=== PATIENT | male | born 1930 | race Caucasian/White ===

== ENCOUNTER 2016-10-12 14:12 | Emergency (ER) | payer MEDICARE, BC ==
[2015-06-12 18:36] VITALS: BMI 25.1
[~2016-10-12 14:12] MED LIST: CATAPRES0.1 MG; FERROUS SULFAT325 MG PO; FLOMAX0.4 MG PO; FOLIC ACID1 MG PO; GABAPENTIN100 MG PO; HCTZ25 MG PO; HYZAAR 50-12.51 TAB PO; IMDUR30 MG PO; LANTUS SOL100 UNIT/1 SQ; LISINOPRIL5 MG PO; MINIPRIN81 MG PO; NIASPAN500 MG PO; PLAVIX75 MG PO; PRAVACHOL80 MG PO; PROCARDIA10 MG; TOPROL XL100 MG PO; TRADJENTA5 MG PO
[2016-10-12 15:01] LABS: BASOPHILS 0.2 % (0.0-2.0); EOSINOPHILS 2.2 % (0-7); HEMOGLOBIN 11.8 g/dL (13.5-17.5); IMMATURE GRANULOCYTES 0.3 % (0-5); LYMPHOCYTES 13.6 % (15-50); MCH 27.8 pg (26.0-34.0); MCHC 31.9 g/dL (31.0-37.0); MCV 87.1 fL (80.0-100.0); MEAN PLATELET VOLUME 9.5 fL (7.4-10.4); MONOCYTES 6.2 % (2-11); NEUTROPHILS 77.5 % (40-80); PLATELET COUNT 195 10x3/uL (130-400); RBC 4.25 10x6/uL (4.20-6.10); RDW 13.6 % (11.5-14.5); WBC 11.9 10x3/uL (4.8-10.8)
[2016-10-12 15:28] LABS: ALBUMIN 3.6 g/dL (3.4-5.0); ALKALINE PHOSPHATASE 100 U/L (46-116); ALT (SGPT) 14 U/L (10-68); CALCIUM 8.7 mg/dL (8.5-10.1); CHLORIDE - SERUM 100 mmol/L (98-107); CREATININE - SERUM 1.3 mg/dL (0.6-1.3); POTASSIUM - SERUM 3.3 mmol/L (3.5-5.1); PROTEIN - SERUM 7.1 g/dL (6.4-8.2); SODIUM 140 mmol/L (136-145); UREA NITROGEN 21 mg/dL (7-18); eGFR NON AFRICAN AMERICAN 56 mL/min (90-120)
[2016-10-12 15:31] LABS: CREATINE KINASE 80 UL (21-232)
[2016-10-12 15:33] LABS: CALC OSMOLALITY 282 mosm/kg (275-300); GLUCOSE 116 mg/dL (74-106); TROPONIN-I < 0.017 ng/mL (0.000-0.060)
== END 2016-10-12 17:41 | disposition home or self-care (01) ==
LOC: D.ER 14:12
PROVIDERS: Emergency Medicine
DX: J20.9 Acute bronchitis, unspecified (principal); E11.9 Type 2 diabetes mellitus without complications; Z79.4 Long term (current) use of insulin; I10 Essential (primary) hypertension; I49.3 Ventricular premature depolarization; I45.10 Unspecified right bundle-branch block

== ENCOUNTER 2016-11-13 13:18 | Inpatient (IN) | payer MEDICARE, BC ==
[~2016-11-13] VITALS: Ht 182.9 cm; Wt 90.7 kg
[2016-11-13] VITALS (8 sets, daily range): BP systolic 133–158; BP diastolic 79–93; BMI 30.6
--- NOTE | ~2016-11-13 | HEMODYNAMI ---
PATIENT:REBEKAH JAMIL MEDICAL RECORD: [id number] : 32 LOCATION:[facility] ADMISSION DATE: 11/13/16 Generatedon:11/13/201616:54 Patient name: REBEKAH JAMIL Patient #: [id number] SSN: : 1930 Date of study: 11/13/2016 Page: Of Hemodynamic Procedure Report Patient Data Patient Demographics Procedure consent was obtained First Name: REBEKAH Gender: Male Last Name: OLULOU : 1930 Patient #: [id number] Age: 86 year(s) Race: Additional ID: [id number] Contact details Address: [address] [place] [address] State: [place] City: [place] Zip code: [address] Past Medical History History of disease Date Diagnosis Comments CAD Allergies Allergen Reaction Date Comments Reported Other allergy 06/13/2015 Oxycodone Other allergy 11/13/2016 OXYCODONE Admission Admission Data Admission Date: 11/13/2016 Admission Time: 13:18 Lab Results Lab Result Date: 11/13/2016 Lab Result Time: 0:00 Biochemistry Name Units Result Min Max BUN mg/dl 29 --(----)-* 7 18 Creatinine mg/dl 1.6 --(----)-* 0.6 1.3 Troponin l ng/ml 0.09 --(----)-* 0 0.06 CBC Name Units Result Min Max Hemoglobin g/dl 13.1 -*(----)-- 13.5 17.5 Procedure Procedure Types Cath Procedure Diagnostic Procedure LHC Coronaries only Aortic Root Angiography PCI Procedure Coronary Stent Initial Procedure Description Procedure Date Procedure Date: 11/13/2016 Procedure Start Time: 16:12 Procedure End Time: 16:48 Procedure Staff Name Function Joe Weinstein MD Performing Physician Rey Haley RT Scrub Ronla العراقي RN Nurse [place] RT Monitor Procedure Data Cath Procedure Fluoroscopy Diagnostic fluoroscopy Total fluoroscopy Time: time: 11.2 min 11.2 min Diagnostic fluoroscopy Total fluoroscopy dose: dose: 1183 mGy 1183 mGy Contrast Material Contrast Material Type Amount (ml) Isovue 300 180 Entry Location Entry Primary Successful Side Size Upsize Upsize Entry Closure Succes sful Closure Location (Fr) 1 (Fr) 2 (Fr) Remarks Device Remarks Femoral Right 6 Fr Exoseal artery Short Diagnostic catheters Device Type Used For End Catheter Placement Cordis 5Fr JL 4.0 Left Coronary Catheter (MP) Angiography Diagnostic Infinity 5Fr Left Coronary JL 5 catheter Angiography Cordis 5Fr 3DRC Catheter Right Coronary (MP) Angiography Cordis 5Fr Pigtail LV Angiography Catheter (MP) Procedure Complications No complications Procedure Medications Medication Administration Route Dosage Oxygen NC 2 l/min Lidocaine 2% added to field 20 Heparin Flush Bag added to field 2 bags (1000units/500ml NS) 0.9% NaCl I.V. 100 ml/hr Versed I.V. 1 mg Fentanyl I.V. 50 mcg Versed I.V. 1 mg Fentanyl I.V. 50 mcg Fentanyl I.V. 50 mcg Heparin Bolus I.V. 8000 units Plavix P.O. 300 mg Hemodynamics Rest HGB: 13.1 (g/dl) Heart Rate: 86 (bpm) Snapshots Pre Cath Intra NCS Post Cath Vital Signs Time Heart Resp SPO2 etCO2 EH2usoq NIBP (mmHg) Rhythm Pain Status Se dation Rate (ipm) (%) (mmHg) (mmHg) Level (bpm) 16:06:44 81 19 99 0 0 142/83(113) NSR 2 (11) , 10 (A) Uncomfortable 16:10:58 83 17 98 0 0 136/85(107) NSR 2 (11) , 10 (A) Uncomfortable 16:16:19 77 17 97 0 0 132/75(103) NSR 0 (11) , No 10 (A) pain 16:20:33 79 16 95 0 0 142/79(110) NSR 0 (11) , No 10 (A) pain 16:24:49 79 15 97 0 0 134/76(109) NSR 0 (11) , No 9( A) pain 16:29:05 80 16 98 0 0 133/79(111) NSR 0 (11) , No 9( A) pain 16:33:21 76 15 98 0 0 136/75(106) NSR 0 (11) , No 9( A) pain 16:37:39 78 16 97 0 0 127/74(101) NSR 0 (11) , No 9( A) pain 16:41:53 79 18 99 0 0 125/73(99) NSR 0 (11) , No 9( A) pain 16:46:07 87 17 99 0 0 129/71(104) NSR 0 (11) , No 10 (A) pain Medications Time Medication Route Dose Verified Delivered Reason Notes Effectiveness by by 16:06:35 Oxygen NC 2 Joe Buffie used for l/min Vazquez العراقي RN procedure 16:06:41 Lidocaine 2% added 20ml Joe Joe for local to vial Vazquez Weinstein MD anesthetic field 16:06:47 Heparin Flush added 2 Joe Joe used for Bag to bags Vazquez Weinstein MD procedure (1000units/500ml field NS) 16:06:55 0.9% NaCl I.V. 100 Joe Buffie Per physician ml/hr Vazquez العراقي RN 16:11:00 Fentanyl I.V. 50 Joe Buffie for sedation mcg Vazquez العراقي RN 16:11:54 Versed I.V. 1 mg Joe Buffie for sedation Vazquez العراقي RN 16:18:12 Versed I.V. 1 mg Joe Buffie for sedation Vazquez العراقي RN 16:18:16 Fentanyl I.V. 50 Joe Buffie for sedation mcg Vazquez العراقي RN 16:33:22 Fentanyl I.V. 50 Joe Buffie for sedation mcg Vazquez العراقي RN 16:35:53 Heparin Bolus I.V. 8,000 Joe Buffie for verifi ed units Vazquez العراقي RN anticoagulation with dr weinstein 16:53:10 Plavix P.O. 300 Joe Buffie for mg Vazquez العراقي RN antiplatelet therapy Procedure Log Time Note 15:47:10 ACC Patient presents with STEMI CCS Anginal Class 3--Marked limitation of physical activity, angina occurs with ordinary activity.. 15:47:15 Diagnostic Cath status Emergency 15:47:17 Ronal العراقي RN sent for patient. Start room use. 15:47:20 Time tracking: Call back 15:47:24 Plan of Care:Hemodynamics will remain stable., Cardiac rhythm will remain stable., Comfort level will be maintained., Respiratory function will remain adequate., Patient/ family verbilizes understanding of procedure., Procedure tolerated without complication., Recovers from procedure without complications.. 16:05:36 Patient received from ED to CCL 1 Alert and oriented. Tansferred to table in Supine position. 16:05:37 Warm blankets applied, and sanya hugger turned on for patient comfort. 16:05:37 Correct patient and procedure confirmed by team. 16:05:38 Signed procedure consent form obtained from patient. 16:05:39 ECG and BP/O2 sat monitors applied to patient. 16:05:40 Baseline sample Acquired. 16:05:40 Vital chart was started 16:05:54 Rhythm: sinus rhythm 16:05:56 Full Disclosure recording started 16:06:04 H&P Date Dictated: 11/13/2016 Emergent; H&P N/A. 16:06:05 Pre-procedure instructions explained to patient. 16:06:06 Pre-op teaching completed and patient verbalized understanding. 16:06:07 Family in waiting room. 16:06:09 Patient NPO since Midnight. 16:06:35 Oxygen 2 l/min NC was administered by Ronal العراقي RN; used for procedure; 16:06:41 Lidocaine 2% 20ml vial added to field was administered by Joe Weinstein MD; for local anesthetic; 16:06:47 Heparin Flush Bag (1000units/500ml NS) 2 bags added to field was administered by Joe Weinstein MD; used for procedure; 16:06:55 0.9% NaCl 100 ml/hr I.V. was administered by Ronal العراقي RN; Per physician; 16:07:02 Patient allergic to Other allergyOXYCODONE 16:07:04 Is the patient allergic to Iodine/contrast media? No. 16:07:08 Is patient on blood thinner?Yes 16:07:11 ACC The patient was administered the following blood thiners within the last 24 hours: ACCAspirin, ACCPlavix 16:07:13 Patient diabetic? Yes. 16:07:15 If diabetic: On Metformin? No 16:07:16 ----Pre-sedation anethsthesia assessment.---- 16:07:19 Previous problem with sedation/anesthesia? No ? 16:07:20 Snore? No 16:07:22 Sleep apnea? No 16:07:24 Deviated septum? No 16:07:25 Opens mouth fully? Yes 16:07:27 Sticks out tongue? Yes 16:07:33 Airway obstruction? Yes EMPYZEMIA 16:07:38 Dentures? Yes UPPER IN TIGHT 16:07:42 Pre procedure: right dorsailis pedis pulse 1+ Palpable, but thready & weak; easily obliterated 16:07:46 Patient pain scale 2/10 CP. 16:07:52 IV patent on arrival in right forearm with 0.9% NaCl at 10ml/hr. 16:09:51 Lab Result : Creatinine 1.6 mg/dl 16::51 Lab Result : BUN 29 mg/dl 16:09:51 Lab Result : Troponin l 0.09 ng/ml 16:09:51 Lab Result : Hemoglobin 13.1 g/dl 16:09:55 Lab results completed and on chart. 16:09:58 Right groin area was prepped with chlora-prep and draped in sterile fashion 16:09:59 Alarms reviewed by R. N. 16:09:59 Sharps counted by scrub and verified by R.N. 16:10:00 --------ALL STOP TIME OUT------ 16:10:01 Final Timeout: patient, procedure, and site verified with staff and physician. All members of the team are in agreement. 16:10:02 Right groin site verified by team. 16:10:05 Physical assessment completed. ASA score P 2 - A patient with mild systemic disease as per Joe Weinstein MD. 16:10:09 Sedation plan: IV Moderate Sedation Versed, Fentanyl 16:10:26 Use device set Femoral PCI 16:10:28 Acist Syringe opened to sterile field. 16:10:28 Acist Hand Control opened to sterile field. 16:10:28 Bag Decanter opened to sterile field. 16:10:29 Medline Cath Pack opened to sterile field. 16:10:29 Terumo 6Fr Jolon Sheath opened to sterile field. 16:10:30 St Pan 260cm J .035 wire opened to sterile field. 16:10:30 Merit BasixCompak Inflation Kit opened to sterile field. 16:10:31 Acist Manifold opened to sterile field. 16:10:31 Tegaderm 4 x 4 opened to sterile field. 16:10:45 Sanchez BMW [place] 2 J-tip 300cm 0.014 guide wir opened to sterile field. 16:10:45 High Pressure Extension Tubing (Vazquez) opened to sterile field. 16:10:51 Use device set Multipack Set 16:10:53 Diagnostic Infinity 5Fr Multipack catheter opened to sterile field. 16:11:00 Fentanyl 50 mcg I.V. was administered by Ronal العراقي RN; for sedation; 16:11:06 Procedure started. 16:11:54 Versed 1 mg I.V. was administered by Ronal العراقي RN; for sedation; 16:12:36 Local anesthetic to right femoral artery with Lidocaine 2% by Joe Weinstein MD.INITIAL ACCESS ONLY 16:12:46 A 6 Fr Short sheath was inserted into the Right Femoral artery 16:13:01 Zero performed for pressure channel P1 16:13:10 Zero performed for pressure channel P1 16:14:14 Baseline sample Acquired. 16:14:59 A Cordis 5Fr JL 4.0 Catheter (MP) was advanced over the wire and used for Left Coronary Angiography. 16:15:01 Catheter removed. unable to cannulate vessel. 16:15:18 A Diagnostic Infinity 5Fr JL 5 catheter was advanced over the wire and used for Left Coronary Angiography. 16:17:58 LCA angiography performed. 16:18:00 Catheter removed. 16:18:06 A Cordis 5Fr 3DRC Catheter (MP) was advanced over the wire and used for Right Coronary Angiography. 16:18:12 Versed 1 mg I.V. was administered by Ronal العراقي RN; for sedation; 16:18:16 Fentanyl 50 mcg I.V. was administered by Ronal العراقي RN; for sedation; 16:21:53 RCA angiography performed. 16:21:54 Catheter removed. 16:22:00 A Cordis 5Fr Pigtail Catheter (MP) was advanced over the wire and used for LV Angiography. 16:24:46 Aortic Root visualized 16:24:57 Procedure type changed to Cath procedure, Diagnostic procedure, LHC, Coronaries only, Aortic Root Angiography, PCI procedure, Coronary Stent Initial 16:27:18 Catheter removed. 16:27:27 kidthingtronic Launcher 6Fr AR 1.0 guide catheter opened to sterile field. 16:28:00 ACC PCI Site: PDA has 99% stenosis. 16:28:04 ACC Pre-intervention DIANN Flow is 3. 16:28:09 6 Fr AR 1 guide catheter was inserted over the wire 16:31:45 Guide Catheter removed. damaged. 16:32:25 Terumo 6Fr Jolon Destination Sheath opened to sterile field. 16:33:22 Fentanyl 50 mcg I.V. was administered by Ronal العراقي RN; for sedation; 16:34:02 Medtronic Launcher 6Fr AR 1.0 guide catheter opened to sterile field. 16:34:08 6 Fr AR 1 guide catheter was inserted over the wire 16:35:53 Heparin Bolus 8,000 units I.V. was administered by Ronal العراقي RN; for anticoagulation; verified with dr weinstein 16:37:57 BMW2 wire advanced. 16:43:38 Inflation Number: 1 A kidthingtronic Integrity 3.5 X 15 stent was prepped and advanced across the Mid RCA. The stent was deployed at 10 SHEILA for 0:13 (min:sec). 16:44:37 ACC Post-intervention DIANN Flow is 3. 16:44:38 Stent catheter was removed intact over wire. 16:44:39 Wire removed. 16:44:39 Guide catheter removed. 16:44:46 Sheath removed intact; hemostasis achieved with Exoseal to the Right Femoral artery. 16:44:54 Cordis 6Fr Exoseal opened to sterile field. 16:44:56 Procedure ended.(Physican Out) 16:45:06 Fluoroscopy time 11.20 minutes. 16:45:12 Fluoroscopy dose: 1183 mGy 16:45:12 Flurop Dose total: 1183 16:46:01 Contrast amount:Isovue 300 180ml. 16:46:23 Sharps counted by scrub and verified by R.N. 16:46:24 Insertion/operative site no bleeding no hematoma. 16:46:26 Post-op/insertion site Right Femoral artery dressed using a 4 x 4 and Tegaderm. 16:46:30 Post right femoral artery:stable 16:46:32 Post Procedure Pulses reassessed and unchanged 16:46:35 Post procedure: right dorsailis pedis pulse 1+ Palpable, but thready & weak; easily obliterated. 16:46:38 Post procedure rhythm: sinus rhythm 16:46:41 Post procedure instruction explained to patient.Patient verbalizes understanding. 16:47:37 Procedure and supply charges have been captured, reviewed, submitted and are correct. 16:47:55 Procedure Complication : No complications 16:47:58 Vital chart was stopped 16:47:58 See physician's report for complete and final results. 16:48:00 Report given to CVICU. 16:48:03 Patient transfered to CVICU with Bed. 16:48:06 Procedure ended. 16:48:06 Full Disclosure recording stopped 16:48:12 End room use (Document Last) 16:53:10 Plavix 300 mg P.O. was administered by Ronal العراقي RN; for antiplatelet therapy; Intervention Summary Intervention Notes Time ActionType Lesion and Equipment Action# Pressure Duration Attributes Used 16:43:38 Place stent Mid RCA Medtronic 1 10 00:13 Integrity 3.5 X 15 stent Device Usage Item Name Manufacture Quantity Catalog Hospital Part Current Minimal L ot# / Number Charge Number Stock Stock Serial# Code Acist Acist 1 02455 890822 253318 191008 20 Syringe Medical Systems Inc Acist Hand Acist 1 20493 662290 051526 057185 5 Control Medical Systems Inc Bag Microtek 1 2002S 333039 25427 337974 5 [employer]un [employer] Inc. Medline Cardinal 1 [id number] 333946 70491 882142 5 Cath Pack BigFix Terumo 6Fr Terumo 1 [id number] 226108 545867 420006 [address] Pan St Pan 1 497122 897712 602376 139480 30 260cm J .035 wire Merit Merit 1 [id number] 129953 127494 670031 15 BasixCompak Medical Inflation Kit Acist Acist 1 38857 104007 224376 565964 5 Manifold Medical Systems Inc Tegaderm 4 3M 1 1626W 310484 200609 131236 5 x 4 Sanchez BMW Sanchez 1 [id number] 584938 881467 212801 5 [place] 2 Vascular J-tip 300cm 0.014 guide wir High Merit 1 [id number] 269962 87237 365581 10 Pressure Medical Extension Tubing (Weinstein) Diagnostic Cardinal 1 OU1265 913624 11800 003222 30 Qritiqr 5Fr Multipack catheter Cordis 5Fr Cardinal 1 324426 5 JL 4.0 Health Catheter (MP) Diagnostic Cardinal 1 [id number] 289021 566238 954973 5 Infinity Health 5Fr JL 5 catheter Cordis 5Fr Cardinal 1 734409 5 3DRC Health Catheter (MP) Cordis 5Fr Cardinal 1 557211 5 Pigtail Health Catheter (MP) Medtronic Medtronic 2 [id number] 443760 94780 070911 1 Launcher 6Fr AR 1.0 guide catheter Terumo 6Fr Terumo 1 RSR01 453838 76142 868616 5 Jolon Destination Sheath Medtronic Medtronic 1 [id number] 833588 077113 483728 1 0 [id number] Integrity 3.5 X 15 stent Cordis 6Fr Cardinal 1 EX600 105640 212584 451136 10 Prim’Visionpremier health BigFix Signature Audit [place] Stage Time Signature Unsigned Intra-Procedure 11/13/2016 Rey Haley 4:54:14 PM RT(R) Signatures Monitor : [place] Signature : RT Date : Time : [facility] Deepa0 LONNIE EGAN, VIVIAN [address]
--- NOTE | ~2016-11-13 | OP ---
PATIENT NAME: REBEKAH JAMIL MEDICAL RECORD: [id number] :[birth year] LOCATION:.[facility] D.2305 ADMISSION DATE: SURGEON: REYES HUGO M.D. DATE OF OPERATION: 11/13/2016 PROCEDURES PERFORMED: 1. Selective coronary angiography. 2. Aortic root injection. 3. PTCA and stent placed right coronary artery. INDICATION: An 86-year-old gentleman presents with acute inferior wall ND. EQUIPMENT USED: Diagnostic 5-Moroccan JL5, Emanuel right. INTERVENTION: A 6-Moroccan AR1 guide, BMW guidewire, 3.5 x 15 mm Integrity stent. TECHNIQUE: A 6-Moroccan sheath was inserted in retrograde fashion in the right common femoral artery. Next, selective coronary angiography was performed in standard 5-Moroccan JL5 and Emanuel right. Left heart catheterization was not performed as the valve could not be crossed. Aortic root injection performed using pigtail catheter. CORONARY ANATOMY: 1. Left main: Left main trunk is moderate in caliber. It gives rise to the LAD and circumflex. There is no obstruction. 2. LAD: This is a moderate caliber vessel extending to the apex. All the stents are widely patent. Between the stents in the mid segment, there does appear to be a 70% stenosis in between 2 stents in the distal aspect of the vessel. 3. Circumflex: This is moderate in caliber. The proximal vessel has been stented. The stents are widely patent. 4. Right coronary artery: This vessel is large in caliber and dominant. The mid vessel has been stented. Inside the stent, there appears to be a hazy and ulcerated 90% stenosis versus thrombus. 5. Aortic root: The ascending aorta is upper limits of normal size. There is mild insufficiency seen. The aortic valve leaflets are moderately calcified. DESCRIPTION OF INTERVENTION: A long 6-Moroccan sheath was placed into the distal aorta because of tortuous in the right iliac artery. Next, 8000 units of heparin was infused. A 6-Moroccan AR1 guide was advanced and engaged in the right coronary artery. Next, a BMW guide wire was placed in the distal vessel. A 3.5 x 15 mm Integrity stent was placed across the stenosis in the mid right coronary artery and deployed at 10 atmospheres. Injection shows stent to be widely patent with 0% residual stenosis. The hazy area resolved after stenting. There is brisk flow the distal vessel. At this point, the wire and guide were removed. IMPRESSION: Successful percutaneous transluminal coronary angioplasty and stent in the right coronary artery with 0% residual stenosis. TRANSINT:[id number] Voice Confirmation ID: [id number] DOCUMENT ID: [id number] OPERATIVE REPORT [id number] REBEKAH JAMIL TIMOTHY E M.D. CC: [id number] DICTATION DATE: 11/13/16 165 CONTROL SUPERVISOR: 11/13/16 1752 [facility] [address] [place] [id number]
--- NOTE | ~2016-11-13 | EC ---
PATIENT:REBEKAH JAMIL DATE OF SERVICE: 11/13/16 SEX: M MEDICAL RECORD: [id number] DATE OF : [birth year] LOCATION:D. D.211 AGE OF PATIENT: 86 ADMISSION DATE: 11/13/16 REFERRING PHYSICIAN: INTERPRETING PHYSICIAN: REYES SHUKLA M.D. ECHOCARDIOGRAM REPORT ECHO CHARGES 4 ECHO COMPLETE CLINICAL DIAGNOSIS: ACUTE VA ECHOCARDIOGRAPHIC MEASUREMENTS (adult normal given) AC root (d.<3.7cm) 3.7 LV Septum d (<1.2 cm> 1.5 Valve Excursion 0.8 LV Septum (systole) 2.0 Left Atria (s.<4.0cm> 3.3 LVPW d(<1.2cm) 1.4 RV (d.<2.3cm) 2.6 LVPW (sytole) 1.7 LV diastole(<5.6CM) 6.7 MV E-F(>70mm/sec) LV systole 4.9 LVOT Diameter 1.8 MV exc.(>10mm) Est.ejection fraction (50-75%) Pericardial Effusion N DOPPLER: LVIT A 143 E 108 LA RVSP 43.2 LVOT 96.0 AOP1/2T 458.0 Asc. Ao 294 RVOT 75.0 RA PA 141 AV Gradient Peak 35.0 AV Mean 19.4 AV Area 0.7 MV Gradient Peak 7.7 MV Mean 3.2 MV Area COMMENTS: Supervisor Water Softener Service: Sunday MCARTHUROE Deck Officer:Kimo Shukla TAPE# PACS DATE OF SERVICE: 11/14/2016 INDICATION: Acute VA. DESCRIPTION: Left ventricle is mildly dilated. There is mild LV dysfunction noted. Estimated ejection fraction is in the order of 40%. Mitral valve structures are normal. There is mild regurgitation seen. Left atrium is normal size. The aortic valve leaflets are thickened. Peak gradient across the valve is 35 mmHg. Mean is 19 mmHg. There is mild insufficiency noted as well. Right ventricle is normal size and function. Tricuspid valve is structurally normal. ECHOCARDIOGRAM REPORT [id number] REBEKAH JAMIL There is mild regurgitation noted. Right atrium is normal size. There is no pericardial effusion seen. IMPRESSION: 1. 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 2. Moderate mitral regurgitation. 3. Rwxs-gx-beevnynq aortic stenosis. 4. Mild tricuspid regurgitation. TRANSINT:[id number] Voice Confirmation ID: [id number] DOCUMENT ID: [id number] REYES SHUKLA M.D. CC: [id number] DICTATION DATE: 11/14/16 1329 WOODWORKING BELT SANDER: 11/14/16 1451 ADM IN [facility] [address] [id number]
[2016-11-13 13:54] LABS: BASOPHILS 0.2 % (0.0-2.0); EOSINOPHILS 1.1 % (0-7); HEMATOCRIT 41.6 % (42.0-54.0); HEMOGLOBIN 13.1 g/dL (13.5-17.5); IMMATURE GRANULOCYTES 0.5 % (0-5); LYMPHOCYTES 12.5 % (15-50); MCH 27.5 pg (26.0-34.0); MCHC 31.5 g/dL (31.0-37.0); MCV 87.4 fL (80.0-100.0); MEAN PLATELET VOLUME 9.5 fL (7.4-10.4); MONOCYTES 5.7 % (2-11); RBC 4.76 10x6/uL (4.20-6.10); RDW 14.2 % (11.5-14.5); WBC 12.2 10x3/uL (4.8-10.8)
[2016-11-13 14:00] LABS: PLATELET COUNT 236 10x3/uL (130-400)
[2016-11-13 14:04] LABS: APTT 34.7 SECONDS (22.8-39.4); INR 1.13 (0.85-1.17); PROTIME 14.3 SECONDS (11.6-15.0)
[2016-11-13 14:05] LABS: D-DIMER-QUANTITATIVE 1.96 ug/mLFEU (0.20-0.54)
[2016-11-13 14:25] LABS: ALBUMIN 3.8 g/dL (3.4-5.0); ALKALINE PHOSPHATASE 107 U/L (46-116); ALT (SGPT) 26 U/L (10-68); BILIRUBIN - TOTAL 0.44 mg/dL (0.2-1.3); CALCIUM 9.2 mg/dL (8.5-10.1); CARBON DIOXIDE 24.8 mmol/L (21.0-32.0); CHLORIDE - SERUM 101 mmol/L (98-107); CKMB 2.4 U/L (0.0-3.6); CREATINE KINASE 66 UL (21-232); POTASSIUM - SERUM 3.9 mmol/L (3.5-5.1); PROTEIN - SERUM 8.1 g/dL (6.4-8.2); SODIUM 140 mmol/L (136-145); UREA NITROGEN 29 mg/dL (7-18)
[2016-11-13 14:54] LABS: CALC OSMOLALITY 288 mosm/kg (275-300); CHOL - HDL RATIO 4.3 ratio (2.3-4.9); CHOLESTEROL, TOTAL 120 mg/dL (0-200); CREATININE - SERUM 1.6 mg/dL (0.6-1.3); GLUCOSE 167 mg/dL (74-106); HDL CHOLESTEROL 28 mg/dL (32-96); LDL CHOLESTEROL 52 mg/dL (0-100); LDL-HDL RATIO 1.9 ratio (1.5-3.5); TRIGLYCERIDE 202 mg/dL (30-200); eGFR NON AFRICAN AMERICAN 44 mL/min (90-120)
--- NOTE | 2016-11-13 17:20 | NUR ---
REC'D FROM SERIALS LIBRARIAN AND HOOKED UP TO CM. NS WITH PAC'S RATE OF 77. INSTRUCTED TO KEEP RIGHT LEG STRAIGHT. VERBALLY EXPRESSED UNDERSTANDING. ON 2L 02 VIA NC. RIGHT WRIST PIV. CD&I. NO S/S OF INFILTRATION. RIGHT GROIN SERIALS LIBRARIAN SITE. CD&I NO S/S OF BLEEDING OR HEMATOM. CPOC.
[2016-11-13] MEDS ORDERED: NIFEDIPINE ER60 MG PO (17:38)
[2016-11-13] MEDS ORDERED: FUROSEMIDE20 MG PO (17:39)
[2016-11-13] MEDS ORDERED: LANTUS SOL100 UNIT/1 SC ×2 (17:39→21:19)
[2016-11-13] MEDS ORDERED: KLOR-CON 88 MEQ PO (17:40)
--- NOTE | 2016-11-13 18:10 | NUR ---
NO BLEEDING AT PARTY PLANNER SITE
--- NOTE | 2016-11-13 19:30 | NUR ---
REC'D PT RESTING QUIETLY IN BED ON O2 @ 2LITERS WATCHING TV, HEARING AID NOTED TO LEFT EAR, PT AWAKE, ALERT, AND ORIENTED X 4, RIGHT FOREARM PIV WITH NS @ 100CC/HR, PT DENIES PAIN, CM-SR WITH PVC'S, RIGHT GROIN DRSG CDI WITH NO BLEEDING OR HEMATOMA, PPP, SR UP X 2, BED IN LOW POSITION, CALLL LIGHT IN REACH.
--- NOTE | 2016-11-13 20:45 | NUR ---
PT CALLED NURSE BLOOD NOTED ON HAND, STATES "I THINK I AM BLEEDING", RIGHT GROIN DRSG SATURATED WITH BLOODY DRAINAGE, SITE UNDRESSED AND PRESSURE HELD X 5MINS, SLOW OOZE NOTED FROM SITE, CHOLRAHEXIDINE WIPES USED TO CLEAN LEG, 2X2'S AND TEGADERM APPLIED, NO FURTHER BLEEDING NOTED, WILL MONITOR CLOSELY FOR CHANGES.
--- NOTE | 2016-11-13 21:05 | NUR ---
FAMILY @ BS, UPDATE GIVEN, RIGHT GROIN DRSG REMAINS CDI, PT ASKING ABOUT WHEN HE CAN MOVE, BEDREST OVER NOW, BUT PT ENCOURAGED TO KEEP LEG STRAIGHT FOR A LITTLE LONGER, PT AGREEABLE, CALL LIGHT IN REACH.
--- NOTE | 2016-11-13 21:15 | NUR ---
EVENING MEDS GIVEN, PT INQUIRING ABOUT EVENING INSULIN, MEDICATION RECONCILLIATION CHECKED, NO INSULIN ON THERE ADDED AT THIS TIME
--- NOTE | 2016-11-13 22:15 | NUR ---
PT ASSISTED TO TURN ONTO LEFT SIDE SUPPORTED WITH PILLOW, RIGHT GROIN DRSG REMAINS CDI, NO FURTHER BLEEDING NOTED.
--- NOTE | 2016-11-13 23:00 | NUR ---
PT TRANSFERRED TO ICU BED, PT ABLE TO STAND AT BS, GAIT STEADY, TOLERATED WELL, RIGHT GROIN DRSG CDI, SITE REMAINS SOFT, PT REQUESTING URINAL PROVIDED AT THIS TIME, CALL LIGHT IN REACH.
[2016-11-14] VITALS (15 sets, daily range): BP systolic 128–188; BP diastolic 79–111; Ht 182.9 cm; Wt 90.7 kg
--- NOTE | 2016-11-14 01:00 | NUR ---
PT RESTING ON LEFT SIDE EYES CLOSED, RESP EVEN AND UNLABORED, CM-SB @ 55 WITH OCCASIONAL PVC'S WILL CONT TO MONITOR CLOSELY FOR CHANGES.
--- NOTE | 2016-11-14 03:00 | NUR ---
BS URINAL EMPTIED OF 50OCC YELLOW URINE, PT REPORTS RIGHT GROIN TENDER, DRSG REMAINS CDI, NO BLEEDING OR HEMATOMA NOTED, PT DENIES NEEDS, SR UP X 2, CALL LIGHT IN REACH.
--- NOTE | 2016-11-14 04:45 | NUR ---
I AND O'S COMPLETED, PT RESTING EYES CLOSED, RESP EVEN AND UNLABORED, HR 65, WILL CONT TO MONITOR FOR CHANGES.
--- NOTE | 2016-11-14 06:00 | NUR ---
SON AT BS, UPDATE GIVEN AND QUESTIONS ANSWERED.
--- NOTE | 2016-11-14 07:00 | NUR ---
REPORT RECEIVED. ASSESSMENT COMPLETED. PATIENT DENIES NEEDS AT THIS TIME.
--- NOTE | 2016-11-14 13:05 | NUR ---
Patient Name: REBEKAH JAMIL Admission Status: ER Accout number: [id number] Admission Date: 11-13-2016 : 1930 Admission Diagnosis: Attending: JOSE Current LOS: 1 Anticipated DC Date: TO BE DETERMINED Planned Disposition: Home with Home Health Primary Insurance: MEDICARE A & B PLANNED EXTERNAL PROVIDER: [facility] Discharge Planning Comments: * Is the patient Alert and Oriented? Yes 0 * How many steps to enter\exit or inside your home? RAMP 0 * PCP DR. KRISHNAMURTHY 0 * [facility] [place] 0 * Preadmission Environment Home Alone 0 * ADLs Independent 0 * Equipment Cane Walker 0 * Other Equipment [facility] -MEDICAL EQUIPMENT PROVIDER PREFERENCE 0 * List name and contact numbers for known caregivers / representatives who currently or will assist patient after discharge: NIKOLE AND JEFFRY JAMIL, SON AND DTR IN LAW, * Community resources currently utilized None 0 * Please name any agencies selected above. NONE 0 * Additional services required to return to the preadmission environment? Yes * Can the patient safely return to the preadmission environment? Yes 0 * Has this patient been hospitalized within the prior 30 days at any hospital? No 0 CM MET WITH PT IN ROOM TO DISCUSS DISCHARGE PLANNING AND NEEDS. PT REPORTS LIVING AT HOME INDEPENDENTLY AND ALONE. PT HAS THREE WALKERS AND A CANE AT HOME, [facility] IS PT'S MEDICAL EQUIPMENT PROVIDER PREFERENCE. PT HAS NO OUTSIDE SERVICES ASSISTING IN THE HOME. CM DISCUSSED AVAILABILITY OF HOME HEALTH, REHAB SERVICES AND MEDICAL EQUIPMENT. PT WILL CONSIDER HOME HEALTH BUT PLANS TO RETURN HOME AT DISCHARGE; PT REPROTS HAVING A NEPHEW OR NEICE THAT MAY STAY WITH HIM IF NEEDED AND REPORTS HAVING ASSISTANCE OF HIS SON AND DAUGHTER IN LAW IF NEEDED. PT REPORTS HIS DAUGHTER IN LAW WILL PICK HIM UP FOR DISCHARGE HOME. IMPORTANT MESSAGE FROM MEDICARE PROVIDED AND EXPLAINED. CM RECEIVED CALL FROM RN ROSAMARIA BOURNE WHO REPORTED SPEAKING TO PT AND PT'S DAUGHTER IN LAW IN ROOM, THEY HAVE DECIDED ON [facility] FOR PT'S DISCHARGE HOME. CHOICE SIGNED AND IN CHART. PT REQUESTING HOME HEALTH FOR DISCHARGE HOME. CM TO ARRANGE HOME HEALTH WITH [facility] WITH PHYSICIAN AGREEMENT AND ORDERS. Direct Marketing Intern: Tomi Snow
--- NOTE | 2016-11-14 13:10 | NUR ---
REPORT CALLED TO CRISTIAN ON MED 2. PATIENT WILL GO TO ROOM 2151 VIA WHEELCHAIR.
--- NOTE | 2016-11-14 14:16 | NUR ---
TRANSFER FROM ICU BY W/C. OREINTED TO ROOM. CALL LIGHT IN REACH. WILL CONT. PLAN OF CARE.
--- NOTE | 2016-11-14 19:15 | NUR ---
INITIAL ROUNDS MADE. PT SITTING UP IN BED WATCHING TV WITH FAMILY IN ROOM. DENIES NEEDS OR C/O AT THIS TIME. CALL LIGHT IN REACH. WILL CONT TO MONITOR.
[2016-11-15 04:00] VITALS: BP 118/73
[2016-11-15 07:47] VITALS: BP 151/86
--- NOTE | 2016-11-15 09:18 | NUR ---
TELEMETRY SR. UP AMBULATING HALLWAY WITH FAMILY MEMBER. WILL CONT. PLAN OF CARE.
[2016-11-15] MEDS ORDERED: COREG 3.1253.125 MG PO (09:24)
--- NOTE | 2016-11-15 09:50 | NUR ---
iv and telemetry dcd. dc plans given. understanding voiced. escorted to car by w/c.
== END 2016-11-15 09:51 | disposition home health service (06) | DRG 249 ==
LOC: D.CATH 13:18 → D.ER 13:18 → EDSTATUS 15:57 → D.ICU 17:16 → D.CATH 17:17 → D.ICU 17:17 → D.M2 11-14 14:12
PROVIDERS: Emergency Medicine; ADMIT Internal Medicine Cardiovascular Disease
PROC: B2111ZZ Fluoroscopy of Multiple Coronary Arteries using Low Osmolar Contrast (ICD-10-PCS; 2016-11-13)
PROC: 02703DZ Dilation of Coronary Artery, One Artery with Intraluminal Device, Percutaneous Approach (ICD-10-PCS; principal; 2016-11-13 15:47)
PROC: 4A023N7 Measurement of Cardiac Sampling and Pressure, Left Heart, Percutaneous Approach (ICD-10-PCS; 2016-11-13 15:47)
DX: I21.19 ST elevation (STEMI) myocardial infarction involving other coronary artery of inferior wall (principal); I25.10 Atherosclerotic heart disease of native coronary artery without angina pectoris; I10 Essential (primary) hypertension; E11.9 Type 2 diabetes mellitus without complications; E78.5 Hyperlipidemia, unspecified

== ENCOUNTER 2016-12-05 09:00 | Outpatient (CLI) | payer MEDICARE, BC ==
[~2016-12-05] VITALS: Ht 182.9 cm; Wt 93.2 kg
--- NOTE | ~2016-12-05 | HEMODYNAMI ---
PATIENT:REBEKAH JAMIL MEDICAL RECORD: [id number] : [birth year] LOCATION:[facility] ADMISSION DATE: 12/05/16 Generatedon:12/05/201612:58 Patient name: REBEKAH JAMIL Patient #: [id number] SSN: : 1930 Date of study: 12/05/2016 Page: Of Hemodynamic Procedure Report Patient Data Patient Demographics Procedure consent was obtained First Name: REBEKAH Gender: Male Last Name: LOULOU : 1930 Patient #: [id number] Age: 86 year(s) Race: Additional ID: [id number] Contact details Address: [address] [place] [address] State: [place] City: [place] Zip code: [address] Past Medical History History of disease Date Diagnosis Comments CAD Allergies Allergen Reaction Date Comments Reported Other allergy 06/13/2015 Oxycodone Other allergy 11/13/2016 OXYCODONE Admission Admission Data Admission Date: 12/05/2016 Admission Time: 9:00 Lab Results Lab Result Date: 12/05/2016 Lab Result Time: 9:20 Biochemistry Name Units Result Min Max BUN mg/dl 23 --(----)-* 7 18 Creatinine mg/dl 1.3 --(---*)-- 0.6 1.3 CBC Name Units Result Min Max Hematocrit % 40.8 -*(----)-- 42 54 Hemoglobin g/dl 13 -*(----)-- 13.5 17.5 Procedure Procedure Types Cath Procedure PCI Procedure Coronary Stent Initial Miscellaneous Procedures Moderate Sedation up to 15 minutes Procedure Description Procedure Date Procedure Date: 12/05/2016 Procedure Start Time: 12:46 Procedure End Time: 12:57 Procedure Staff Name Function Chidi Brumfield MD Performing Physician Azra Gonzalez RT Scrub Brennan Nascimento RN Nurse Wyatt Keita RT Monitor Procedure Data Cath Procedure Fluoroscopy Diagnostic fluoroscopy Total fluoroscopy Time: 1.8 time: 1.8 min min Diagnostic fluoroscopy Total fluoroscopy dose: dose: 174.85 mGy 174.85 mGy Contrast Material Contrast Material Type Amount (ml) Isovue 300 46 Entry Location Entry Primary Successful Side Size Upsize Upsize Entry Closure Daugherty ccessful Closure Location (Fr) 1 (Fr) 2 (Fr) Remarks Device Remarks Radial Right 6 Fr Mechanical artery Short Compression Estimated blood loss: 10 ml Procedure Complications No complications Procedure Medications Medication Administration Route Dosage Oxygen NC 2 l/min Heparin Flush Bag added to field 2 bags (1000units/500ml NS) 0.9% NaCl I.V. 100 ml/hr Radial Cocktail added to field 1 syringe (Verapomil 2mg/Nitro 400mcg/Heparin 1500units) Fentanyl I.V. 50 mcg Versed I.V. 1 mg Radial Cocktail I.A. 1 syringe (Verapomil 2mg/Nitro 400mcg/Heparin 1500units) Heparin Bolus I.V. 4000 units Hemodynamics Rest HGB: 13 (g/dl) Heart Rate: 56 (bpm) Snapshots Pre Cath Intra NCS Post Cath Vital Signs Time Heart Resp SPO2 NIBP (mmHg) Rhythm Pain Sedation Rate (ipm) (%) Status Level (bpm) 12:37:17 55 16 98 139/74(125) NSR 0 (11) 10(A) , No pain 12:41:33 55 17 97 130/79(117) NSR 0 (11) 10(A) , No pain 12:45:52 55 17 98 128/66(111) NSR 0 (11) 10(A) , No pain 12:50:51 57 17 97 Measuring NSR 0 (11) 9(A) , No pain 12:50:53 57 17 97 126/65(81) NSR 0 (11) 9(A) , No pain 12:55:33 55 19 97 124/66(101) NSR 0 (11) 9(A) , No pain Medications Time Medication Route Dose Verified Delivered Reason Note s Effectiveness by by 12:38:47 Oxygen NC 2 l/min Brennan Amin Per physician Azam Nascimento RN RN 12:39:00 Heparin Flush added 2 bags Brennan Amin used for Bag to Azam Nascimento RN procedure (1000units/500ml field RN NS) 12:39:10 0.9% NaCl I.V. 100 Brennan Amin Per physician ml/hr Azam Nascimento RN RN 12:39:19 Radial Cocktail added 1 Brennan Amin used for (Verapomil to syringe Azam Nascimento RN procedure 2mg/Nitro field RN 400mcg/Heparin 1500units) 12:45:27 Fentanyl I.V. 50 mcg Brennan Amin for sedation Azam Nascimento RN RN 12:45:43 Versed I.V. 1 mg Brennan Amin for sedation Azam Nascimento RN RN 12:46:23 Radial Cocktail I.A. 1 Brennan Amin for (Verapomil syringe Azam Nascimento RN vasodilation 2mg/Nitro RN 400mcg/Heparin 1500units) 12:47:00 Heparin Bolus I.V. 4000 Brennan Amin for units Azam Nascimento RN anticoagulation manager house Log Time Note 12:08:05 Brennan Nascimento RN sent for patient. Start room use. 12:13:06 Time tracking: Regular hours 12:13:09 Plan of Care:Hemodynamics will remain stable., Cardiac rhythm will remain stable., Comfort level will be maintained., Respiratory function will remain adequate., Patient/ family verbilizes understanding of procedure., Procedure tolerated without complication., Recovers from procedure without complications.. 12:23:55 Patient received from Pre/Post Procedure Room to [facility] 3 Alert and oriented. Tansferred to table in Supine position. 12:23:56 Warm blankets applied, and sanya hugger turned on for patient comfort. 12:23:56 Correct patient and procedure confirmed by team. 12:23:57 Signed procedure consent form obtained from patient. 12:23:58 ECG and BP/O2 sat monitors applied to patient. 12:23:59 Full Disclosure recording started 12:36:12 Vital chart was started 12:36:13 Baseline sample Acquired. 12:36:41 Rhythm: sinus rhythm 12:37:26 H&P Date Dictated: 12/01/2016 Within 30 days and on chart., H&P Addendum completed by physician on day of procedure. (MUST COMPLETE FOR ALL OUTPATIENTS). 12:37:26 Pre-procedure instructions explained to patient. 12:37:27 Pre-op teaching completed and patient verbalized understanding. 12:37:29 Family in waiting room. 12:37:30 Patient NPO since Midnight. 12:38:15 Is the patient allergic to Iodine/contrast media? No. 12:38:16 Is patient on blood thinner?Yes 12:38:18 ACC The patient was administered the following blood thiners within the last 24 hours: ACCAspirin, ACCPlavix 12:38:20 Patient diabetic? Yes. 12:38:20 If diabetic: On Metformin? No 12:38:23 Previous problem with sedation/anesthesia? No ? 12:38:23 Snore? Yes 12:38:27 Sleep apnea? No 12:38:28 Deviated septum? No 12:38:29 Opens mouth fully? Yes 12:38:30 Sticks out tongue? Yes 12:38:33 Airway obstruction? No ? 12:38:37 Dentures? Yes In tight 12:38:40 Modified Omar's test Ulnar < 7 seconds 12:38:42 Patient pain scale 0/10 ?. 12:38:47 Oxygen 2 l/min NC was administered by Brennan Nascimento RN; Per physician; 12:38:50 IV patent on arrival in left wrist with 0.9% NaCl at [facility]. 12:39:00 Heparin Flush Bag (1000units/500ml NS) 2 bags added to field was administered by Brennan Nascimento RN; used for procedure; 12:39:10 0.9% NaCl 100 ml/hr I.V. was administered by Brennan Nascimento RN; Per physician; 12:39:19 Radial Cocktail (Verapomil 2mg/Nitro 400mcg/Heparin 1500units) 1 syringe added to field was administered by Brennan Nascimento RN; used for procedure; 12:40:13 Lab Result : BUN 23 mg/dl 12:40:13 Lab Result : Creatinine 1.3 mg/dl 12:40:13 Lab Result : Hemoglobin 13 g/dl 12:40:13 Lab Result : Hematocrit 40.8 % 12:40:16 Lab results completed and on chart. 12:40:21 Right Radial & Right Groin area was prepped with chlora-prep and draped in sterile fashion 12:40:22 Sanchez Whisper J 300cm 0.014 guide wire opened to sterile field. 12:40:22 Alarms reviewed by R. N. 12:40:22 Sharps counted by scrub and verified by R.N. 12:40:26 Use device set Radial PCI 12:40:27 St Pan 260cm J .035 wire opened to sterile field. 12:40:28 MBrace Wrist Support opened to sterile field. 12:40:29 Tegaderm 4 x 4 opened to sterile field. 12:40:30 Acist Syringe opened to sterile field. 12:40:30 Acist Hand Control opened to sterile field. 12:40:31 Bag Decanter opened to sterile field. 12:40:31 Medline Cath Pack opened to sterile field. 12:40:32 Merit BasixCompak Inflation Kit opened to sterile field. 12:40:32 Terumo 6Fr Slender Glidesheath opened to sterile field. 12:40:32 Acist Manifold opened to sterile field. 12:40:38 Physician arrived 12::39 --------ALL STOP TIME OUT------ 12:40:39 Final Timeout: patient, procedure, and site verified with staff and physician. All members of the team are in agreement. 12:40:42 Right Radial & Right Groin site verified by team. 12:40:44 Physical assessment completed. ASA score P 2 - A patient with mild systemic disease as per Chidi Brumfield MD. 12:40:47 Sedation plan: IV Moderate Sedation Versed, Fentanyl 12:45:27 Fentanyl 50 mcg I.V. was administered by Brennan Nascimento RN; for sedation; 12:45:43 Versed 1 mg I.V. was administered by Brennan Nascimento RN; for sedation; 12:46:23 Radial Cocktail (Verapomil 2mg/Nitro 400mcg/Heparin 1500units) 1 syringe I.A. was administered by Brennan Nascimento RN; for vasodilation; 12:46:45 Procedure started. 12:46:50 Local anesthetic to right radial artery with Lidocaine 2% by Chidi Brumfield MD.INITIAL ACCESS ONLY 12:46:56 A 6 Fr Short sheath was inserted into the Right Radial artery 12:47:00 Heparin Bolus 4000 units I.V. was administered by Brennan Nascimento RN; for anticoagulation; 12:47:04 Zero performed for pressure channel P1 12:47:08 Zero performed for pressure channel P1 12:47:27 Zero performed for pressure channel P1 12:47:44 Cordis 6FR XBLAD 3.5 guide catheter opened to sterile field. 12:48:04 6 Fr xblad 3.5 guide catheter was inserted over the wire 12:48:25 whisper wire advanced. 12:49:32 Wire advanced across lesion. 12:50:35 Inflation Number: 1 A Medtronic Integrity 2.5 X 12 stent was prepped and advanced across the Mid LAD. The stent was deployed at 13 SHEILA for 0:10 (min:sec). 12:50:47 Stent catheter was removed intact over wire. 12:50:48 Wire removed. 12:50:48 Guide catheter removed. 12:51:16 Terumo TR Band Standard opened to sterile field. 12:51:22 Sheath removed intact; hemostasis achieved with Mechanical Compression to the Right Radial artery. 12:51:23 Procedure ended.(Physican Out) 12:54:56 Fluoroscopy time 01.80 minutes. 12:55:36 Flurop Dose total: 174.85 12:55:36 Fluoroscopy dose: 174.85 mGy 12:55:39 Contrast amount:Isovue 300 46ml. 12:55:41 Sharps counted by scrub and verified by R.N. 12:55:44 TR band inflated with 11cc of air. 12:55:51 Post right radial artery:stable, clean and dry 12:55:53 Post Procedure Pulses reassessed and unchanged 12:55:54 Post-procedure physical assessment completed. ASA score P 2 - A patient with mild systemic disease as per Chidi Brumfield MD. 12:55:56 Post procedure rhythm: unchanged. 12:55:59 Estimated blood loss: 10 ml 12:56:00 Post procedure instruction explained to patient.Patient verbalizes understanding. 12:56:03 Patient needs reinforcement of post procedure teaching. 12:56:49 Procedure type changed to Cath procedure, PCI procedure, Coronary Stent Initial, Miscellaneous Procedures, Moderate Sedation up to 15 minutes 12:57:41 Procedure and supply charges have been captured, reviewed, submitted and are correct. 12:57:43 Procedure Complication : No complications 12:57:45 Vital chart was stopped 12:57:45 See physician's report for complete and final results. 12:57:46 Report given to Pre/Post Procedure Room. 12:57:49 Patient transfered to Pre/Post Procedure Room with Stretcher. 12:57:51 Procedure ended. 12:57:51 Full Disclosure recording stopped 12:58:01 End room use (Document Last) Intervention Summary Intervention Notes Time ActionType Lesion and Equipment Action# Pressure Duration Attributes Used 12:50:35 Place stent Mid LAD Medtronic 1 13 00:10 Integrity 2.5 X 12 stent Device Usage Item Name Manufacture Quantity Catalog Hospital Part Current Minimal Lot# / Number Charge Number Stock Stock Serial# Code St Pan St Pan 1 [id number] [id number] 659207 857802 30 260cm J .035 wire MBrace Advanced 1 140-0250-00 994643 74561 205792 5 Wrist Vascular Support Dynamics Tegaderm 4 3M 1 1626W 055619 536224 132439 5 x 4 Acist Acist 1 84626 601328 473100 264973 20 Syringe Medical Systems Inc Acist Hand Acist 1 52678 929584 163525 286033 5 Control Medical Systems Inc Bag Microtek 1 2002S 924600 91261 821106 5 Decanter Medical Inc. Medline Cardinal 1 [id number] 539738 31008 099747 5 Cath [facility] Provident Link [facility] Merit 1 [id number] 562694 599697 102940 15 doForms Medical Inflation Kit Terumo 6Fr Terumo 1 [id number] 459386 222656 531194 40 Slender Glidesheath Acist Acist 1 29658 487785 179302 276183 5 Manifold Medical Systems Inc Cordis 6FR Cardinal 1 [id number] 604143 775964 848426 10 XBLAD 3.5 Health guide catheter Medtronic Medtronic 1 [id number] 995896 275203 504837 3 [id number] Integrity 2.5 X 12 stent Terumo TR Terumo 1 [id number] 640599 510651 482465 40 Band Standard Sanchez Sanchez 1 [id number] 168466 535675 387500 5 Whisper J Vascular 300cm 0.014 guide wire Signature Audit [place] Stage Time Signature Unsigned Intra-Procedure 12/05/2016 Wyatt Keita 12:58:36 PM RT(R) Signatures Monitor : Wyatt Keita RT Signature : Date : Time : [facility] [address] [place] [address]
--- NOTE | ~2016-12-05 | OP ---
PATIENT NAME: REBEKAH JAMIL MEDICAL RECORD: [id number] :31 LOCATION:D.CAT ADMISSION DATE: SURGEON: NIXON MATTA MD DATE OF OPERATION: 12/05/2016 PROCEDURES: 1. PTCA stent LAD. 2. Selective coronary angiography. INDICATION: Angina and coronary artery disease. PROCEDURE: After informed consent was obtained and after a detailed explanation of risks, benefits as well as alternative therapies, the patient elected to proceed with angiogram and angioplasty. The right femoral area was prepped and draped in normal sterile fashion. Right femoral artery was cannulated via modified Seldinger technique with placement of a 6-Prydeinig sheath. All catheters exchanged through this sheath. FINDINGS: The left anterior descending has a 70% to 80% stenosis in the mid vessel. This was addressed with a 2.5 x 12 mm Integrity stent taken to 13 atmospheres. Result was 0% residual stenosis. OVERALL IMPRESSION: Successful percutaneous transluminal coronary angioplasty stent of the left anterior descending going from 70 to 80% initial stenosis to 0% residual. TRANSINT:[id number] Voice Confirmation ID: [id number] DOCUMENT ID: [id number] NIXON MATTA MD CC: [id number] DICTATION DATE: 12/05/16 1253 SCIENTOLOGIST: 12/05/16 2239 DEP CLI 12/05/16 [id number] [place] [address]
[~2016-12-05 09:00] MED LIST changes: +COREG 3.1253.125 MG PO; +FUROSEMIDE20 MG PO; +KLOR-CON 88 MEQ PO; +LANTUS SOL100 UNIT/1 SC; +NIFEDIPINE ER60 MG PO
[2016-12-05 09:21] VITALS: BP 154/74; Ht 182.9 cm; Wt 93.2 kg
[2016-12-05 09:33] LABS: BASOPHILS 0.4 % (0-2); EOSINOPHILS 3.7 % (0-7); HEMATOCRIT 40.8 % (42.0-54.0); IMMATURE GRANULOCYTES 0.3 % (0-5); MCH 28.3 pg (26.0-34.0); MCHC 31.9 g/dL (31.0-37.0); MCV 88.7 fL (80.0-100.0); MEAN PLATELET VOLUME 9.6 fL (7.4-10.4); MONOCYTES 7.2 % (2-11); NEUTROPHILS 67.4 % (40-80); RDW 15.3 % (11.5-14.5); WBC 7.3 10x3/uL (4.8-10.8)
[2016-12-05 09:41] LABS: PLATELET COUNT 186 10x3/uL (130-400)
[2016-12-05 09:48] LABS: ANION GAP 13.6 mmol/L (8-16); CALCIUM 9.7 mg/dL (8.5-10.1); CARBON DIOXIDE 28.9 mmol/L (21.0-32.0); CREATININE - SERUM 1.3 mg/dL (0.6-1.3); POTASSIUM - SERUM 3.5 mmol/L (3.5-5.1)
--- NOTE | 2016-12-05 13:19 | NUR ---
CHEST PAIN DENIED WITH VSS. TR BAND TO R/WRIST CDI NO BLEEDING NO HEMATOMA NOTED. INSTRUCTED PATIENT TO KEEP RUE STRAIGHT NO BENDING OR FLEXING OF WRIST.
--- NOTE | 2016-12-05 13:41 | NUR ---
1325 PT IS ALERT, DENIES ANY C/O. TR BAND TO RIGHT WRIST IS CDI, NO BLEEDING OR HEMATOMA NOTED. CAP REFILL IS BRISK, CALL LIGHT IN REACH, FAMILY AT BEDSIDE.
--- NOTE | 2016-12-05 13:59 | NUR ---
1340 PT DENIES ANY C/O, TR BAND IS CDI, NO BLEEDING OR HEMATOMA. VSS. FAMILY AT BEDSIDE. CALL LIGHT IN REACH.
--- NOTE | 2016-12-05 15:34 | NUR ---
1430 PT DENIES NEEDS AT THIS TIME. DENIES CHEST PAIN, TR ABND CDI, NO BLEEDING OR HEMATOMA NOTED. VSS. FAMILY AT BEDSIDE. CALL LIGHT IN REACH. 1530 PT HAS VOIDED APPROX 300 CC LIGHT YELLOW URINE USING URINAL. TR BAND REMAINS CDI.
--- NOTE | 2016-12-05 17:32 | NUR ---
1640 TR BAND DEFLATION COMPLETE WITH NO BLEEDING OR HEMATOMA NOTED. 2X2 AND TEGADERM TO SITE. IV DC'D WITH CATH INTACT. 1715 PT HAS AMBULATED TO THE BATHROOM AND VOIDED QS. DC INSTRUCTIONS HAVE BEEN REVIEWED WITH PT AND [id number]. PT ESCORTED TO PRIVATE AUTO VIA WC BY STAFF WITH [id number] DRIVING HIM HOME.
== END 2016-12-05 17:15 | disposition home or self-care (01) ==
LOC: D.CATH 09:00
PROVIDERS: Internal Medicine Interventional Cardiology
DX: I25.119 Atherosclerotic heart disease of native coronary artery with unspecified angina pectoris (principal); Z01.812 Encounter for preprocedural laboratory examination

== ENCOUNTER 2017-04-24 09:52 | Inpatient (IN) | payer MEDICARE, BC ==
[~2017-04-24] VITALS: Ht 182.9 cm; Wt 92.9 kg
[~2017-04-24 09:52] MED LIST changes: -FUROSEMIDE20 MG PO; +FUROSEMIDE40 MG PO
[2017-04-24 10:58] LABS: MCH 28.6 pg (26.0-34.0); MCV 95.5 fL (80.0-100.0); MEAN PLATELET VOLUME 8.4 fL (7.4-10.4); RDW 17.3 % (11.5-14.5)
[2017-04-24 10:59] LABS: HEMOGLOBIN 6.3 g/dL (13.5-17.5); PLATELET COUNT 133 10x3/uL (130-400); WBC 0.8 10x3/uL (4.8-10.8)
[2017-04-24 11:02] LABS: EOSINOPHILS 8 % (0-7); LYMPHOCYTES 52 % (15-50); MONOCYTES 8 % (2-11); NEUTROPHILS 24 % (40-80); PLATELET ESTIMATE NORMAL
[2017-04-24 11:03] LABS: ANISOCYTOSIS OCC; HYPOCHROMASIA 1+
[2017-04-24 11:05] LABS: ALBUMIN 2.8 g/dL (3.4-5.0); ALKALINE PHOSPHATASE 81 U/L (46-116); ALT (SGPT) 12 U/L (10-68); CALC OSMOLALITY 289 mosm/kg (275-300); CALCIUM 8.3 mg/dL (8.5-10.1); CARBON DIOXIDE 30.9 mmol/L (21.0-32.0); CHLORIDE - SERUM 106 mmol/L (98-107); CREATININE - SERUM 1.5 mg/dL (0.6-1.3); GLUCOSE 112 mg/dL (74-106); POTASSIUM - SERUM 3.8 mmol/L (3.5-5.1); PROTEIN - SERUM 5.9 g/dL (6.4-8.2); SODIUM 142 mmol/L (136-145); UREA NITROGEN 28 mg/dL (7-18); eGFR NON AFRICAN AMERICAN 47 mL/min (90-120)
[2017-04-24 11:11] LABS: CHOL - HDL RATIO 2.8 ratio (2.3-4.9); CHOLESTEROL, TOTAL 84 mg/dL (0-200); CKMB 1.4 U/L (0.0-3.6); CREATINE KINASE 59 UL (21-232); HDL CHOLESTEROL 30 mg/dL (32-96); LDL CHOLESTEROL 40 mg/dL (0-100); LDL-HDL RATIO 1.3 ratio (1.5-3.5); TRIGLYCERIDE 71 mg/dL (30-200); TROPONIN-I < 0.017 ng/mL (0.000-0.060)
[2017-04-24 13:00] VITALS: BP 120/80; BMI 27.8
--- NOTE | 2017-04-24 13:16 | NUR ---
PT AOX4 RESP EVEN AND NONLABORED PT DENIES NEEDS AT THIS TIME IV TO LEFT FOREARM PATENT AND INTACT AT THIS TIME SRX2 BED AT THIS TIME CALL LIGHT WITHIN REACH WILL CONTINUE TO MONITOR FAMLIY AT BEDSIDE
--- NOTE | 2017-04-24 19:10 | NUR ---
FIRST UNIT OF BLOOD INFUSING LEFT ARM SITE CLEAR. RELATIVE AT BEDSIDE. MONITORING VITAL SIGNS.ASSESSMENT PER FLOWSHEET.
--- NOTE | 2017-04-24 20:00 | NUR ---
PLACED ON TELEMTRY ORDERED SHOWS CAF WITH HR 92.
--- NOTE | 2017-04-24 20:40 | NUR ---
FIRST UNIT BLOOD COMPLETED WITHOUT REACTIONE. NS AT KVO INFUSING.
--- NOTE | 2017-04-24 23:15 | NUR ---
SECOND UNITS HUNG PER HOSPITAL PROTOCAL. MONITORING VITAL SIGNS.
--- NOTE | 2017-04-25 00:25 | NUR ---
PT C/O SHORTNESS OF BREATH. PLACED ON O2 WAS ORDERED ON ADMIT AT 2L/M PER NC. O2 SAT ON ROOM AIR SHOWS 92-93%. ON O2 SHOWS 95-97%. NOTIFIED DR. GUNDERSON'S NURSE ORDERS REC'D TYLENOL 1000MG PO AND BENADRYL 25MG IVP GIVEN PRE MED.
--- NOTE | 2017-04-25 01:00 | NUR ---
RESUMED BLOOD AFTER PREMEDS STARTED.
--- NOTE | 2017-04-25 01:30 | NUR ---
NO REACTION NOTED. RESTING QUIETLY MONITORING VITAL SIGNS. RESTING QUIETLY.
--- NOTE | 2017-04-25 02:30 | NUR ---
RESTING QUIETLY BLOOD TRANSFUSION CONTINUES NO REACTION AT THIS TIME.
--- NOTE | 2017-04-25 03:00 | NUR ---
SECOND UNIT OF BLOOD COMPLETED NO REACTION NS AT KVO.
--- NOTE | 2017-04-25 04:00 | NUR ---
TRANSFUSION AND NS COMPLETED. BLOOD TUBING REMOVED AND IV SITE SALINE LCOKED. REMOVED VS MACHINE SR UP X2 CALL LIGHT WITHIN REACH.
--- NOTE | 2017-04-25 06:00 | NUR ---
MEDS GIVEN PER MAR.
--- NOTE | 2017-04-25 07:15 | NUR ---
BEVE=393 LANTUS DOSE OF 24 UNITS GIVEN SUBC PER OCT.
[2017-04-25 07:37] LABS: BASOPHILS 0 % (0-2); LYMPHOCYTES 39.8 % (15-50); MCH 29.6 pg (26.0-34.0); MCHC 32.1 g/dL (31.0-37.0); MONOCYTES 19.3 % (2-11); NEUTROPHILS 34.9 % (40-80); PLATELET COUNT 140 10x3/uL (130-400); RDW 17.7 % (11.5-14.5)
[2017-04-25 07:54] LABS: ANION GAP 10.5 mmol/L (8-16); CALCIUM 8.3 mg/dL (8.5-10.1); CARBON DIOXIDE 27.2 mmol/L (21.0-32.0); CREATININE - SERUM 1.2 mg/dL (0.6-1.3); POTASSIUM - SERUM 3.7 mmol/L (3.5-5.1)
[2017-04-25 07:56] LABS: % SATURATION 42 % (15-55); HEMATOCRIT 26.8 % (42.0-54.0); HEMOGLOBIN 8.6 g/dL (13.5-17.5); IRON 108 ug/dl (35-150); MCV 92.1 fL (80.0-100.0); RBC 2.91 10x6/uL (4.20-6.10); TOTAL IRON BIND CAPACITY 255 ug/dl (260-445); UNSAT IRON BIND CAPACITY 147 ug/dl (150-375); WBC 0.8 10x3/uL (4.8-10.8)
[2017-04-25 08:13] LABS: FERRITIN 185 ng/mL (3-244); LDH 171 U/L (85-227)
[2017-04-25 08:50] VITALS: BP 126/83
[2017-04-25 12:03] VITALS: BP 146/79
[2017-04-25 12:37] VITALS: Ht 182.9 cm; Wt 92.9 kg
[2017-04-25 16:21] VITALS: BP 125/79
--- NOTE | 2017-04-25 18:40 | NUR ---
RESTING QUIETLY IN BED. DENIES NEEDS. FAMILY AT BEDSIDE.
[2017-04-25 20:00] VITALS: BP 117/86
--- NOTE | 2017-04-25 20:00 | NUR ---
ASSESSMENT PER FLOWSHEET. O2 ON 2L/M PER NC. NO DISTRESS. IV PATENT LEFT ARM SALINE LOCKED. SITE CLEAR. TELM. SHOWS CAF WITH HR 92. PT IN NEUTROPENIC ISOLATION. FAMILY MEMBER AT BEDSIDE.
--- NOTE | 2017-04-25 21:30 | NUR ---
MEDS GIVEN PER MAR.
--- NOTE | 2017-04-26 | NUR ---
EYES CLOSED RESPIRATIONS WITH EASE AND UNLABORED. SR UP X2 CALL LIGHT WITHIN REACH.
--- NOTE | 2017-04-26 03:06 | NUR ---
RESTING QUIETLY NO CHANGES IN ASSESSMENT.
[2017-04-26 04:00] VITALS: BP 123/67
[2017-04-26 05:00] VITALS: BP 114/70
--- NOTE | 2017-04-26 06:51 | NUR ---
CONSENT SIGNED FOR BONE MARROW BX.
--- NOTE | 2017-04-26 07:00 | NUR ---
REPORT RECEIVED FROM CONTRACT MAIL CARRIER NURSE. CALL LIGHT IN REACH.
--- NOTE | 2017-04-26 07:15 | NUR ---
PATIENT IN BED WITH IV INTACT. NO COMPLAINTS OR SIGNS OF DISTRESS. CALL LIGHT WITHIN REACH.
--- NOTE | 2017-04-26 07:30 | NUR ---
ASSISTED DR. SHEARER WITH BONE MARROW. PATIENT TOLERATED WELL. ASSESSMENT COMPLETED. REFUSES SCDs. DAUGHTER IN ROOM. CALL LIGHT IN REACH. WILL CONTINUE WITH PLAN OF CARE.
[2017-04-26 08:19] VITALS: BP 117/70
--- NOTE | 2017-04-26 08:49 | NUR ---
AM MEDS ADMINISTERED. CALL LIGHT IN REACH.
[2017-04-26 09:16] LABS: FOLATE (FOLIC ACID) - SERUM 8.7 ng/mL (>3.0)
--- NOTE | 2017-04-26 10:20 | NUR ---
INN BED WITH EYEWS CLOSED. RESP EVEN AND UNLABORED. CALL LIGHT IN REACH.
[2017-04-26 11:16] LABS: HAPTOGLOBIN 168 mg/dL (34-200)
[2017-04-26 11:37] LABS: PATH REVIEW PERIPHERAL SMEAR REVIEWED
--- NOTE | 2017-04-26 12:57 | NUR ---
VITAMIN B12 SHOT TO LEFT DELTOID PER ORDER. CALL LIGHT IN REACH.
--- NOTE | 2017-04-26 14:37 | NUR ---
Patient Name: REBEKAH JAMIL Admission Status: ER Accout number: [id number] Admission Date: 04-24-2017 : 1930 Admission Diagnosis:ANEMIA, UNSPECIFIED Attending: JUVENAL ESPOSITO Current LOS: 2 Anticipated DC Date: 05-01-2017 Planned Disposition: Home with Home Health Primary Insurance: MEDICARE A & B Discharge Planning Comments: CM MET WITH PATIENT AND GRANDDAUGHTER (MIAN) REGARDING D/C NEEDS AND PLANS. PATIENTS DAUGHTER (ANAT) WAS ON THE PHONE WITH GRANDDAUGHTER. PATIENT HAS A RAMP TO ENTER HIS HOME AND NO STAIRS INSIDE. PATIENT IS USUALLY INDEPENDENT WITH HIS CARE AND DAUGHTER HELPS SORT HIS MEDICATIONS. PATIENT HAS A WALKER, WHEELCHAIR, SHOWER CHAIR, CANE, BS COMMODE, POWER CHAIR, AND GLUCOMETER AT HOME. PATIENT CHECKS HIS SUGAR 1-2 X DAILY. PATIENTS PCP IS DR. KRISHNAMURTHY AND USES [email or web address]. MARK FORM SIGNED FOR [facility] AT DISCHARGE. CM WILL CONTINUE TO FOLLOW PATIENT WITH D/C NEEDS AND PLANS. PCP DR. KRISHNAMURTHY [facility]- [phone] ANAT JAMIL (DAUGHTER) [phone] Systems Tester: Victoriatammi Wei Is the patient Alert and Oriented? Yes 0 * How many steps to enter\exit or inside your home? RAMP 0 * PCP DR. KRISHNAMURTHY 0 * Pharmacy [facility] 0 * Preadmission Environment Home Alone 0 * ADLs Independent 0 * Equipment Bedside Commode Cane Glucometer Shower Chair Walker Wheelchair 0 * Other Equipment POWER CHAIR 0 * List name and contact numbers for known caregivers / representatives who currently or will assist patient after discharge: ANAT JAMIL (DAUGHTER) [phone] 0 * Community resources currently utilized None 0 * Additional services required to return to the preadmission environment? Yes 0 * Can the patient safely return to the preadmission environment? Yes 0 * Has this patient been hospitalized within the prior 30 days at any hospital? No 0 Grand Total: 0
--- NOTE | 2017-04-26 15:07 | NUR ---
BRYCE SALAZAR PER ORDER. FAMIY IN ROOM. CALL LIGHT IN REACH.
[2017-04-26 15:22] LABS: SPE - A/G RATIO 1.2 (0.7-1.7); SPE - ALBUMIN 2.9 g/dL (2.9-4.4); SPE - ALPHA-1 GLOBULIN 0.2 g/dL (0.0-0.4); SPE - ALPHA-2 GLOBULIN 0.7 g/dL (0.4-1.0); SPE - GAMMA GLOBULIN 0.5 g/dL (0.4-1.8); SPE - M-SPIKE Not Observed g/dL (Not Observed); SPE - TOTAL PROTEIN 5.4 g/dL (6.0-8.5)
--- NOTE | 2017-04-26 17:20 | NUR ---
FAMILY IN ROOM. NO NEEDS VOICED AT THIS TIME. CALL LIGHT IN REACH.
--- NOTE | 2017-04-26 18:55 | NUR ---
NO CHANGES IN INITIAL ASSESSMENT. CALL LIGHT IN REACH. WILL CONTINUE WITH PLAN OF CARE.
[2017-04-26 20:00] VITALS: BP 115/77
--- NOTE | 2017-04-26 20:00 | NUR ---
ASSESSMENT PER FLOWSHEET. SALINE LOCK PATENT LEFT WRIST. SITE CLEAR. O2 ON 2L/M PER NC NO DISTRESS. USES URINAL TO VOID. RELATIVES AT BEDSIDE. DENIES NEEDS. SR UP X2 CALL LIGHT WITHIN REACH BED ALARM BED ACTIVATED.
--- NOTE | 2017-04-26 21:15 | NUR ---
MEDS GIVEN PER MAR.
--- NOTE | 2017-04-26 22:00 | NUR ---
RESTING QUIETLY DENIES NEEDS.
[2017-04-27] VITALS: BP 110/71
--- NOTE | 2017-04-27 | NUR ---
EYES CLOSED RESPIRATIONS WITH EASE AND UNLABORED.
--- NOTE | 2017-04-27 04:56 | NUR ---
RESTING QUIETLY RESPIRATIONS WITH EASE AND UNLABORED.
--- NOTE | 2017-04-27 06:42 | NUR ---
SQFU=[id number].
[2017-04-27 08:04] LABS: ALBUMIN 2.3 g/dL (3.4-5.0); ANION GAP 11.3 mmol/L (8-16); BILIRUBIN - TOTAL 0.55 mg/dL (0.2-1.3); CALCIUM 8.2 mg/dL (8.5-10.1); CARBON DIOXIDE 26.4 mmol/L (21.0-32.0); CREATININE - SERUM 1.3 mg/dL (0.6-1.3); POTASSIUM - SERUM 3.7 mmol/L (3.5-5.1); PROTEIN - SERUM 5.7 g/dL (6.4-8.2)
[2017-04-27 08:21] VITALS: BP 145/83
--- NOTE | 2017-04-27 08:57 | NUR ---
SLEEPING, FAMILY AT BEDSIDE, DENIES NEEDS, BED LOWEST POSITION, CALL LIGHT IN REACH, WILL CONTINUE TO MONITOR
[2017-04-27 09:18] LABS: EOSINOPHILS 4.2 % (0-7); HEMATOCRIT 25.6 % (42.0-54.0); HEMOGLOBIN 8.1 g/dL (13.5-17.5); LYMPHOCYTES 46.9 % (15-50); MCH 29.3 pg (26.0-34.0); MCHC 31.6 g/dL (31.0-37.0); MCV 92.8 fL (80.0-100.0); NEUTROPHILS 23.9 % (40-80); PLATELET COUNT 140 10x3/uL (130-400); RBC 2.76 10x6/uL (4.20-6.10); RDW 17.4 % (11.5-14.5)
[2017-04-27 12:33] VITALS: BP 126/90
[2017-04-27 13:18] LABS: PARVOVIRUS B-19 - IGM 0.1 index (0.0-0.8)
--- NOTE | 2017-04-27 13:26 | NUR ---
NUTRITION F/U CHART REVIEWED. PT REMAINS IN ISOLATION. 75% INTAKE RECENT MEALS. WILL CONTINUE TO PROVIDE DIET, MONITOR PO INTAKE. RD FOLLOWING
[2017-04-27 15:20] LABS: RMSF IGM 0.42 index (0.00-0.89)
--- NOTE | 2017-04-27 15:50 | NUR ---
PT SITTING UP IN BED WITH NO VISABLE SIGNS OF PAIN OR DISCOMFORT. BED IN LOW POSITION AND CALL LIGHT WITHIN REACH. WILL CONTINUE TO MONITOR.
[2017-04-27 16:13] VITALS: BP 124/80
[2017-04-27 17:27] LABS: INR 1.23 (0.85-1.17); PROTIME 15.4 SECONDS (11.6-15.0)
[2017-04-27 20:00] VITALS: BP 115/78
[2017-04-28] VITALS (11 sets, daily range): BP systolic 102–132; BP diastolic 58–75
[2017-04-28 05:10] LABS: APTT 34.5 SECONDS (22.8-39.4); INR 1.21 (0.85-1.17); PROTIME 15.2 SECONDS (11.6-15.0)
[2017-04-28 05:17] LABS: ALBUMIN 2.4 g/dL (3.4-5.0); ANION GAP 11.8 mmol/L (8-16); BILIRUBIN - TOTAL 0.52 mg/dL (0.2-1.3); CALCIUM 8.6 mg/dL (8.5-10.1); CARBON DIOXIDE 28.9 mmol/L (21.0-32.0); CREATININE - SERUM 1.6 mg/dL (0.6-1.3); POTASSIUM - SERUM 3.7 mmol/L (3.5-5.1)
--- NOTE | 2017-04-28 07:45 | NUR ---
PT ASSESSMENT COMPLETE NOTED TO BE IN NEUTRIPENIC ISOLATION FOR WBC 0.9 FAMILY AT BEDSIDE NPO FOR THORACETESIS THIS AM. HARD OF HEARING NOTED LEFT FA SL
[2017-04-28 09:03] LABS: BASOPHILS 0 % (0-2); EOSINOPHILS 8.7 % (0-7); HEMATOCRIT 26.9 % (42.0-54.0); HEMOGLOBIN 8.4 g/dL (13.5-17.5); LYMPHOCYTES 33.7 % (15-50); MCH 29.3 pg (26.0-34.0); MCHC 31.2 g/dL (31.0-37.0); MCV 93.7 fL (80.0-100.0); MONOCYTES 26.1 % (2-11); NEUTROPHILS 31.5 % (40-80); PLATELET COUNT 149 10x3/uL (130-400); RBC 2.87 10x6/uL (4.20-6.10); RDW 17.2 % (11.5-14.5)
[2017-04-28 09:31] LABS: WBC 0.9 10x3/uL (4.8-10.8)
--- NOTE | 2017-04-28 11:00 | NUR ---
PT RETURNED FROM THORACENTESIS REPORTED TO HAVE DRAINED 750 ML FROM RML. DRESSING CLEAN DRY AND INTACT FAMILY AT SIDE VS L
[2017-04-28 12:19] LABS: PROTEIN - BODY FLUID 1.8 G/DL
[2017-04-28 14:11] LABS: NEUT - BF 7 %
[2017-04-28 14:12] LABS: EOS BF 2 %; MACROPHAGES BF 4 %; MESOTHELIALS BF 10 %
--- NOTE | 2017-04-28 15:41 | NUR ---
PRESSURE DRESSING TO RIGHT SIDE S/P THORACENTESIS. OXYGEN ON 2L VIA NC. RESPIRATIONS EVEN AND NON LABORED. REMAINS IN NEUTROPENIC ISOLATION. CALL LIGHT IN REACH, WILL CONTINUE WITH PLAN OF CARE.
--- NOTE | 2017-04-28 16:45 | NUR ---
SPOKE WITH DR MARIA BURRIS RECIEVED TO RESTART BRYCE ARCINIEGA.
--- NOTE | 2017-04-28 19:00 | NUR ---
REPORT RECEIVED AND CARE OF PT ASSUMED. PT SITTING UP IN BED VISITING WITH FAMILY MEMBERS. IV IN LEFT FA SALINE LOCKED. TELEMETRY IN PLACE AND READING 89 CONTROLLED A-FIB AT THIS ASSESSMENT. WILL MONITOR FOR NEEDS.
--- NOTE | 2017-04-28 21:23 | NUR ---
HS MEDICATIONS GIVEN TO INCLUDE FIRST DOSE OF DOXY PER NEW ORDER. WILL CONTINUE TO MONITOR FOR NEEDS.
--- NOTE | 2017-04-29 00:05 | NUR ---
PT FAMILY MEMBER REFUSED TO HAVE PT AWAKEN FOR MIDNIGHT VITALS. PT RESTING QUIETLY WITH EYES CLOSED AND UNLABORED BREATHING.
[2017-04-29 06:05] LABS: EOSINOPHILS 3.9 % (0-7); HEMATOCRIT 24.2 % (42.0-54.0); HEMOGLOBIN 7.7 g/dL (13.5-17.5); MCH 29.4 pg (26.0-34.0); MCHC 31.8 g/dL (31.0-37.0); MCV 92.4 fL (80.0-100.0); MEAN PLATELET VOLUME 8.9 fL (7.4-10.4); MONOCYTES 30.1 % (2-11); PLATELET COUNT 136 10x3/uL (130-400); RBC 2.62 10x6/uL (4.20-6.10); RDW 17.1 % (11.5-14.5)
[2017-04-29 06:25] LABS: ALBUMIN 2.3 g/dL (3.4-5.0); ANION GAP 11.5 mmol/L (8-16); BILIRUBIN - TOTAL 0.39 mg/dL (0.2-1.3); CALCIUM 8.3 mg/dL (8.5-10.1); CARBON DIOXIDE 26.6 mmol/L (21.0-32.0); CREATININE - SERUM 1.4 mg/dL (0.6-1.3); POTASSIUM - SERUM 3.1 mmol/L (3.5-5.1); PROTEIN - SERUM 5.8 g/dL (6.4-8.2)
--- NOTE | 2017-04-29 06:30 | NUR ---
FSBS 138 THIS CHECK. GAVE SCHEDULED LANTUS 24 UNITS. ALSO GAVE NORCO PER PT REQUEST FOR ABDOMINAL PAIN. WILL CONTINUE TO MONITOR FOR NEEDS.
--- NOTE | 2017-04-29 07:15 | NUR ---
REPORT RCEIVED FROM CARDIAC MONITOR NURSE. CALL LIGHT IN REACH.
[2017-04-29 08:40] VITALS: BP 148/80
--- NOTE | 2017-04-29 08:51 | NUR ---
ASSESSMENT COMPLETED. AM MEDS ADMINISTERED. REFUSES SCDs. DAUGHTER AT BEDSIDE. CALL LIGHT IN REACH. WILL CONTINUE WITH PLAN OF CARE.
[2017-04-29 12:39] VITALS: BP 120/69
[2017-04-29 16:51] VITALS: BP 111/69
--- NOTE | 2017-04-29 18:24 | NUR ---
RESTING QUIETLY IN BED. NEUTROPENIC ISOLATION IN PLACE.
--- NOTE | 2017-04-29 19:00 | NUR ---
REPORT RECEIVED AND CARE OF PT ASSUMED. PT SITTING UP IN CHAIR VISITING WITH FAMILY MEMBERS AT THIS TIME. IV IN LEFT AC SALINE LOCKED. TELEMETRY IN PLACE AND READING CONTROLLED A-FIB AT 92 AT THIS ASSESSMENT.WILL MONITOR CLOSELY FOR NEEDS.
[2017-04-29 19:08] LABS: AFB SPECIMEN PROCESSING Not Indicated (())
[2017-04-29 19:23] VITALS: BP 116/68
--- NOTE | 2017-04-29 19:50 | NUR ---
GAVE NORCO 10 PO PER REQUEST FOR BACK PAIN. WILL MONITOR FOR EFFECTIVENESS. FAMILY MEMBERS ARE AT BEDSIDE.
--- NOTE | 2017-04-29 20:40 | NUR ---
HS MEDICATIONS GIVEN. WILL CONTINUE TO MONITOR FOR NEEDS.
[2017-04-30] VITALS (14 sets, daily range): BP systolic 85–120; BP diastolic 45–82
--- NOTE | 2017-04-30 00:10 | NUR ---
PT UP USING RESTROOM AND UNHOOKED O2...RE-CONNECTED AND ASSISTED PT BACK TO BED. FAMILY MEMBER IS AT BEDSIDE.
[2017-04-30 04:49] LABS: BASOPHILS 0.8 % (0-2); EOSINOPHILS 9.2 % (0-7); HEMOGLOBIN 7.6 g/dL (13.5-17.5); MCH 29.7 pg (26.0-34.0); MCHC 31.7 g/dL (31.0-37.0); MCV 93.8 fL (80.0-100.0); MEAN PLATELET VOLUME 8.9 fL (7.4-10.4); PLATELET COUNT 129 10x3/uL (130-400); RBC 2.56 10x6/uL (4.20-6.10); RDW 16.9 % (11.5-14.5)
[2017-04-30 04:56] LABS: WBC 1.2 10x3/uL (4.8-10.8)
--- NOTE | 2017-04-30 04:56 | NUR ---
CRITICAL WBC OF 1.2 THIS AM....HIGHER THAN PREVIOUS READINGS.
[2017-04-30 05:30] LABS: ALBUMIN 2.3 g/dL (3.4-5.0); ANION GAP 10.1 mmol/L (8-16); BILIRUBIN - TOTAL 0.4 mg/dL (0.2-1.3); CALCIUM 8.3 mg/dL (8.5-10.1); CREATININE - SERUM 1.4 mg/dL (0.6-1.3); POTASSIUM - SERUM 3.1 mmol/L (3.5-5.1); PROTEIN - SERUM 5.7 g/dL (6.4-8.2)
--- NOTE | 2017-04-30 06:40 | NUR ---
IV PULLED OUT...RE-SITED TO RIGHT WRIST WITH 20 GUAGE CATHETER IN ONE STICK. PT TOLERATED WELL.
--- NOTE | 2017-04-30 08:00 | NUR ---
AWAKE AND ALERT ORIENTED X3. C/O PAIN TO BACK. REQUESTED AND GIVEN ONE HYDROCODONE PO FOR SAME. WILL MONITOR. LUNGS ARE CLEAR BILATERALLY, NO COUGH NOTED. SKIN IS INTACT WITHOUT REDNESS. SL TO RIGHT WRIST PATENT WITHOUT REDNESS AT INSERTION SITE. DENIES NEEDS.
--- NOTE | 2017-04-30 09:30 | NUR ---
RESTING QUIETLY IN BED. REPORTS PAIN GONE AT THIS TIME. DENIES NEEDS.
--- NOTE | 2017-04-30 12:15 | NUR ---
LUNCH SERVED IN ROOM. FEEDS SELF WITH SET UP ASSIST. DENIES NEEDS.
--- NOTE | 2017-04-30 15:00 | NUR ---
UP TO SHOWER AT THIS TIME. FAMILY IS ASSISTING.
--- NOTE | 2017-04-30 18:00 | NUR ---
SPOKE WITH ANNALISA HINES APN FOR DR. SHEARER. OK TO TRANSFUSE TWO UNITS PER DR. RIVERA ORDERS.
--- NOTE | 2017-04-30 19:00 | NUR ---
REPORT RECEIVED AND CARE OF PT ASSUMED. PT LYING IN SUPINE POSITION VISITING WITH FAMILY MEMBERS. IV IN RIGHT FA SALINE LOCKED. TELEMETRY IN PLACE AND READING 98 CONTROLLED A-FIB AT THIS ASSESSMENT. WILL MONITOR FOR NEEDS.
--- NOTE | 2017-04-30 19:40 | NUR ---
GAVE TYLENOL 650MG PO AND BENADRYL 50 MG PO PRE MEDICATION PRIOR TO RECEIVING BLOOD TRANSFUSION.
--- NOTE | 2017-04-30 20:00 | NUR ---
STARTED FIRST UNIT OF PRBC'S. VITALS STABLE AND PT IS AFEBRILE.
--- NOTE | 2017-04-30 20:44 | NUR ---
HS MEDICATIONS GIVEN. VITALS REMAIN STABLE AND PT IS AFEBRILE.
--- NOTE | 2017-04-30 23:05 | NUR ---
1ST UNIT OF PRBC'S COMPLETE. VITALS STABLE AND PT REMAINS AFEBRILE. LINE FLUSHING.
--- NOTE | 2017-04-30 23:35 | NUR ---
2ND UNIT OF PRBC'S STARTED. VITALS STABLE AND PT AFEBRILE.
[2017-05-01] VITALS (11 sets, daily range): BP systolic 77–144; BP diastolic 53–80
--- NOTE | 2017-05-01 02:15 | NUR ---
2ND UNIT OF PRBC'S COMPLETE. VITALS REMAIN STABLE AND PT IS AFEBRILE.
[2017-05-01 05:33] LABS: ALBUMIN 2.3 g/dL (3.4-5.0); BILIRUBIN - TOTAL 0.4 mg/dL (0.2-1.3); CALCIUM 8.5 mg/dL (8.5-10.1); CARBON DIOXIDE 28.4 mmol/L (21.0-32.0); CREATININE - SERUM 1.6 mg/dL (0.6-1.3); POTASSIUM - SERUM 3.4 mmol/L (3.5-5.1); PROTEIN - SERUM 5.7 g/dL (6.4-8.2)
[2017-05-01 05:40] LABS: BASOPHILS 0 % (0-2); EOSINOPHILS 8.6 % (0-7); IMMATURE GRANULOCYTES 3.3 % (0-5); LYMPHOCYTES 33.6 % (15-50); MCH 29.6 pg (26.0-34.0); MCHC 31.8 g/dL (31.0-37.0); MCV 92.9 fL (80.0-100.0); MONOCYTES 21.7 % (2-11); NEUTROPHILS 32.8 % (40-80); PLATELET COUNT 144 10x3/uL (130-400); RDW 17.2 % (11.5-14.5)
[2017-05-01 05:44] LABS: HEMATOCRIT 28.9 % (42.0-54.0); HEMOGLOBIN 9.2 g/dL (13.5-17.5); RBC 3.11 10x6/uL (4.20-6.10); WBC 1.5 10x3/uL (4.8-10.8)
--- NOTE | 2017-05-01 07:30 | NUR ---
RECIEVED PT DURING WALKING ROUNDS, PT RESTING IN BED WITH NO COMPLAINTS OF PAIN OR DISCOMFORT AT THIS TIME. ASSESSMENT DONE PER FLOWSHEET. BED IN LOW POSITION AND CALL LIGHT WITHIN REACH. WILL CONTINUE TO MONITOR.
[2017-05-01 10:10] LABS: FUNGUS STAIN Final report (())
--- NOTE | 2017-05-01 20:00 | NUR ---
PATIENT SITTING UP IN THE CHAIR, HE STATED HE COUGHS WHEN HE LAYS IN THE BED. HIS DAUGHTER IS LAYING IN THE BED. 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 HE USED IT 4 TIMES. HUMIDIFIED HIS OXYGEN. DAUGHTER STATED PATIENT HAS NOT HAD A BM IN SEVERAL DAYS. BROUGHT PATIENT 8OZ OF WARM PRUNE JUICE. PATIENT DENIES OTHER NEEDS AT THIS TIME.
[2017-05-02 00:11] VITALS: BP 130/73
[2017-05-02 04:00] VITALS: BP 102/71
--- NOTE | 2017-05-02 08:00 | NUR ---
REC'D IN BED AWAKE AND ALERT. RESP EVEN AND UNALABORED WITH NO DISTRESS NOTED. CAN EXPRESS NEEDS AND WANTS. TURN AND REPOSITION SELF AB ROBERT. NO C/O NOTED OR VOICED AT THIS TIME. ASSESSMENT COMPLETED. C/L IN REACH AT BEDSIDE WELL FAMILY,
[2017-05-02 08:25] VITALS: BP 103/61
[2017-05-02 10:42] LABS: BASOPHILS 0.6 % (0-2); EOSINOPHILS 5.8 % (0-7); HEMATOCRIT 28.8 % (42.0-54.0); HEMOGLOBIN 9.3 g/dL (13.5-17.5); LYMPHOCYTES 25.6 % (15-50); MCH 29.3 pg (26.0-34.0); MCHC 32.3 g/dL (31.0-37.0); MEAN PLATELET VOLUME 9.3 fL (7.4-10.4); MONOCYTES 17.9 % (2-11); NEUTROPHILS 50.1 % (40-80); PLATELET COUNT 159 10x3/uL (130-400); RBC 3.17 10x6/uL (4.20-6.10); RDW 16.6 % (11.5-14.5)
[2017-05-02 10:50] LABS: ANION GAP 10.4 mmol/L (8-16); CALCIUM 8.1 mg/dL (8.5-10.1); CARBON DIOXIDE 27.6 mmol/L (21.0-32.0); CREATININE - SERUM 1.5 mg/dL (0.6-1.3)
[2017-05-02 11:09] LABS: MCV 90.9 fL (80.0-100.0); WBC 1.6 10x3/uL (4.8-10.8)
--- NOTE | 2017-05-02 11:12 | NUR ---
PT SITTING IN BED WITH NO COMPLAINTS OF PAIN OR DISCOMFORT. NURSE AND FAMILY AT BEDSIDE. BED IN LOW POSITION AND CALL LIGHT WITHIN REACH. WILL CONTINUE TO MONITOR.
--- NOTE | 2017-05-02 12:00 | NUR ---
RESTING WELL AT THIS TIME WITH NO DISTRESS NOTED. NO C/O NOTED OR VOICED AT THIS TIME. C/L IN REACH AT BEDSIDE.
[2017-05-02 12:17] VITALS: BP 103/61
[2017-05-02 12:31] VITALS: BP 107/55
--- NOTE | 2017-05-02 13:27 | NUR ---
NUTRITION F/U CHART REVIEWED. PT VISIT. TOLERATING REG DIET. 75% INTAKE BREAKFAST THIS AM. WILL CONTINUE TO HONOR FOOD PREFERENCES, MONITOR PO INTAKE. RD FOLLOWING
--- NOTE | 2017-05-02 15:16 | NUR ---
PT WAS JUST AMBULATED VIA THERAPY WITH SLOW AND STEADY GAIT FOR 36 FT. FAMILY REMAIN AT BEDSIDE. C/L IN REACH AT BEDSIDE.
[2017-05-02 16:41] VITALS: BP 93/57
--- NOTE | 2017-05-02 23:54 | NUR ---
PATIENT STATED HIS PAIN LEVEL IS STILL AT A 10/10 IN HIS LEFT HAND, HE IS REQUESTING A PAIN PILL. LET HIM KNOW IT IS NOT TIME YET.
[2017-05-03] VITALS: BP 101/59; BP 124/66
[2017-05-03 07:01] LABS: ERYTHROCYTE SEDIMENTATION RATE 74 mm/hr (0-30)
--- NOTE | 2017-05-03 07:35 | NUR ---
PT AOX4 RESP EVEN AND NONLABORED PT DENIES NEEDS AT THIS TIME IV TO RIGHT FOREARM PATENT AND INTACT AT THIS TIME SRX2 BED AT LOWEST SETTING CALL LIGHT WITHIN REACH WILL CONTINUE TO MONITOR
[2017-05-03 08:53] VITALS: BP 99/57
[2017-05-03 12:21] VITALS: BP 119/80
[2017-05-03 15:23] LABS: EHRLICHIA CHAFF IGG Negative (Neg:<1:64); EHRLICHIA CHAFF IGM Negative (Neg:<1:20); HGE IGG TITER Negative (Neg:<1:64); HGE IGM TITER Negative (Neg:<1:20)
[2017-05-03 15:39] VITALS: BP 112/62
--- NOTE | 2017-05-03 16:33 | CN ---
PATIENT NAME:REBEKAH JAMIL MEDICAL RECORD: [id number] : 32 LOCATION:[id number] ADMIT DATE: 04/24/17 ACCOUNT: [id number] CONSULTING PHYSICIAN: NIXON MATTA MD REFERRING PHYSICIAN: JUVENAL ESPOSITO MD DATE OF CONSULTATION: 04/24/2017 Cardiology Consultation ADMITTING DIAGNOSES: 1. Angina. 2. Coronary artery disease. 3. Previous multivessel percutaneous transluminal coronary angioplasty stent. 4. Anemia. 5. Pancytopenia. HISTORY OF PRESENT ILLNESS: This is a gentleman who presents with generalized weakness. He does have a history of coronary artery disease, last cardiac intervention was December of 2016. He began having some chest pain. His EKG is with no changes. His chest pain was minor. His hemoglobin is 6.3 as yet received transfusion. 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 PHYSICAL EXAMINATION: GENERAL APPEARANCE: Well-nourished, well-developed, appears stated age. Level of distress, comfortable. PSYCHIATRIC: Mental status, alert, normal affect. Orientation, oriented to time, place and person. EYES: Lids and conjunctiva, noninjected. No discharge, no pallor. ENT: Lips, teeth, gums, normal dentition. Oropharynx, no cyanosis, no pallor. NECK: Carotid arteries, bilateral normal upstroke, no bruits, no thrills. JUGULAR VEINS: No jugular venous pressure or distention. CERVICAL LYMPH NODES: Nontender, nonenlarged. THYROID: Not enlarged. Nontender. No nodules. LUNGS: Respiratory effort, unlabored. CHEST: Normal curvature. No thoracic deformity. No chest wall tenderness. Percussion, resonant. Auscultation, clear. No wheezes, no rales, no rhonchi. CARDIOVASCULAR: Precordial exam, nondisplaced. No heaves or pericardial thrills. Rate and rhythm, regular. Heart sounds, normal S1, normal S2. No S3, no gallop, no rub. Systolic murmur, not heard. Diastolic murmur, not heard. EXTREMITIES: No cyanosis, no edema. Peripheral pulses, full and equal in all extremities, except as noted. No bruits appreciated. ABDOMEN: Soft, nondistended. Normal aorta. No bruit. Nontender. No masses. Liver, nontender, no hepatomegaly. Spleen, nontender, no splenomegaly. MUSCULOSKELETAL: No joint tenderness. No joint swelling. No erythema. NEUROLOGICAL: Normal gait, normal strength, normal tone. SKIN: Warm and dry. OVERALL IMPRESSION: Angina in conjunction with severe anemia. At this time, no cardiac catheterization is warranted. He is with no further chest pain. EKG is with no changes and blood replacement is all he has need after transfusion, most likely any angina will resolve. TRANSINT:[id number] Voice Confirmation ID: [id number] DOCUMENT ID: [id number] CONSULT REPORT [id number] REBEKAH JAMIL, NIXON YAO at 1633 CC: [id number] DICTATION DATE: 04/24/17 1618 MAINTENANCE PIPEFITTER: 04/24/17 2348 ADM IN [id number] [place] [address]
[2017-05-03 20:00] VITALS: BP 111/74
[2017-05-04 04:00] VITALS: BP 115/79
[2017-05-04 05:21] LABS: BASOPHILS 0.5 % (0-2); EOSINOPHILS 6.1 % (0-7); HEMATOCRIT 28.8 % (42.0-54.0); HEMOGLOBIN 9.3 g/dL (13.5-17.5); LYMPHOCYTES 22.1 % (15-50); MCH 29.3 pg (26.0-34.0); MCHC 32.3 g/dL (31.0-37.0); MCV 90.9 fL (80.0-100.0); MEAN PLATELET VOLUME 8.9 fL (7.4-10.4); MONOCYTES 19.7 % (2-11); NEUTROPHILS 51.6 % (40-80); PLATELET COUNT 187 10x3/uL (130-400); RBC 3.17 10x6/uL (4.20-6.10); RDW 16.3 % (11.5-14.5)
[2017-05-04 05:34] LABS: WBC 2.1 10x3/uL (4.8-10.8)
[2017-05-04 05:36] LABS: ALBUMIN 2.3 g/dL (3.4-5.0); ANION GAP 13.4 mmol/L (8-16); BILIRUBIN - TOTAL 0.67 mg/dL (0.2-1.3); CALCIUM 8.4 mg/dL (8.5-10.1); CARBON DIOXIDE 27.5 mmol/L (21.0-32.0); CREATININE - SERUM 1.4 mg/dL (0.6-1.3)
[2017-05-04 06:06] LABS: POTASSIUM - SERUM 2.9 mmol/L (3.5-5.1)
--- NOTE | 2017-05-04 07:35 | NUR ---
PT AOX4 RESP EVEN AND NONLABORED PT DENIES NEEDS AT THIS TIME IV TO RIGHT SUBCLAVIAN PATENT AND INTACT AT THIS TIME SRX2 BED AT LOWEST SETTING CALL LIGHT WITHIN REACH WILL CONTINUE TO MONITOR
[2017-05-04 09:01] VITALS: BP 126/64
[2017-05-04 12:18] LABS: ANA REFLEX - ANTICHROMATIN ABS 3.1 AI (0.0-0.9); ANA REFLEX - CENTROMERE B ABS <0.2 AI (0.0-0.9); ANA REFLEX - DBL STRANDED DNA <1 IU/mL (0-9); ANA REFLEX - DIRECT Positive (Negative); ANA REFLEX - JO-1 AB <0.2 AI (0.0-0.9); ANA REFLEX - RNP ANTIBODIES <0.2 AI (0.0-0.9); ANA REFLEX - SCL-70 <0.2 AI (0.0-0.9); ANA REFLEX - SJOGRENS AB SSA 0.4 AI (0.0-0.9); ANA REFLEX - SJOGRENS AB SSB <0.2 AI (0.0-0.9); ANA REFLEX - SMITH AB <0.2 AI (0.0-0.9)
[2017-05-04 12:22] VITALS: BP 119/76
[2017-05-04 17:13] VITALS: BP 132/69
--- NOTE | 2017-05-04 19:00 | NUR ---
REPORT RECEIVED AND CARE OF PT ASSUMED. PT LYING IN SEMI FISHER'S POSITION VISITING WITH FAMILY MEMBERS. IV IN RIGHT FA SALINE LOCKED. WILL MONITOR CLOSELY FOR NEEDS.
--- NOTE | 2017-05-04 19:30 | NUR ---
DR ESPOSITO HERE VISITING WITH PT.
[2017-05-04 20:00] VITALS: BP 102/57
--- NOTE | 2017-05-04 21:00 | NUR ---
HS MEDICATIONS GIVEN TO INCLUDE VOLTEREN GEL ON HANDS PER NEW ORDER. WILL CONTINUE TO MONITOR FOR NEEDS.
[2017-05-05] VITALS: BP 94/53
[2017-05-05 04:00] VITALS: BP 107/63
--- NOTE | 2017-05-05 04:59 | NUR ---
PT RESTING WITH EYES CLOSED AND EASY RESPIRATIONS. FAMILY MEMBER IS AT BEDSIDE.
[2017-05-05 05:44] LABS: BASOPHILS 1.3 % (0-2); EOSINOPHILS 7.7 % (0-7); HEMATOCRIT 25.8 % (42.0-54.0); HEMOGLOBIN 8.4 g/dL (13.5-17.5); LYMPHOCYTES 22.3 % (15-50); MCH 29.6 pg (26.0-34.0); MCHC 32.6 g/dL (31.0-37.0); MCV 90.8 fL (80.0-100.0); MEAN PLATELET VOLUME 8.9 fL (7.4-10.4); MONOCYTES 21.9 % (2-11); NEUTROPHILS 46.8 % (40-80); PLATELET COUNT 189 10x3/uL (130-400); RBC 2.84 10x6/uL (4.20-6.10); RDW 16.1 % (11.5-14.5); WBC 2.3 10x3/uL (4.8-10.8)
[2017-05-05 05:51] LABS: ANION GAP 12.1 mmol/L (8-16); CALCIUM 8.3 mg/dL (8.5-10.1); CARBON DIOXIDE 26.3 mmol/L (21.0-32.0); CREATININE - SERUM 1.4 mg/dL (0.6-1.3); POTASSIUM - SERUM 3.4 mmol/L (3.5-5.1)
--- NOTE | 2017-05-05 06:33 | NUR ---
POTASSIUM LEVEL 3.4 THIS AM REQUIRING COVERAGE WITH 40 MEQ PO POTASSIUM. WILL RE-CHECK IN 4 HOURS.
[2017-05-05 08:48] VITALS: BP 114/74
[2017-05-05 12:26] VITALS: BP 96/60
[2017-05-05 16:27] VITALS: BP 106/56
--- NOTE | 2017-05-05 16:47 | EC ---
PATIENT:REBEKAH JAMIL DATE OF SERVICE: 04/24/17 SEX: M MEDICAL RECORD: [id number] DATE OF : 32 LOCATION:D[facility] AGE OF PATIENT: 86 ADMISSION DATE: 04/24/17 REFERRING PHYSICIAN: INTERPRETING PHYSICIAN: NIXON BRUMFIELD MD ECHOCARDIOGRAM REPORT ECHO CHARGES 4 ECHO COMPLETE CLINICAL DIAGNOSIS: BILATERAL PLEURAL EFFUSION ECHOCARDIOGRAPHIC MEASUREMENTS (adult normal given) AC root (d.<3.7cm) 3.3 cm LV Septum d (<1.2 cm> 1.5 cm Valve Excursion 1.3 cm LV Septum (systole) 2.0 cm Left Atria (s.<4.0cm> 4.1 cm LVPW d(<1.2cm) 1.3 cm RV (d.<2.3cm) 2.7 cm LVPW (sytole) 1.9 cm LV diastole(<5.6CM) 5.6 cm MV E-F(>70mm/sec) cm LV systole 3.7 cm LVOT Diameter 1.8 cm MV exc.(>10mm) cm Est.ejection fraction (50-75%) % Pericardial Effusion N DOPPLER: LVIT cm/sec A cm/sec E 135 cm/sec LA cm/sec RVSP 48.0 mmHg LVOT 130 cm/sec AOP1/2T 499.0m/s Asc. Ao 363 cm/sec RVOT 68.0 cm/sec RA cm/sec PA 124 cm/sec AV Gradient Peak 53.0 mmHg AV Mean 28.0 mmHg AV Area 1.0 cm MV Gradient Peak 11.4 mmHg MV Mean 4.3 mmHg MV Area cm COMMENTS: Ring Making Machine Operator: 1 HUSAM MORALESDSOE Director Gift: 1 Dr. Brumfield TAPE# PACS DATE OF SERVICE: 04/28/2017 Echocardiogram FINDINGS: 1. Left ventricular chamber size is upper limits of normal. Left ventricular systolic function is normal. Overall ejection fraction estimated at 55%. 2. The left atrium is mildly dilated at 4.1 cm. Right atrium and right ventricular chamber sizes are moderately dilated. 3. Valvular structures: The aortic valve demonstrates moderate calcific aortic ECHOCARDIOGRAM REPORT [id number] REBEKAH JAMIL stenosis. Valve area calculates to 1.0 cm-squared. There is a gradient of 53 mm across the valve. The remaining valvular structures have normal structure and motion. 4. Doppler interrogation elsewise reveals mild aortic insufficiency, moderate mitral regurgitation, moderate tricuspid regurgitation, no other valvular insufficiency or stenosis. Pulmonary systolic pressure is mildly elevated, estimated at 48 mmHg. 5. No evidence of pericardial effusion or left ventricular thrombus. TRANSINT:[id number] Voice Confirmation ID: [id number] DOCUMENT ID: [id number] NIXON BRUMFIELD MD at 1647 CC: [id number] DICTATION DATE: 05/01/17 1039 CHARGEBACK SPECIALIST: 05/01/17 1208 ADM IN [facility] [address] [id number]
--- NOTE | 2017-05-05 19:00 | NUR ---
REPORT RECEIVED AND CARE OF PT ASSUMED. PT [place] IN HIGH FISHER'S POSITION VISITING WITH SPOUSE. IV IN RIGHT FA SALINE LOCKED. WILL MONITOR FOR NEEDS. CALL LIGHT WITHIN REACH.
[2017-05-05 20:00] VITALS: BP 110/49
--- NOTE | 2017-05-05 20:57 | NUR ---
HS MEDICATIONS GIVEN. WILL CONTINUE TO MONITOR FOR NEEDS. REMAINS AT BEDSIDE.
[2017-05-06] VITALS: BP 110/59
--- NOTE | 2017-05-06 00:56 | NUR ---
PT RESTING IN SUPINE POSITION WITH EYES CLOSED AND UNLABORED BREATHING.
[2017-05-06 04:00] VITALS: BP 109/57
[2017-05-06 05:26] LABS: BASOPHILS 0.4 % (0-2); EOSINOPHILS 2.5 % (0-7); HEMATOCRIT 24.8 % (42.0-54.0); IMMATURE GRANULOCYTES 0.4 % (0-5); LYMPHOCYTES 25.9 % (15-50); MCH 29.1 pg (26.0-34.0); MCHC 32.3 g/dL (31.0-37.0); MCV 90.2 fL (80.0-100.0); MEAN PLATELET VOLUME 8.7 fL (7.4-10.4); MONOCYTES 15.1 % (2-11); NEUTROPHILS 55.7 % (40-80); PLATELET COUNT 199 10x3/uL (130-400); RBC 2.75 10x6/uL (4.20-6.10); RDW 16.4 % (11.5-14.5); WBC 2.4 10x3/uL (4.8-10.8)
[2017-05-06 05:40] LABS: ANION GAP 13.8 mmol/L (8-16); CALCIUM 8.1 mg/dL (8.5-10.1); CARBON DIOXIDE 23.8 mmol/L (21.0-32.0); CREATININE - SERUM 1.6 mg/dL (0.6-1.3); POTASSIUM - SERUM 3.6 mmol/L (3.5-5.1)
--- NOTE | 2017-05-06 07:30 | NUR ---
RECIEVED PT DURING WALKING ROUNDS, PT RESTING IN BED WITH NO COMPLAINTS OF PAIN OF DISCOMFORT AT THIS TIME. ASSESSMENT DONE PER FLOWSHEET. BED IN LOW POSITION AND CALL LIGHT WIHTIN REACH. WILL CONTINUE TO MONITOR.
[2017-05-06 11:13] VITALS: BP 110/69
[2017-05-06 12:54] VITALS: BP 108/68
[2017-05-06 16:29] VITALS: BP 104/58
--- NOTE | 2017-05-06 19:00 | NUR ---
REPORT RECEIVED AND CARE OF PT ASSUMED. PT SITTING UP IN BED VISITING WITH FAMILY MEMBER. IV IN RIGHT FA SALINE LOCKED. WILL MONITOR CLOSELY FOR NEEDS.
[2017-05-06 20:00] VITALS: BP 112/68
--- NOTE | 2017-05-06 20:10 | NUR ---
HS MEDICATIONS GIVEN. WILL CONTINUE TO MONITOR FOR NEEDS.
--- NOTE | 2017-05-06 20:52 | NUR ---
GAVE NORCO PER PRN ORDER, PER PT REQUET FOR BACK PAIN. WILL MONITOR FOR EFFECTIVENESS.
[2017-05-07] VITALS (13 sets, daily range): BP systolic 86–117; BP diastolic 49–72
--- NOTE | 2017-05-07 00:21 | NUR ---
PT RESTING QUIETLY AT THIS TIME WITH EASY RESPIRATIONS.
[2017-05-07 05:34] LABS: BASOPHILS 0.5 % (0-2); EOSINOPHILS 9.3 % (0-7); HEMATOCRIT 23.3 % (42.0-54.0); HEMOGLOBIN 7.6 g/dL (13.5-17.5); LYMPHOCYTES 24.9 % (15-50); MCH 29.5 pg (26.0-34.0); MCHC 32.6 g/dL (31.0-37.0); MCV 90.3 fL (80.0-100.0); MEAN PLATELET VOLUME 8.8 fL (7.4-10.4); MONOCYTES 17.1 % (2-11); NEUTROPHILS 48.2 % (40-80); PLATELET COUNT 201 10x3/uL (130-400); RBC 2.58 10x6/uL (4.20-6.10); RDW 15.8 % (11.5-14.5); WBC 2.1 10x3/uL (4.8-10.8)
[2017-05-07 05:44] LABS: ALBUMIN 1.9 g/dL (3.4-5.0); ANION GAP 12.6 mmol/L (8-16); BILIRUBIN - TOTAL 0.39 mg/dL (0.2-1.3); CALCIUM 8.4 mg/dL (8.5-10.1); CARBON DIOXIDE 25.3 mmol/L (21.0-32.0); CREATININE - SERUM 1.5 mg/dL (0.6-1.3); POTASSIUM - SERUM 3.9 mmol/L (3.5-5.1); PROTEIN - SERUM 5.6 g/dL (6.4-8.2)
--- NOTE | 2017-05-07 07:30 | NUR ---
RECIEVED PT DURING WALKING ROUNDS. PT RESTING IN BED WITH NO COMPLAINTS OF PAIN OR DISCOMFORT AT THIS TIME. ASSESSMENT DONE PER FLOWSHEET. BED IN LOW POSITION AND CALL LIGHT WITHIN REACH. WILL CONTINUE TO MONITOR.
--- NOTE | 2017-05-07 09:55 | NUR ---
PROCARDIA HELD DUE TO PTS BP BEING LOW.
--- NOTE | 2017-05-07 19:00 | NUR ---
REPORT RECEIVED AND CARE OF PT ASSUMED. PT LYING IN HIGH FISHER'S POSITION VISITING WITH FAMILY MEMBERS. IV IN RIGHT FA SALINE LOCKED. DISCUSSED ORDER FOR BLOOD TRANSFUSIONS X2 TONIGHT WITH PT AND MAYATER.
--- NOTE | 2017-05-07 20:32 | NUR ---
HS MEDICATIONS GIVEN.
--- NOTE | 2017-05-07 21:33 | NUR ---
PRE-MEDICATED PT WITH TYLENOL 650 MG PO AND BENADRYL 25 MG PO, HE HAS A HISTORY OF REACTION WITH BLOOD TRANSFUSIONS IN PAST....REDNESS IN FACE. WILL CONTINUE TO MONITOR MELISSA.
--- NOTE | 2017-05-07 21:45 | NUR ---
1ST UNIT OF PRBC'S STARTED. VITALS STABLE AND PT IS AFEBRILE.
--- NOTE | 2017-05-07 22:49 | NUR ---
VITALS STABLE AND PT IS AFEBRILE. RESTING QUIETLY IN HIGH FISHER'S POSITION WITH EYES CLOSED AND EASY RESPIRATIONS. FAMILY MEMBER IS AT BEDSIDE.
--- NOTE | 2017-05-07 23:28 | NUR ---
VITALS REMAIN STABLE AND PT IS AFEBRILE.
[2017-05-08] VITALS (14 sets, daily range): BP systolic 107–124; BP diastolic 62–87
--- NOTE | 2017-05-08 00:21 | NUR ---
1ST UNIT OF PRBC'S COMPLETE. VITALS STABLE AND PT REMAINS AFEBRILE.
--- NOTE | 2017-05-08 03:34 | NUR ---
2ND UNIT OF PRBC'S COMPLETE. VITALS STABLE AND PT REMAINS AFEBRILE.
[2017-05-08 05:41] LABS: BASOPHILS 0.9 % (0-2); EOSINOPHILS 10.2 % (0-7); HEMATOCRIT 27.8 % (42.0-54.0); HEMOGLOBIN 9.1 g/dL (13.5-17.5); IMMATURE GRANULOCYTES 0.5 % (0-5); LYMPHOCYTES 24.5 % (15-50); MCH 29.7 pg (26.0-34.0); MCHC 32.7 g/dL (31.0-37.0); MCV 90.8 fL (80.0-100.0); MEAN PLATELET VOLUME 9.3 fL (7.4-10.4); MONOCYTES 14.8 % (2-11); NEUTROPHILS 49.1 % (40-80); PLATELET COUNT 230 10x3/uL (130-400); RBC 3.06 10x6/uL (4.20-6.10); RDW 15.5 % (11.5-14.5); WBC 2.2 10x3/uL (4.8-10.8)
[2017-05-08 06:07] LABS: ANION GAP 15.6 mmol/L (8-16); BILIRUBIN - TOTAL 0.46 mg/dL (0.2-1.3); CALCIUM 7.9 mg/dL (8.5-10.1); CARBON DIOXIDE 22.2 mmol/L (21.0-32.0); CREATININE - SERUM 1.4 mg/dL (0.6-1.3); POTASSIUM - SERUM 3.8 mmol/L (3.5-5.1); PROTEIN - SERUM 5.1 g/dL (6.4-8.2)
--- NOTE | 2017-05-08 07:12 | NUR ---
REPORT RECEIVED FROM ANALYST MARKET INTELLIGENCE NURSE. CALL LIGHT IN REACH.
--- NOTE | 2017-05-08 08:21 | NUR ---
ASSESSMENT COMPLETED. NS INITITATED FOR GI PROCEDURE. DENIES PAIN AT THIS TIME. CALL LIGHT IN REACH. WILL CONTINUE WITH PLAN OF CARE.
--- NOTE | 2017-05-08 08:27 | NUR ---
TO GI LAB VIA BED.
--- NOTE | 2017-05-08 09:10 | NUR ---
PRE-INJECTED GASTRIC POLYP SITE WITH 2 CC EPINEPHERINE PIOR TO SNARE.
--- NOTE | 2017-05-08 10:15 | NUR ---
BACK IN ROOM. AM MEDS AMINISTERED. NEW TUBING PER HOSPITAL POLICY AND TUBING LABELED. FAMILY AT BEDSIDE. CALL LIGHT IN REACH.
--- NOTE | 2017-05-08 10:38 | NUR ---
SPUTUM CUP GIVEN TO PATIENT FOR SPECIMEN.
--- NOTE | 2017-05-08 11:26 | NUR ---
SITTING IN CHAIR. CARAFATE AND FLORANEX PO. SPUTUM CX COLLECTED AND SENT TO LAB.
--- NOTE | 2017-05-08 11:34 | NUR ---
SPUTUM COLLECTED AND SENT TO LAB.
--- NOTE | 2017-05-08 13:54 | NUR ---
NUTRITION F/U CHART REVIEWED. PT VISIT. FAMILY AT BEDSIDE. PT CURRENTLY ON CLEAR LIQUID DIET S/P EGD. WILL MONITOR DIET ADVANCEMENT AND PROVIDE ACCORDINGLY. RD FOLLOWING
--- NOTE | 2017-05-08 14:18 | NUR ---
BRYCE CHANDLER PO. VANCOMYCIN IVPB. CALL LIGHT IN REACH.
--- NOTE | 2017-05-08 16:58 | NUR ---
CARAFATE PO. DAUGHTER IN LAW IN ROOM.
--- NOTE | 2017-05-08 18:40 | NUR ---
PT HERE FOR ANEMIA AND NEUTROPENIA FOR THIS VISIT. PT DENIES NEEDS AT THIS TIME SRX2 BED AT LOWEST SETTING CALL LIGHT WITHIN REACH WILL CONTINUE TO MONITOR
--- NOTE | 2017-05-08 23:37 | NUR ---
PATIENT IS RESTING QUIETLY WITH EYES CLOSED. HOB 45 DEGREES. NO SIGNS OF DISTRESS NOTED. BED IN LOWEST POSITION, CALL LIGHT IN REACH. FAMILY MEMBER SLEEPING IN THE RECLINER.
[2017-05-09 01:59] VITALS: BP 122/76
[2017-05-09 06:11] LABS: BASOPHILS 0.9 % (0-2); EOSINOPHILS 8.7 % (0-7); HEMATOCRIT 29.6 % (42.0-54.0); HEMOGLOBIN 9.6 g/dL (13.5-17.5); IMMATURE GRANULOCYTES 0.3 % (0-5); LYMPHOCYTES 18.9 % (15-50); MCH 29.4 pg (26.0-34.0); MCHC 32.4 g/dL (31.0-37.0); MCV 90.5 fL (80.0-100.0); MEAN PLATELET VOLUME 8.9 fL (7.4-10.4); NEUTROPHILS 57.2 % (40-80); RBC 3.27 10x6/uL (4.20-6.10); RDW 15.9 % (11.5-14.5)
[2017-05-09 06:26] LABS: PLATELET COUNT 285 10x3/uL (130-400); WBC 3.2 10x3/uL (4.8-10.8)
[2017-05-09 06:29] LABS: ALBUMIN 2.1 g/dL (3.4-5.0); ANION GAP 12.8 mmol/L (8-16); BILIRUBIN - TOTAL 0.48 mg/dL (0.2-1.3); CALCIUM 8.5 mg/dL (8.5-10.1); CARBON DIOXIDE 25.4 mmol/L (21.0-32.0); CREATININE - SERUM 1.1 mg/dL (0.6-1.3); PROTEIN - SERUM 5.8 g/dL (6.4-8.2)
[2017-05-09 06:31] LABS: POTASSIUM - SERUM 3.2 mmol/L (3.5-5.1)
--- NOTE | 2017-05-09 07:23 | NUR ---
REPORT RECEIVED FROM MECHANICAL ORDNANCE ASSEMBLER NURSE. CALL LIGHT IN REACH.
--- NOTE | 2017-05-09 07:44 | CN ---
PATIENT NAME:ELOY CLIFTON MEDICAL RECORD: [id number] : 32 LOCATION:[id number] ADMIT DATE: 04/24/17 ACCOUNT: [id number] CONSULTING PHYSICIAN: LORETO CAZARES MD REFERRING PHYSICIAN: JUVENAL ESPOSITO MD DATE OF CONSULTATION: 05/05/2017 RHEUMATOLOGY CONSULTATION HISTORY OF PRESENT ILLNESS: Eloy Clifton is an 86-year-old gentleman who I have been asked to evaluate by Dr. Carvajal regarding musculoskeletal symptoms. Two to three days ago, the patient had some discomfort and soreness around the left fifth finger extending to the left wrist possibly with slight swelling and warmth. It improved spontaneously without specific treatment. Yesterday, developed some discomfort on the right fifth finger extending to around the right wrist with slight warmth, questionable erythema. Last evening, Voltaren gel was started. He thinks, it is getting to help a bit. He has remote history of right total hip replacement. He has a history of renal stones, type unknown, but he denies any history of gout. He does have a family history of gout (son). Hand x-rays reportedly show evidence of osteoarthritis. There are no reports of chondrocalcinosis. Rheumatoid factor negative. RAFY screen positive. Antihistone positive. Remainder of RAFY profile normal. Uric acid 6.3. On admission, he had marked leukopenia and he also had anemia and has positive guaiacs, bleeding source unknown. 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 Forrest). Other studies include negative Lyme screen, negative Ehrlichia titers, elevated parvovirus IgG, Rickettsia IgM negative, Rickettsia IgG equivocal (1 to 64). Echocardiogram showed ejection fraction 55%, right atrial enlargement, left atrial enlargement, right ventricular enlargement, moderate aortic stenosis with FRANCO 1.0. Mild aortic insufficiency, moderate mitral regurgitation, RVSP 48. He has history of ASHD, previous stents. He has history of COPD. Current chest x-ray showed some retrocardiac infiltrate suggestive of pneumonia for which Rocephin has been started. With a positive RMSF, he has been started with doxycycline. He denies any history of photosensitivity seizures, past pleurisy, past pericarditis, hepatitis, or hematuria. He has chronic renal insufficiency, duration unknown and creatinine runs in 1.5. He has insulin dependent diabetes. CONSULT REPORT [id number] LOULOUELOY CURRENT MEDICATIONS: Rocephin 1 g IV every 24 hours since 05/05/2017, Floranex b.i.d., potassium 20 mEq b.i.d., Voltaren gel b.i.d. (05/04/2017), Ibuprofen 600 mg every 8 hours p.r.n. (discontinued 04/03/2017), Furosemide 40 mg IV daily, diphenhydramine 25 mg p.r.n. hydrocodone 10/325 every 4 hours p.r.n., MiraLax p.r.n., Flonase daily, acetaminophen p.r.n., vitamin C 500 mg b.i.d., doxycycline 100 mg b.i.d. (04/28/2017), Tessalon 200 mg t.i.d., Carafate 1 g before meals and at bedtime, Pulmicort 0.5 b.i.d., Brovana b.i.d., DuoNeb 3 cc q.i.d., Mucinex b.i.d., Niferex 150 b.i.d., melatonin 3 mg at bedtime, Plavix 75 mg daily, Lantus 24 units daily, Gabapentin 100 mg b.i.d., pantoprazole 40 mg daily, pravastatin 80 mg daily, aspirin 81 mg daily, tamsulosin 0.4 mg daily, nifedipine 60 mg daily, and Zofran 8 mg p.r.n. PAST MEDICAL HISTORY: He has no known drug allergies. He has past history of right total hip replacement. He has history of underlying osteoarthritis. He has ASHD, previous coronary stents, hypertension, and treated for diabetes. Past history of iron deficiency anemia previously treated by Dr. Forrest with IV iron. He has history of peripheral vascular disease, reported neuropathy. He has moderate hearing loss. PAST SURGICAL HISTORY: He has had previous cholecystectomy, cataract surgery, previous renal stones, type unknown for lithotripsy. SOCIAL HISTORY: He is a former smoker. He does not drink alcohol[place] (there is no known ticks this season). FAMILY HISTORY: Son with gout. No known family history of lupus, rheumatoid arthritis, or other connective tissue diseases. REVIEW OF SYSTEMS: He does not have chills, sweats, or rigor, purpura, petechiae, infarcts or lymphadenopathy, Sicca symptoms and underlying past history of bleeding or clotting disorders, Raynaud's. PHYSICAL EXAMINATION: VITAL SIGNS: Blood pressure 106/56, pulse 98 and regular, respirations 16, temperature 99. GENERAL: This is an elderly man and he is moderately hard of hearing, but alert. History is provided by some by patient, the records and his daughter. HEENT: Head, normal male hair pattern. Eyes, conjunctivae are clear. Mouth is somewhat dry. Tongue is midline. NECK: There is no adenopathy or masses. LUNGS: Clear. CARDIOVASCULAR: S1, S2 normal. There is grade II-III/ systolic ejection murmur. There is no dependent edema. ABDOMEN: Soft, nontender without organomegaly or masses. MUSCULOSKELETAL: Right wrist has slight warmth, questionable erythema and mild discomfort with range of motion with tenderness. There is no definite tenderness around the fingers. Left wrist is cool and nontender. There is arthritis of PIPs and DIPs. Knees, ankles, and feet are nontender without inflammation. Elbows and shoulders have full painless range of motion. There is no evidence of tophi of the ears, elbows, fingers, and feet. NEUROLOGIC: He has marked hard of hearing, otherwise cranial nerves are intact. Moves all extremities. There are no lateralizing signs. SKIN: Without purpura, petechiae, or infarcts. No sclerodactyly, no tophi. No malar rash. CONSULT REPORT [id number] ELOY CLIFTON IMPRESSION: 1. Oligoarticular arthritis of the wrists. a. Left, onset 2-3 days ago and resolved spontaneously. b. Right wrist onset yesterday, improved with Voltaren gel. 2. Renal insufficiency. 3. Insulin-dependent diabetes. 4. Mild hyperuricemia (6.3). 5. Osteoarthritis of the hands on physical exam and x-rays. 6. Positive RAFY screen, positive antihistone. 7. Severe blood loss anemia with positive stool guaiacs. 7. Marked leukopenia, improving. 8. Equivocal anuj mountain spotted fever IgG, treated. 9. 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 Mild aortic insufficiency, moderate mitral regurgitation, right ventricle systolic pressure 48. 10. Chronic obstructive pulmonary disease. 11. Retrocardiac infiltrate 05/05/2017, possible pneumonia. RECOMMENDATIONS: 1. Continue current Voltaren gel. 2. If wrist pain persists, consider using wrist splint and ice. 3. Due to renal insufficiency, avoid oral nonsteroidals. 4. Due to GI bleeding, avoid oral nonsteroidals. 5. Acute diabetes, try to avoid low-dose prednisone if possible. 6. Due to renal insufficiency, avoid colchicine. 7. Monitor for expected response to Voltaren gel. DISCUSSION: Infection of the wrist, differential diagnosis is quite broad. This does not appear to be septic or arthritis nor it does appear to be the arthralgias associated with tick-borne illness. Chondrocalcinosis (CPPD) could cause an acute oligoarticular arthritis at this time. We will observe and see the response to Voltaren gel. Oligoarticular gout in the upper extremities would be a little unusual without any prior history of gout. His uric acid was 6.3. The RAFY screen was positive, his antihistone was positive, but he does not have any clinical evidence to suggest active SLE or other serologically defined connective tissue disease. TRANSINT:[id number] Voice Confirmation ID: [id number] DOCUMENT ID: [id number] LORETO CAZARES MD at 0744 CC: [id number] DICTATION DATE: 05/05/171956 [employer]ELOPER: 05/06/[address] [place] [address] IN [facility] [address] [place] [address]
--- NOTE | 2017-05-09 09:26 | NUR ---
ASSESSMENT COMPLETED. AM MEDS ADMINISTERED. ELECTROLYTE PROTOCOL COVERED. REFUSES SCDs AT THIS TIME. GRANDDAUGHTER IN ROOM. CALL LIGHT IN REACH.
--- NOTE | 2017-05-09 11:05 | NUR ---
FLORANEX AND CARAFATE PO. CEFEPIME IVPB. CALL LIGHT IN REACH.
[2017-05-09 12:28] VITALS: BP 149/89
--- NOTE | 2017-05-09 13:05 | NUR ---
AMBULATING IN HALLWAY WITH PHYSICAL THERAPY. TOLERATING WELL.
[2017-05-09] MEDS ORDERED: BROVANA15 MCG/2 M INH (14:59)
[2017-05-09] MEDS ORDERED: BENZONATATE200 MG PO (15:00)
[2017-05-09] MEDS ORDERED: ASCORBIC ACID500 MG PO (15:00)
[2017-05-09] MEDS ORDERED: PULMICORT0.5 MG/21 INH (15:01)
[2017-05-09] MEDS ORDERED: MAXIPIME 2 GM/D52 G1 IV (15:02)
[2017-05-09] MEDS ORDERED: VIBRAMYCIN 100100 M1 IV (15:03)
[2017-05-09] MEDS ORDERED: NIFEREX-150 CAP1 CA3 PO (15:04)
[2017-05-09] MEDS ORDERED: FLUTICASONE PRO16 GM NASAL (15:05)
[2017-05-09] MEDS ORDERED: MUCINEX DM ER1 EAC1 PO (15:06)
[2017-05-09] MEDS ORDERED: FLORAJEN3 CAPS460 MG PO (15:06)
[2017-05-09] MEDS ORDERED: IPRAT-ALBUT 0.5-3 ML UPD (15:06)
[2017-05-09] MEDS ORDERED: MELATONIN 3 MG1 TAB PO (15:08)
[2017-05-09] MEDS ORDERED: LACTINEX C1 TAB.CHEW PO (15:08)
[2017-05-09] MEDS ORDERED: PROTONIX40 MG PO (15:09)
[2017-05-09] MEDS ORDERED: K-DUR20 MEQ PO (15:10)
[2017-05-09] MEDS ORDERED: CARAFATE1 G PO (15:11)
[2017-05-09] MEDS ORDERED: VANCOMYCIN 1 GM/1 G1 IV (15:11)
[2017-05-09] MEDS ORDERED: BENADRYL 2% CRE30 GM TOPICAL (15:12)
[2017-05-09] MEDS ORDERED: ELECTROLYTE MISC (15:12)
[2017-05-09] MEDS ORDERED: HYDROCODONE-APA1 TAB PO (15:12)
[2017-05-09] MEDS ORDERED: MIRALAX17 GM PO (15:13)
[2017-05-09] MEDS ORDERED: ONDANSETRON4 MG/2 M3 IV (15:13)
[2017-05-09 15:46] VITALS: BP 97/64
--- NOTE | 2017-05-09 15:48 | NUR ---
LESLEY IVPB. BRYCE AND YAMILET PO. CALL LIGHT IN REACH.
--- NOTE | 2017-05-09 16:07 | NUR ---
PT AOX4 RESP EVEN AND NONLABORED IV TO RIGHT FOREARM PATENT AND INTACT AT THIS TIME SRX2 BED AT LOWEST SETTING CALL LIGHT WITHIN REACH WILL CONTINUE TO MONITOR PT HERE FOR NEUTROPENIA AND ANEMIA FOR THIS VISIT
--- NOTE | 2017-05-09 16:48 | NUR ---
Rehab Note- Acute Rehab Prescreen order received. The patient has a qualifying acute rehab diagnosis. Visited with him and a family member present in room. Agrees to [facility] Acute Rehab stay. Informed ROSAMARIA Kessler. The patient is to be admitted today. Thank you for this referral! Kaitlyn De Santiago RN Clinical Liaison, [facility] Rehab
--- NOTE | 2017-05-09 18:43 | NUR ---
REPORT CALLED TO FLORENTINO WOLFE, IN REHAB. ROOM IS NOT READY AT THIS TIME. PATIENT AND FAMILY IS AWARE. NO OTHER CHANGES IN INITIAL ASSESSMENT. CALL LIGHT IN REACH. GRANDDAUGHTER AT BEDSIDE. CALL LIGHT IN REACH. WILL CONTINUE WITH PLAN OF CARE.
--- NOTE | 2017-05-09 19:39 | NUR ---
DC'D TO REHAB VIA WC
--- NOTE | 2017-05-11 07:05 | NUR ---
LATE ENTRY; PATIENT D/C TO IP REHAB ON 05/09/17
--- NOTE | 2017-05-22 11:43 | CN ---
PATIENT NAME:REBEKAH CLIFTON MEDICAL RECORD: [id number] : 32 LOCATION:[facility] ADMIT DATE: 04/24/17 ACCOUNT: [id number] CONSULTING PHYSICIAN: ANTHONY SIFUENTES MD REFERRING PHYSICIAN: JUVENAL ESPOSITO MD DATE OF CONSULTATION: 04/27/2017 CONSULT REQUESTING PHYSICIAN: Jacqui Chen MD REASON FOR CONSULTATION: Bilateral pleural effusion. HISTORY OF PRESENT ILLNESS: Mr. Clifton is an 86-year-old very pleasant gentleman who was admitted through the ER for shortness of breath. The patient was severely anemic as well as leukopenic. He got blood transfusion. For the shortness of breath, it did not get better. He had a CT scan of the chest yesterday, which showed bilateral pleural effusions. REVIEW OF SYSTEMS: Mainly in the history of present illness. PAST MEDICAL HISTORY: 1. COPD. 2. Coronary artery disease. 3. Hypertension. 4. Peripheral vascular disease. PAST SURGICAL HISTORY: 1. Cholecystectomy. 2. Cataract surgery. 3. Bilateral cystostomy. 4. Cardiac catheterization and stent placement. ALLERGIES: There are no known drug allergies. MEDICATIONS: His home medication in [facility] is reviewed. PERSONAL AND SOCIAL HISTORY: The patient has remote history of smoking. He is a nondrinker. FAMILY HISTORY: Significant for cancers and cardiovascular disease. PHYSICAL EXAMINATION: GENERAL: Now, the patient is lying comfortably. He is not in acute distress. VITAL SIGNS: The blood pressure is 126/90, pulse is 99, respiration is 18, temperature 97.9, and SPO2 is 100% on 2 liter nasal cannula. HEENT: Conjunctivae pink. Sclerae nonicteric. NECK: Supple. No JVD. CHEST: The chest excursion is minimal on both sides. There is dullness on percussion at the bases. There are bilateral crackles. No wheezing. HEART: Rhythm regular. Normal sound. Grade II/ systolic murmur. ABDOMEN: Abdomen is soft. Bowel sounds present. No hepatosplenomegaly. RECTAL: Deferred. EXTREMITIES: No cyanosis, no clubbing, no pedal edema. SKIN: The skin is warm, normal turgor. CENTRAL NERVOUS SYSTEM: The patient is awake and alert. There are no obvious cranial nerve abnormalities. The gait was not tested. CONSULT REPORT [id number] REBEKAH CLIFTON IMAGING: CT scan of the chest, there are bilateral pleural effusions. Cholecystectomy is noted. There is pulmonary edema. LABORATORY DATA: CBC: The WBC is 0.8, hemoglobin is 8.6, hematocrit 26.8, the platelet count is 140. Chemistry: Sodium 140, potassium is 3.7, BUN is 20, creatinine 1.3. IMPRESSION: 1. Acute hypoxic respiratory failure. 2. Bilateral pleural effusion, most likely secondary to congestive heart failure, possible fluid overload posttransfusion. 3. Chronic obstructive pulmonary disease without exacerbation. 4. Possible underlying congestive heart failure with a history of coronary artery disease and possible diastolic dysfunction. 5. Anemia. 6. Leukocytosis. RECOMMENDATION: Continue Levaquin. Start on albuterol/ipratropium nebulizer, Brovana, budesonide nebulizer. Increase Lasix to 40 mg IV q.12. We will proceed with the thoracentesis. Labs ordered. Check the cardiac echo, proBNP. Dr. Chen, thank you for involving me in the care of Mr. Clifton. TRANSINT:[id number] Voice Confirmation ID: [id number] DOCUMENT ID: [id number] ANTHONY SIFUENTES MD at 1143 CC: JACQUI CHEN MD [id number] DICTATION DATE: 04/27/17 1357 SUPERVISOR PAINTING: 04/27/17 1436 DIS IN 05/09/17 [id number] [place] [address]
[2017-05-25 12:22] LABS: FUNGUS MYCOLOGY CULTURE Final report (())
--- NOTE | 2017-05-26 13:53 | OP ---
PATIENT NAME: REBEKAH JAMIL MEDICAL RECORD: [id number] :32 LOCATION:[facility] ADMISSION DATE:04/24/17 SURGEON: JACKIE TEIXEIRA DO DATE OF OPERATION: 05/08/2017 PROCEDURE: EGD with polypectomy. INDICATIONS FOR PROCEDURE: Continued anemia with melenic stools. SCOPE: Olympus video gastroscope. MEDICATIONS: Propofol 200 mg IV per anesthesia. ESTIMATED BLOOD LOSS: Minimal. COMPLICATIONS: None. FINDINGS: Informed consent was given. The patient was made comfortable with the above medication. After reaching an adequate level of sedation by slow IV push, the patient was placed on his left side. The endoscope was then advanced under direct visualization through the mouth to the second portion of the duodenum. The esophagus appeared normal in its entirety. The endoscope was advanced beyond the GE junction in the stomach and retroflexed to view the cardia, which appeared normal. In the body of the stomach, there was a large hemorrhagic polyp with an ulcerated edge, which measured approximately 1.4 cm. It was removed using a hot snare. There was a small amount of bleeding, which was not stopping spontaneously. So, a single endoclip was placed at the site for hemostasis. The endoscope was advanced down through the pylorus into the duodenum, where the duodenum appeared normal. The scope was then withdrawn from the patient. The patient tolerated the procedure well, and there were no complications. IMPRESSION: 1. Large hemorrhoids gastric polyp, which is likely contributing to the melenic stools. 2. Otherwise normal EGD. PLAN AND RECOMMENDATIONS: 1. Return to floor for further monitoring. 2. Minimize anti-inflammatories and hold Plavix for up to 7 days if okay with cardiology. 3. Okay to resume clear liquid diet. 4. Continue to monitor hemoglobin levels while awaiting bone marrow results. TRANSINT:[id number] Voice Confirmation ID: [id number] DOCUMENT ID: [id number] JACKIE TEIXEIRA DO at 1353 CC: [id number] DICTATION DATE: 05/24/17 1436 HEAD OF SALES: 05/24/17 1532 DIS IN 05/09/17 [id number] [place] [address]
[2017-06-18 15:08] LABS: ACID FAST CULTURE Negative (()); ACID FAST SMEAR Negative (())
== END 2017-05-09 19:39 | DRG 987 ==
LOC: D.ER 09:52 → D.MS 11:27
PROVIDERS: Emergency Medicine; Family Medicine; General Practice; Internal Medicine Pulmonary Disease; Legal Medicine; Student in an Organized Health Care Education/Training Program; ADMIT Family Medicine
PROC: 07DR3ZX Extraction of Iliac Bone Marrow, Percutaneous Approach, Diagnostic (ICD-10-PCS; principal; 2017-04-26)
PROC: 0Q933ZX Drainage of Left Pelvic Bone, Percutaneous Approach, Diagnostic (ICD-10-PCS; 2017-04-26)
PROC: 0W993ZZ Drainage of Right Pleural Cavity, Percutaneous Approach (ICD-10-PCS; 2017-04-28)
PROC: 0W3P8ZZ Control Bleeding in Gastrointestinal Tract, Via Natural or Artificial Opening Endoscopic (ICD-10-PCS; 2017-05-08)
PROC: 0DB68ZZ Excision of Stomach, Via Natural or Artificial Opening Endoscopic (ICD-10-PCS; 2017-05-08)
DX: K92.2 Gastrointestinal hemorrhage, unspecified (principal); I50.31 Acute diastolic (congestive) heart failure; J18.9 Pneumonia, unspecified organism; J96.01 Acute respiratory failure with hypoxia; I13.0 Hypertensive heart and chronic kidney disease with heart failure and stage 1 through stage 4 chronic kidney disease, or unspecified chronic kidney disease; J44.1 Chronic obstructive pulmonary disease with (acute) exacerbation; A77.0 Spotted fever due to Rickettsia rickettsii; I24.9 Acute ischemic heart disease, unspecified; J98.11 Atelectasis; J90 Pleural effusion, not elsewhere classified; K31.7 Polyp of stomach and duodenum; D46.9 Myelodysplastic syndrome, unspecified; D70.9 Neutropenia, unspecified; I25.119 Atherosclerotic heart disease of native coronary artery with unspecified angina pectoris; I11.9 Hypertensive heart disease without heart failure; N40.0 Benign prostatic hyperplasia without lower urinary tract symptoms; Z79.4 Long term (current) use of insulin; E78.5 Hyperlipidemia, unspecified; I11.0 Hypertensive heart disease with heart failure; E11.40 Type 2 diabetes mellitus with diabetic neuropathy, unspecified; N18.9 Chronic kidney disease, unspecified; I08.3 Combined rheumatic disorders of mitral, aortic and tricuspid valves; E11.22 Type 2 diabetes mellitus with diabetic chronic kidney disease; E87.6 Hypokalemia; B97.6 Parvovirus as the cause of diseases classified elsewhere; M13.832 Other specified arthritis, left wrist; M13.831 Other specified arthritis, right wrist; K21.0 Gastro-esophageal reflux disease with esophagitis; E53.8 Deficiency of other specified B group vitamins; R13.10 Dysphagia, unspecified; Y95 Nosocomial condition; N20.0 Calculus of kidney; I73.9 Peripheral vascular disease, unspecified; K57.90 Diverticulosis of intestine, part unspecified, without perforation or abscess without bleeding; Z74.09 Other reduced mobility

== ENCOUNTER 2017-05-09 19:31 | Inpatient (IN) | payer MEDICARE, BC ==
[~2017-05-09 19:31] MED LIST changes: +ASCORBIC ACID500 MG PO; +BENADRYL 2% CRE30 GM TOPICAL; +BENZONATATE200 MG PO; +BROVANA15 MCG/2 M INH; +CARAFATE1 G PO; +ELECTROLYTE MISC; +FLORAJEN3 CAPS460 MG PO; +FLUTICASONE PRO16 GM NASAL; +HYDROCODONE-APA1 TAB PO; +IPRAT-ALBUT 0.5-3 ML UPD; +K-DUR20 MEQ PO; +LACTINEX C1 TAB.CHEW PO; +MAXIPIME 2 GM/D52 G1 IV; +MELATONIN 3 MG1 TAB PO; +MIRALAX17 GM PO; +MUCINEX DM ER1 EAC1 PO; +NIFEREX-150 CAP1 CA3 PO; +ONDANSETRON4 MG/2 M3 IV; +PROTONIX40 MG PO; +PULMICORT0.5 MG/21 INH; +VANCOMYCIN 1 GM/1 G1 IV; +VIBRAMYCIN 100100 M1 IV
--- NOTE | 2017-05-09 19:40 | NUR ---
RECEIVED PATIENT TO BED 1113A FROM [facility] ACCOMPANIED BY PIPE BENDING MACHINE OPERATOR AND FAMILY MEMBERS. PROVIDED PATIENT FREAH ICE WATER AND ARMED ALMAZ BED ALARM. SR UP X3. TOLD PATIENT I WILL RETURN LATER AFTER I HAVE PROCESSED HIS ADMISSION AND MED ORDERS. SAYS HE UNDERSTANDS.
[2017-05-09 20:00] VITALS: BP 115/69
--- NOTE | 2017-05-09 20:20 | NUR ---
IN BED, DENIES NEEDS. WATCHING TV.
--- NOTE | 2017-05-09 22:25 | NUR ---
GAVE PATIENT HS MEDS AND STARTED IV DOXYCYCLINE 100MG IN 250ML TO RUN OVER 2 HRS PER PUMP VIA RIGHT FOREARM S/L. PATIENT DENIES CURRENT NEEDS.
[2017-05-09 23:52] VITALS: BMI 27.8
--- NOTE | 2017-05-10 00:45 | NUR ---
ADMISSION ASSESSMENT AND HISTORY COMPLETE. ADMISSION DOCUMENTS SIGNED. DENIES CURRENT NEEDS.
--- NOTE | 2017-05-10 02:15 | NUR ---
RESTINB QUIETLY IN BED ON LEFT SIDE. EMPTIED 325ML FROM BEDSIDE URINAL.
--- NOTE | 2017-05-10 04:20 | NUR ---
RESTING QUIETLY ON RIGHT SIDE. RESPIRATIONS UNLABORED.
--- NOTE | 2017-05-10 05:55 | NUR ---
REMAINS IN BED, RESTING QUIETLY.
[2017-05-10 06:44] LABS: BASOPHILS 0.2 % (0-2); EOSINOPHILS 2.8 % (0-7); HEMATOCRIT 29.7 % (42.0-54.0); HEMOGLOBIN 9.5 g/dL (13.5-17.5); IMMATURE GRANULOCYTES 1.3 % (0-5); LYMPHOCYTES 5.9 % (15-50); MCH 30.7 pg (26.0-34.0); MEAN PLATELET VOLUME 11.1 fL (7.4-10.4); MONOCYTES 9.7 % (2-11); NEUTROPHILS 80.1 % (40-80); RBC 3.09 10x6/uL (4.20-6.10); RDW 16.2 % (11.5-14.5)
[2017-05-10 06:48] LABS: MCV 96.1 fL (80.0-100.0); PLATELET COUNT 172 10x3/uL (130-400)
[2017-05-10 07:07] LABS: ANION GAP 11.3 mmol/L (8-16); CALCIUM 8.8 mg/dL (8.5-10.1)
[2017-05-10 07:08] LABS: CREATININE - SERUM 1.6 mg/dL (0.6-1.3); POTASSIUM - SERUM 4.3 mmol/L (3.5-5.1)
--- NOTE | 2017-05-10 08:00 | NUR ---
PT RESTING IN BED EATING BREAKFAST TOLERATING WELL WILL MONITER
--- NOTE | 2017-05-10 08:49 | NUR ---
RESTING QUIETLY IN BED. DENIES NEEDS OR C/O. CALL LIGHT IN REACH. BED IN LOWEST POSITION.
--- NOTE | 2017-05-10 10:30 | NUR ---
PT HAS LARGE LOOSE INCONTENCE OF BOWEL WHILE UP IN WHEELCHAIR PT ASSISTED TO BED TWO PERSON MAX TRANSFER PT CLEANED AND DRYED AND REPOSITENED WITH CALL LIGHT IN REACH WILL MONITER
[2017-05-10 13:58] VITALS: BMI 27.8
--- NOTE | 2017-05-10 14:35 | NUR ---
PT RESTING IN BED WITH EYES OPEN CALL LIGHT IN REACH NO PROBLEMS WILL MONITER
--- NOTE | 2017-05-10 17:37 | NUR ---
PT RESTING IN BED WITH EYES OPEN CALL LIGHT IN REACH WILL MONITER
--- NOTE | 2017-05-10 19:20 | NUR ---
IN BED, AWAKE, BUT DROWSY. DAY SHIFT NURSE JUST DELIVERED PO DOXYCYCLINE PER NEW ORDER.
[2017-05-10 20:45] VITALS: BP 113/71
--- NOTE | 2017-05-10 20:45 | NUR ---
ASSESSMENT AND HS MEDS COMPLETE. HELD CARAFATE UNTIL AT LEAST 2119 WHEN H RECEIVED PO DOXYCYCLINE.
--- NOTE | 2017-05-10 22:20 | NUR ---
RESTING IN BED ON LEFT SIDE. APPEARS COMFORTABLE.
--- NOTE | 2017-05-11 | NUR ---
IV CEFEPIME 2MG INFUSION STARTE 30 MINUTES AGO PER PUMP VIA RIGHT FA S/L IS NOW COMPLETE. S/L IS FLUSHED AND REMAINS PATENT.
--- NOTE | 2017-05-11 02:40 | NUR ---
RESTING QUIETLY IN BED ON RIGHT SIDE. EMPTIED 300ML FROM BEDSIDE URINAL.
--- NOTE | 2017-05-11 04:45 | NUR ---
IN BED, EYES CLOSED. HOB UP 15 DEGREES, LYING ON LEFT SIDE. RESPIRING QUIETLY.
--- NOTE | 2017-05-11 06:20 | NUR ---
FSBS 96. GAVE PATIENT SCHEDULED PO MEDS, AND 24 UNITS LANTUS INSULIN. DENIES CURRENT NEEDS. R/T HER TO GIVE PATIENT UPDRAFT.
--- NOTE | 2017-05-11 07:33 | NUR ---
LYING IN BED WATCHING TV. ALERT AND ORIENTED X3. NO S/SX OF DISTRESS. CALL LIGHT WITHIN REACH, BED ALARM ON AND BED IN LOWEST POSITION. WILL CONTINUE TO MONITOR
[2017-05-11 07:52] VITALS: BP 109/71
--- NOTE | 2017-05-11 11:30 | NUR ---
SITTING UP IN BED VISITING WITH FAMILY. DENIES ANY NEEDS. BED IN LOWEST POSITION AND ALARM ON. CALL LIGHT WITHIN REACH. WILL CONTINUE TO MONITOR
--- NOTE | 2017-05-11 14:37 | NUR ---
LYING IN BED RESTING QUIELTY. DENIES ANY NEEDS OR PAIN. CALL LIGHT WITHIN REACH, BED ALARM ON AND IN LOWEST POSITION. NO DISTRESS NOTED. WILL CONTINUE TO MONITOR.
--- NOTE | 2017-05-11 18:38 | NUR ---
RESTING QUIETLY IN BED. CALL LIGHT IN REACH. BED IN LOWEST POSITION.
--- NOTE | 2017-05-11 19:25 | NUR ---
IN BED, AWAKE. DENIES NEEDS.
--- NOTE | 2017-05-11 20:15 | NUR ---
DOXYCYCLINE 100 MG TAB GIVEN TO PATIENT IT WAS NOT GIVEN PRIOR TO SHIFT CHANGE. WILL DEFER DELIVERY OF 2100 SCHEDULED CARAFATE UNTIL TIME OF IV CEFEPIME @ 2300 TO INSURE TIME SEPARATION OF THE 2 MEDICATIONS WELL NOT AWAKENING PATIENT AN ADDITIONAL TIME JUST FOR THE CARAFATE.
[2017-05-11 21:40] VITALS: BP 125/70
--- NOTE | 2017-05-11 23:00 | NUR ---
GAVE PATIENT CARAFATE 1GM TAB DEFERRED EARLIER. STARTED CEFEPIME 2MG TO RUN OVER 30 MINUTES PER PUMP VIA RIGHT FOREARM S/L. EMPTIED 350ML PALE YELLOW URINE FROM BEDSIDE URINAL. PATIENT DENIES NEEDS.
--- NOTE | 2017-05-12 00:15 | NUR ---
RESTING IN BED, EYES CLOSED.
--- NOTE | 2017-05-12 02:05 | NUR ---
REMAINS IN BED, EYES CLOSED.
--- NOTE | 2017-05-12 04:20 | NUR ---
REMAINS IN BED, LYING ON LEFT SIDE. RESPIRING QUIETLY.
--- NOTE | 2017-05-12 06:00 | NUR ---
FSBS 94. TOOK SCHEDULED MEDS. RIGHT FA S/L REMAINS PATENT TO FLUSH.
[2017-05-12 06:34] LABS: BASOPHILS 0.4 % (0-2); HEMATOCRIT 29.9 % (42.0-54.0); HEMOGLOBIN 9.6 g/dL (13.5-17.5); IMMATURE GRANULOCYTES 0.8 % (0-5); LYMPHOCYTES 17.7 % (15-50); MCHC 32.1 g/dL (31.0-37.0); MCV 90.3 fL (80.0-100.0); MEAN PLATELET VOLUME 8.7 fL (7.4-10.4); MONOCYTES 11.2 % (2-11); NEUTROPHILS 63.9 % (40-80); PLATELET COUNT 321 10x3/uL (130-400); RBC 3.31 10x6/uL (4.20-6.10); RDW 15.5 % (11.5-14.5); WBC 5.2 10x3/uL (4.8-10.8)
[2017-05-12 06:48] LABS: ANION GAP 11.9 mmol/L (8-16); CALCIUM 8.9 mg/dL (8.5-10.1); CARBON DIOXIDE 25.4 mmol/L (21.0-32.0); CREATININE - SERUM 1.2 mg/dL (0.6-1.3); POTASSIUM - SERUM 3.3 mmol/L (3.5-5.1)
[2017-05-12 07:51] VITALS: BP 99/65
--- NOTE | 2017-05-12 08:00 | NUR ---
PATIENT IS ALERY/ORIENT X4. ALMAZ ALARM ON IN BED. PATIENT USING CALL LIGHT FOR NEEDS. VOICES NO NEEDS AT THIS TIME.
--- NOTE | 2017-05-12 10:00 | NUR ---
PATIENT IN REHAB ROOM. WORKING WITH PHYSICAL THERAPIST. DENIES ANY PAIN/DISC AT THIS TIME.
--- NOTE | 2017-05-12 13:00 | NUR ---
PATIENT HELPED INTO BATHROOM. STAND BY ASST WITH WHEELED WALKER. PATIENT ABLE TO DO OWN CARLOS CARE.
--- NOTE | 2017-05-12 16:25 | NUR ---
LAST DOES OF VANCOMYCIN HUNG. RIGHT FOREARM PERIPHERAL LINE PATENT.
--- NOTE | 2017-05-12 17:41 | NUR ---
SITTING UP IN BED.COUGHING WHILE EATING,SPEECH THERAPISTS AT BEDSIDE.
--- NOTE | 2017-05-12 19:30 | NUR ---
IN BED, HOB UP 40 DEGREES. DENIES CURRENT NEEDS.
--- NOTE | 2017-05-12 20:30 | NUR ---
RESTING QUIETLY IN BED, EYES CLOSED.
[2017-05-12 22:05] VITALS: BP 110/72
--- NOTE | 2017-05-12 22:05 | NUR ---
ASSESSMENT AND HS MEDS COMPLETE. PATIENT DENIES NEEDS. EMPTIED 600ML PALY YELLOW URINE FROM BEDSIDE URINAL.
--- NOTE | 2017-05-13 00:05 | NUR ---
REMAINS IN BED, EYES CLOSED. EMPTIED 300ML FROM BEDSIDE URINAL.
--- NOTE | 2017-05-13 01:55 | NUR ---
RESTING IN BED, EYES CLOSED. LYING ON RIGHT SIDE.
--- NOTE | 2017-05-13 04:20 | NUR ---
IN BED ON LEFT SIDE. RESPIRATIONS UNLABORED.
--- NOTE | 2017-05-13 06:35 | NUR ---
GAVE PATIENT SCHEDULED AM MEDS INCLUDING 24 UNITS LANTUS SC IN LEFT ABDOMEN.
--- NOTE | 2017-05-13 08:00 | NUR ---
PT IN BED WATCHING TV. DENEIS PAIN AT THIS TIME. USING THE URINAL WITHOUT HELP. TELEMENTRY INTACT RUNNIMNG CAF. IV TO RIGHT FA S/L.
--- NOTE | 2017-05-13 12:00 | NUR ---
EATING LUNCH.DENIES NEEDS.
--- NOTE | 2017-05-13 14:24 | NUR ---
SITTING UP IN BED WATCHING TV. DENIES ANY NEEDS OR PAIN. NO S/SX OF DISTRESS. CALL LIGHT WITHIN REACH, BED LOW AND ALARM ON. WILL CONTINUE TO MONITOR
--- NOTE | 2017-05-13 17:32 | NUR ---
DC RIGHT FOREARM SL IV CATHETER INTACT. 2X2 GAUZE PRESSURE BANDAGE APPLIED AND PRESSURE HELD 1 MIN. DENIES ANY NEEDS OR PAIN. CALL LIGHT WITHIN REACH, BED LOW AND ALARM ON. WILL CONTINUE TO MONITOR
--- NOTE | 2017-05-13 19:30 | NUR ---
ASSESSTED VITAL SIGNS, SEE FLOW SHEET.
--- NOTE | 2017-05-13 20:08 | NUR ---
PT. IN BED WITH HOB UP FOR COMFORT AND IS WATCHING TV. NO VOICED NEEDS AND HIS CALL LIGHT IS IN HIS HAND.
[2017-05-13 22:02] VITALS: BP 115/72
--- NOTE | 2017-05-13 22:53 | NUR ---
REST QUIETLY IN BED, EYE CLOSE, BED LOW, CALL LIGHT IN REACH.
--- NOTE | 2017-05-14 00:30 | NUR ---
ASSUMED CARE OF PT. AFTER REPORT RECEIVED FROM NEFTALI HAY. PT. IN BED WITH HOB SLIGHTLY ELEVATED WITH EYES CLOSED AND RESP. DEEP AND EVEN. CALL LIGHT WITHIN REACH.
--- NOTE | 2017-05-14 03:08 | NUR ---
PT. IN BED LYING ON HIS RIGHT SIDE WITH EYES CLOSED AND RESP. EVEN. CALL LIGHT WITHIN REACH.
--- NOTE | 2017-05-14 07:47 | NUR ---
PT IN BED WITH EYES CLOSED AND CHEST RISING. NO S/S OF DISTRESS NOTED. EASILY AROUSED TO VERBAL STIMULI. CALL LIGHT IN REACH.
[2017-05-14 08:15] VITALS: BP 102/62
--- NOTE | 2017-05-14 11:51 | NUR ---
PT IN BED WITH EYE OPEN WATCHING TV. NO S/S OF DISTRESS NOTED. FAMILY AT BED SIDE. NO CONCERNS NOTED. CALL LIGHT IN REACH.
--- NOTE | 2017-05-14 15:50 | NUR ---
PT IN BED WITH EYES OPEN WATCHING TV. NO CONCERNS NOTED CALL LIGHT IN REACH
--- NOTE | 2017-05-14 19:35 | NUR ---
PT. IN BED WITH HOB UP FOR COMFORT AND IS WATCHING TV. ASSESSMENT COMPLETED. NO VOICED NEEDS AT THIS TIME AND HE HAS HIS CALL LIGHT WITHIN REACH.
[2017-05-14 20:00] VITALS: BP 100/62
--- NOTE | 2017-05-14 23:13 | NUR ---
PT. IN BED LYING ON HIS LEFT SIDE. EYES CLOSED AND RESP. EVEN. CALL LIGHT WITHIN REACH.
--- NOTE | 2017-05-15 03:11 | NUR ---
PT. IN BED WITH HOB UP FOR COMFORT AND HE'S LYING ON HIS RIGHT SIDE. EYES CLOSED AND RESP. EVEN. CALL LIGHT WITHIN REACH.
[2017-05-15 06:33] LABS: BASOPHILS 0.4 % (0-2); EOSINOPHILS 4.1 % (0-7); HEMATOCRIT 30.1 % (42.0-54.0); HEMOGLOBIN 9.8 g/dL (13.5-17.5); IMMATURE GRANULOCYTES 1.5 % (0-5); LYMPHOCYTES 15.1 % (15-50); MCH 29.3 pg (26.0-34.0); MCHC 32.6 g/dL (31.0-37.0); MCV 90.1 fL (80.0-100.0); NEUTROPHILS 71.9 % (40-80); PLATELET COUNT 309 10x3/uL (130-400); RBC 3.34 10x6/uL (4.20-6.10); RDW 15.6 % (11.5-14.5); WBC 7.5 10x3/uL (4.8-10.8)
[2017-05-15 06:34] LABS: ANION GAP 14.6 mmol/L (8-16); CALCIUM 8.5 mg/dL (8.5-10.1); CARBON DIOXIDE 25.1 mmol/L (21.0-32.0); CREATININE - SERUM 1.2 mg/dL (0.6-1.3); POTASSIUM - SERUM 3.7 mmol/L (3.5-5.1)
--- NOTE | 2017-05-15 08:40 | NUR ---
PT AM MEDS ADMINISTERED. PT DENIES NEEDS. WCTM.
[2017-05-15 09:31] VITALS: BP 118/65
--- NOTE | 2017-05-15 19:20 | NUR ---
IN BED, EYES CLOSED. RESTING ON RIGHT SIDE.
--- NOTE | 2017-05-15 20:00 | NUR ---
CONTINUES IN BED ON RIGHT SIDE. NO DISTRESS NOTED.
--- NOTE | 2017-05-15 21:00 | NUR ---
REMAINS IN BED, RESTING QUIETLY ON LEFT SIDE. NO DISTRESS EVIDENT.
--- NOTE | 2017-05-15 22:45 | NUR ---
AWOKE PATIENT FOR ASSESSMENT AND HS MEDS WHICH ARE NOW COMPLETE. DENIES CURRENT NEEDS. EMPTIED 400ML LIGHT YELLOW URINE FROM BEDSIDE URINAL.
[2017-05-15 23:06] VITALS: BP 131/67
--- NOTE | 2017-05-16 00:15 | NUR ---
RESTING IN BED ON RIGHT SIDE. NO DISTRESS EVIDENT.
--- NOTE | 2017-05-16 02:10 | NUR ---
IN BED, EYES CLOSED.
--- NOTE | 2017-05-16 04:40 | NUR ---
RESTING IN BED, ON RIGHT SIDE, EYES CLOSED. RESPIRATIONS UNLABORED.
--- NOTE | 2017-05-16 06:35 | NUR ---
FSBS 101. GAVE PATIENT SCHEDULED LANTUS 24 UNITS SC IN LEFT UPPER ABDOMEN.
--- NOTE | 2017-05-16 06:35 | NUR ---
FSBS 101. GAVE PATIENT SCHEDULED LANTUS.
[2017-05-16 08:00] VITALS: BP 101/64
--- NOTE | 2017-05-16 08:01 | NUR ---
PT EATING BREAKFAST, DENIES NEEDS. WCTM.
--- NOTE | 2017-05-16 11:16 | NUR ---
PATIENT ADMITTED TO REHAB FROM ACUTE FLOOR. IS HIS PCP. 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 DME AT HOME: WALKER, WHEELCHAIR , CANE, BEDSIDE COMMODE AND POWER CHAIR. WILL CONTNUE TO FOLLOW WITH PATIENT UNTIL DISCHARGED
--- NOTE | 2017-05-16 13:46 | NUR ---
Nutrition Follow Up: Pt stated that his appetite is great. He is eating 87% meal avg on a diabetic diet. +BM 05/16/17. Labs and meds reviewed. Pt continues at low nutritional risk at this time. Rec continue current diet. RD following.
--- NOTE | 2017-05-16 19:20 | NUR ---
REST IN BED AND WATCH TV.
--- NOTE | 2017-05-16 20:25 | NUR ---
PT. IN BED WITH HOB UP FOR COMFORT AND IS WATCHING TV. CALL LIGHT WITHIN REACH.
[2017-05-16 22:52] VITALS: BP 132/69
--- NOTE | 2017-05-17 03:05 | NUR ---
REST IN BED QUIETLY, EYE CLOSE, BED LOW, CALL LIGHT IN REACH.
[2017-05-17 06:01] LABS: BASOPHILS 0.4 % (0-2); EOSINOPHILS 3.2 % (0-7); HEMATOCRIT 31.5 % (42.0-54.0); IMMATURE GRANULOCYTES 1.5 % (0-5); LYMPHOCYTES 14.7 % (15-50); MCH 29.1 pg (26.0-34.0); MCHC 31.7 g/dL (31.0-37.0); MCV 91.6 fL (80.0-100.0); MEAN PLATELET VOLUME 9.5 fL (7.4-10.4); MONOCYTES 6.5 % (2-11); NEUTROPHILS 73.7 % (40-80); PLATELET COUNT 334 10x3/uL (130-400); RBC 3.44 10x6/uL (4.20-6.10); RDW 15.8 % (11.5-14.5); WBC 8.1 10x3/uL (4.8-10.8)
[2017-05-17 06:14] LABS: ANION GAP 13.4 mmol/L (8-16); CALCIUM 8.9 mg/dL (8.5-10.1); CARBON DIOXIDE 26.3 mmol/L (21.0-32.0); CREATININE - SERUM 1.1 mg/dL (0.6-1.3); POTASSIUM - SERUM 3.7 mmol/L (3.5-5.1)
--- NOTE | 2017-05-17 08:02 | NUR ---
PT RESTING IN BED EATING BREAKFAST TOLERATING WELL
[2017-05-17 08:23] VITALS: BP 113/72
--- NOTE | 2017-05-17 08:43 | RHP ---
PATIENT: REBEKAH JAMIL MEDICAL RECORD: [id number] ACCOUNT: [id number] LOCATION:[facility]1112 : 31 ADMISSION DATE: 05/09/17 REHABILITATION HISTORY AND PHYSICAL EXAMINATION POST ADMISSION PHYSICIAN EXAMINATION Post-Admission Physical Examination and History and Physical DATE OF ADMISSION TO THE REHAB: 05/09/2017 ADMITTING DIAGNOSIS: Acute exacerbation of COPD. HISTORY OF PRESENT ILLNESS: The patient was admitted to inpatient rehab with an acute exacerbation of COPD. He is an 86-year-old gentleman that presented to the Emergency Room with chest pain, shortness of breath, weakness and dizziness. His PCP is Dr. Núñez in [place]. He had a history of coronary artery disease and stent placement. He has got dizziness upon standing. The patient had chest pain and chest heaviness, radicular in nature; shortness of breath and lightheadedness. The patient reports that he has not been feeling well for several months. He was noted to have profound anemia and neutropenia. He received multiple transfusions during his stay. He reported that he has been having some black stools. His family reported he has been progressively worsening since his stent that has been placed in December. He also had pleural effusions, had a thoracentesis with 750 cc taken. He has been followed by gastroenterology, cardiology, infectious disease, pulmonary, rheumatology and oncology during his acute hospital stay. He is pending bone marrow aspiration at this time. 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 He is very debilitated, weak with any type of activity. Upon interview, he gets short of breath and weakness in his legs and feels like they are giving out when he is ambulating. He is moderately independent with the use of a cane for mobility and was still driving independently prior to his admission. He is currently setup for moderate assist for his ADLs, moderate assist for mobility; lives at home with his family, they check on him frequently. He plans to return home with his prior level of functioning or better if possible. COMORBIDITIES: In this patient include a right lower lobe effusion, diastolic congestive heart failure, right lower lobe acquired pneumonia, COPD, allergic rhinitis, anemia, leukopenia, GI bleed, Rickettsia and parvovirus, diabetes, neuropathy, hypertension, hyperlipidemia, degenerative joint disease, BPH, hypokalemia, chronic kidney disease, diverticulosis, acute coronary syndrome, hypertensive heart disease, hearing deficits, coronary artery disease and stent placement. PAST MEDICAL HISTORY: Significant for diabetes, hypertension, stents and angioplasty, coronary artery disease, peripheral vascular disease and emphysema. PAST SURGICAL HISTORY: Includes gallbladder surgery, cataract surgery, has had bilateral cysto, stents and angioplasty in the past. ALLERGIES: No known drug allergies. CURRENT MEDICATIONS: He is on vancomycin. He is on Flomax 0.4 mg daily. He is on Pravachol 80 mg daily, Protonix 40 mg daily, nifedipine 60 mg daily. He is on Lantus 24 units daily, furosemide 40 mg daily, Flonase nasal spray daily, HISTORY AND PHYSICAL [id number] REBEKAH JAMIL Plavix 75 mg daily, Pulmicort 0.5 mg b.i.d., aspirin 81 mg daily, Brovana 15 mcg b.i.d. He is on Maxiphen daily. He is on Carafate 1 g q.a.c. and q.h.s., potassium 20 mEq b.i.d., polyethylene glycol 17 grams in 8 ounce of water daily, Zofran 8 mg q.8 hours p.r.n. nausea and vomiting, melatonin 3 mg q.h.s., Lactobacillus 1 tab b.i.d., DuoNeb updrafts as needed, hydrocodone 10/325 one tab q.4 hours p.r.n. pain, Mucinex D 1 tab b.i.d., Neurontin 100 mg b.i.d., Niferex 1 cap b.i.d. He is on doxycycline. He is on Benadryl p.r.n. itching, Tessalon Perles 200 mg t.i.d., vitamin C 500 mg b.i.d. HABITS: No current alcohol or tobacco use. FAMILY HISTORY: Noncontributory. SOCIAL HISTORY: The patient hopes to return back home and get back to his prior level of functioning with his family. REVIEW OF SYSTEMS: GENERAL: Does complain of weakness and fatigue. HEENT: Does complain of cold, cough and congestion. CARDIOVASCULAR: Denies any chest pain at this time, but does complain of shortness of breath. PHYSICAL EXAMINATION: VITAL SIGNS: Stable. He is afebrile. GENERAL: Elderly gentleman in no acute distress, alert upon exam. HEENT: Normocephalic and atraumatic. Mucosa moist. NECK: Supple. No lymphadenopathy. LUNGS: Coarse breath sounds bilaterally. CARDIOVASCULAR: Regular rate and rhythm. ABDOMEN: Benign. EXTREMITIES: No clubbing, cyanosis or edema. NEUROLOGIC: He mainly seems intact. LABORATORY DATA: His white count is 6.0, H&H 9.5 and 29.7, his platelet count is 172. Sodium 136, potassium 4.3, BUN and creatinine of 59 and 1.6 and blood sugar is noted to be 115. ASSESSMENT: This is an 86-year-old gentleman admitted to the rehab with a working diagnosis of acute exacerbation of chronic obstructive pulmonary disease complicated by multiple comorbidities, debility and myopathy. The patient has potential to make improvement. We instituted the following multidisciplinary therapies including, but not limited to physical, occupational, respiratory, speech, nutritional services, prosthetics and orthotics. Given his complex condition and risk for more complications, rehabilitation services cannot be provided at a lower level of care such as a detention facility. PLAN: 1. Admit to [facility] rehab for intensive inpatient therapy to include the following disciplines: A. Physical therapy to improve gait, all transfer skills and bed mobility to a modified independent level. B. Occupational therapy to improve activities of daily living to a modified independent level. C. Case management to assist with discharge planning and placement options. D. Nutrition to assist with nutritional needs. HISTORY AND PHYSICAL [id number] REBEKAH JAMIL. Rehabilitation nursing to assist in monitoring the patient's underlying medical conditions and to assist with any type of bowel or bladder management. 2. The patient's current medications and medical care will be continued. 3. The patient will be placed on standard fall precautions. 4. I am going to go ahead and adjust some of his medications, so we will make therapy a little bit easier on him and easier on our staff. 5. We will discuss this patient during care team staff meeting this week. TRANSINT:[id number] Voice Confirmation ID: [id number] DOCUMENT ID: [id number] CAMDEN notes whether there has been none or any medical/functional change since admission: - CAMDEN attests patient continues to be appropriate for IRF: - FERNANDO PIZANO MD at 0843 CC: [id number] DICTATION DATE: 05/10/17 0841 CHIEF COMPLIANCE OFFICER: 05/10/17 [address] [facility] [address] [place] [id number]
--- NOTE | 2017-05-17 09:34 | NUR ---
PATIENT DISCHARGING HOME TODAY WITH FAMILY. [facility] WILL RESUME CARE OF PATIENT. NO NEW DME NEEDED AT THIS TIME. DR. KRISHNAMURTHY/CECI FERMIN 05/24/17 @ 8:30, DR. SHEARER 05/29/17 @ 1:30. PATIENT CHICE FORM FOR HOME [facility] AND [facility] FORM SIGNED, EXPLAINED AND FILED IN CHART. ORDERS HAVE BEEN FAXED WITH CONFORMATION RECIEVED
--- NOTE | 2017-05-17 10:00 | NUR ---
WILL DC HOME TODAY.DENIES NEEDS.
--- NOTE | 2017-05-17 12:25 | NUR ---
PT DISCHARGED TO HOME WITH DAUGHTER GEMMA VIA WHEELCHAIR DISCHARGE SUMMARY AND DISCHARGE MEDS REVIEWED WITH PT AND FAMILY ALL MEDS CALLED TO [facility] IN [facility]
--- NOTE | 2017-07-04 10:49 | DS ---
PATIENT:REBEKAH JAMIL :32 MEDICAL RECORD: [id number] DISCHARGE SUMMARY ADMISSION DATE: 05/09/17 DISCHARGE DATE: 05/17/17 This is a discharge from the inpatient rehab dated 05/17/2017. PRIMARY DIAGNOSES: Decreased functional ability and ability to provide activities of daily living secondary to weakness and debility with prolonged hospital stay for treatment of COPD exacerbation with a right lower lobe pneumonia. SECONDARY DIAGNOSES: 1. Coronary artery disease. 2. Anemia. 3. Diastolic congestive heart failure. 4. Leukopenia. 5. Gastrointestinal bleed. 6. Diabetes. 7. Hypertension. 8. Hypokalemia. 9. Hyperlipidemia. 10. Peripheral vascular disease. 11. Degenerative joint disease. 12. Chronic renal insufficiency. 13. Benign prostatic hypertrophy. 14. Neuropathy. 15. Rickettsia. 16. Parvovirus. HOSPITAL COURSE: Full H&P is located elsewhere on the chart on this 86-year-old male who was admitted to inpatient rehab for physical therapy and occupational therapy to improve gait, transfer skills, bed mobility, and activities of daily living to a modified independent level. He was evaluated by PT and OT and their plans of care were followed. He required fdc care for observation and assessment, medication administration. He was on antibiotic coverage including Maxipime, vancomycin, and doxycycline. He continued on appropriate home medications. He had Brovana and Pulmicort nebulized and DuoNebs for respiratory support. Electrolytes were managed by protocol. Fingerstick blood sugars were monitored throughout his hospital stay with appropriate adjustment in medications as needed. He was cooperative with therapies, progressing towards goals. Case management was involved for discharge planning. He was considered stable for discharge on 05/17/2017. DISCHARGE MEDICATIONS: As per discharge medication reconciliation. DISCHARGE DISPOSITION: The patient is discharged home. He will continue his current diet and level of activity. He will have home health for continued PT and OT and will follow up with primary care in 7-10 days and specialists as directed. At least 30 minutes was spent in this discharge activity. TRANSINT:[id number] Voice Confirmation ID: [id number] DOCUMENT ID: [id number] DISCHARGE SUMMARY REPORT [id number] REBEKAH JAMIL Dictated By: BRIGHT MELLO I have interviewed/examined the above patient and agree with these documented findings. FERNANDO PIZANO MD at 1400 at 1049 CC: [id number] DICTATION DATE: 07/02/171940 MACHINE EGG WASHER: 07/03/17 1130 DIS IN 05/17/17 [id number] [place] [address]
== END 2017-05-17 12:26 | disposition home or self-care (01) | DRG 190 ==
LOC: D.REHAB 19:31
PROVIDERS: ADMIT Emergency Medicine
DX: J44.1 Chronic obstructive pulmonary disease with (acute) exacerbation (principal); J18.9 Pneumonia, unspecified organism; I50.31 Acute diastolic (congestive) heart failure; J96.01 Acute respiratory failure with hypoxia; I13.0 Hypertensive heart and chronic kidney disease with heart failure and stage 1 through stage 4 chronic kidney disease, or unspecified chronic kidney disease; R13.10 Dysphagia, unspecified; A79.9 Rickettsiosis, unspecified; N18.9 Chronic kidney disease, unspecified; E11.22 Type 2 diabetes mellitus with diabetic chronic kidney disease; Z79.4 Long term (current) use of insulin; I25.10 Atherosclerotic heart disease of native coronary artery without angina pectoris; R53.81 Other malaise; G72.9 Myopathy, unspecified; D64.9 Anemia, unspecified; D72.819 Decreased white blood cell count, unspecified; N40.0 Benign prostatic hyperplasia without lower urinary tract symptoms; M19.90 Unspecified osteoarthritis, unspecified site; E78.5 Hyperlipidemia, unspecified; G62.9 Polyneuropathy, unspecified; J30.9 Allergic rhinitis, unspecified

== ENCOUNTER 2017-07-20 11:48 | Inpatient (IN) | payer MEDICARE, BC ==
[~2017-07-20] VITALS: Ht 182.9 cm; Wt 98.7 kg
[2017-07-20] VITALS (22 sets, daily range): BP systolic 88–120; BP diastolic 52–92; BMI 27.8
--- NOTE | ~2017-07-20 | HEMODYNAMI ---
PATIENT:REBEKAH JAMIL MEDICAL RECORD: [id number] : 32 LOCATION:[facility] ADMISSION DATE: 07/20/17 Generatedon:07/20/201713:27 Patient name: REBEKAH JAMIL Patient #: [id number] SSN: : 1930 Date of study: 07/20/2017 Page: Of Hemodynamic Procedure Report Patient Data Patient Demographics Procedure consent was obtained First Name: REBEKAH Gender: Male Last Name: LOULOU : 1930 Patient #: [id number] Age: 86 year(s) Race: Additional ID: [id number] Contact details [address]: [address] [place] [address] State: [place] City: [id number] Zip code: [address] Past Medical History History of disease Date Diagnosis Comments CAD Allergies Allergen Reaction Date Comments Reported Other allergy 06/13/2015 Oxycodone Other allergy 11/13/2016 OXYCODONE Admission Admission Data Admission Date: 07/20/2017 Admission Time: 11:48 Procedure Procedure Types Cath Procedure Diagnostic Procedure LHC LHC w/Coronaries Intra-Aortic Balloon Pump PCI Procedure AMI/SVG/MANAGEMENT TECHNICIAN PTCA or Stent AMI-BMS/CAMILA Initial Miscellaneous Procedures Moderate Sedation up to 45 minutes Peripheral Cath Diagnostic Procedure Abd/Extremity Aortagram Procedure Description Procedure Date Procedure Date: 07/20/2017 Procedure Start Time: 12:21 Procedure End Time: 13:10 Procedure Staff Name Function Chidi Brumfield MD Performing Physician Maryan Baum RT Monitor [place] RT Scrub Brennan Nascimento RN Nurse Cassidy Campbell RN Nurse Danny Orozco RT Scrub Procedure Data Cath Procedure Fluoroscopy Diagnostic fluoroscopy Total fluoroscopy Time: time: 10.2 min 10.2 min Diagnostic fluoroscopy Total fluoroscopy dose: dose: 1531 mGy 1531 mGy Contrast Material Contrast Material Type Amount (ml) Isovue 300 108 Entry Location Entry Primary Successful Side Size Upsize Upsize Entry Closure Succes sful Closure Location (Fr) 1 (Fr) 2 (Fr) Remarks Device Remarks Femoral Left 6 Fr 6 Fr 7 Fr Sheath artery Short Long Short sutured in place Estimated blood loss: 5 ml Diagnostic catheters Device Type Used For End Catheter Placement MULTIPACK Pigtail 5 Fr LV Angiography catheter MULTIPACK JL 4.0 5Fr Left Coronary catheter Angiography Procedure Complications No complications Procedure Medications Medication Administration Route Dosage 0.9% NaCl I.V. 100 ml/hr Oxygen NC 2 l/min Lidocaine 2% added to field 20 Heparin Flush Bag added to field 2 bags (1000units/500ml NS) Zofran I.V. 4 mg Versed I.V. 1 mg Fentanyl I.V. 100 mcg Heparin Bolus I.V. 5000 units Integrilin (Bolus I.V. 8.5 ml 2mg/ml) Versed I.V. 1 mg Fentanyl I.V. 50 mcg Fentanyl I.V. 50 mcg Fentanyl I.V. 50 mcg Versed I.V. 1 mg Versed I.V. 1 mg Integrilin (Bolus I.V. 8.5 ml 2mg/ml) Nitroglycerin IC/IA I.C. 400 mcg Integrilin (Bolus 8.5 ml 2mg/ml) Heparin Drip I.V. drip 1000 units/hr ([id number]/250 D5W) Integrilin Drip I.V. drip 14.6 ml/hr (75mg/100ml) Nitroglycerin IC/IA I.C. 400 mcg Integrilin (Bolus wasted 4.5 ml 2mg/ml) Hemodynamics Rest Heart Rate: 73 (bpm) Snapshots Pre Cath Intra NCS Post Cath Vital Signs Time Heart Resp SPO2 etCO2 NIBP (mmHg) Rhythm Pain Sedation Rate (ipm) (%) (mmHg) Status Level (bpm) 12:15:29 106 18 100 159/96(133) NSR 0 (11) 10(A) , No pain 12:19:43 102 16 100 140/85(126) NSR 0 (11) 10(A) , No pain 12:23:55 100 16 100 0 118/90(111) NSR 0 (11) 10(A) , No pain 12:27:59 107 14 96 0 131/89(105) NSR 0 (11) 10(A) , No pain 12:32:07 108 16 94 17.9 110/83(88) NSR 0 (11) 9(A) , No pain 12:37:06 109 19 96 0 122/86(110) NSR 0 (11) 10(A) , No pain 12:41:07 98 17 99 0 91/68(79) NSR 0 (11) 9(A) , No pain 12:45:13 76 15 96 0 74/50(59) NSR 0 (11) 9(A) , No pain 12:49:15 93 18 96 21.6 73/44(52) NSR 0 (11) 9(A) , No pain 12:53:15 99 15 98 14.2 82/51(61) NSR 0 (11) 9(A) , No pain 13:04:33 73 17 95 26.9 85/56(78) NSR 0 (11) 10(A) , No pain 13:09:33 67 19 97 11.9 75/58(67) NSR 0 (11) 10(A) , No pain Medications Time Medication Route Dose Verified Delivered Reason Not es Effectiveness by by 12:07:08 0.9% NaCl I.V. 100ml/hr Chidi Benjamin used for Brissa Campbell RN procedure 12:07:15 Oxygen NC 2 l/min Chidi Benjamin Per physician Brissa Campbell RN 12:07:25 Lidocaine 2% added 20ml Chidi Chidi for local to vial Brissa Brumfield MD anesthetic field 12:07:31 Heparin Flush added 2 bags Chidi Murillo used for Bag to Brissa Brumfield MD procedure (1000units/500ml field NS) 12:15:55 Zofran I.V. 4 mg Chidi Amin for nausea Brissa Nascimento RN 12:21:01 Versed I.V. 1 mg Chidi Amin for sedation Brissa Nascimento RN 12:21:08 Heparin Bolus I.V. 5000 Chidi Hernandezfany for bianca ified units Brissa Campbell RN anticoagulation by 12:21:09 Fentanyl I.V. 100 mcg Chidi Amin for sedation Brissa Nascimento RN 12:24:02 Integrilin I.V. 8.5ml Chidi Benjamin for was eitan (Bolus 2mg/ml) Brissa Campbell RN antiplatelet 1.5 therapy 12:24:26 Versed I.V. 1 mg Chidi Benjamin for sedation Brissa Campbell RN 12:24:38 Fentanyl I.V. 50 mcg Chidi Hernandezfany for sedation Brissa Campbell RN 12:28:38 Fentanyl I.V. 50 mcg Chidi Hernandezfany for sedation Brissa Campbell RN 12:32:35 Fentanyl I.V. 50 mcg Chidi Chaparroy for sedation Brissa Campbell RN 12:36:18 Versed I.V. 1 mg Chidi Hernandezfany for sedation Brissa Campbell RN 12:36:25 Versed I.V. 1 mg Chidi Hernandezfany for sedation Brissa Campbell RN 12:39:03 Integrilin I.V. 8.5ml Chidi Benjamin for was eitan (Bolus 2mg/ml) Brissa Campbell RN antiplatelet 1.5 therapy 12:43:07 Nitroglycerin I.C. 400 mcg Chidi Murillo for IC/IA Brissa Brumfield MD vasodilation 12:45:27 Integrilin I.C 8.5ml Chidi Murillo for (Bolus 2mg/ml) Brissa Brumfield MD antiplatelet therapy 12:45:54 Heparin Drip I.V. 1000 Chidi Benjamin for per (48480nswjq/250 drip units/hr Brissa Campbell RN antiplatelet dr.brissa D5W) therapy 12:48:43 Nitroglycerin I.C. 400 mcg Chidi Benjamin for IC/IA Brissa Campbell RN vasodilation 12:56:50 Integrilin Drip I.V. 14.6 Chidi Benjamin for (75mg/100ml) drip ml/hr Brissa Campbell RN antiplatelet therapy 13:11:48 Integrilin wasted 4.5ml Chidi Benjamin for (Bolus 2mg/ml) Brissa Campbell RN antiplatelet therapy Procedure Log Time Note 12:02:46 Brennan Nascimento RN sent for patient. Start room use. 12:02:46 Time tracking: Regular hours 12:02:50 Plan of Care:Hemodynamics will remain stable., Cardiac rhythm will remain stable., Comfort level will be maintained., Respiratory function will remain adequate., Patient/ family verbilizes understanding of procedure., Procedure tolerated without complication., Recovers from procedure without complications.. 12:07:08 0.9% NaCl 100ml/hr I.V. was administered by Cassidy Campbell RN; used for procedure; 12:07:15 Oxygen 2 l/min NC was administered by Cassidy Campbell RN; Per physician; 12:07:25 Lidocaine 2% 20ml vial added to field was administered by Chidi Brumfield MD; for local anesthetic; 12:07:31 Heparin Flush Bag (1000units/500ml NS) 2 bags added to field was administered by Chidi Brumfield MD; used for procedure; 12:14:22 Patient received from ED to CCL 2 Alert and oriented. Tansferred to table in Supine position. 12:14:23 Warm blankets applied, and sanya hugger turned on for patient comfort. 12:14:23 Correct patient and procedure confirmed by team. 12:14:24 Signed procedure consent form obtained from patient. 12:14:25 ECG and BP/O2 sat monitors applied to patient. 12:14:26 Vital chart was started 12:14:30 Full Disclosure recording started 12:14:33 H&P Date Dictated: 07/20/2017 New H&P dictated by physician.. 12:14:34 Pre-procedure instructions explained to patient. 12:14:35 Pre-op teaching completed and patient verbalized understanding. 12:14:36 Family in waiting room. 12:14:39 Patient NPO since Breakfast. 12:15:35 Is the patient allergic to Iodine/contrast media? No. 12:15:35 Was the patient premedicated? No 12:15:41 Is patient on blood thinner?Yes 12:15:45 ACC The patient was administered the following blood thiners within the last 24 hours: ACCPlavix 12:15:47 Patient diabetic? Unknown. 12:15:55 Zofran 4 mg I.V. was administered by Brennan Nascimento RN; for nausea; 12:15:57 Previous problem with sedation/anesthesia? No ? 12:15:59 Snore? Yes 12:16:00 Sleep apnea? Unknown 12:16:02 Deviated septum? No 12:16:03 Opens mouth fully? Yes 12:16:04 Sticks out tongue? Yes 12:16:06 Airway obstruction? Unknown ? 12:16:10 Dentures? Unknown ? 12:16:13 Pre procedure: right dorsailis pedis pulse 1+ Palpable, but thready & weak; easily obliterated 12:16:15 Pre procedure: left dorsailis pedis pulse 1+ Palpable, but thready & weak; easily obliterated 12:16:31 Patient pain scale 7/10 ?. 12:16:38 IV patent on arrival in left hand with 0.9% NaCl at [facility]. 12:16:50 Lab results pending. 12:16:53 Right groin area was prepped with chlora-prep and draped in sterile fashion 12:16:54 Alarms reviewed by R. N. 12:16:54 Sharps counted by scrub and verified by R.N. 12:16:57 Physician arrived 12:17:42 --------ALL STOP TIME OUT------ 12:17:42 Final Timeout: patient, procedure, and site verified with staff and physician. All members of the team are in agreement. 12:17:44 Right groin site verified by team. 12:17:47 Physical assessment completed. ASA score P 2 - A patient with mild systemic disease as per Chidi Brumfield MD. 12:17:50 Sedation plan: IV Moderate Sedation Medication:Versed, Fentanyl 12:18:38 Use device set Femoral Dx 12:18:40 ACIST Syringe (40068) opened to sterile field. 12:18:40 Bag Decanter (2002S) opened to sterile field. 12:18:41 Medline Cath Pack ([id number]) opened to sterile field. 12:18:42 DIAGNOSTIC WIRE .035 260cm J wire (592054) opened to sterile field. 12:18:43 ACIST Hand Control (48748) opened to sterile field. 12:18:44 ACIST Manifold (36112) opened to sterile field. 12:18:44 DIAGNOSTIC Multipack 5Fr catheter set (ZS6939) opened to sterile field. 12:18:46 Tegaderm 4 x 4 (1626W) opened to sterile field. 12:18:49 PERCUTANEOUS ENTRY 19GA needle opened to sterile field. 12:19:09 SHEATH 6FR Oden (VMD292) opened to sterile field. 12:19:41 Zero performed for pressure channel P1 12:21:01 Versed 1 mg I.V. was administered by Brennan Nascimento RN; for sedation; 12:21:08 Heparin Bolus 5000 units I.V. was administered by Cassidy Campbell RN; for anticoagulation; verified by 12:21:09 Fentanyl 100 mcg I.V. was administered by Brennan Nascimento RN; for sedation; 12:21:12 Procedure started. 12:21:16 Local anesthetic to right femoral artery with Lidocaine 2% by Chidi Brumfield MD.INITIAL ACCESS ONLY 12:22:08 Baseline sample Acquired. 12:22:36 Rhythm: sinus rhythm , w/ ST elevation 12:23:30 6f sheath damaged 12::35 SHEATH 6FR Oden (MJG338) opened to sterile field. 12:24:02 Integrilin (Bolus 2mg/ml) 8.5ml I.V. was administered by Cassidy Campbell RN; for antiplatelet therapy; wasted 1.5 12:: Versed 1 mg I.V. was administered by Cassidy Campbell RN; for sedation; 12::38 Fentanyl 50 mcg I.V. was administered by Cassidy Campbell RN; for sedation; 12::14 dilator used in attempt to gain access; unsuccessful 12::42 6F sheath damaged; prepping for left femoral access 12:26:05 Demarest fluid Operations Amplatz Super Stiff 75CM guide wire opened to sterile field. 12::58 Local anesthetic to left femerol artery with Lidocaine 2% by Chidi Brumfield MD.ADDITIONAL ACCESS 12::38 Fentanyl 50 mcg I.V. was administered by Cassidy Campbell RN; for sedation; 12:28:43 A MULTIPACK Pigtail 5 Fr catheter was advanced over the wire and used for LV Angiography. 12:31:10 A 6 Fr Short sheath was inserted into the Left Femoral artery 12::23 Abdominal Aortagram was performed. 12::47 Catheter removed. 12::51 A MULTIPACK JL 4.0 5Fr catheter was advanced over the wire and used for Left Coronary Angiography. 12:32:05 LCA angiography performed. 12:32:07 Injector settings: Ml/sec: 3, Volume: 6, 12:32:35 Fentanyl 50 mcg I.V. was administered by Cassidy Campbell RN; for sedation; 12:33:26 Catheter removed. 12:33:29 GUIDE 6FR AR 2.0 catheter (CK2OL49) opened to sterile field. 12:33:35 6 Fr ar 2 guide catheter was inserted over the wire 12:33:49 Guide catheter removed. 12:33:59 SHEATH 6FR ARROW 45cm (CL-22960) opened to sterile field. 12:34:21 Sheath upsized to a 6 Fr Long. 12:34:27 6 Fr ar 2 guide catheter was inserted over the wire 12:36:15 IV Extension Set opened to sterile field. 12:36:18 Versed 1 mg I.V. was administered by Cassidy Campbell RN; for sedation; 12:36:25 Versed 1 mg I.V. was administered by Cassidy Campbell RN; for sedation; 12:37:10 Guide catheter removed. 12:37:16 GUIDE 6FR AR 2.0 catheter (CG2IY59) opened to sterile field. 12:37:21 6 Fr ar 2 guide catheter was inserted over the wire 12:37:46 CHOICE PT Extra Support J 300cm guide wire ([id number]) opened to sterile field. 12:38:43 Inflation number: 1 A MAVERICK 3.5 X 20 balloon ([id number]) was prepped and advanced across the Prox RCA, then inflated to 11 SHEILA for 0:10 (min:sec). 12:39:03 Integrilin (Bolus 2mg/ml) 8.5ml I.V. was administered by Cassidy Campbell RN; for antiplatelet therapy; wasted 1.5 12:39:12 Inflation number: 2 The MAVERICK 3.5 X 20 balloon ([id number]) was reinflated across the Prox RCA, to 19 SHEILA for 0:10 (min:sec). 12:40:25 Inflation number: 1 The MAVERICK 3.5 X 20 balloon ([id number]) was reinflated across the Mid RCA, to 19 SHEILA for 0:10 (min:sec). 12:40:47 Inflation number: 2 The MAVERICK 3.5 X 20 balloon ([id number]) was reinflated across the Mid RCA, to 19 SHEILA for 0:10 (min:sec). 12:42:41 Balloon removed over the wire. 12:43:07 Nitroglycerin IC/IA 400 mcg I.C. was administered by Chidi Brumfield MD; for vasodilation; 12:44:30 Inflation Number: 3 A INTEGRITY OTW 3.5 X 30 stent ([id number]) was prepped and advanced across the Mid RCA. The stent was deployed at 100 SHEILA for 0:10 (min:sec). 12:45:27 Integrilin (Bolus 2mg/ml) 8.5ml I.C was administered by Chidi Brumfield MD; for antiplatelet therapy; 12:45:54 Heparin Drip (82215umyon/250 D5W) 1000 units/hr I.V. drip was administered by Cassidy Campbell RN; for antiplatelet therapy; per 12:46:40 Stent catheter was removed intact over wire. 12:46:44 Wire removed. 12:46:45 Guide catheter removed. 12:48:13 IABP 40cm balloon catheter ([id number]) opened to sterile field. 12:48:22 SHEATH 7FR Oden (SSU579) opened to sterile field. 12:48:39 Sheath upsized to a 7 Fr Short. 12:48:43 Nitroglycerin IC/IA 400 mcg I.C. was administered by Cassidy Campbell RN; for vasodilation; 12:49:12 40cc IABP inserted into the RFA . 12:49:40 2.0 Silk 685H opened to sterile field. 12:50:59 Augmentation: 1:1 per physician. 12:55:57 Sheath removed intact; hemostasis achieved with Sheath sutured in place to the Left Femoral artery. 12:56:[address] 12:56:27 Procedure ended.(Physican Out) 12:56:50 Integrilin Drip (75mg/100ml) 14.6 ml/hr I.V. drip was administered by Cassidy Campbell RN; for antiplatelet therapy; 13:08:58 Fluoroscopy time 10.20 minutes. 13:09:05 Flurop Dose total: 1531 13:09:05 Fluoroscopy dose: 1531 mGy 13:09:30 Contrast amount:Isovue 300 108ml. 13:09:31 Sharps counted by scrub and verified by R.N. 13:09:32 Insertion/operative site no bleeding no hematoma. 13:09:40 Post-op/insertion site Left Femoral artery dressed using a 4 x 4 and Tegaderm. 13:09:44 Post left femerol artery:stable 13:09:48 Post Procedure Pulses reassessed and unchanged 13:09:51 Post procedure rhythm: unchanged. 13:09:55 Estimated blood loss: 5 ml 13:09:56 Post procedure instruction explained to patient.Patient verbalizes understanding. 13:09:56 Patient needs reinforcement of post procedure teaching. 13:10:28 Procedure type changed to Cath procedure, Diagnostic procedure, LHC, LHC w/Coronaries, Intra-Aortic Balloon Pump, PCI procedure, AMI/SVG/MANAGEMENT TECHNICIAN PTCA or Stent, AMI-BMS/CAMILA Initial, Miscellaneous Procedures, Moderate Sedation up to 45 minutes, Peripheral Cath Diagnostic Procedure, Abd/Extremity, Aortagram 13:10:43 Procedure and supply charges have been captured, reviewed, submitted and are correct. 13:10:47 Procedure Complication : No complications 13:10:50 Vital chart was stopped 13:10:50 See physician's report for complete and final results. 13:10:53 Report given to CVICU. 13:10:56 Patient transfered to CVICU with Stretcher. 13:10:58 Procedure ended. 13:10:58 Full Disclosure recording stopped 13:11:04 ACC-PCI Only Patient was given prescriptions, or instructed by Chidi Brumfield MD to start/continue the following medications upon discharge: Plavix 13:11:05 End room use (Document Last) 13:11:48 Integrilin (Bolus 2mg/ml) 4.5ml wasted was administered by Cassidy Campbell RN; for antiplatelet therapy; Intervention Summary Intervention Notes Time ActionType Lesion and Equipment Action# Pressure Duration Attributes Used 12:38:43 Inflate Prox RCA MAVERICK 3.5 1 11 00:10 balloon X 20 balloon ([id number]) 12:39:12 Reinflate Prox RCA MAVERICK 3.5 2 19 00:10 balloon X 20 balloon ([id number]) 12:40:25 Reinflate Mid RCA MAVERICK 3.5 1 19 00:10 balloon X 20 balloon ([id number]) 12:40:47 Reinflate Mid RCA MAVERICK 3.5 2 19 00:10 balloon X 20 balloon ([id number]) 12:44:30 Place stent Mid RCA INTEGRITY 3 100 00:10 OTW 3.5 X 30 stent ([id number]) Device Usage Item Name Manufacture Quantity Catalog Number Hospital Part Current Minimal Lot# / Charge Number Stock Stock Serial# Code ACIST Syringe Acist 1 47995 774098 560293 893211 20 (21472) Medical Systems Inc Bag Decanter Microtek 1 968686 30888 162943 5 () Medical Inc. Medline Cath Cardinal 1 [id number] 436097 07957 742584 5 Pack Health ([id number]) DIAGNOSTIC St Pan 1 359495 051338 053455 731613 30 WIRE .035 260cm J wire (997260) ACIST Hand Acist 1 37853 394662 799822 312814 5 Control Medical (26020) Systems Inc ACIST Manifold Acist 1 64620 105846 344095 280170 5 (53617) Medical Systems Inc DIAGNOSTIC Cardinal 1 LZ8141 913788 15612 884287 30 Multipack 5Fr Health catheter set (ZR8037) Tegaderm 4 x 4 3M 1 1626W 384261 520741 427045 5 (1626W) PERCUTANEOUS [facility] 1 W59705 785413 405164 5 ENTRY 19GA needle SHEATH 6FR Terumo 2 YVM526 213507 628921 903390 40 Oden (OWK639) Demarest Sci Demarest 1 [id number] 625771 350726 076742 5 [id number] Amplatz Super Scientific Stiff 75CM guide wire MULTIPACK Cardinal 1 208406 5 Pigtail 5 Fr Health catheter MULTIPACK JL Cardinal 1 837643 5 4.0 5Fr Health catheter GUIDE 6FR AR Medtronic 2 [id number] 410815 50526 399077 1 2.0 catheter ([id number]) SHEATH 6FR Teleflex 1 CL-70682 125029 172594 425694 5 ARROW 45cm (CL-60262) IV Extension Hospira 1 10382-85 327052 60784 127964 5 Set CHOICE PT Demarest 1 [id number] 393517 683820 030791 5 Extra Support Scientific J 300cm guide wire ([id number]) MAVERICK 3.5 X Demarest 1 [id number] 704132 171911 501536 1 20 balloon Scientific ([id number]) INTEGRITY OTW Medtronic 1 [id number] 596709 727401 8 [id number] 3.5 X 30 stent ([id number]) IABP 40cm Datascope 1 4887-49-4514-01 536350 555234 117612 1 balloon catheter ([id number]) SHEATH 7FR Terumo 1 LYB895 216887 918546 508217 5 Oden (DEF255) 2.0 Silk 685H Ethicon 1 685H 373721 04591 758348 5 Signature Audit [place] Stage Time Signature Unsigned Intra-Procedure 07/20/2017 Maryan Baum 1:26:54 PM RT(R) Signatures Monitor : Maryan Baum RT Signature : Date : Time : [id number] [place] [address]
[2017-07-20 12:07] LABS: BASOPHILS 0.5 % (0-2); EOSINOPHILS 4.4 % (0-7); HEMOGLOBIN 10.5 g/dL (13.5-17.5); IMMATURE GRANULOCYTES 0.3 % (0-5); LYMPHOCYTES 34.9 % (15-50); MCH 28.7 pg (26.0-34.0); MCHC 30.9 g/dL (31.0-37.0); MCV 92.9 fL (80.0-100.0); MEAN PLATELET VOLUME 9.3 fL (7.4-10.4); MONOCYTES 10.6 % (2-11); NEUTROPHILS 49.3 % (40-80); PLATELET COUNT 182 10x3/uL (130-400); RBC 3.66 10x6/uL (4.20-6.10); RDW 15.6 % (11.5-14.5); WBC 3.9 10x3/uL (4.8-10.8)
[2017-07-20 12:16] LABS: APTT 30.4 SECONDS (22.8-39.4); INR 1.23 (0.85-1.17); PROTIME 15.1 SECONDS (11.6-15.0)
[2017-07-20 12:23] LABS: ALBUMIN 3.5 g/dL (3.4-5.0); ALKALINE PHOSPHATASE 98 U/L (46-116); ALT (SGPT) 19 U/L (10-68); CALC OSMOLALITY 289 mosm/kg (275-300); CALCIUM 8.7 mg/dL (8.5-10.1); CARBON DIOXIDE 25.4 mmol/L (21.0-32.0); CHLORIDE - SERUM 105 mmol/L (98-107); CREATININE - SERUM 1.3 mg/dL (0.6-1.3); GLUCOSE 125 mg/dL (74-106); POTASSIUM - SERUM 3.2 mmol/L (3.5-5.1); PROTEIN - SERUM 7.1 g/dL (6.4-8.2); SODIUM 144 mmol/L (136-145); UREA NITROGEN 19 mg/dL (7-18); eGFR NON AFRICAN AMERICAN 56 mL/min (90-120)
[2017-07-20 12:49] LABS: CKMB 2.5 U/L (0.0-3.6); CREATINE KINASE 85 UL (21-232); TROPONIN-I 0.035 ng/mL (0.000-0.060)
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
[2017-07-20] MEDS ORDERED: NITROQUICK0.4 MG SL (14:41)
--- NOTE | 2017-07-20 15:00 | NUR ---
FAMILY AT BEDSIDE. MEDICATIONS LIST AND HISTORY COMPLETED WITH DAUGHTER IN LAW.
--- NOTE | 2017-07-20 16:15 | NUR ---
DR. MATTA AT BEDSIDE. NEW ORDERS RECIEVED. FAMILY UPDATED.
--- NOTE | 2017-07-20 16:45 | NUR ---
DR. MATTA CONTACTED REGARDING PT HAVING A RUN OF V-TACH AND FREQUENT PVC'S. ORDERS RECIEVED.
--- NOTE | 2017-07-20 17:00 | NUR ---
FAMILY AT BEDSIDE. NO CHANGES NOTED
--- NOTE | 2017-07-20 19:45 | NUR ---
SHIFT ASSESSMENT COMPLETED. SEE ASSESSMENT FLOWSHEET. IABP 1:1 WITH AUGMENTED PRESSURES 90-100'S. APPEARS TO BE IN AFIB ON THE MONITOR AND HAVING SHORT RUNS OF PVC'S/VTACH; NON-SYMPTOMATIC. HR 80-90'S. SOME BLEEDING AT LEFT GROIN IABP SITE-MARKED ALREADY ON DRSG WHEN DAY SHIFT NURSEHEMALATHA WAS PRESENT. WEAK BUT PALPABLE PEDAL PULSES BILATERALLY. WILL MONITOR.
--- NOTE | 2017-07-20 20:45 | NUR ---
DR. ADAMS RETURNED PAGE. INFORMED OF AFIB ON THE MONITOR WITH SOME RUNS OF PVC'S; HEMATURIA AND LEFT LOWER BACK PAIN. INFORMED OF CURRENT NIBP AND IABP MEASUREMENTS. NEW ORDERS FOR AMIO GTT.
--- NOTE | 2017-07-20 21:00 | NUR ---
CORDARONE GTT STARTED @ 1MG/MIN ORDERED TO LEFT WRIST 20G PIV (33.3 ML/HR). FAMILY AT BEDSIDE TO REMIND HIM TO KEEP LEFT LEG STRAIGHT. WILL MONITOR.
--- NOTE | 2017-07-20 22:45 | NUR ---
WANTED TO BE TURNED IN BED. LOG ROLLED TO LEFT SIDE AND PILLOW PLACED BEHIND BACK FOR COMFORT. REASSESSMENT COMPLETED. SEE ASSESSMENT FLOWSHEET FOR DETAILS. LEFT GROIN WITH ONLY SLIGHT MORE BLOODY DRAINAGE ON DRSG. INFORMED OF NEXT BLOOD DRAW TIME AT 0000. FAMILY AT BEDSIDE. WILL MONITOR.
[2017-07-21] VITALS (39 sets, daily range): BP systolic 81–120; BP diastolic 46–83; Ht 182.9 cm; Wt 98.7 kg
--- NOTE | 2017-07-21 | NUR ---
MACHELLE, PHLEBO AT BEDSIDE TO DRAW PTT. BLANKET GIVEN TO FAMILY MEMBER. PULSES ASSESSED. REPORTS COMFORT IN BED. WILL MONITOR.
--- NOTE | 2017-07-21 01:40 | NUR ---
IV MORPHINE GIVEN FOR DISCOMFORT EVEN WITH TURNING IN BED TO BACK AND MID ABDOMINAL AREA. WILL MONITOR.
--- NOTE | 2017-07-21 02:44 | NUR ---
DECREASED CORDARONE GTT TO 0.5MG/MIN. EYES CLOSED. NO ACUTE DISTRESS NOTED. WILL MONITOR.
--- NOTE | 2017-07-21 03:10 | NUR ---
IABP ALARMING. AUGMENTED PRESSURES <90. REPORTS NOT HAVING ANYMORE PAIN SINCE MORPHINE BEING GIVEN. REASSESSMENT COMPLETED. SEE ASSESSMENT. URINE OUTPUT DECREASED SOME SINCE LAST HOURS. WILL MONITOR CLOSELY.
--- NOTE | 2017-07-21 04:40 | NUR ---
AM I & O'S COMPLETED. WILL MONITOR.
--- NOTE | 2017-07-21 05:45 | NUR ---
AM LABS DRAWN PER PHELBO. REPORTS READY TO BE ABLE TO MOVE. WILL MONITOR.
[2017-07-21 05:58] LABS: BASOPHILS 0.3 % (0-2); EOSINOPHILS 2.3 % (0-7); HEMATOCRIT 28.9 % (42.0-54.0); HEMOGLOBIN 8.5 g/dL (13.5-17.5); IMMATURE GRANULOCYTES 0.3 % (0-5); LYMPHOCYTES 28.2 % (15-50); MCH 27.6 pg (26.0-34.0); MCHC 29.4 g/dL (31.0-37.0); MCV 93.8 fL (80.0-100.0); MEAN PLATELET VOLUME 9.6 fL (7.4-10.4); NEUTROPHILS 53.9 % (40-80); PLATELET COUNT 162 10x3/uL (130-400); RBC 3.08 10x6/uL (4.20-6.10); WBC 3.5 10x3/uL (4.8-10.8)
[2017-07-21 06:20] LABS: ALBUMIN 2.9 g/dL (3.4-5.0); BILIRUBIN - TOTAL 0.55 mg/dL (0.2-1.3); CALCIUM 8.1 mg/dL (8.5-10.1); CARBON DIOXIDE 24.3 mmol/L (21.0-32.0); CREATININE - SERUM 1.4 mg/dL (0.6-1.3); PROTEIN - SERUM 5.9 g/dL (6.4-8.2)
[2017-07-21 06:21] LABS: ANION GAP 13.6 mmol/L (8-16); POTASSIUM - SERUM 3.9 mmol/L (3.5-5.1)
--- NOTE | 2017-07-21 11:02 | NUR ---
1030-DR MATTA CALLED UNIT-STATUS REPORT GIVEN INCLUDING MEAN READINGS ON IABP -ORDERS GIVEN-HEPARIN TURNED OFF AND IABP DECREASED TO 1:3-REPOSITIONED IN BED AWAKE AND [id number] APPROPRIATE
[2017-07-21 12:15] LABS: ANION GAP 12.1 mmol/L (8-16); CARBON DIOXIDE 26.7 mmol/L (21.0-32.0); CREATININE - SERUM 1.5 mg/dL (0.6-1.3); POTASSIUM - SERUM 3.8 mmol/L (3.5-5.1)
--- NOTE | 2017-07-21 13:58 | NUR ---
* Is the patient Alert and Oriented? Yes 0 * How many steps to enter\exit or inside your home? Ramp 0 * PCP Dr. Benson 0 * Pharmacy [facility] 0 * Preadmission Environment Home Alone 0 * ADLs Independent 0 * Equipment Bedside Commode Glucometer Rolling Walker Shower Chair 0 * Other Equipment Electric Scooter 0 * Additional services required to return to the preadmission environment? No 0 * Can the patient safely return to the preadmission environment? Yes 0 * Has this patient been hospitalized within the prior 30 days at any hospital? No Patient Name: REBEKAH JAMIL Admission Status: ER Accout number: [id number] Admission Date: 07-20-2017 : 1930 Admission Diagnosis: Attending: LYNDA MATTA Current LOS: 1 Anticipated DC Date: 07-24-2017 Planned Disposition: Home Primary Insurance: MEDICARE A & B Discharge Planning Comments: CM met with patient to assess dc plans/needs. He states he lives alone & is independent with all ADL's & IADL's. He has a rolling walker, BSC, shower chair & electric scooter should he need them. He also has a glucometer. He has had home health services in the past with [facility], he will return home. CM will follow and assist as needed. Washing Machine Installer: Jluieta Kitchen
--- NOTE | 2017-07-21 18:19 | NUR ---
1730-DR MATTA AT [facility]-REMOVAL OF IABP PER POLICY AND PROCEDURE-FEMSTOP APPROPRIATELY PLACED WITH FAINT AUDIBLE DOPPLER PULSE-NOTED SEVEREGROIN/BACK DISCOMFORT-HEMOSTASIS MAINTAINED NO HEMATOMA NOTED-MORPHINE 4MG IVP GIVEN ONE TIME DOSE DIRECTED-FEM STOP AT 160MMHG 1750-FEMSTOP DECREASED TO 140-NOT ABLE TO DOPPLER PULSE-WITH DECREASE AUDIBLE DOPPLER PULSE
--- NOTE | 2017-07-21 18:22 | NUR ---
FEMSTOP DECREASED TO 100MMHG-HEMOSTASIS MAINTAINED FAINT AUDIBLE PULSE AND WARM TO TOUCH TO ANKLE
--- NOTE | 2017-07-21 18:50 | NUR ---
FEMSTOP DECREASED TO 40 MMHG--NOTED INCREASED WARMTH TO ANKLE-VERY FAINT DOPPLER PULSE
--- NOTE | 2017-07-21 19:30 | NUR ---
SHIFT ASSESSMENT COMPLETED. SEE ASSESSMENT FLOWSHEET FOR DETAILS. LEFT FEMORAL FEM-STOP IN PLACE AND ALL AIR REMOVED. LEFT IN PLACE FOR SMALL AMT OF PRESSURE. LEFT PEDAL PULSE UNABLE TO FIND ON DOPPLER BUT POSTERIOR TIBIAL PRESENT WITH DOPPLER AND MARKED. POSSIBLY FELT PEDAL PULSE TO LEFT WEAKLY BUT NOT HEARD ON DOPPLER. RT PEDAL PULSE WEAK. GRAND-DAUGHTER AT BEDSIDE. DENIES PAIN AT PRESENT. NUMBNESS/TINGLING TO LE'S BILATERAL REPORTED BUT "IT ISN'T BAD TONIGHT". WILL MONITOR.
--- NOTE | 2017-07-21 20:25 | NUR ---
FEM-STOP COMPLETELY REMOVED AND DRESSING APPLIED TO LEFT GROIN WITH 4X4'S AND TEGADERM. COMPLETE LINEN CHANGE COMPLETED AND LOG ROLLED TO RT SIDE. REPORTS MORE COMFORT AND "WILL TRY TO SLEEP". WILL MONITOR.
--- NOTE | 2017-07-21 21:15 | NUR ---
LEFT GROIN WITHOUT ANY BLEEDING OR HEMATOMA NOTED. WILL MONITOR.
--- NOTE | 2017-07-21 21:55 | NUR ---
TYLENOL GIVEN PER REQUEST FOR ACHING LOWER BACK PAIN. REPORTS COMFORT IN BED. WILL MONITOR.
--- NOTE | 2017-07-21 22:52 | NUR ---
REASSESSMENT COMPLETED. SEE ASSESSMENT FLOWSHEET. LEFT GROIN DRSG C/D/I WITHOUT HEMATOMA OR BLEEDING. REPORTS SMALL AMOUNT OF DISCOMFORT STILL IN HIS BACK. OFFERED REPOSITIONING, DECLINED. IF B/P BECOMES >100 SYSTOLIC WILL GIVE MORPHINE IV PRN. PT VERBALIZED UNDERSTANDING. LEFT PEDAL PULSE HEARD INTERMITTENTLY POSSIBLY FOR A FEW BEATS. POST. TIBIAL PULES AUDIBLE BY DOPPLER. WILL MONITOR.
--- NOTE | 2017-07-21 23:10 | NUR ---
IV MORPHINE GIVEN PER REQUEST. DENIES ANY OTHER NEEDS. WILL MONITOR.
[2017-07-22] VITALS (13 sets, daily range): BP systolic 82–128; BP diastolic 49–73
--- NOTE | 2017-07-22 00:50 | NUR ---
REPORTS SLEEPING FOR A LITTLE WHILE. DENIES PAIN. WILL MONITOR.
--- NOTE | 2017-07-22 01:20 | NUR ---
MORE WATER GIVEN PER REQUEST. HAVING A COUGHING SPELL. NON-PRODUCTIVE COUGH. REPORTS BECOMING "HOT" A WHILE AGO AND GOT OUT OF THE COVERS. LEFT GROIN C/D/I. WILL MONITOR.
--- NOTE | 2017-07-22 03:00 | NUR ---
EYES CLOSED. NO ACUTE DISTRESS NOTED. WILL MONITOR.
--- NOTE | 2017-07-22 04:40 | NUR ---
REYES CATHETER CARE COMPLETED. NEW TOP LINENS GIVEN DUE TO REYES CATHETER WITH BLOODY DRAINAGE NOTED ON TIP OF PENIS AND GETTING ON SHEETS. REASSESSMENT COMPLETED. SEE ASSESSMENT FLOWSHEET. LEFT PEDAL PULSE AUDIBLE BY DOPPLER AND MARKED. FEET COOL TO TOUCH BUT CIRCULATION CONFIRMED. LEFT GROIN SITE C/D/I. DENIES PAIN OR NEEDS. WILL MONITOR.
--- NOTE | 2017-07-22 05:15 | NUR ---
MACHELLE, PHLEBO AT BEDSIDE TO DRAW AM LABS. TV CHANNEL SWITCHED TO CHANNEL HE REQUESTED.
--- NOTE | 2017-07-22 05:50 | NUR ---
MALE IMPERSONATOR LIGHT. REPORTS HE NEEDS TO HAVE A BM AND "NOT SURE HOW WE ARE GOING TO DO THIS". INFORMED HE IS NO LONGER ON BEDREST. AMBULATED TO COMMODE WITHOUT DIZZINESS OR ISSUES. DENIES FEET HURTING. REPORTS HAVING A BM BUT FLUSHED TOILET BEFORE NURSING COULD WITNESS. BACK TO BED WITH PARTIAL LINEN CHANGE. WILL MONITOR.
[2017-07-22 06:01] LABS: HEMATOCRIT 29.5 % (42.0-54.0); HEMOGLOBIN 8.9 g/dL (13.5-17.5); MCH 27.5 pg (26.0-34.0); MCHC 30.2 g/dL (31.0-37.0); MEAN PLATELET VOLUME 9.8 fL (7.4-10.4); RBC 3.24 10x6/uL (4.20-6.10); WBC 3.8 10x3/uL (4.8-10.8)
[2017-07-22 06:02] LABS: ANION GAP 11.4 mmol/L (8-16); CALCIUM 8.3 mg/dL (8.5-10.1); CARBON DIOXIDE 27.3 mmol/L (21.0-32.0); CREATININE - SERUM 1.6 mg/dL (0.6-1.3); POTASSIUM - SERUM 3.7 mmol/L (3.5-5.1)
[2017-07-22] MEDS ORDERED: EFFIENT10 MG PO (10:03)
[2017-07-22] MEDS ORDERED: CORDARONE200 MG PO (10:04)
--- NOTE | 2017-07-22 10:14 | NUR ---
829-DR MATTA AT [facility]-SPOKE WITH PT AND GRANDDAUGHTER-DISCHARGE TODAY-DIRECTED BY DR MATTA TO STOP PLAVIX AND CHANGE TO EFFIENT 10MG DAILY-HAND GAVE PRESCRIPTION FOR EFFIENT AND CORDARONE 200MG PO 0900-L AND R IV D/C'D WITH TIPS INTACT-PRESSURE APPLIED TO R WRIST-UNTIL HEMOSTASIS OBTAINED-L GROIN SOFT TO TAUCH-NO HEMATOMA 914-ASSISTED TO BEDSIDE SCALE DAILY WEIGHT OF 216.2 LBS DONE-STRESSED TO PT AND GRAND DAUGHTER-TO CHECK WEIGHT EVERY DAY-IF GAINS MORE THAN 5LBS OVER [address] MATTA OFFICE-NUMBER PROVIDED- IF WEIGHT GAIN OF 5LBS OR MORE OCCURS SOONER TO BRING TO ER NOTED PT REQUIRED STRONG PHYSICAL ASSISTANCE TO AMBULATE-RELIED ON CANE AND NURSE-GAIT UNSTABLE-ASSISTED TO CHAIR- 929-ASSISTED PT TO WHEEELCHAIR-SLIGHTIMPROVEMENT WITH BALANCE-STRESSED CONCERN TO GRAND DAUGHTER-GRAND DAUGHTER STATED WILL HAVE ASSISTANCE WHEN ARRIVES TO RESIDENT-WILL NOT BE LEFT ALONE AT RESIDENCE
[2017-07-23] MEDS ORDERED: POTASSIUM CHLO20 MEQ PO (18:32)
--- NOTE | 2017-08-02 15:46 | OP ---
PATIENT NAME: REBEKAH CLIFTON MEDICAL RECORD: [id number] :31 [facility]:07/20/17 SURGEON: NIXON MATTA MD DATE OF OPERATION: 07/21/2017 PROCEDURE: Intra-aortic balloon pump removal. SUMMARY: Mr. Clifton had a myocardial infarction requiring intra-aortic balloon pump. He stabilized with the intra-aortic balloon pump. No further ST elevation. No further hypotension. The intra-aortic balloon pump was pulled uneventfully. Hemostasis was obtained via FemoStop. TRANSINT:[id number] Voice Confirmation ID: [id number] DOCUMENT ID: [id number] NIXON MATTA MD at 1546 CC: [id number] DICTATION DATE: 07/21/171712 RADIOSONDE OPERATOR: 07/21/17 174 DIS IN 07/22/17 [id number] [place] [address]
--- NOTE | 2017-08-02 15:46 | OP ---
PATIENT NAME: REBEKAH JAMIL MEDICAL RECORD: [id number] :31 [facility] ADMISSION DATE:07/20/17 SURGEON: NIXON MATTA MD DATE OF OPERATION: 07/20/2017 PROCEDURES: 1. PTCA stent to RCA. 2. Intraaortic balloon pump placement. 3. Left heart catheterization. 4. Selective coronary angiography. INDICATION: Acute inferior myocardial infarction. DESCRIPTION OF PROCEDURE PERFORMED: After informed consent was obtained and after detailed explanation of risks, benefits as well as alternative therapies, the patient elected to proceed with angiogram and angioplasty. The left femoral area was prepped and draped in normal sterile fashion. Left femoral artery was cannulated via modified Seldinger technique with placement of 6-[place] sheath. All catheters exchanged through this sheath. FINDINGS: 1. The left anterior descending has multiple previously placed stents. These are widely patent with no significant restenosis. No disease elsewise. 2. Left circumflex has previously placed stents, these are widely patent with no significant restenosis. No disease elsewise. 3. Right coronary artery is totally occluded in the proximal to mid vessel. PTCA STENT OF THE RIGHT CORONARY ARTERY: We were able to traverse the total occlusion easily with a coronary wire. Ballooning was undertaken with a 3.5 balloon. Stenting was undertaken with a 35 x 30 Integrity stent. This yielded DIANN 3 flow, but continued ST elevation, intraaortic balloon pump was placed due to the continued ST elevation to continue heparin and Integrilin. TRANSINT:[id number] Voice Confirmation ID: [id number] DOCUMENT ID: [id number] NIXON MATTA MD at 1546 CC: [id number] DICTATION DATE: 07/20/17 1300 BILLING AND ACCOUNTING STAFF ASSISTANT: 07/20/17 1402 DIS IN 07/22/17 [facility] [address] [place] [address]
--- NOTE | 2017-08-02 15:46 | DS ---
PATIENT:REBEKAH CLIFTON :32 MEDICAL RECORD: [id number] DISCHARGE SUMMARY ADMISSION DATE: 07/20/17 DISCHARGE DATE: 07/22/17 DISCHARGE DIAGNOSES: 1. Acute inferior myocardial infarction. 2. PTCA and stent of RCA. 3. Premature ventricular contractions post myocardial infarction. 4. Hypertension. 5. Hyperlipidemia. HOSPITAL COURSE: Mr. Clifton presents with acute inferior myocardial infarction. Underwent PTCA and stent of the RCA. His postoperative course was only significant for nonsustained V-tach and PVCs. This responded to Cordarone. He was previously on Plavix. He was switched to Effient. He will follow up with [facility] in 2 weeks. TRANSINT:[id number] Voice Confirmation ID: [id number] DOCUMENT ID: [id number] NIXON MATTA MD at 1546 CC: [id number] DICTATION DATE: 07/22/17 0900 DIRECTOR OF FEDERAL SALES: 07/22/17 1004 DIS IN 07/22/17 [facility] [address] [place] [address]
== END 2017-07-22 10:35 | disposition home or self-care (01) | DRG 272 ==
LOC: D.CATH 11:48 → D.CVICU 11:48 → D.ER 11:48 → EDSTATUS 12:17 → D.CVICU 13:45 → D.CATH 13:46 → D.CVICU 13:46
PROVIDERS: Emergency Medicine; Internal Medicine Interventional Cardiology; ADMIT Internal Medicine Interventional Cardiology
PROC: 5A02210 Assistance with Cardiac Output using Balloon Pump, Continuous (ICD-10-PCS; 2017-07-20)
PROC: 4A023N7 Measurement of Cardiac Sampling and Pressure, Left Heart, Percutaneous Approach (ICD-10-PCS; 2017-07-20)
PROC: B2111ZZ Fluoroscopy of Multiple Coronary Arteries using Low Osmolar Contrast (ICD-10-PCS; 2017-07-20)
PROC: 02703DZ Dilation of Coronary Artery, One Artery with Intraluminal Device, Percutaneous Approach (ICD-10-PCS; principal; 2017-07-20 12:30)
DX: I21.19 ST elevation (STEMI) myocardial infarction involving other coronary artery of inferior wall (principal); I25.119 Atherosclerotic heart disease of native coronary artery with unspecified angina pectoris; I10 Essential (primary) hypertension; E78.5 Hyperlipidemia, unspecified; I49.3 Ventricular premature depolarization; E11.9 Type 2 diabetes mellitus without complications; Z79.4 Long term (current) use of insulin; Z95.5 Presence of coronary angioplasty implant and graft

== ENCOUNTER 2017-07-23 14:53 | Inpatient (IN) | payer MEDICARE, BC ==
[~2017-07-23] VITALS: Ht 182.9 cm; Wt 97.7 kg
[~2017-07-23 14:53] MED LIST changes: +CORDARONE200 MG PO; +EFFIENT10 MG PO; +NITROQUICK0.4 MG SL
[2017-07-23 15:44] LABS: HEMATOCRIT 26.4 % (42.0-54.0); HEMOGLOBIN 8.2 g/dL (13.5-17.5); MCH 28.3 pg (26.0-34.0); MCHC 31.1 g/dL (31.0-37.0); MEAN PLATELET VOLUME 9.2 fL (7.4-10.4); PLATELET COUNT 167 10x3/uL (130-400); RDW 15.6 % (11.5-14.5)
[2017-07-23 15:46] LABS: WBC 2.6 10x3/uL (4.8-10.8)
[2017-07-23 15:50] LABS: INR 1.37 (0.85-1.17); PROTIME 16.4 SECONDS (11.6-15.0)
[2017-07-23 15:51] LABS: APTT 36.5 SECONDS (22.8-39.4)
[2017-07-23 15:56] LABS: ALBUMIN 2.8 g/dL (3.4-5.0); ANION GAP 14.5 mmol/L (8-16); BILIRUBIN - TOTAL 0.8 mg/dL (0.2-1.3); CALCIUM 8.5 mg/dL (8.5-10.1); CARBON DIOXIDE 25.3 mmol/L (21.0-32.0); CREATININE - SERUM 1.5 mg/dL (0.6-1.3); POTASSIUM - SERUM 3.8 mmol/L (3.5-5.1); PROTEIN - SERUM 6.2 g/dL (6.4-8.2)
[2017-07-23 16:13] LABS: BASOPHILS 4 % (0-2); EOSINOPHILS 4 % (0-7); LYMPHOCYTES 36 % (15-50); MONOCYTES 10 % (2-11); NEUTROPHILS 38 % (40-80); PLATELET ESTIMATE NORMAL
[2017-07-23 16:17] LABS: TROPONIN-I 21.05 ng/mL (0.000-0.060)
[2017-07-23] MEDS ORDERED: POTASSIUM CHLO20 MEQ PO (18:32)
--- NOTE | 2017-07-23 18:52 | NUR ---
RECIEVED FROM ICU, ALERT ORIENTED. TELEMERTY SHOWS CAF. SL TO LEFT WRIST. FAMILY AT BEDSIDE. CALL LIGHT IN REACH WITH SR UP WILL MONITOR
[2017-07-23 19:32] VITALS: BP 140/80; BMI 29.3
--- NOTE | 2017-07-23 20:24 | NUR ---
ADMISSION ASSESSMENT COMPLETED BY 1935 HRS. PT DENIES ANY DISCOMFORT. IV TO L WRIST SL. FAMILY STATES PT NEEDS IV BENADRYL PRIOR TO BLOOD ADMINISTRATION. DR MATTA CALLED AND NEW ORDERS RECEIVED AND NOTED. CAF PER CM HR 74. WILL CONTINUE TO MONITOR. SR UP X2, CALL LIGHT WITHIN REACH.
[2017-07-23 21:07] VITALS: BP 105/73
--- NOTE | 2017-07-23 22:37 | NUR ---
1ST UNIT PRBC'S INITIATED AT 2200 HRS. BENADRYL 25MG SIVP GIVEN PRIOR TO BLOOD ADMINISTRATION. WILL CONTINUE TO MONITOR.
--- NOTE | 2017-07-23 23:49 | NUR ---
BLOOD INFUSING. NO REACTION NOTED. WILL CONTINUE TO MONITOR.
[2017-07-24 00:58] VITALS: BP 109/70
--- NOTE | 2017-07-24 01:23 | NUR ---
1ST UNIT OF PRBC'S INFUSED BY 0045 HRS. LASIX 60 MG SIVP GIVEN PER ORDERS. 2ND UNIT INITIATED AT 0120 HRS. VSS. WILL CONTINUE TO MONITOR.
--- NOTE | 2017-07-24 02:08 | NUR ---
PT AWAKE; DENIES ANY DISCOMFORT. 2ND UNIT PRBC'S INFUSING WITHOUT DIFFICULTIES. VSS. FAMILY AT BEDSIDE.
[2017-07-24 04:20] VITALS: BP 126/86
--- NOTE | 2017-07-24 04:24 | NUR ---
PT AWAKE; DENIES ANY DISCOMFORT. WILL CONTINUE TO MONITOR. FAMILY AT BEDSIDE.
--- NOTE | 2017-07-24 04:34 | NUR ---
2ND UNIT PRBC'S INFUSED. PT DENIED ANY DISCOMFORT.
[2017-07-24 05:45] LABS: BASOPHILS 0.3 % (0-2); EOSINOPHILS 6.5 % (0-7); LYMPHOCYTES 22.3 % (15-50); MCH 27.8 pg (26.0-34.0); MCHC 31.1 g/dL (31.0-37.0); MCV 89.5 fL (80.0-100.0); MEAN PLATELET VOLUME 9.3 fL (7.4-10.4); MONOCYTES 14.9 % (2-11); PLATELET COUNT 163 10x3/uL (130-400); RDW 15.6 % (11.5-14.5); WBC 3.1 10x3/uL (4.8-10.8)
[2017-07-24 05:58] LABS: HEMOGLOBIN 10.1 g/dL (13.5-17.5); RBC 3.63 10x6/uL (4.20-6.10)
[2017-07-24 05:59] LABS: HEMATOCRIT 32.5 % (42.0-54.0)
--- NOTE | 2017-07-24 06:10 | NUR ---
CAF PER CM. VSS THROUGHOUT NIGHT. DENIED ANY DISCOMFORT. NEEDS MET; WILL CONTINUE TO MONITOR.
[2017-07-24 07:39] VITALS: BP 116/70
--- NOTE | 2017-07-24 07:50 | NUR ---
ASSESSMENT DONE. DENIES NEEDS.
--- NOTE | 2017-07-24 09:52 | NUR ---
RESTS IN BED WITOUT NEEDS VOICED. FAMILY AT BS. CALL LIGHT IN REACH. WILL CONT. PLAN OF CARE.
[2017-07-24 11:56] VITALS: BP 132/82
[2017-07-24 13:27] VITALS: Ht 182.9 cm; Wt 97.7 kg
[2017-07-24 15:51] VITALS: BP 130/80
--- NOTE | 2017-07-24 17:57 | NUR ---
WITHOUT CHANGES OR DISTRESS NOTED AT THIS THIS TIME. DENIES NEEDS.
[2017-07-24 19:00] VITALS: BP 137/88
--- NOTE | 2017-07-24 20:24 | NUR ---
PT RESTING IN BED WITH DAUGHTER AT BEDSIDE. NONLABORED RESPIRATIONS. SALINE LOCK TO LEFT WRIST. PT WILL BE NPO AFTER MIDNIGHT FOR POSSIBLE EGD PER GI IN AM DEPENDING ON LAB VALUES. SEE SHIFT ASSESSMENT, CPOC.
[2017-07-25] VITALS: BP 116/74
[2017-07-25 04:00] VITALS: BP 108/67
[2017-07-25 05:18] LABS: BASOPHILS 0.3 % (0-2); EOSINOPHILS 5.7 % (0-7); HEMATOCRIT 33.3 % (42.0-54.0); HEMOGLOBIN 10.5 g/dL (13.5-17.5); LYMPHOCYTES 37.8 % (15-50); MCH 28.4 pg (26.0-34.0); MCHC 31.5 g/dL (31.0-37.0); MEAN PLATELET VOLUME 9.6 fL (7.4-10.4); MONOCYTES 17.3 % (2-11); NEUTROPHILS 38.9 % (40-80); RDW 15.7 % (11.5-14.5); WBC 3.4 10x3/uL (4.8-10.8)
[2017-07-25 05:26] LABS: PLATELET COUNT 199 10x3/uL (130-400)
[2017-07-25 05:45] LABS: ALBUMIN 2.9 g/dL (3.4-5.0); ANION GAP 13.8 mmol/L (8-16); CALCIUM 8.9 mg/dL (8.5-10.1); CARBON DIOXIDE 26.7 mmol/L (21.0-32.0); CREATININE - SERUM 1.6 mg/dL (0.6-1.3); POTASSIUM - SERUM 3.5 mmol/L (3.5-5.1); PROTEIN - SERUM 6.6 g/dL (6.4-8.2)
[2017-07-25 07:41] VITALS: BP 115/79
[2017-07-25 11:19] VITALS: BP 120/75
[2017-07-25 15:45] VITALS: BP 132/70
[2017-07-25] MEDS ORDERED: PEPCID20 MG PO (16:54)
[2017-07-25] MEDS ORDERED: CARAFATE1 G/10 ML PO (16:55)
[2017-07-25] MEDS ORDERED: PROTONIX40 MG PO (16:55)
--- NOTE | 2017-07-25 17:19 | NUR ---
RX CALLED TO [facility]. IV AND TELEMETRY DCD DC PLANS GIVEN. UNDERSTANDING VOICED. ESCORTED TO CAR BY W/C.
--- NOTE | 2017-08-02 15:46 | HP ---
PATIENT: REBEKAH CLIFTON MEDICAL RECORD: [id number] ACCOUNT: [id number] LOCATION:[address] : 31 ADMISSION DATE: 07/25/17 HISTORY AND PHYSICAL EXAMINATION ADMITTING DIAGNOSES: 1. Anemia. 2. Gastrointestinal bleed. 3. History of gastrointestinal bleed. 4. Recent myocardial infarction. 5. Coronary artery disease. 6. Cardiomyopathy. 7. Congestive heart failure, shortness of breath, chronic systolic dysfunction. HISTORY OF PRESENT ILLNESS: Mr. Clifton presents with increasing shortness of breath, found to be markedly anemic. He does have a history of GI bleed, last endoscopy was over a year ago. He recently was in the hospital with acute inferior myocardial infarction, underwent PTCA stent of the LAD, had a resultant ischemic cardiomyopathy; however, no heart failure symptomatology. He now is short of breath. His chest x-ray is compatible with pulmonary edema. His ejection fraction was markedly decreased after the inferior myocardial infarction in the 25% to 30% range. PHYSICAL EXAMINATION: GENERAL APPEARANCE: Well-nourished, well-developed, appears stated age. Level of distress, comfortable. PSYCHIATRIC: Mental status, alert, normal affect. Orientation, oriented to time, place and person. EYES: Lids and conjunctiva, noninjected. No discharge, no pallor. ENT: Lips, teeth, gums, normal dentition. Oropharynx, no cyanosis, no pallor. NECK: Carotid arteries, bilateral normal upstroke, no bruits, no thrills. JUGULAR VEINS: No jugular venous pressure or distention. CERVICAL LYMPH NODES: Nontender, nonenlarged. THYROID: Not enlarged. Nontender. No nodules. LUNGS: Respiratory effort, unlabored. CHEST: Normal curvature. No thoracic deformity. No chest wall tenderness. Percussion, resonant. Auscultation, clear. No wheezes, no rales, no rhonchi. CARDIOVASCULAR: Precordial exam, nondisplaced. No heaves or pericardial thrills. Rate and rhythm, regular. Heart sounds, normal S1, normal S2. No S3, no gallop, no rub. Systolic murmur, not heard. Diastolic murmur, not heard. EXTREMITIES: No cyanosis, no edema. Peripheral pulses, full and equal in all extremities, except as noted. No bruits appreciated. ABDOMEN: Soft, nondistended. Normal aorta. No bruit. Nontender. No masses. Liver, nontender, no hepatomegaly. Spleen, nontender, no splenomegaly. MUSCULOSKELETAL: No joint tenderness. No joint swelling. No erythema. NEUROLOGICAL: Normal gait, normal strength, normal tone. SKIN: Warm and dry. OVERALL IMPRESSION: Anemia leading to myocardial stress and strain and congestive heart failure. At this time, we will have GI consultation, start GI directed therapy. Replace the blood, be a transfusion if diuretics to clear the pulmonary edema. We will have to continue the Effient; however, due to the recent myocardial infarction and clot event of the RCA, further care depends on treatment compliance, stability of the hemoglobin, and GI recommendations. HISTORY AND PHYSICAL [id number] REBEKAH CLIFTON TRANSINT:[id number] Voice Confirmation ID: [id number] DOCUMENT ID: [id number] NIXON MATTA MD at 1546 CC: [id number] DICTATION DATE: 07/24/17 1244 [place] M[place] OPERATOR: 07/24/17 1255 DIS IN 07/25/17 [facility] [address] [place] [address]
--- NOTE | 2017-08-02 15:46 | DS ---
PATIENT:REBEKAH CLIFTON :32 MEDICAL RECORD: [id number] DISCHARGE SUMMARY ADMISSION DATE: 07/25/17 DISCHARGE DATE: 07/25/17 DATE OF SERVICE FOR DISCHARGE: 07/25/2017. DIAGNOSES: 1. Congestive heart failure, chronic systolic dysfunction. 2. Anemia. 3. Gastrointestinal bleed. 4. Angina. 5. Coronary artery disease. 6. Recent myocardial infarction. 7. Hypertension. HOSPITAL COURSE: Mr. Clifton presents with angina and heart failure symptomatology, was found to have a low hemoglobin. He has a history of GI bleed. He was evaluated by GI, received GI-directed medical therapy. Two unit transfusion, his hemoglobin remained stable, was discharged home. He will follow up with GI in the future for endoscopy. He will follow up with cardiology in 1 month. TRANSINT:[id number] Voice Confirmation ID: [id number] DOCUMENT ID: [id number] NIXON MATTA MD at 1546 CC: [id number] DICTATION DATE: 07/26/17 1233 GEL COAT SPRAYER: 07/27/17 0208 DIS IN 07/25/17 [facility] [address] [place] [address]
== END 2017-07-25 17:20 | disposition home or self-care (01) | DRG 377 ==
LOC: D.ER 14:53 → D.M2 17:28 → OBSVTIME 17:28 → D.M2 07-25 09:03
PROVIDERS: Emergency Medicine; Internal Medicine Gastroenterology; ADMIT Internal Medicine Interventional Cardiology
DX: K62.5 Hemorrhage of anus and rectum (principal); I21.19 ST elevation (STEMI) myocardial infarction involving other coronary artery of inferior wall; I13.0 Hypertensive heart and chronic kidney disease with heart failure and stage 1 through stage 4 chronic kidney disease, or unspecified chronic kidney disease; I50.22 Chronic systolic (congestive) heart failure; J44.9 Chronic obstructive pulmonary disease, unspecified; N18.9 Chronic kidney disease, unspecified; E11.22 Type 2 diabetes mellitus with diabetic chronic kidney disease; I25.119 Atherosclerotic heart disease of native coronary artery with unspecified angina pectoris; D64.9 Anemia, unspecified; D46.9 Myelodysplastic syndrome, unspecified; Z87.891 Personal history of nicotine dependence

== ENCOUNTER 2017-09-12 12:56 | Inpatient (IN) | payer MEDICARE, BC ==
[~2017-09-12] VITALS: Ht 182.9 cm; Wt 89.0 kg
[~2017-09-12 12:56] MED LIST changes: +CARAFATE1 G/10 ML PO; +PEPCID20 MG PO; +POTASSIUM CHLO20 MEQ PO
[2017-09-12] MEDS ORDERED: FLORAJEN3 CAPS460 MG PO (15:49)
[2017-09-12] MEDS ORDERED: LANTUS SOL100 UNIT/1 SQ (15:49)
[2017-09-12 16:23] LABS: HEMATOCRIT 27.3 % (42.0-54.0); MCH 27.3 pg (26.0-34.0); MCHC 29.3 g/dL (31.0-37.0); MCV 93.2 fL (80.0-100.0); MEAN PLATELET VOLUME 8.9 fL (7.4-10.4); RBC 2.93 10x6/uL (4.20-6.10); RDW 17.3 % (11.5-14.5); WBC 2.2 10x3/uL (4.8-10.8)
[2017-09-12 16:42] LABS: ALBUMIN 3.4 g/dL (3.4-5.0); ANION GAP 13.9 mmol/L (8-16); BILIRUBIN - TOTAL 0.6 mg/dL (0.2-1.3); CALCIUM 8.1 mg/dL (8.5-10.1); CARBON DIOXIDE 27.2 mmol/L (21.0-32.0); CREATININE - SERUM 1.4 mg/dL (0.6-1.3); POTASSIUM - SERUM 3.1 mmol/L (3.5-5.1); PROTEIN - SERUM 6.3 g/dL (6.4-8.2)
[2017-09-12 17:04] LABS: PLATELET COUNT 168 10x3/uL (130-400)
[2017-09-12 18:02] LABS: EOSINOPHILS 16 % (0-7); LYMPHOCYTES 34 % (15-50); MONOCYTES 2 % (2-11); NEUTROPHILS 48 % (40-80); PLATELET ESTIMATE NORMAL
[2017-09-12 22:25] VITALS: BP 119/68
[2017-09-13 01:27] VITALS: BP 125/71
[2017-09-13 06:28] VITALS: BP 116/73
[2017-09-13 08:16] VITALS: BP 126/71
[2017-09-13 11:43] VITALS: BP 141/79
[2017-09-13 12:56] VITALS: Ht 182.9 cm; Wt 89.0 kg
[2017-09-13 15:40] VITALS: BP 136/83
[2017-09-13 19:00] VITALS: BP 126/71
[2017-09-14 00:35] VITALS: BP 132/82
[2017-09-14 04:00] VITALS: BP 112/73
[2017-09-14 08:35] VITALS: BP 110/60
[2017-09-14 09:52] LABS: BASOPHILS 0.4 % (0-2); EOSINOPHILS 3.6 % (0-7); HEMATOCRIT 28.4 % (42.0-54.0); HEMOGLOBIN 8.3 g/dL (13.5-17.5); LYMPHOCYTES 20.4 % (15-50); MCH 27.5 pg (26.0-34.0); MCHC 29.2 g/dL (31.0-37.0); MEAN PLATELET VOLUME 8.3 fL (7.4-10.4); MONOCYTES 12.9 % (2-11); NEUTROPHILS 62.7 % (40-80); PLATELET COUNT 138 10x3/uL (130-400); RBC 3.02 10x6/uL (4.20-6.10); RDW 17.3 % (11.5-14.5)
[2017-09-14 09:55] LABS: WBC 2.8 10x3/uL (4.8-10.8)
[2017-09-14 12:51] VITALS: BP 133/53
[2017-09-14 16:01] VITALS: BP 146/96
[2017-09-14] MEDS ORDERED: REGLAN INJ10 MG/2 ML PO (16:41)
[2017-09-14] MEDS ORDERED: PEPCID INJ20 MG/2 ML PO (16:41)
== END 2017-09-14 18:47 | disposition home or self-care (01) | DRG 378 ==
LOC: D.SDCHOLD 12:56 → D.M2 12:56
PROVIDERS: Internal Medicine Gastroenterology; Legal Medicine
PROC: 0DJ08ZZ Inspection of Upper Intestinal Tract, Via Natural or Artificial Opening Endoscopic (ICD-10-PCS; principal; 2017-09-13 12:30)
DX: K92.2 Gastrointestinal hemorrhage, unspecified (principal); I25.110 Atherosclerotic heart disease of native coronary artery with unstable angina pectoris; K29.70 Gastritis, unspecified, without bleeding; K21.9 Gastro-esophageal reflux disease without esophagitis; K55.20 Angiodysplasia of colon without hemorrhage; D46.9 Myelodysplastic syndrome, unspecified; J43.9 Emphysema, unspecified; E11.40 Type 2 diabetes mellitus with diabetic neuropathy, unspecified; E11.22 Type 2 diabetes mellitus with diabetic chronic kidney disease; I13.10 Hypertensive heart and chronic kidney disease without heart failure, with stage 1 through stage 4 chronic kidney disease, or unspecified chronic kidney disease; N18.9 Chronic kidney disease, unspecified; E78.5 Hyperlipidemia, unspecified; Z95.5 Presence of coronary angioplasty implant and graft; Z87.891 Personal history of nicotine dependence

== ENCOUNTER 2017-10-06 16:01 | Inpatient (IN) | payer MEDICARE, BC ==
[~2017-10-06] VITALS: Ht 182.9 cm; Wt 93.4 kg
[~2017-10-06 16:01] MED LIST changes: +PEPCID INJ20 MG/2 ML PO; +REGLAN INJ10 MG/2 ML PO
[2017-10-06 17:01] LABS: BASOPHILS 0 % (0-2); EOSINOPHILS 0.3 % (0-7); HEMATOCRIT 26.1 % (42.0-54.0); LYMPHOCYTES 21.7 % (15-50); MCH 27.3 pg (26.0-34.0); MCHC 28.7 g/dL (31.0-37.0); MCV 94.9 fL (80.0-100.0); MEAN PLATELET VOLUME 8.5 fL (7.4-10.4); MONOCYTES 18.8 % (2-11); NEUTROPHILS 59.2 % (40-80); PLATELET COUNT 156 10x3/uL (130-400); RBC 2.75 10x6/uL (4.20-6.10); RDW 17.6 % (11.5-14.5); WBC 3.1 10x3/uL (4.8-10.8)
[2017-10-06 17:17] LABS: HEMOGLOBIN 7.5 g/dL (13.5-17.5)
[2017-10-06 17:21] LABS: ALBUMIN 3.3 g/dL (3.4-5.0); ANION GAP 14.5 mmol/L (8-16); BILIRUBIN - TOTAL 1.73 mg/dL (0.2-1.3); CALCIUM 8.9 mg/dL (8.5-10.1); CARBON DIOXIDE 27.4 mmol/L (21.0-32.0); CREATININE - SERUM 1.7 mg/dL (0.6-1.3); POTASSIUM - SERUM 3.9 mmol/L (3.5-5.1); PROTEIN - SERUM 7.4 g/dL (6.4-8.2)
[2017-10-06 18:43] LABS: APPEARANCE CLEAR (CLEAR); BILIRUBIN NEGATIVE (NEGATIVE); COLOR DK YELLOW (YELLOW); GLUCOSE NEGATIVE (NEGATIVE); KETONE NEGATIVE (NEGATIVE); NITRITE NEGATIVE (NEGATIVE); PROTEIN 1+ mg/dL (NEGATIVE)
[2017-10-07 00:12] VITALS: BP 127/80; BMI 28.0
[2017-10-07 04:00] VITALS: BP 142/61
[2017-10-07 05:07] LABS: BASOPHILS 0.7 % (0-2); EOSINOPHILS 0.7 % (0-7); HEMATOCRIT 29.9 % (42.0-54.0); HEMOGLOBIN 8.8 g/dL (13.5-17.5); LYMPHOCYTES 17.5 % (15-50); MCH 27.3 pg (26.0-34.0); MCHC 29.4 g/dL (31.0-37.0); MEAN PLATELET VOLUME 9.3 fL (7.4-10.4); MONOCYTES 17.5 % (2-11); NEUTROPHILS 63.6 % (40-80); PLATELET COUNT 174 10x3/uL (130-400); RBC 3.22 10x6/uL (4.20-6.10); RDW 18.2 % (11.5-14.5); WBC 2.9 10x3/uL (4.8-10.8)
[2017-10-07 05:11] LABS: MCV 92.9 fL (80.0-100.0)
[2017-10-07 05:18] LABS: ANION GAP 17.8 mmol/L (8-16); CALCIUM 8.7 mg/dL (8.5-10.1); CREATININE - SERUM 1.7 mg/dL (0.6-1.3); POTASSIUM - SERUM 3.8 mmol/L (3.5-5.1)
[2017-10-07] MEDS ORDERED: PEPCID20 MG PO (05:28)
[2017-10-07 07:06] VITALS: BP 130/75
[2017-10-07 10:03] VITALS: BMI 27.9
[2017-10-07 11:04] VITALS: BP 131/80
[2017-10-07 11:41] VITALS: Ht 182.9 cm; Wt 93.4 kg
[2017-10-07 15:11] VITALS: BP 115/79
[2017-10-07 21:12] VITALS: BP 97/60
[2017-10-08 00:59] VITALS: BP 148/85
[2017-10-08 05:02] LABS: BASOPHILS 0.5 % (0-2); EOSINOPHILS 3.7 % (0-7); HEMATOCRIT 27.7 % (42.0-54.0); HEMOGLOBIN 8.2 g/dL (13.5-17.5); IMMATURE GRANULOCYTES 0.5 % (0-5); LYMPHOCYTES 26.5 % (15-50); MCHC 29.6 g/dL (31.0-37.0); MCV 91.1 fL (80.0-100.0); MEAN PLATELET VOLUME 9.3 fL (7.4-10.4); MONOCYTES 16.4 % (2-11); NEUTROPHILS 52.4 % (40-80); PLATELET COUNT 158 10x3/uL (130-400); RBC 3.04 10x6/uL (4.20-6.10); RDW 17.6 % (11.5-14.5); WBC 2.2 10x3/uL (4.8-10.8)
[2017-10-08 05:05] VITALS: BP 138/84
[2017-10-08 05:30] LABS: ANION GAP 16.9 mmol/L (8-16); CALCIUM 8.2 mg/dL (8.5-10.1); CREATININE - SERUM 1.5 mg/dL (0.6-1.3); POTASSIUM - SERUM 3.9 mmol/L (3.5-5.1)
[2017-10-08 08:18] VITALS: BP 121/84
[2017-10-08 12:42] VITALS: BP 127/79
[2017-10-08 16:22] VITALS: BP 126/74
[2017-10-08 21:31] VITALS: BP 158/71
[2017-10-09 00:50] VITALS: BP 124/70
[2017-10-09 05:43] VITALS: BP 154/74
[2017-10-09 06:15] LABS: BASOPHILS 0.5 % (0-2); HEMATOCRIT 28.2 % (42.0-54.0); HEMOGLOBIN 8.4 g/dL (13.5-17.5); LYMPHOCYTES 23.8 % (15-50); MCH 26.8 pg (26.0-34.0); MCHC 29.8 g/dL (31.0-37.0); MCV 90.1 fL (80.0-100.0); MEAN PLATELET VOLUME 9.1 fL (7.4-10.4); MONOCYTES 20.8 % (2-11); NEUTROPHILS 49.9 % (40-80); PLATELET COUNT 170 10x3/uL (130-400); RBC 3.13 10x6/uL (4.20-6.10); RDW 16.8 % (11.5-14.5)
[2017-10-09 06:33] LABS: ANION GAP 15.4 mmol/L (8-16); CALCIUM 8.3 mg/dL (8.5-10.1); CARBON DIOXIDE 24.3 mmol/L (21.0-32.0); CREATININE - SERUM 1.4 mg/dL (0.6-1.3); POTASSIUM - SERUM 3.7 mmol/L (3.5-5.1)
[2017-10-09 09:59] VITALS: BP 148/94
[2017-10-09 11:55] VITALS: BP 143/92
[2017-10-09 16:48] VITALS: BP 148/72
[2017-10-09 20:00] VITALS: BP 137/90
[2017-10-10 04:00] VITALS: BP 141/87
[2017-10-10 06:06] LABS: BASOPHILS 1.4 % (0-2); EOSINOPHILS 7.7 % (0-7); HEMATOCRIT 29.1 % (42.0-54.0); HEMOGLOBIN 8.8 g/dL (13.5-17.5); IMMATURE GRANULOCYTES 0.5 % (0-5); LYMPHOCYTES 22.1 % (15-50); MCH 27.3 pg (26.0-34.0); MCHC 30.2 g/dL (31.0-37.0); MCV 90.4 fL (80.0-100.0); MEAN PLATELET VOLUME 9.2 fL (7.4-10.4); MONOCYTES 23.9 % (2-11); NEUTROPHILS 44.4 % (40-80); PLATELET COUNT 182 10x3/uL (130-400); RBC 3.22 10x6/uL (4.20-6.10); RDW 16.5 % (11.5-14.5); WBC 2.2 10x3/uL (4.8-10.8)
[2017-10-10 06:20] LABS: ANION GAP 15.5 mmol/L (8-16); CALCIUM 8.7 mg/dL (8.5-10.1); CARBON DIOXIDE 24.3 mmol/L (21.0-32.0); CREATININE - SERUM 1.4 mg/dL (0.6-1.3); POTASSIUM - SERUM 3.8 mmol/L (3.5-5.1)
[2017-10-10 08:54] VITALS: BP 148/78
[2017-10-10] MEDS ORDERED: ROBITUSSIN DM 110 ML PO (13:11)
[2017-10-10] MEDS ORDERED: ZITHROMAX250 MG PO (13:11)
[2017-10-10] MEDS ORDERED: MUCINEX600 MG PO (13:11)
[2017-10-10] MEDS ORDERED: VENTOLIN HFA18 GM INH (13:12)
[2017-10-10] MEDS ORDERED: OMNICEF300 MG PO (13:12)
[2017-10-10 13:24] VITALS: BP 136/81
== END 2017-10-10 14:50 | disposition home or self-care (01) | DRG 194 ==
LOC: D.ER 16:01 → D.MS 19:56 → D.EDHOLD 19:56 → D.MS 20:42
PROVIDERS: Emergency Medicine; Internal Medicine Nephrology
DX: J18.9 Pneumonia, unspecified organism (principal); N17.9 Acute kidney failure, unspecified; D46.9 Myelodysplastic syndrome, unspecified; E11.22 Type 2 diabetes mellitus with diabetic chronic kidney disease; I13.10 Hypertensive heart and chronic kidney disease without heart failure, with stage 1 through stage 4 chronic kidney disease, or unspecified chronic kidney disease; N18.9 Chronic kidney disease, unspecified; J43.9 Emphysema, unspecified; N40.0 Benign prostatic hyperplasia without lower urinary tract symptoms; I25.10 Atherosclerotic heart disease of native coronary artery without angina pectoris

== ENCOUNTER 2017-10-18 14:04 | Inpatient (IN) | payer MEDICARE, BC ==
[~2017-10-18] VITALS: Ht 182.9 cm; Wt 95.7 kg
--- NOTE | ~2017-10-18 | HP ---
PATIENT: REBEKAH JAMIL MEDICAL RECORD: [id number] ACCOUNT: [id number] LOCATION:[facility] D.CV02 : 31 ADMISSION DATE: 10/18/17 HISTORY AND PHYSICAL EXAMINATION DIAGNOSES: 1. Unstable angina. 2. Coronary artery disease. 3. Previous percutaneous transluminal coronary angioplasty stent. 4. Chronic obstructive pulmonary disease. 5. Hyperlipidemia. 6. Paroxysmal atrial fibrillation. HISTORY OF PRESENT ILLNESS: This is a gentleman known to us with a past history of coronary artery disease, previous PTCA stent, last stent was in July. He has a history of GI bleeding with anemia and he cannot Plavix because of this. He has been treated with bare-metal stenting. He did well off the Plavix in August until the date of admission. He began having acute onset of chest pain. His EKG is with ST-T abnormalities that are unstable suggestive of acute coronary syndrome; however, troponin is normal. REVIEW OF SYSTEMS: The patient reports easy bruising but reports no swollen glands. The patient reports no fever, no night sweats, no significant weight gain, no significant weight loss. No significant exercise tolerance. The patient reports no dry eyes, no irritation, no vision change. Patient reports no difficulty hearing and no ear pain. Patient reports no frequent nose bleeds or nose and sinus problems. Patient reports on arm pain on exertion. No shortness of breath while lying down. No history of heart murmur. Patient reports no cough, no wheezing or coughing up blood. Patient reports no abdominal pain, no vomiting. Normal appetite. No diarrhea and not vomiting blood. No nausea and no constipation. Patient reports no incontinence. No difficulty urinating. No hematuria. No increased frequency. Patient reports no muscle aches. No weakness, no arthralgias, no back pain. No swelling of the extremities. Patient reports no abnormal mole, no jaundice, no rashes. Reports no loss of consciousness. No weakness and no numbness. No seizures, dizziness, or headaches. The patient reports no depression, no sleep disturbance, feeling safe in a relationship and no alcohol abuse. Patient reports on fatigue. Reports no runny nose or sinus pressure. No itching, no hives, and no frequent sneezing. PHYSICAL EXAMINATION: GENERAL APPEARANCE: Well-nourished, well-developed, appears stated age. Level of distress, comfortable. PSYCHIATRIC: Mental status, alert, normal affect. Orientation, oriented to time, place and person. EYES: Lids and conjunctiva, noninjected. No discharge, no pallor. ENT: Lips, teeth, gums, normal dentition. Oropharynx, no cyanosis, no pallor. NECK: Carotid arteries, bilateral normal upstroke, no bruits, no thrills. JUGULAR VEINS: No jugular venous pressure or distention. CERVICAL LYMPH NODES: Nontender, nonenlarged. THYROID: Not enlarged. Nontender. No nodules. LUNGS: Respiratory effort, unlabored. CHEST: Normal curvature. No thoracic deformity. No chest wall tenderness. Percussion, resonant. Auscultation, clear. No wheezes, no rales, no rhonchi. CARDIOVASCULAR: Precordial exam, nondisplaced. No heaves or pericardial HISTORY AND PHYSICAL [id number] REBEKAH JAMIL thrills. Rate and rhythm, regular. Heart sounds, normal S1, normal S2. No S3, no gallop, no rub. Systolic murmur, not heard. Diastolic murmur, not heard. EXTREMITIES: No cyanosis, no edema. Peripheral pulses, full and equal in all extremities, except as noted. No bruits appreciated. ABDOMEN: Soft, nondistended. Normal aorta. No bruit. Nontender. No masses. Liver, nontender, no hepatomegaly. Spleen, nontender, no splenomegaly. MUSCULOSKELETAL: No joint tenderness. No joint swelling. No erythema. NEUROLOGICAL: Normal gait, normal strength, normal tone. SKIN: Warm and dry. OVERALL IMPRESSION: Unstable angina, most likely he has recurrent hemodynamically significant coronary artery disease or acute thrombotic event. We will admit, give him IV heparin, reload with Plavix, and proceed with coronary angiography. Further care depends upon the findings of the angiography. TRANSINT:[id number] Voice Confirmation ID: [id number] DOCUMENT ID: [id number] NIXON MATTA MD at 1202 CC: [id number] DICTATION DATE: 10/20/17 1431 INTEGRATED LOGISTICS SUPPORT MANAGER: 10/20/17 1448 DIS IN 10/21/17 [facility] [address] [place] [address]
--- NOTE | ~2017-10-18 | HEMODYNAMI ---
PATIENT:REBEKAH JAMIL MEDICAL RECORD: [id number] : 32 LOCATION:[facility] D.CV02 ADMISSION DATE: 10/18/17 Generatedon:10/20/201714:53 Patient name: REBEKAH JAMIL Patient #: [id number] SSN: : 1930 Date of study: 10/20/2017 Page: Of Hemodynamic Procedure Report Patient Data Patient Demographics Procedure consent was obtained First Name: REBEKAH Gender: Male Last Name: LOULOU : 1930 Patient #: [id number] Age: 86 year(s) Race: Additional ID: [id number] Contact details Address: [address] [place] [address] State: [place] City: [place] Zip code: [address] Past Medical History History of disease Date Diagnosis Comments CAD Allergies Allergen Reaction Date Comments Reported Other allergy 06/13/2015 Oxycodone Other allergy 11/13/2016 OXYCODONE Admission Admission Data Admission Date: 10/18/2017 Admission Time: 16:42 Room #: .CV02 Procedure Procedure Types Cath Procedure Diagnostic Procedure Sedation Charges Moderate Sedation up to 15 minutes PCI Procedure Coronary Stent Coronary Stent Initial Procedure Description Procedure Date Procedure Date: 10/20/2017 Procedure Start Time: 14:42 Procedure End Time: 14:52 Procedure Staff Name Function Chidi Brumfield MD Performing Physician Azra Gonzalez RT Monitor Brennan Nascimento RN Nurse Danny Orozco RT Scrub Procedure Data Cath Procedure Fluoroscopy Diagnostic fluoroscopy Total fluoroscopy Time: 0.9 time: 0.9 min min Diagnostic fluoroscopy Total fluoroscopy dose: 117 dose: 117 mGy mGy Contrast Material Contrast Material Type Amount (ml) Isovue 300 30 Entry Location Entry Primary Successful Side Size Upsize Upsize Entry Closure Succes sful Closure Location (Fr) 1 (Fr) 2 (Fr) Remarks Device Remarks Femoral Left 6 Fr Exoseal artery Short Estimated blood loss: 5 ml Procedure Complications No complications Procedure Medications Medication Administration Route Dosage Oxygen NC 2 l/min Heparin Flush Bag added to field 2 bags (1000units/500ml NS) 0.9% NaCl I.V. 100 ml/hr Fentanyl I.V. 50 mcg Versed I.V. 1 mg Fentanyl I.V. 50 mcg Versed I.V. 1 mg Fentanyl I.V. 50 mcg Heparin Bolus I.V. 4000 units Hemodynamics Rest Heart Rate: 86 (bpm) Snapshots Pre Cath Intra NCS Post Cath Vital Signs Time Heart Resp SPO2 etCO2 NIBP (mmHg) Rhythm Pain Sedation Rate (ipm) (%) (mmHg) Status Level (bpm) 14:17:15 90 16 0 126/96(112) NSR 0 (11) 10(A) , No pain 14:21:25 90 16 0 129/89(108) NSR 0 (11) 10(A) , No pain 14:25:35 82 16 0 120/87(97) NSR 0 (11) 10(A) , No pain 14:29:43 90 17 92 0 110/82(92) NSR 0 (11) 10(A) , No pain 14:33:48 78 17 92 0 116/77(94) NSR 0 (11) 10(A) , No pain 14:37:52 77 16 97 0 107/80(93) NSR 0 (11) 9(A) , No pain 14:41:58 74 14 94 0 100/66(83) NSR 0 (11) 9(A) , No pain 14:46:02 74 16 96 0 91/63(80) NSR 0 (11) 9(A) , No pain 14:50:01 78 16 94 0 94/72(81) NSR 0 (11) 9(A) , No pain Medications Time Medication Route Dose Verified Delivered Reason Notes Effectiveness by by 14:22:11 Oxygen NC 2 Chidi Amin Per physician l/min Brissa Nascimento RN 14:22:20 Heparin Flush added 2 Chidi Amin used for Bag to bags Brissa Nascimento barrel cutter (1000units/500ml field NS) 14:22:33 0.9% NaCl I.V. 100 Chidi Amin Per physician ml/hr Brissa Nascimento RN 14:27:50 Fentanyl I.V. 50 Chidi Amin for sedation mcg Brissa Nascimento RN 14:27:57 Versed I.V. 1 mg Chidi Amin for sedation Brissa Nascimento RN 14:33:27 Fentanyl I.V. 50 Chidi Amin for sedation mcg Brissa Nascimento RN 14:33:30 Versed I.V. 1 mg Chidi Amin for sedation Brissa Nascimento RN 14:43:19 Fentanyl I.V. 50 Chidi Amin for sedation mcg Brissa Nascimento RN 14:45:31 Heparin Bolus I.V. 4000 Chidi Amin for units Brissa Nascimento RN anticoagulation Procedure Log Time Note 13:46:01 H&P Date Dictated: 10/18/2017 Within 30 days and on chart.. 13:46:07 Is patient on blood thinner?Yes 13:46:10 ACC The patient was administered the following blood thiners within the last 24 hours: ACCAspirin, ACCPlavix 13:55:34 Brennan Nascimento RN sent for patient. Start room use. 14:05:35 Time tracking: Regular hours 14:05:38 Plan of Care:Hemodynamics will remain stable., Cardiac rhythm will remain stable., Comfort level will be maintained., Respiratory function will remain adequate., Patient/ family verbilizes understanding of procedure., Procedure tolerated without complication., Recovers from procedure without complications.. 14:11:05 Patient received from CVICU to CCL 3 Alert and oriented. Tansferred to table in Supine position. 14:11:05 Warm blankets applied, and sanya hugger turned on for patient comfort. 14:11:06 Correct patient and procedure confirmed by team. 14:11:07 Signed procedure consent form obtained from patient. 14:11:07 ECG and BP/O2 sat monitors applied to patient. 14:11:08 Full Disclosure recording started 14:16:09 Rhythm: sinus rhythm 14:16:12 Baseline sample Acquired. 14:16:15 Vital chart was started 14:16:16 Pre-procedure instructions explained to patient. 14:16:17 Pre-op teaching completed and patient verbalized understanding. 14:16:18 Family in waiting room. 14:16:20 Patient NPO since Midnight. 14:16:26 Is the patient allergic to Iodine/contrast media? No. 14:16:30 Patient diabetic? Yes. 14:17:04 If diabetic: On Metformin? No 14:17:07 Previous problem with sedation/anesthesia? No ? 14:17:08 Snore? Yes 14:17:09 Sleep apnea? No 14:17:10 Deviated septum? No 14:17:11 Opens mouth fully? Yes 14:17:12 Sticks out tongue? Yes 14:17:14 Airway obstruction? No ? 14:17:28 Dentures? Yes IN 14:17:32 Pre procedure: left dorsailis pedis pulse 2+ Normal; easily identifiable; not easily obliterated 14:17:36 Patient pain scale 0/10 ?. 14:17:44 IV patent on arrival in left forearm with 0.9% NaCl at [facility]. 14:17:48 Lab results completed and on chart. 14:17:51 Left groin area was prepped with chlora-prep and draped in sterile fashion 14:17:52 Alarms reviewed by R. N. 14:17:52 Sharps counted by scrub and verified by R.N. 14:17:57 Use device set TAUTH PCI 14:17:59 Use device set CATH PACK 14:18:15 PERCUTANEOUS ENTRY 19GA needle opened to sterile field. 14:18:15 Tegaderm 4 x 4 (1626W) opened to sterile field. 14:18:16 DIAGNOSTIC WIRE .035 260cm J wire (456303) opened to sterile field. 14:18:17 Medline Cath Pack ([id number]) opened to sterile field. 14:18:17 ACIST Manifold (30242) opened to sterile field. 14:18:18 Bag Decanter (2002) opened to sterile field. 14:18:19 ACIST Syringe (94365) opened to sterile field. 14:18:21 ACIST Hand Control (83886) opened to sterile field. 14:18:30 INFLATOR Merit BasixCompak (OH0537) opened to sterile field. 14:18:31 SHEATH 6FR [place] (PPF184) opened to sterile field. 14:18:55 WHISPER 300cm guide wire ([id number]) opened to sterile field. 14:22:11 Oxygen 2 l/min NC was administered by Brennan Nascimento RN; Per physician; 14:22:20 Heparin Flush Bag (1000units/500ml NS) 2 bags added to field was administered by Brennan Nascimento RN; used for procedure; 14:22:33 0.9% NaCl 100 ml/hr I.V. was administered by Brennan Nascimento RN; Per physician; 14:26:48 Final Timeout: patient, procedure, and site verified with staff and physician. All members of the team are in agreement. 14:26:56 Left groin site verified by team. 14:26:59 Physical assessment completed. ASA score P 2 - A patient with mild systemic disease as per Chidi Brumfield MD. 14:27:02 Sedation plan: IV Moderate Sedation Medication:Versed, Fentanyl 14:27:50 Fentanyl 50 mcg I.V. was administered by Brennan Nascimento RN; for sedation; 14:27:57 Versed 1 mg I.V. was administered by Brennan Nascimento RN; for sedation; 14:31:46 H&P Date Dictated: 10/20/2017 New H&P dictated by physician.. 14:33:14 Zero performed for pressure channel P1 14:33:27 Fentanyl 50 mcg I.V. was administered by Brennan Nascimento RN; for sedation; 14:33:30 Versed 1 mg I.V. was administered by Brennan Nascimento RN; for sedation; 14:42:40 Procedure started. 14:42:44 Local anesthetic to right femoral artery with Lidocaine 2% by Chidi Brumfield MD.INITIAL ACCESS ONLY 14:43:19 Fentanyl 50 mcg I.V. was administered by Brennan Nascimento RN; for sedation; 14:43:19 A 6 Fr Short sheath was inserted into the Left Femoral artery 14:44:04 GUIDE 6FR XBLAD 3.5 catheter ([id number]) opened to sterile field. 14:44:19 6 Fr XBLAD 3.5 guide catheter was inserted over the wire 14:44:57 WHISPER wire advanced. 14:45:31 Heparin Bolus 4000 units I.V. was administered by Brennan Nascimento RN; for anticoagulation; 14:47:34 Inflation Number: 1 A INTEGRITY OTW 2.5 X 12 stent ([id number]) was prepped and advanced across the Dist LAD. The stent was deployed at 21 SHEILA for 0:03 (min:sec). 14:47:50 Stent catheter was removed intact over wire. 14:47:50 Wire removed. 14:47:53 Guide catheter removed. 14:48:00 Sheath removed intact; hemostasis achieved with Exoseal to the Left Femoral artery. 14:48:02 Procedure ended.(Physican Out) 14:48:11 Fluoroscopy time 00.90 minutes. 14:48:15 Flurop Dose total: 117 14:48:15 Fluoroscopy dose: 117 mGy 14:48:18 Contrast amount:Isovue 300 30ml. 14:48:20 Sharps counted by scrub and verified by R.N. 14:48:20 Insertion/operative site no bleeding no hematoma. 14:48:23 Post-op/insertion site Left Femoral artery dressed using a 4 x 4 and Tegaderm. 14:48:26 Post left femerol artery:stable, clean and dry 14:48:29 Post Procedure Pulses reassessed and unchanged 14:48:31 Post-procedure physical assessment completed. ASA score P 2 - A patient with mild systemic disease as per Chidi Brumfield MD. 14:48:33 Post procedure rhythm: unchanged. 14:48:35 Estimated blood loss: 5 ml 14:48:36 Post procedure instruction explained to patient.Patient verbalizes understanding. 14:48:41 Patient needs reinforcement of post procedure teaching. 14:48:41 Procedure and supply charges have been captured, reviewed, submitted and are correct. 14:48:46 Procedure Complication : No complications 14:48:48 See physician's report for complete and final results. 14:51:47 Procedure type changed to Cath procedure, Diagnostic procedure, Sedation Charges, Moderate Sedation up to 15 minutes, PCI procedure, Coronary Stent, Coronary Stent Initial 14:51:57 Vital chart was stopped 14:51:59 Report given to CVICU. 14:52:02 Patient transfered to CVICU with Bed. 14:52:13 Procedure ended. 14:52:13 Full Disclosure recording stopped 14:52:15 End room use (Document Last) Intervention Summary Intervention Notes Time ActionType Lesion and Equipment Action# Pressure Duration Attributes Used 14:47:34 Place stent Dist LAD INTEGRITY 1 21 00:03 OTW 2.5 X 12 stent ([id number]) Device Usage Item Name Manufacture Quantity Catalog Hospital Part Current Minimal Lot# / Number Charge Number Stock Stock Serial# Code PERCUTANEOUS Cook Medical 1 [id number] [id number] 5 ENTRY 19GA needle Tegaderm 4 x 3M 1 1626W 355615 261858 067985 5 4 (1626W) DIAGNOSTIC St Pan 1 869982 254741 102657 443208 30 WIRE .035 260cm J wire (787139) Medline Cath Cardinal 1 [id number] 791028 81643 375891 5 Pack Health ([id number]) ACIST Acist 1 37953 485825 980888 467885 5 Manifold Medical (63517) Systems Inc Bag Decanter Microtek 1 2002S 432968 37136 268731 5 (2002S) Medical Inc. ACIST Acist 1 78124 173385 483277 378538 20 Syringe Medical (08654) Systems Inc ACIST Hand Acist 1 43217 179633 065431 485860 5 Control Medical (94847) Systems Inc INFLATOR Merit 1 HL7587 234710 367351 557022 15 Merit Medical BasixCompak (TC9042) SHEATH 6FR Terumo 1 ORN858 781556 411662 238434 40 [place] (LQQ026) WHISPER Sanchez 1 [id number] 791446 738880 556628 5 300cm guide Vascular wire ([id number]) GUIDE 6FR Cardinal 1 [id number] 370474 449494 026681 10 XBLAD 3.5 Health catheter (99632436) INTEGRITY Medtronic 1 [id number] 833749 824378 3 [id number] OTW 2.5 X 12 stent ([id number]) Signature Audit [place] Stage Time Signature Unsigned Intra-Procedure 10/20/2017 Azra 2:53:20 PM Counts RT(R) Signatures Monitor : Azra Signature : Counts RT Date : Time : [place] [id number] [place] [address]
--- NOTE | ~2017-10-18 | OP ---
PATIENT NAME: REBEKAH JAMIL MEDICAL RECORD: [id number] :31 LOCATION:[facility]CV02 ADMISSION DATE:10/18/17 SURGEON: NIXON MATTA MD DATE OF OPERATION: 10/19/2017 PROCEDURES: 1. PTCA stent RCA. 2. Left heart catheterization. 3. Selective coronary angiography. 4. Left ventriculogram. INDICATION: Angina and coronary artery disease. PROCEDURE IN DETAIL: After informed consent was obtained and after a detailed explanation of risks, benefits as well as alternative therapies, the patient elected to proceed with angiogram and angioplasty. The right radial area was prepped and draped in normal sterile fashion. Right radial artery was cannulated via modified Seldinger technique with placement of 6-Tajik sheath. All catheters were exchanged through the sheath. FINDINGS: Left ventriculogram was performed in the standard 30-degree WHEELER view reveals inferior mild hypokinesis, ejection fraction 40% range. SELECTIVE CORONARY ANGIOGRAPHY: 1. Left main is with no significant angiographic disease. 2. Left anterior descending has an 80% stenosis in the mid vessel. 3. Left circumflex has mild irregularities, but no flow-limiting stenosis. 4. Right coronary has a total occlusion in the mid vessel. PTCA STENT OF THE RIGHT CORONARY ARTERY: We were able to traverse the total occlusion easily with a coronary wire. Ballooning was undertaken with a 3.5 balloon. Stenting was undertaken with a 3.5 x 15 Integrity stent. Result was 0% residual stenosis. OVERALL IMPRESSION: Successful percutaneous transluminal coronary angioplasty stent of the right coronary artery going from 100% initial stenosis to 0% residual stenosis. PLAN: PTCA stent of the LAD in the near future. TRANSINT:[id number] Voice Confirmation ID: [id number] DOCUMENT ID: [id number] NIXON MATTA MD at 1452 CC: [id number] DICTATION DATE: 10/19/17 1321 LIFE SCIENCE TAXONOMIST: 10/19/17 1421 [place] [address]
--- NOTE | ~2017-10-18 | OP ---
PATIENT NAME: REBEKAH JAMIL MEDICAL RECORD: [id number] :31 LOCATION:[facility]CV02 ADMISSION DATE:10/18/17 SURGEON: NIXON MATTA MD DATE OF OPERATION: 10/20/2017 PROCEDURES: 1. PTCA stent LAD. 2. Selective coronary angiography. INDICATION: Angina and coronary artery disease. PROCEDURE IN DETAIL: After informed consent was obtained and after a detailed explanation of the risks, benefits as well as alternative therapies, the patient elected to proceed with angiogram and angioplasty. The left femoral area is prepped and draped in normal sterile fashion. Left femoral artery was cannulated via modified Seldinger technique with placement of 6-Romanian sheath. All catheters exchanged through this sheath. FINDINGS: The left anterior descending has 80+ percent stenosis in the mid vessel. This was addressed with a 2.5 x 12 mm Integrity stent. Result was 0% residual stenosis. OVERALL IMPRESSION: Successful percutaneous transluminal coronary angioplasty stent of the left anterior descending going from 80% initial stenosis to 0% residual stenosis. 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
--- NOTE | ~2017-10-18 | HEMODYNAMI ---
PATIENT:REBEKAH AJMIL MEDICAL RECORD: [id number] : 32 [facility] ADMISSION DATE: 10/18/17 Generatedon:10/19/201713:25 Patient name: REBEKAH JAMIL Patient #: [id number] SSN: : 1930 Date of study: 10/19/2017 Page: Of Hemodynamic Procedure Report Patient Data Patient Demographics Procedure consent was obtained First Name: REBEKAH Gender: Male Last Name: LOULOU : 1930 Patient #: [id number] Age: 86 year(s) Race: Additional ID: [id number] Contact details Address: [address] [place] [address] State: [place] City: [place] Zip code: [address] Past Medical History History of disease Date Diagnosis Comments CAD Allergies Allergen Reaction Date Comments Reported Other allergy 06/13/2015 Oxycodone Other allergy 11/13/2016 OXYCODONE Admission Admission Data Admission Date: 10/18/2017 Admission Time: 16:42 Room #: .CV02 Procedure Procedure Types Cath Procedure Diagnostic Procedure [facility] w/Coronaries Sedation Charges Moderate Sedation up to 15 minutes PCI Procedure Coronary Stent Coronary Stent Initial Procedure Description Procedure Date Procedure Date: 10/19/2017 Procedure Start Time: 13:02 Procedure End Time: 13:23 Procedure Staff Name Function Chidi Brumfield MD Performing Physician Azra Gonzalez RT Monitor Brennan Nascimento RN Nurse Danny Orozco RT Scrub Procedure Data Cath Procedure Fluoroscopy Diagnostic fluoroscopy Total fluoroscopy Time: 5.2 time: 5.2 min min Diagnostic fluoroscopy Total fluoroscopy dose: dose: 1057 mGy 1057 mGy Contrast Material Contrast Material Type Amount (ml) Isovue 300 93 Entry Location Entry Primary Successful Side Size Upsize Upsize Entry Closure Daugherty ccessful Closure Location (Fr) 1 (Fr) 2 (Fr) Remarks Device Remarks Radial Right 6 Fr Mechanical artery Short Compression Estimated blood loss: 10 ml Diagnostic catheters Device Type Used For End Catheter Placement DIAGNOSTIC [place] 110cm 5 LV Angiography Fr catheter ([id number]) DIAGNOSTIC [place] 110cm 5 Left Coronary Fr catheter ([id number]) Angiography DIAGNOSTIC [place] 110cm 5 Right Coronary Fr catheter ([id number]) Angiography Procedure Complications No complications Procedure Medications Medication Administration Route Dosage Oxygen NC 2 l/min Heparin Flush Bag added to field 2 bags (1000units/500ml NS) 0.9% NaCl I.V. 100 ml/hr Radial Cocktail added to field 1 syringe (Verapomil 2mg/Nitro 400mcg/Heparin 1500units) Versed I.V. 1 mg Fentanyl I.V. 25 mcg Radial Cocktail I.A. 1 syringe (Verapomil 2mg/Nitro 400mcg/Heparin 1500units) Heparin Bolus I.V. 5000 units Integrilin (Bolus I.V. 8.5 ml 2mg/ml) Integrilin (Bolus wasted 3 ml 2mg/ml) Integrilin (Bolus I.V. 8.5 ml 2mg/ml) Integrilin Drip I.V. drip 14.9 ml/hr (75mg/100ml) Plavix P.O. 600 mg Hemodynamics Rest Heart Rate: 75 (bpm) Snapshots Pre Cath Intra NCS Post Cath Vital Signs Time Heart Resp SPO2 etCO2 NIBP (mmHg) Rhythm Pain Sedation Rate (ipm) (%) (mmHg) Status Level (bpm) 12:39:49 77 15 0 120/80(103) NSR 0 (11) 10(A) , No pain 12:44:29 74 16 99 0 109/78(95) NSR 0 (11) 10(A) , No pain 12:49:08 75 15 99 0 100/72(92) NSR 0 (11) 10(A) , No pain 12:53:44 78 15 100 0 97/70(84) NSR 0 (11) 10(A) , No pain 12:58:19 78 16 0 93/68(83) NSR 0 (11) 10(A) , No pain 13:02:53 79 16 97 0 104/68(77) NSR 0 (11) 9(A) , No pain 13:07:32 75 15 97 0 84/43(72) NSR 0 (11) 9(A) , No pain 13:12:06 80 15 0 85/56(64) NSR 0 (11) 9(A) , No pain 13:16:39 80 16 0 82/62(69) NSR 0 (11) 9(A) , No pain 13:21:11 76 16 98 0 84/60(71) NSR 0 (11) 9(A) , No pain Medications Time Medication Route Dose Verified Delivered Reason Note s Effectiveness by by 12:39:41 Oxygen NC 2 l/min Chidi Amin Per physician Brissa Nascimento RN 12:39:50 Heparin Flush added 2 bags Chidi Amin used for Bag to Brissa Nascimento RN procedure (1000units/500ml field NS) 12:40:00 0.9% NaCl I.V. 100 Chidi Amin Per physician ml/hr Brissa Nascimento RN 12:44:34 Radial Cocktail added 1 Chidi Amin used for (Verapomil to syringe Brissa Nascimento RN procedure 2mg/Nitro field 400mcg/Heparin 1500units) 13:00:29 Versed I.V. 1 mg Chidi Amin for sedation Brissa Nascimento RN 13:00:36 Fentanyl I.V. 25 mcg Chidi Amin for sedation Brissa Nascimento RN 13:04:20 Radial Cocktail I.A. 1 Chidi Murillo for (Verapomil syringe Brissa Brumfield MD vasodilation 2mg/Nitro 400mcg/Heparin 1500units) 13:11:04 Heparin Bolus I.V. 5000 Chidi Amin for units Brissa Nascimento RN anticoagulation 13:11:27 Integrilin I.V. 8.5 ml Chidi Amin for (Bolus 2mg/ml) Brissa Nascimento RN antiplatelet therapy 13:16:14 Integrilin I.V. 8.5 ml Chidi Amin for (Bolus 2mg/ml) Brissa Nascimento RN antiplatelet therapy 13:21:05 Integrilin wasted 3 ml Chidi Amin for (Bolus 2mg/ml) Brissa Nascimento RN antiplatelet therapy 13:21:53 Integrilin Drip I.V. 14.9 Chidi Amin for (75mg/100ml) drip ml/hr Brissa Nascimento RN antiplatelet therapy 13:24:28 Plavix P.O. 600 mg Chidi Amin for Brissa Nascimento RN antiplatelet therapy Procedure Log Time Note 12:12:34 Time tracking: Regular hours 12:12:38 Plan of Care:Hemodynamics will remain stable., Cardiac rhythm will remain stable., Comfort level will be maintained., Respiratory function will remain adequate., Patient/ family verbilizes understanding of procedure., Procedure tolerated without complication., Recovers from procedure without complications.. 12:20:11 Azra Gonzalez RT(R) sent for patient. Start room use. 12:35:56 Patient received from CVICU to CCL 1 Alert and oriented. Tansferred to table in Supine position. 12:38:54 Vital chart was started 12:39:41 Oxygen 2 l/min NC was administered by Brennan Nascimento RN; Per physician; 12:39:50 Heparin Flush Bag (1000units/500ml NS) 2 bags added to field was administered by Brennan Nascimento RN; used for procedure; 12:40:00 0.9% NaCl 100 ml/hr I.V. was administered by Brennan Nascimento RN; Per physician; 12:43:01 Warm blankets applied, and sanya hugger turned on for patient comfort. 12:43:02 Correct patient and procedure confirmed by team. 12:43:03 Signed procedure consent form obtained from patient. 12:43:04 ECG and BP/O2 sat monitors applied to patient. 12:43:05 Full Disclosure recording started 12:44:02 Rhythm: sinus rhythm 12:44:34 Radial Cocktail (Verapomil 2mg/Nitro 400mcg/Heparin 1500units) 1 syringe added to field was administered by Brennan Nascimento RN; used for procedure; 12:45:25 H&P Date Dictated: 10/18/2017 Within 30 days and on chart., H&P Addendum completed by physician on day of procedure. (MUST COMPLETE FOR ALL OUTPATIENTS). 12:45:27 Pre-procedure instructions explained to patient. 12:45:28 Pre-op teaching completed and patient verbalized understanding. 12:45:29 Family in patients room. 12:45:30 Patient NPO since Midnight. 12:45:44 Is the patient allergic to Iodine/contrast media? No. 12:45:46 Is patient on blood thinner?No 12:45:48 Patient diabetic? Yes. 12:45:51 If diabetic: On Metformin? No 12:46:09 Previous problem with sedation/anesthesia? No ? 12:46:09 Snore? Yes 12:46:10 Sleep apnea? No 12:46:11 Deviated septum? No 12:46:12 Opens mouth fully? Yes 12:46:12 Sticks out tongue? Yes 12:46:14 Airway obstruction? No ? 12:46:17 Dentures? Yes In 12:46:21 Pre procedure: right dorsailis pedis pulse 2+ Normal; easily identifiable; not easily obliterated 12:46:24 Modified Omar's test Ulnar < 7 seconds 12:46:25 Patient pain scale 0/10 ?. 12:46:31 IV patent on arrival in left forearm with 0.9% NaCl at KVO. 12:46:53 Patient arrived on RBCs at 12.5 units/hr IV drip right forearm 12:46:56 Lab results completed and on chart. 12:46:59 Right Radial & Right Groin area was prepped with chlora-prep and draped in sterile fashion 12:47:00 Alarms reviewed by R. N. 12:47:01 Sharps counted by scrub and verified by R.N. 12:47:50 Baseline sample Acquired. 12:50:23 Physician paged 12:53:04 Zero performed for pressure channel P1 12:59:57 Final Timeout: patient, procedure, and site verified with staff and physician. All members of the team are in agreement. 13:00:00 Right Radial site verified by team. 13:00:03 Physical assessment completed. ASA score P 2 - A patient with mild systemic disease as per Chidi Brumfield MD. 13:00:06 Sedation plan: IV Moderate Sedation Medication:Versed, Fentanyl 13:00:29 Versed 1 mg I.V. was administered by Brennan Nascimento RN; for sedation; 13:00:36 Fentanyl 25 mcg I.V. was administered by Brennan Nascimento RN; for sedation; 13:02:12 Procedure started. 13:02:18 Local anesthetic to right radial artery with Lidocaine 2% by Chidi Brumfield MD.INITIAL ACCESS ONLY 13:04:05 A 6 Fr Short sheath was inserted into the Right Radial artery 13:04:11 Use device set Radial Dx or PCI 13:04:12 ACIST Syringe (76988) opened to sterile field. 13:04:13 Medline Cath Pack ([id number]) opened to sterile field. 13:04:14 Bag Decanter (2001S) opened to sterile field. 13:04:14 SHEATH 6FR Slender ([id number]) opened to sterile field. 13:04:15 DIAGNOSTIC WIRE .035 260cm J wire (038568) opened to sterile field. 13:04:15 ACIST Hand Control (70697) opened to sterile field. 13:04:16 ACIST Manifold (38627) opened to sterile field. 13:04:16 Tegaderm 4 x 4 (1626W) opened to sterile field. 13:04:16 MBrace Wrist Support ([id number]) opened to sterile field. 13:04:20 Radial Cocktail (Verapomil 2mg/Nitro 400mcg/Heparin 1500units) 1 syringe I.A. was administered by Chidi Brumfield MD; for vasodilation; 13:04:22 A DIAGNOSTIC [place] 110cm 5 Fr catheter ([id number]) was advanced over the wire and used for LV Angiography. 13:06:44 LV gram done using WHEELER 13:06:49 EF : 40 % 13:06:52 Injector settings: Ml/sec: 5, Volume: 15, 13:06:59 A DIAGNOSTIC [place] 110cm 5 Fr catheter ([id number]) was advanced over the wire and used for Left Coronary Angiography. 13:07:48 A DIAGNOSTIC [place] 110cm 5 Fr catheter ([id number]) was advanced over the wire and used for Right Coronary Angiography. 13:08:01 Catheter removed. 13:08:30 GUIDE 6FR AR 2.0 catheter ([id number]) opened to sterile field. 13:08:34 Use device set [facility] PCI 13:08:39 GUIDE 6FR AR 2.0 catheter ([id number]) opened to sterile field. 13:08:42 CHOICE PT Extra Support 182cm wire ([id number]) opened to sterile field. 13:08:49 INFLATOR Merit BasixCompak (JT5038) opened to sterile field. 13:11:04 Heparin Bolus 5000 units I.V. was administered by Brennan Nascimento RN; for anticoagulation; 13:11:04 6 Fr AR 2.0 guide catheter was inserted over the wire 13:11:10 Choice PT ES wire advanced. 13:11:27 Integrilin (Bolus 2mg/ml) 8.5 ml I.V. was administered by Brennan Nascimento RN; for antiplatelet therapy; 13:12:00 Inflation number: 1 A EUPHORA 3.5 x 30 Balloon ([id number]) was prepped and advanced across the Prox RCA, then inflated to 11 SHEILA for 0:07 (min:sec). 13:12:13 Inflation number: 2 The EUPHORA 3.5 x 30 Balloon ([id number]) was reinflated across the Prox RCA, to 11 SHEILA for 0:04 (min:sec). 13:12:50 Inflation number: 3 The EUPHORA 3.5 x 30 Balloon ([id number]) was reinflated across the Prox RCA, to 17 SHEILA for 0:06 (min:sec). 13:13:15 Inflation number: 4 The EUPHORA 3.5 x 30 Balloon ([id number]) was reinflated across the Prox RCA, to 17 SHEILA for 0:08 (min:sec). 13:13:54 Inflation number: 5 The EUPHORA 3.5 x 30 Balloon ([id number]) was reinflated across the Prox RCA, to 19 SHEILA for 0:11 (min:sec). 13:14:22 Inflation number: 6 The EUPHORA 3.5 x 30 Balloon ([id number]) was reinflated across the Prox RCA, to 21 SHEILA for 0:07 (min:sec). 13:14:49 Balloon removed over the wire. 13:16:14 Integrilin (Bolus 2mg/ml) 8.5 ml I.V. was administered by Brennan Nascimento RN; for antiplatelet therapy; 13:16:28 Inflation number: 7 A INTEGRITY RX 3.5 x 15 stent ([id number]) was prepped and advanced across the Prox RCA, then inflated to 23 SHEILA for 0:10 (min:sec). 13:16:40 Stent catheter was removed intact over wire. 13:16:40 Wire removed. 13:16:41 Guide catheter removed. 13:16:47 Sheath removed intact; hemostasis achieved with Mechanical Compression to the Right Radial artery. 13:16:49 Procedure ended.(Physican Out) 13:17:05 Fluoroscopy time 05.20 minutes. 13:17: Flurop Dose total: 1057 13:17:09 Fluoroscopy dose: 1057 mGy 13:17:13 Contrast amount:Isovue 300 93ml. 13:17:14 Sharps counted by scrub and verified by R.N. 13:17:17 TR band inflated with 10cc of air. 13:17:18 Insertion/operative site no bleeding no hematoma. 13:17:28 Post right radial artery:stable, clean and dry 13:17:30 Post Procedure Pulses reassessed and unchanged 13:17:33 Post-procedure physical assessment completed. ASA score P 2 - A patient with mild systemic disease as per Chidi Brumfield MD. 13:17:49 Post procedure rhythm: unchanged. 13:17:53 Estimated blood loss: 10 ml 13:17:54 Post procedure instruction explained to patient.Patient verbalizes understanding. 13:17:55 Patient needs reinforcement of post procedure teaching. 13:18:07 Procedure type changed to Cath procedure, Diagnostic procedure, LHC, LHC w/Coronaries, Sedation Charges, Moderate Sedation up to 15 minutes, PCI procedure, Coronary Stent, Coronary Stent Initial 13:18:30 Procedure Complication : No complications 13:18:33 See physician's report for complete and final results. 13:18:50 TR BAND Standard ([id number]) opened to sterile field. 13:19:48 Procedure and supply charges have been captured, reviewed, submitted and are correct. 13:21:05 Integrilin (Bolus 2mg/ml) 3 ml wasted was administered by Brennan Nascimento RN; for antiplatelet therapy; 13:21:53 Integrilin Drip (75mg/100ml) 14.9 ml/hr I.V. drip was administered by Brennan Nascimento RN; for antiplatelet therapy; 13:23:08 Vital chart was stopped 13:23:13 Report given to CVICU. 13:23:36 Procedure ended. 13:23:36 Full Disclosure recording stopped 13:23:39 End room use (Document Last) 13:24:28 Plavix 600 mg P.O. was administered by Brennan Nascimento RN; for antiplatelet therapy; 13:24:58 Patient transfered to CVICU with Bed. Intervention Summary Intervention Notes Time ActionType Lesion and Equipment Action# Pressure Duration Attributes Used 13:12:00 Inflate Prox RCA EUPHORA 3.5 1 11 00:07 balloon x 30 Balloon ([id number]) 13:12:13 Reinflate Prox RCA EUPHORA 3.5 2 11 00:04 balloon x 30 Balloon ([id number]) 13:12:50 Reinflate Prox RCA EUPHORA 3.5 3 17 00:06 balloon x 30 Balloon ([id number]) 13:13:15 Reinflate Prox RCA EUPHORA 3.5 4 17 00:08 balloon x 30 Balloon ([id number]) 13:13:54 Reinflate Prox RCA EUPHORA 3.5 5 19 00:11 balloon x 30 Balloon ([id number]) 13:14:22 Reinflate Prox RCA EUPHORA 3.5 6 21 00:08 balloon x 30 Balloon ([id number]) 13:16:28 Inflate Prox RCA INTEGRITY RX 7 23 00:10 balloon 3.5 x 15 stent ([id number]) Device Usage Item Name Manufacture Quantity Catalog Number Hospital Part Current Mini [facility] Lot# / Charge Number Stock Stock Serial# Code ACIST Acist 1 26980 813770 392064 328483 20 Syringe Medical (75832) Systems Inc Medline Cath Cardinal 1 [id number] 904613 72314 117880 5 Fifteen Reasons ([id number]) Bag Decanter Microtek 1 2001S 554259 59624 377287 5 () Medical Inc. SHEATH 6FR Terumo 1 [id number] 396635 644750 494975 40 Slender ([id number]) DIAGNOSTIC St Pan 1 569992 271627 997154 359675 30 WIRE .035 260cm J wire (805223) ACIST Hand Acist 1 56123 549297 983328 732447 5 Control Medical (24666) Systems Inc ACIST Acist 1 24744 393793 906059 564274 5 Manifold Medical (75064) Systems Inc Tegaderm 4 x 3M 1 1626W 211220 849276 530911 5 4 (1626W) MBrace Wrist Advanced 1 140-0250-00 528230 98197 946527 5 Support Vascular ([id number]) Dynamics DIAGNOSTIC Terumo 1 40-9843 394518 851887 804819 5 [place] 110cm 5 Fr catheter (109716) GUIDE 6FR AR Medtronic 2 GN1VX51 168156 86935 469103 1 2.0 catheter (DX0YY11) CHOICE PT Watkins 1 [id number] 511642 292057 703595 5 Extra Scientific Support 182cm wire ([id number]) INFLATOR Merit 1 UG2802 294176 345776 311940 15 Merit Medical BasixCompak (TS6008) EUPHORA 3.5 Medtronic 1 [id number] 867817 705189 832869 5 [id number] x 30 Balloon ([id number]) INTEGRITY RX Medtronic 1 [id number] 370352 749711 954249 5 [id number] 3.5 x 15 stent ([id number]) TR BAND Terumo 1 [id number] 723600 890687 994546 40 Standard (JJV09TMR) Signature Audit [place] Stage Time Signature Unsigned Intra-Procedure 10/19/2017 Azra 1:25:37 PM Counts RT(R) Signatures Monitor : Azra Signature : Counts RT Date : Time : [place] [id number] [place] [address]
--- NOTE | ~2017-10-18 | DS ---
PATIENT:REBEKAH CLIFTON :32 MEDICAL RECORD: [id number] DISCHARGE SUMMARY ADMISSION DATE: 10/18/17 DISCHARGE DATE: 10/21/17 DISCHARGE DATE: 10/19/2017 DISCHARGE DIAGNOSES: 1. Anginal symptomatology. 2. Coronary artery disease. 3. Percutaneous transluminal coronary angioplasty and stent of right coronary artery and left circumflex this admission. HOSPITAL COURSE: Mr. Clifton presents with anginal symptomatology, found to have 2-vessel coronary artery disease of the RCA and left circumflex, underwent successful PTCA and stent of both vessels. He had an uneventful postop course and was discharged home with the addition of aspirin and Plavix to his medical regimen. Follow up with [facility] in 1 month. TRANSINT:[id number] Voice Confirmation ID: [id number] DOCUMENT ID: [id number] NIXON MATTA MD at 1351 CC: [id number] DICTATION DATE: 11/28/17 1007 INSTRUMENT/CONTROL TECHNICIAN: 11/29/17 0208 DIS IN 10/21/[address] [address]
[~2017-10-18 14:04] MED LIST changes: +MUCINEX600 MG PO; +OMNICEF300 MG PO; +ROBITUSSIN DM 110 ML PO; +VENTOLIN HFA18 GM INH; +ZITHROMAX250 MG PO
[2017-10-18 14:26] LABS: BASOPHILS 0.1 % (0-2); EOSINOPHILS 2.8 % (0-7); HEMATOCRIT 30.2 % (42.0-54.0); IMMATURE GRANULOCYTES 0.1 % (0-5); LYMPHOCYTES 16.4 % (15-50); MCH 26.8 pg (26.0-34.0); MCHC 29.8 g/dL (31.0-37.0); MCV 89.9 fL (80.0-100.0); MEAN PLATELET VOLUME 8.6 fL (7.4-10.4); MONOCYTES 7.6 % (2-11); RBC 3.36 10x6/uL (4.20-6.10); RDW 16.7 % (11.5-14.5); WBC 6.9 10x3/uL (4.8-10.8)
[2017-10-18 14:31] LABS: PLATELET COUNT 318 10x3/uL (130-400)
[2017-10-18 14:38] LABS: ALBUMIN 3.1 g/dL (3.4-5.0); ALKALINE PHOSPHATASE 80 U/L (46-116); ALT (SGPT) 16 U/L (10-68); CALC OSMOLALITY 287 mosm/kg (275-300); CALCIUM 8.6 mg/dL (8.5-10.1); CARBON DIOXIDE 27.2 mmol/L (21.0-32.0); CHLORIDE - SERUM 101 mmol/L (98-107); CREATININE - SERUM 1.9 mg/dL (0.6-1.3); GLUCOSE 130 mg/dL (74-106); POTASSIUM - SERUM 4.3 mmol/L (3.5-5.1); PROTEIN - SERUM 7.2 g/dL (6.4-8.2); SODIUM 140 mmol/L (136-145); UREA NITROGEN 31 mg/dL (7-18); eGFR NON AFRICAN AMERICAN 36 mL/min (90-120)
[2017-10-18 14:50] LABS: CHOL - HDL RATIO 2.2 ratio (2.3-4.9); CHOLESTEROL, TOTAL 84 mg/dL (0-200); CREATINE KINASE 44 UL (21-232); HDL CHOLESTEROL 39 mg/dL (32-96); LDL CHOLESTEROL 31 mg/dL (0-100); LDL-HDL RATIO 0.8 ratio (1.5-3.5); TRIGLYCERIDE 71 mg/dL (30-200); TROPONIN-I < 0.017 ng/mL (0.000-0.060)
[2017-10-18 18:14] VITALS: BP 127/86; BMI 27.7
[2017-10-18] MEDS ORDERED: FLOMAX0.4 MG PO (18:28)
[2017-10-18 19:30] VITALS: BP 108/80
[2017-10-18 20:00] VITALS: BP 119/74
[2017-10-18 21:00] VITALS: BP 104/64
[2017-10-18 22:00] VITALS: BP 119/76
[2017-10-18 23:00] VITALS: BP 106/66
[2017-10-19] VITALS (22 sets, daily range): BP systolic 90–125; BP diastolic 53–79; Ht 182.9 cm; Wt 95.7 kg
[2017-10-19 09:33] LABS: BASOPHILS 0.3 % (0-2); EOSINOPHILS 2.6 % (0-7); HEMATOCRIT 28.6 % (42.0-54.0); HEMOGLOBIN 8.3 g/dL (13.5-17.5); IMMATURE GRANULOCYTES 0.3 % (0-5); LYMPHOCYTES 15.7 % (15-50); MCH 26.4 pg (26.0-34.0); MCV 91.1 fL (80.0-100.0); MEAN PLATELET VOLUME 9.9 fL (7.4-10.4); MONOCYTES 7.1 % (2-11); PLATELET COUNT 295 10x3/uL (130-400); RBC 3.14 10x6/uL (4.20-6.10); RDW 17.1 % (11.5-14.5); WBC 6.9 10x3/uL (4.8-10.8)
[2017-10-19 09:47] LABS: ANION GAP 13.8 mmol/L (8-16); CALCIUM 8.1 mg/dL (8.5-10.1); CARBON DIOXIDE 25.4 mmol/L (21.0-32.0); CREATININE - SERUM 1.6 mg/dL (0.6-1.3); POTASSIUM - SERUM 4.2 mmol/L (3.5-5.1)
[2017-10-20] VITALS (20 sets, daily range): BP systolic 83–107; BP diastolic 52–73
[2017-10-21] VITALS: BP 81/54
[2017-10-21 02:00] VITALS: BP 100/58
[2017-10-21 04:00] VITALS: BP 89/63
[2017-10-21 07:00] VITALS: BP 98/64
== END 2017-10-21 08:45 | disposition home or self-care (01) | DRG 249 ==
LOC: OBSVTIME → D.OPS 14:04 → D.ER 14:04 → D.EDHOLD 14:36 → OBSVTIME 14:36 → D.EDHOLD 14:36 → D.ER 14:36 → D.OPS 16:42 → D.CVICU 16:42 → D.EDHOLD 17:20 → D.CVICU 17:20 → EDSTATUS 10-19 10:30 → D.CVICU 10-21 08:45
PROVIDERS: Emergency Medicine; Internal Medicine Interventional Cardiology
PROC: B2111ZZ Fluoroscopy of Multiple Coronary Arteries using Low Osmolar Contrast (ICD-10-PCS; 2017-10-19)
PROC: B2151ZZ Fluoroscopy of Left Heart using Low Osmolar Contrast (ICD-10-PCS; 2017-10-19)
PROC: 02703DZ Dilation of Coronary Artery, One Artery with Intraluminal Device, Percutaneous Approach (ICD-10-PCS; principal; 2017-10-19 10:30)
PROC: 4A023N7 Measurement of Cardiac Sampling and Pressure, Left Heart, Percutaneous Approach (ICD-10-PCS; 2017-10-19 10:30)
PROC: 02703DZ Dilation of Coronary Artery, One Artery with Intraluminal Device, Percutaneous Approach (ICD-10-PCS; 2017-10-20)
DX: I25.119 Atherosclerotic heart disease of native coronary artery with unspecified angina pectoris (principal); I25.82 Chronic total occlusion of coronary artery; Z95.5 Presence of coronary angioplasty implant and graft; E11.9 Type 2 diabetes mellitus without complications; J44.9 Chronic obstructive pulmonary disease, unspecified; I48.0 Paroxysmal atrial fibrillation; E78.5 Hyperlipidemia, unspecified

== ENCOUNTER 2018-01-30 15:01 | Inpatient (IN) | payer MEDICARE, BC ==
[~2018-01-30] VITALS: Ht 182.9 cm; Wt 93.0 kg
--- NOTE | ~2018-01-30 | DS ---
PATIENT:REBEKAH JAMIL :[birth year] MEDICAL RECORD: [id number] DISCHARGE SUMMARY ADMISSION DATE: 01/31/18 DISCHARGE DATE: 02/01/18 This is a discharge dated 02/01/2018 from the inpatient hospital. DISCHARGE DIAGNOSES: 1. Angina. 2. Anemia. 3. Atrial fibrillation. 4. Coronary artery disease. 5. COPD/emphysema. 6. Hypertension. 7. Gastroesophageal reflux disease. 8. Diabetes. 9. Neuropathy. 10. Benign prostatic hypertrophy. 11. Chronic kidney disease. 12. Myelodysplastic syndrome. 13. Hepatitis C. 14. Cirrhosis. 15. Bilateral pleural effusions. 16. Hypokalemia. CONSULTS IN THIS HOSPITALIZATION: 1. Cardiology with Chidi Brumfield MD 2. Hem/onc with Alen Carvajal MD HOSPITAL COURSE: Full H&P is located elsewhere on the chart on this 87-year-old male who was admitted with complaints of chest pain. Labs revealed acute anemia. Cardiology was consulted. He was seen by Dr. Brumfield. Medications were adjusted with plans for medical management. Electrolytes were managed by protocol. He was on supplemental oxygen and updrafts for respiratory support. Fingerstick blood sugars were monitored throughout his hospital stay with appropriate adjustment in medications as needed. His symptoms improved significantly and he was considered stable for discharge on 02/01/2018. He was transfused with 2 units of packed red blood cells with significant improvement in labs. DISCHARGE MEDICATIONS: As per discharge medication reconciliation. DISCHARGE DISPOSITION: The patient was discharged home. He will continue his current diet and level of activity and will follow up with primary care and specialist as directed. He will be seen by [facility]. At least 30 minutes was spent in this discharge activity. TRANSINT:[id number] Voice Confirmation ID: [id number] DOCUMENT ID: [id number] Dictated By: BRIGHT MELLO I have interviewed/examined the above patient and agree with these documented findings. DISCHARGE SUMMARY REPORT [id number] REBEKAH JAMIL, HAROON YAO at 1549 at 1111 CC: [id number] DICTATION DATE: 02/18/18 1633 NUT PACKER: 02/18/18 2041 DIS IN 02/01/18 [facility] [address] [place], [place] [id number]
--- NOTE | ~2018-01-30 | HP ---
PATIENT: REBEKAH CLIFTON MEDICAL RECORD: [id number] ACCOUNT: [id number] LOCATION:[address] : [birth year] ADMISSION DATE: 01/31/18 HISTORY AND PHYSICAL EXAMINATION DIAGNOSES: 1. Angina. 2. Shortness of breath. 3. Atrial fibrillation, chronic. 4. Coronary artery disease. 5. Previous PTCA stent. 6. Hypertension. HISTORY OF PRESENT ILLNESS: Mr. Clifton presents with anginal symptomatology. He has a LAD diagonal that is grafted. The graft is closed times 2 this year. His EKG is with no acute changes. His chest pain has been on and off. It is markedly better now. He is overall pain free now. He is as well been short of breath. He has atrial fibrillation. This is chronic at this point. He is on amiodarone. His heart rate is in the 90s. His systolic blood pressures in the 150s. PHYSICAL EXAMINATION: GENERAL APPEARANCE: Well-nourished, well-developed, appears stated age. Level of distress, comfortable. PSYCHIATRIC: Mental status, alert, normal affect. Orientation, oriented to time, place and person. EYES: Lids and conjunctiva, noninjected. No discharge, no pallor. ENT: Lips, teeth, gums, normal dentition. Oropharynx, no cyanosis, no pallor. NECK: Carotid arteries, bilateral normal upstroke, no bruits, no thrills. JUGULAR VEINS: No jugular venous pressure or distention. CERVICAL LYMPH NODES: Nontender, nonenlarged. THYROID: Not enlarged. Nontender. No nodules. LUNGS: Respiratory effort, unlabored. CHEST: Normal curvature. No thoracic deformity. No chest wall tenderness. Percussion, resonant. Auscultation, clear. No wheezes, no rales, no rhonchi. CARDIOVASCULAR: Precordial exam, nondisplaced. No heaves or pericardial thrills. Rate and rhythm, regular. Heart sounds, normal S1, normal S2. No S3, no gallop, no rub. Systolic murmur, not heard. Diastolic murmur, not heard. EXTREMITIES: No cyanosis, no edema. Peripheral pulses, full and equal in all extremities, except as noted. No bruits appreciated. ABDOMEN: Soft, nondistended. Normal aorta. No bruit. Nontender. No masses. Liver, nontender, no hepatomegaly. Spleen, nontender, no splenomegaly. MUSCULOSKELETAL: No joint tenderness. No joint swelling. No erythema. NEUROLOGICAL: Normal gait, normal strength, normal tone. SKIN: Warm and dry. OVERALL IMPRESSION: Angina, shortness of breath. At this time, this will be medical management. We will discontinue the amiodarone. Start Bystolic 10 mg b.i.d. Added daily Nitro-Dur patch. We will see if these medical changes improve his symptomatology. TRANSINT:[id number] Voice Confirmation ID: [id number] DOCUMENT ID: [id number] HISTORY AND PHYSICAL [id number] REBEKAH CLIFTON JEFFREY MD at 1207 CC: [id number] DICTATION DATE: 01/30/18 1604 INFECTION CONTROL COORDINATOR: 01/30/18 1616 ADM IN [facility] [address] [place] [address]
[2018-01-30] MEDS ORDERED: PLAVIX75 MG PO (15:28)
[2018-01-30 15:56] LABS: HEMATOCRIT 24.6 % (42.0-54.0); MCH 26.6 pg (26.0-34.0); MCHC 28.9 g/dL (31.0-37.0); MCV 92.1 fL (80.0-100.0); MEAN PLATELET VOLUME 8.8 fL (7.4-10.4); PLATELET COUNT 159 10x3/uL (130-400); RBC 2.67 10x6/uL (4.20-6.10); RDW 19.1 % (11.5-14.5)
[2018-01-30 16:05] LABS: APTT 35.3 SECONDS (22.8-39.4); INR 1.45 (0.85-1.17); PROTIME 17.2 SECONDS (11.6-15.0)
[2018-01-30 16:06] LABS: D-DIMER-QUANTITATIVE 1.42 ug/mLFEU (0.20-0.54)
[2018-01-30 16:09] LABS: ALBUMIN 3.5 g/dL (3.4-5.0); ALKALINE PHOSPHATASE 78 U/L (46-116); ALT (SGPT) 12 U/L (10-68); BILIRUBIN - TOTAL 0.62 mg/dL (0.2-1.3); CALC OSMOLALITY 286 mosm/kg (275-300); CALCIUM 9.1 mg/dL (8.5-10.1); CARBON DIOXIDE 23.9 mmol/L (21.0-32.0); CHLORIDE - SERUM 105 mmol/L (98-107); GLUCOSE 97 mg/dL (74-106); POTASSIUM - SERUM 4.5 mmol/L (3.5-5.1); PROTEIN - SERUM 6.8 g/dL (6.4-8.2); SODIUM 139 mmol/L (136-145); UREA NITROGEN 37 mg/dL (7-18); eGFR NON AFRICAN AMERICAN 34 mL/min (90-120)
[2018-01-30 16:21] LABS: CKMB 2.8 U/L (0.0-3.6); CREATINE KINASE 56 UL (21-232); PRO BNP 5421 pg/mL (0-450)
[2018-01-30 16:50] LABS: HEMOGLOBIN 7.1 g/dL (13.5-17.5)
[2018-01-30 16:53] LABS: EOSINOPHILS 4 % (0-7); LYMPHOCYTES 50 % (15-50); MONOCYTES 2 % (2-11); NEUTROPHILS 44 % (40-80)
[2018-01-30 17:03] LABS: WBC 1.4 10x3/uL (4.8-10.8)
[2018-01-30 17:04] LABS: PLATELET ESTIMATE NORMAL
[2018-01-30 20:57] LABS: CKMB 2.8 U/L (0.0-3.6); CREATINE KINASE 60 UL (21-232); TROPONIN-I 0.039 ng/mL (0.000-0.060)
[2018-01-31] VITALS (7 sets, daily range): BP systolic 92–117; BP diastolic 60–75; Ht 182.9 cm; Wt 93.0 kg
[2018-01-31 04:28] LABS: BASOPHILS 1.3 % (0-2); EOSINOPHILS 9.2 % (0-7); HEMATOCRIT 25.5 % (42.0-54.0); HEMOGLOBIN 7.6 g/dL (13.5-17.5); MCHC 29.8 g/dL (31.0-37.0); MCV 90.7 fL (80.0-100.0); NEUTROPHILS 38.5 % (40-80); RBC 2.81 10x6/uL (4.20-6.10); RDW 18.2 % (11.5-14.5)
[2018-01-31 04:47] LABS: ALBUMIN 2.7 g/dL (3.4-5.0); ALKALINE PHOSPHATASE 61 U/L (46-116); BILIRUBIN - TOTAL 0.67 mg/dL (0.2-1.3); CALC OSMOLALITY 291 mosm/kg (275-300); CALCIUM 7.3 mg/dL (8.5-10.1); CARBON DIOXIDE 22.6 mmol/L (21.0-32.0); CHLORIDE - SERUM 111 mmol/L (98-107); CKMB 2.4 U/L (0.0-3.6); CREATINE KINASE 41 UL (21-232); CREATININE - SERUM 1.8 mg/dL (0.6-1.3); GLUCOSE 73 mg/dL (74-106); PROTEIN - SERUM 5.3 g/dL (6.4-8.2); SODIUM 143 mmol/L (136-145); TROPONIN-I 0.034 ng/mL (0.000-0.060); UREA NITROGEN 35 mg/dL (7-18); eGFR NON AFRICAN AMERICAN 38 mL/min (90-120)
[2018-01-31 04:57] LABS: ALT (SGPT) 8 U/L (10-68); POTASSIUM - SERUM 3.4 mmol/L (3.5-5.1)
[2018-01-31 05:12] LABS: PLATELET COUNT 121 10x3/uL (130-400); WBC 1.5 10x3/uL (4.8-10.8)
[2018-01-31 08:47] LABS: CKMB 2.5 U/L (0.0-3.6); CREATINE KINASE 47 UL (21-232); TROPONIN-I 0.032 ng/mL (0.000-0.060)
[2018-02-01 00:58] VITALS: BP 116/77
[2018-02-01 05:34] VITALS: BP 91/54
[2018-02-01 06:17] LABS: BASOPHILS 0.6 % (0-2); EOSINOPHILS 5.6 % (0-7); HEMATOCRIT 28.2 % (42.0-54.0); HEMOGLOBIN 8.4 g/dL (13.5-17.5); MCH 27.1 pg (26.0-34.0); MCHC 29.8 g/dL (31.0-37.0); MEAN PLATELET VOLUME 9.1 fL (7.4-10.4); MONOCYTES 16.3 % (2-11); NEUTROPHILS 36.5 % (40-80); RDW 18.7 % (11.5-14.5)
[2018-02-01 06:32] LABS: WBC 1.8 10x3/uL (4.8-10.8)
[2018-02-01 06:33] LABS: PLATELET COUNT 153 10x3/uL (130-400)
[2018-02-01 06:45] LABS: % SATURATION 7 % (15-55); IRON 22 ug/dl (35-150); TOTAL IRON BIND CAPACITY 304 ug/dl (260-445); UNSAT IRON BIND CAPACITY 282 ug/dl (150-375)
[2018-02-01 07:10] LABS: ALBUMIN 3.2 g/dL (3.4-5.0); ANION GAP 14.9 mmol/L (8-16); BILIRUBIN - TOTAL 0.6 mg/dL (0.2-1.3); CALCIUM 8.7 mg/dL (8.5-10.1); CARBON DIOXIDE 25.8 mmol/L (21.0-32.0); POTASSIUM - SERUM 3.7 mmol/L (3.5-5.1); PROTEIN - SERUM 6.2 g/dL (6.4-8.2)
[2018-02-01 07:11] LABS: CREATININE - SERUM 2.4 mg/dL (0.6-1.3)
[2018-02-01 08:20] VITALS: BP 121/73
[2018-02-01 11:44] VITALS: BP 106/67
[2018-02-01] MEDS ORDERED: BYSTOLIC5 MG PO (14:23)
[2018-02-01] MEDS ORDERED: PROTONIX40 MG PO (14:24)
[2018-02-02 06:15] LABS: FOLATE (FOLIC ACID) - SERUM 5.6 ng/mL (>3.0)
== END 2018-02-01 15:59 | disposition home or self-care (01) | DRG 812 ==
LOC: D.ER 15:01 → D.M2 20:28 → OBSVTIME 22:06 → D.M2 01-31 15:05
PROVIDERS: Family Medicine; Legal Medicine
DX: D46.9 Myelodysplastic syndrome, unspecified (principal); J98.11 Atelectasis; I25.119 Atherosclerotic heart disease of native coronary artery with unspecified angina pectoris; I48.2 Chronic atrial fibrillation; E11.22 Type 2 diabetes mellitus with diabetic chronic kidney disease; I12.9 Hypertensive chronic kidney disease with stage 1 through stage 4 chronic kidney disease, or unspecified chronic kidney disease; N18.9 Chronic kidney disease, unspecified; E11.40 Type 2 diabetes mellitus with diabetic neuropathy, unspecified; K21.9 Gastro-esophageal reflux disease without esophagitis; N40.0 Benign prostatic hyperplasia without lower urinary tract symptoms; K74.60 Unspecified cirrhosis of liver; Z95.5 Presence of coronary angioplasty implant and graft

== ENCOUNTER 2018-03-18 19:00 | Inpatient (IN) | payer MEDICARE, BC ==
[~2018-03-18] VITALS: Ht 182.9 cm; Wt 92.7 kg
--- NOTE | ~2018-03-18 | EC ---
PATIENT:REBEKAH JAMIL DATE OF SERVICE: 03/18/18 SEX: M MEDICAL RECORD: [id number] DATE OF : 32 LOCATION:D. D.120 AGE OF PATIENT: 87 ADMISSION DATE: 03/19/18 REFERRING PHYSICIAN: INTERPRETING PHYSICIAN: NIXON BRUMFIELD MD ECHOCARDIOGRAM REPORT ECHO CHARGES 4 ECHO COMPLETE Date: 03/19 CLINICAL DIAGNOSIS: CHF/SOB ECHOCARDIOGRAPHIC MEASUREMENTS (adult normal given) AC root (d.<3.7cm) 3.7 cm LV Septum d (<1.2 cm> 1.2 cm Valve Excursion 1.4 cm LV Septum (systole) 1.8 cm Left Atria (s.<4.0cm> 4.2 cm LVPW d(<1.2cm) 1.1 cm RV (d.<2.3cm) 4.4 cm LVPW (sytole) 1.6 cm LV diastole(<5.6CM) 5.6 cm MV E-F(>70mm/sec) cm LV systole 4.2 cm LVOT Diameter 1.9 cm MV exc.(>10mm) cm Est.ejection fraction (50-75%) % DOPPLER: LVIT cm/sec A cm/sec E 155 cm/sec LA cm/sec RVSP 47.0 mmHg LVOT 81.0 cm/sec AOP1/2T m/s Asc. Ao 316 cm/sec RVOT 74.0 cm/sec RA cm/sec PA 64.0 cm/sec AV Gradient Peak 40.0 mmHg AV Mean 21.3 mmHg AV Area 0.6 cm MV Gradient Peak 12.2 mmHg MV Mean 3.9 mmHg MV Area cm COMMENTS: Ground Worker: Sunday MCARTHUROE Cabinet Professional: 1 Dr. Brumfield TAPE# PACS Pericardial Effusion N DATE OF SERVICE: 03/19/2018 FINDINGS: 1. Left ventricular chamber size is upper limits of normal. Left ventricular systolic function is mildly reduced. Overall ejection fraction is 40% to 45%. 2. Left atrium is enlarged at 4.2 cm. Right atrium and right ventricle chamber sizes are as well moderately dilated. 3. Valvular structures: Aortic valve demonstrates moderate calcific aortic stenosis. Valve area calculates to 0.6 cm-squared and has a gradient of 40 mm across the valve. The remaining valvular structures have normal structure and ECHOCARDIOGRAM REPORT [id number] REBEKAH JAMIL motion. 4. Doppler interrogation else hebert reveals [id number] mitral regurgitation and severe tricuspid regurgitation. No other valvular insufficiency or stenosis. Pulmonary systolic pressure is elevated, estimated at 47 mmHg. 5. No evidence of pericardial effusion or left ventricular thrombus. TRANSINT:[id number] Voice Confirmation ID: [id number] DOCUMENT ID: [id number] NIXON BRUMFIELD MD at 1752 CC: [id number] DICTATION DATE: 03/19/18 1616 LOG ROPER: 03/19/18 1714 ADM IN [facility] [address] [id number]
[~2018-03-18 19:00] MED LIST changes: +BYSTOLIC5 MG PO
[2018-03-18 19:41] LABS: HEMATOCRIT 28.5 % (42.0-54.0); HEMOGLOBIN 8.2 g/dL (13.5-17.5); MCH 26.6 pg (26.0-34.0); MCHC 28.8 g/dL (31.0-37.0); MCV 92.5 fL (80.0-100.0); MEAN PLATELET VOLUME 9.2 fL (7.4-10.4); PLATELET COUNT 154 10x3/uL (130-400); RBC 3.08 10x6/uL (4.20-6.10); RDW 17.4 % (11.5-14.5); WBC 2.6 10x3/uL (4.8-10.8)
[2018-03-18 19:58] LABS: ALBUMIN 3.2 g/dL (3.4-5.0); ALKALINE PHOSPHATASE 81 U/L (46-116); ALT (SGPT) 12 U/L (10-68); BILIRUBIN - TOTAL 0.91 mg/dL (0.2-1.3); CALC OSMOLALITY 290 mosm/kg (275-300); CALCIUM 8.5 mg/dL (8.5-10.1); CARBON DIOXIDE 27.1 mmol/L (21.0-32.0); CHLORIDE - SERUM 106 mmol/L (98-107); CREATININE - SERUM 1.9 mg/dL (0.6-1.3); GLUCOSE 109 mg/dL (74-106); POTASSIUM - SERUM 3.8 mmol/L (3.5-5.1); PROTEIN - SERUM 6.3 g/dL (6.4-8.2); SODIUM 143 mmol/L (136-145); UREA NITROGEN 27 mg/dL (7-18); eGFR NON AFRICAN AMERICAN 36 mL/min (90-120)
[2018-03-18 20:12] LABS: CKMB 2.2 U/L (0.0-3.6); CREATINE KINASE 43 UL (21-232); MAGNESIUM - SERUM 1.6 mg/dL (1.8-2.4); PRO BNP 9886 pg/mL (0-450)
[2018-03-18 20:25] LABS: EOSINOPHILS 4 % (0-7); LYMPHOCYTES 30 % (15-50); MONOCYTES 2 % (2-11); NEUTROPHILS 62 % (40-80); PLATELET ESTIMATE NORMAL
[2018-03-18 20:33] VITALS: BP 131/92
[2018-03-18 21:44] VITALS: BP 158/98
[2018-03-18 22:32] VITALS: BP 121/71
[2018-03-19] VITALS (14 sets, daily range): BP systolic 95–155; BP diastolic 61–97; BMI 27.7
[2018-03-19 05:04] LABS: BASOPHILS 0.8 % (0-2); EOSINOPHILS 3.8 % (0-7); HEMOGLOBIN 8.3 g/dL (13.5-17.5); LYMPHOCYTES 29.1 % (15-50); MCH 26.4 pg (26.0-34.0); MCHC 28.6 g/dL (31.0-37.0); MCV 92.4 fL (80.0-100.0); MEAN PLATELET VOLUME 9.6 fL (7.4-10.4); MONOCYTES 14.3 % (2-11); PLATELET COUNT 177 10x3/uL (130-400); RBC 3.14 10x6/uL (4.20-6.10); RDW 17.4 % (11.5-14.5); WBC 2.7 10x3/uL (4.8-10.8)
[2018-03-19 05:59] LABS: ALBUMIN 3.4 g/dL (3.4-5.0); ANION GAP 13.8 mmol/L (8-16); BILIRUBIN - TOTAL 1.16 mg/dL (0.2-1.3); CALCIUM 8.7 mg/dL (8.5-10.1); CARBON DIOXIDE 27.6 mmol/L (21.0-32.0); CREATININE - SERUM 1.8 mg/dL (0.6-1.3); POTASSIUM - SERUM 3.4 mmol/L (3.5-5.1); PROTEIN - SERUM 6.6 g/dL (6.4-8.2)
[2018-03-19] MEDS ORDERED: PROSCAR5 MG PO (13:35)
[2018-03-19] MEDS ORDERED: FLUTICASONE PRO16 GM NASAL (13:35)
[2018-03-19] MEDS ORDERED: ZOFRAN4 MG PO (13:36)
[2018-03-19] MEDS ORDERED: FOLBIC RF TABL1 EACH PO (13:36)
[2018-03-19] MEDS ORDERED: FOLATE0.4 MG PO (13:37)
[2018-03-19] MEDS ORDERED: PROBIOTIC1 EAC1 PO (13:37)
[2018-03-19] MEDS ORDERED: PEPCID40 MG PO (13:37)
[2018-03-20 04:00] VITALS: BP 149/74
[2018-03-20 08:29] VITALS: BP 134/84
[2018-03-20 09:41] VITALS: Ht 182.9 cm; Wt 92.7 kg
[2018-03-20 11:37] VITALS: BP 119/80
[2018-03-20 15:20] VITALS: BP 102/50
[2018-03-20 20:17] VITALS: BP 129/63
[2018-03-21 04:55] VITALS: BP 121/75
[2018-03-21 05:04] LABS: BASOPHILS 0.7 % (0-2); EOSINOPHILS 4.1 % (0-7); HEMATOCRIT 28.1 % (42.0-54.0); HEMOGLOBIN 8.2 g/dL (13.5-17.5); LYMPHOCYTES 20.5 % (15-50); MCH 26.8 pg (26.0-34.0); MCHC 29.2 g/dL (31.0-37.0); MCV 91.8 fL (80.0-100.0); MEAN PLATELET VOLUME 9.2 fL (7.4-10.4); MONOCYTES 16.8 % (2-11); NEUTROPHILS 57.9 % (40-80); PLATELET COUNT 161 10x3/uL (130-400); RBC 3.06 10x6/uL (4.20-6.10); RDW 17.3 % (11.5-14.5); WBC 2.9 10x3/uL (4.8-10.8)
[2018-03-21 05:10] LABS: ANION GAP 9.7 mmol/L (8-16); CALCIUM 8.4 mg/dL (8.5-10.1); CARBON DIOXIDE 32.4 mmol/L (21.0-32.0); CREATININE - SERUM 1.7 mg/dL (0.6-1.3); POTASSIUM - SERUM 3.1 mmol/L (3.5-5.1)
[2018-03-21 07:30] VITALS: BP 127/55
[2018-03-21 11:30] VITALS: BP 123/80
[2018-03-21 15:36] VITALS: BP 109/59
[2018-03-21 19:28] VITALS: BP 103/67
[2018-03-21 23:59] VITALS: BP 111/71
[2018-03-22 04:00] VITALS: BP 141/92
[2018-03-22 04:53] LABS: BASOPHILS 1.4 % (0-2); EOSINOPHILS 4.9 % (0-7); HEMATOCRIT 30.4 % (42.0-54.0); HEMOGLOBIN 8.8 g/dL (13.5-17.5); LYMPHOCYTES 20.9 % (15-50); MCH 26.7 pg (26.0-34.0); MCHC 28.9 g/dL (31.0-37.0); MCV 92.1 fL (80.0-100.0); MEAN PLATELET VOLUME 9.8 fL (7.4-10.4); MONOCYTES 12.5 % (2-11); NEUTROPHILS 60.3 % (40-80); PLATELET COUNT 176 10x3/uL (130-400); RDW 17.2 % (11.5-14.5); WBC 2.9 10x3/uL (4.8-10.8)
[2018-03-22 05:04] LABS: CALCIUM 8.5 mg/dL (8.5-10.1); CARBON DIOXIDE 32.5 mmol/L (21.0-32.0); CREATININE - SERUM 1.5 mg/dL (0.6-1.3); POTASSIUM - SERUM 3.5 mmol/L (3.5-5.1)
[2018-03-22 08:01] VITALS: BP 134/90
[2018-03-22 19:51] VITALS: BP 120/74
[2018-03-23] VITALS: BP 126/63
[2018-03-23 04:00] VITALS: BP 124/64
[2018-03-23 04:21] LABS: BASOPHILS 0.4 % (0-2); HEMATOCRIT 29.5 % (42.0-54.0); HEMOGLOBIN 8.7 g/dL (13.5-17.5); IMMATURE GRANULOCYTES 0.4 % (0-5); LYMPHOCYTES 23.8 % (15-50); MCH 26.8 pg (26.0-34.0); MCHC 29.5 g/dL (31.0-37.0); MCV 90.8 fL (80.0-100.0); MEAN PLATELET VOLUME 9.1 fL (7.4-10.4); MONOCYTES 13.1 % (2-11); NEUTROPHILS 57.3 % (40-80); PLATELET COUNT 166 10x3/uL (130-400); RBC 3.25 10x6/uL (4.20-6.10); RDW 16.9 % (11.5-14.5); WBC 2.8 10x3/uL (4.8-10.8)
[2018-03-23 04:45] LABS: ANION GAP 5.4 mmol/L (8-16); CALCIUM 8.9 mg/dL (8.5-10.1); CARBON DIOXIDE 35.3 mmol/L (21.0-32.0); CREATININE - SERUM 1.7 mg/dL (0.6-1.3); POTASSIUM - SERUM 3.7 mmol/L (3.5-5.1)
[2018-03-23 07:16] VITALS: BP 111/69
[2018-03-23 11:22] VITALS: BP 126/74
[2018-03-23 11:24] LABS: CKMB 1.5 U/L (0.0-3.6); CREATINE KINASE 36 UL (21-232); TROPONIN-I 0.026 ng/mL (0.000-0.060)
== END 2018-03-23 14:54 | disposition home or self-care (01) | DRG 291 ==
LOC: D.ER 19:00 → D.EDHOLD 21:07 → D.M3 21:07 → OBSVTIME 21:07 → D.M3 03-19 15:31
PROVIDERS: Family Medicine; Internal Medicine Interventional Cardiology
DX: I13.0 Hypertensive heart and chronic kidney disease with heart failure and stage 1 through stage 4 chronic kidney disease, or unspecified chronic kidney disease (principal); I50.43 Acute on chronic combined systolic (congestive) and diastolic (congestive) heart failure; N18.9 Chronic kidney disease, unspecified; I50.9 Heart failure, unspecified; I25.10 Atherosclerotic heart disease of native coronary artery without angina pectoris; J44.9 Chronic obstructive pulmonary disease, unspecified; I48.91 Unspecified atrial fibrillation

== ENCOUNTER 2018-04-08 09:51 | Inpatient (IN) | payer MEDICARE, BC ==
[~2018-04-08] VITALS: Ht 182.9 cm; Wt 87.7 kg
--- NOTE | ~2018-04-08 | CN ---
PATIENT NAME:REBEKAH CLIFTON MEDICAL RECORD: [id number] : 32 LOCATION:[facility] D.2121 ADMIT DATE: 04/08/18 ACCOUNT: [id number] CONSULTING PHYSICIAN: NIXON MATTA MD REFERRING PHYSICIAN: JOHNNY DUMAS MD DATE OF CONSULTATION: 04/09/2018 DIAGNOSES: 1. Pulmonary edema. 2. Shortness of breath. 3. Heart failure, chronic systolic dysfunction. 4. Cardiomyopathy, ejection fraction of 40%. 5. Coronary artery disease. 6. Previous multivessel PTCA and stent. 7. Anemia. 8. History of GI bleed. 9. Atrial fibrillation, chronic. 10. Hypertension. HISTORY: Mr. Clifton presents with shortness of breath, found to have pulmonary edema. He does have a history of cardiomyopathy, ejection fraction 40%. He has a history of coronary disease. His last stenting was done in October. He has not had any chest pain. He has a history of GI bleed in the past. His hemoglobin is now 7.7. This is a definite change from the last time we have gotten labs. He is on iron daily, so he has not noticed any change in his stools which are usually on the blackish side due to the iron intake. He has received IV Lasix. He has diuresed well. His breathing is now back to baseline. REVIEW OF SYSTEMS: The patient reports easy bruising but reports no swollen glands. The patient reports no fever, no night sweats, no significant weight gain, no significant weight loss. No significant exercise tolerance. The patient reports no dry eyes, no irritation, no vision change. Patient reports no difficulty hearing and no ear pain. Patient reports no frequent nose bleeds or nose and sinus problems. Patient reports on arm pain on exertion. No shortness of breath while lying down. No history of heart murmur. Patient reports no cough, no wheezing or coughing up blood. Patient reports no abdominal pain, no vomiting. Normal appetite. No diarrhea and not vomiting blood. No nausea and no constipation. Patient reports no incontinence. No difficulty urinating. No hematuria. No increased frequency. Patient reports no muscle aches. No weakness, no arthralgias, no back pain. No swelling of the extremities. Patient reports no abnormal mole, no jaundice, no rashes. Reports no loss of consciousness. No weakness and no numbness. No seizures, dizziness, or headaches. The patient reports no depression, no sleep disturbance, feeling safe in a relationship and no alcohol abuse. Patient reports on fatigue. Reports no runny nose or sinus pressure. No itching, no hives, and no frequent sneezing. PHYSICAL EXAMINATION: GENERAL APPEARANCE: Well-nourished, well-developed, appears stated age. Level of distress, comfortable. PSYCHIATRIC: Mental status, alert, normal affect. Orientation, oriented to time, place and person. EYES: Lids and conjunctiva, noninjected. No discharge, no pallor. ENT: Lips, teeth, gums, normal dentition. Oropharynx, no cyanosis, no pallor. NECK: Carotid arteries, bilateral normal upstroke, no bruits, no thrills. CONSULT REPORT [id number] REBEKAH CLIFTON JUGULAR VEINS: No jugular venous pressure or distention. CERVICAL LYMPH NODES: Nontender, nonenlarged. THYROID: Not enlarged. Nontender. No nodules. LUNGS: Respiratory effort, unlabored. CHEST: Normal curvature. No thoracic deformity. No chest wall tenderness. Percussion, resonant. Auscultation, clear. No wheezes, no rales, no rhonchi. CARDIOVASCULAR: Precordial exam, nondisplaced. No heaves or pericardial thrills. Rate and rhythm, regular. Heart sounds, normal S1, normal S2. No S3, no gallop, no rub. Systolic murmur, not heard. Diastolic murmur, not heard. EXTREMITIES: No cyanosis, no edema. Peripheral pulses, full and equal in all extremities, except as noted. No bruits appreciated. ABDOMEN: Soft, nondistended. Normal aorta. No bruit. Nontender. No masses. Liver, nontender, no hepatomegaly. Spleen, nontender, no splenomegaly. MUSCULOSKELETAL: No joint tenderness. No joint swelling. No erythema. NEUROLOGICAL: Normal gait, normal strength, normal tone. SKIN: Warm and dry. OVERALL IMPRESSION: Anemia. Most likely this is the etiology of his decompensation and most likely it is GI in etiology as he has had history of GI bleed. For this reason, he is not on anticoagulation with his atrial fibrillation and obviously would not start anticoagulation. At this time, I would only leave him on aspirin and Plavix. We will even consider dropping the aspirin and continuing with just Plavix. I would suggest GI consult for further workup of the anemia. From a cardiac standpoint, he is actually quite stable. The heart failure symptomatology has cleared. He is not having any signs or symptoms of ischemic heart disease. At this time, no other cardiac workup or treatment is necessary. TRANSINT:[id number] Voice Confirmation ID: [id number] DOCUMENT ID: [id number] NIXON MATTA MD at 1402 CC: [id number] DICTATION DATE: 04/09/18 1120 RUBBER CUTTER: 04/09/18 1203 DIS IN 04/11/[address] [place] [id number] [place] [id number]
[~2018-04-08 09:51] MED LIST changes: +FOLATE0.4 MG PO; +FOLBIC RF TABL1 EACH PO; +PEPCID40 MG PO; +PROBIOTIC1 EAC1 PO; +PROSCAR5 MG PO; +ZOFRAN4 MG PO
[2018-04-08 10:18] LABS: BASOPHILS 0.6 % (0-2); EOSINOPHILS 2.8 % (0-7); HEMATOCRIT 28.9 % (42.0-54.0); HEMOGLOBIN 8.2 g/dL (13.5-17.5); IMMATURE GRANULOCYTES 0.3 % (0-5); LYMPHOCYTES 16.7 % (15-50); MCH 26.3 pg (26.0-34.0); MCHC 28.4 g/dL (31.0-37.0); MCV 92.6 fL (80.0-100.0); MEAN PLATELET VOLUME 9.2 fL (7.4-10.4); MONOCYTES 10.2 % (2-11); NEUTROPHILS 69.4 % (40-80); RBC 3.12 10x6/uL (4.20-6.10); RDW 16.8 % (11.5-14.5); WBC 3.2 10x3/uL (4.8-10.8)
[2018-04-08 10:20] LABS: PLATELET COUNT 227 10x3/uL (130-400)
[2018-04-08 10:31] LABS: ALBUMIN 3.3 g/dL (3.4-5.0); ALKALINE PHOSPHATASE 82 U/L (46-116); ALT (SGPT) 14 U/L (10-68); BILIRUBIN - TOTAL 1.11 mg/dL (0.2-1.3); CALC OSMOLALITY 287 mosm/kg (275-300); CALCIUM 8.1 mg/dL (8.5-10.1); CARBON DIOXIDE 25.4 mmol/L (21.0-32.0); CHLORIDE - SERUM 104 mmol/L (98-107); CREATININE - SERUM 1.9 mg/dL (0.6-1.3); PROTEIN - SERUM 6.6 g/dL (6.4-8.2); SODIUM 139 mmol/L (136-145); UREA NITROGEN 32 mg/dL (7-18); eGFR NON AFRICAN AMERICAN 36 mL/min (90-120)
[2018-04-08 10:32] LABS: GLUCOSE 160 mg/dL (74-106); POTASSIUM - SERUM 3.9 mmol/L (3.5-5.1)
[2018-04-08 10:43] LABS: CKMB 2.7 U/L (0.0-3.6); CREATINE KINASE 65 UL (21-232); PRO BNP 10035 pg/mL (0-450); TROPONIN-I 0.017 ng/mL (0.000-0.060)
[2018-04-08 14:49] VITALS: BP 129/84; BMI 28.0
[2018-04-08 15:35] VITALS: BP 117/79
[2018-04-08 20:58] VITALS: BP 132/72
[2018-04-09] VITALS: BP 122/72
[2018-04-09 04:26] LABS: BASOPHILS 0.7 % (0-2); EOSINOPHILS 5.4 % (0-7); HEMATOCRIT 26.6 % (42.0-54.0); HEMOGLOBIN 7.7 g/dL (13.5-17.5); MCH 26.3 pg (26.0-34.0); MCHC 28.9 g/dL (31.0-37.0); MCV 90.8 fL (80.0-100.0); MEAN PLATELET VOLUME 8.9 fL (7.4-10.4); MONOCYTES 10.1 % (2-11); NEUTROPHILS 58.8 % (40-80); PLATELET COUNT 210 10x3/uL (130-400); RBC 2.93 10x6/uL (4.20-6.10); RDW 16.7 % (11.5-14.5)
[2018-04-09 04:53] LABS: ANION GAP 12.2 mmol/L (8-16); CALCIUM 8.5 mg/dL (8.5-10.1); CARBON DIOXIDE 28.3 mmol/L (21.0-32.0); CREATININE - SERUM 1.9 mg/dL (0.6-1.3); POTASSIUM - SERUM 3.5 mmol/L (3.5-5.1)
[2018-04-09 07:42] VITALS: BP 132/72
[2018-04-09 10:11] LABS: % SATURATION 4 % (15-55); IRON 15 ug/dl (35-150); TOTAL IRON BIND CAPACITY 341 ug/dl (260-445); UNSAT IRON BIND CAPACITY 326 ug/dl (150-375)
[2018-04-09 11:28] VITALS: BP 129/77
[2018-04-09 15:40] VITALS: BP 132/66
[2018-04-09 20:12] VITALS: BP 100/56
[2018-04-10 00:43] VITALS: BP 120/70
[2018-04-10 05:51] VITALS: BP 142/76
[2018-04-10 07:49] VITALS: BP 142/76
[2018-04-10 11:05] VITALS: BP 94/59
[2018-04-10 11:15] LABS: BASOPHILS 0.4 % (0-2); EOSINOPHILS 3.3 % (0-7); HEMATOCRIT 27.6 % (42.0-54.0); HEMOGLOBIN 7.9 g/dL (13.5-17.5); LYMPHOCYTES 17.5 % (15-50); MCHC 28.6 g/dL (31.0-37.0); MCV 90.8 fL (80.0-100.0); MEAN PLATELET VOLUME 8.4 fL (7.4-10.4); MONOCYTES 10.5 % (2-11); NEUTROPHILS 68.3 % (40-80); PLATELET COUNT 195 10x3/uL (130-400); RBC 3.04 10x6/uL (4.20-6.10); RDW 16.7 % (11.5-14.5); WBC 2.8 10x3/uL (4.8-10.8)
[2018-04-10 11:30] LABS: ALBUMIN 3.4 g/dL (3.4-5.0); ANION GAP 11.4 mmol/L (8-16); BILIRUBIN - TOTAL 1.24 mg/dL (0.2-1.3); CALCIUM 8.8 mg/dL (8.5-10.1); CARBON DIOXIDE 32.1 mmol/L (21.0-32.0); CREATININE - SERUM 1.9 mg/dL (0.6-1.3); POTASSIUM - SERUM 3.5 mmol/L (3.5-5.1); PROTEIN - SERUM 6.9 g/dL (6.4-8.2)
[2018-04-10 13:41] VITALS: BMI 26.2
[2018-04-10 15:41] VITALS: BP 110/61
[2018-04-10 20:43] VITALS: BP 104/64
[2018-04-11 00:22] VITALS: BP 105/63
[2018-04-11 05:24] VITALS: BP 117/74
[2018-04-11 05:58] LABS: BASOPHILS 0.6 % (0-2); EOSINOPHILS 5.5 % (0-7); HEMATOCRIT 29.6 % (42.0-54.0); HEMOGLOBIN 8.7 g/dL (13.5-17.5); IMMATURE GRANULOCYTES 0.3 % (0-5); LYMPHOCYTES 25.3 % (15-50); MCHC 29.4 g/dL (31.0-37.0); MEAN PLATELET VOLUME 9.1 fL (7.4-10.4); MONOCYTES 13.6 % (2-11); NEUTROPHILS 54.7 % (40-80); PLATELET COUNT 213 10x3/uL (130-400); RBC 3.34 10x6/uL (4.20-6.10); RDW 16.7 % (11.5-14.5); WBC 3.1 10x3/uL (4.8-10.8)
[2018-04-11 06:24] LABS: ALBUMIN 3.4 g/dL (3.4-5.0); ANION GAP 11.6 mmol/L (8-16); BILIRUBIN - TOTAL 1.53 mg/dL (0.2-1.3); CALCIUM 8.6 mg/dL (8.5-10.1); CARBON DIOXIDE 30.7 mmol/L (21.0-32.0); CREATININE - SERUM 1.7 mg/dL (0.6-1.3); MAGNESIUM - SERUM 1.6 mg/dL (1.8-2.4); POTASSIUM - SERUM 3.3 mmol/L (3.5-5.1); PROTEIN - SERUM 6.8 g/dL (6.4-8.2)
[2018-04-11 06:30] LABS: MCV 88.6 fL (80.0-100.0)
[2018-04-11 07:45] VITALS: BP 115/66
[2018-04-11 08:18] LABS: FOLATE (FOLIC ACID) - SERUM >20.0 ng/mL (>3.0)
[2018-04-11 10:39] VITALS: Ht 182.9 cm; Wt 87.7 kg
[2018-04-11 11:24] VITALS: BP 118/69
[2018-04-11 13:49] LABS: HEMOGLOBIN 9.5 g/dL (13.5-17.5)
[2018-04-11 14:23] LABS: MAGNESIUM - SERUM 1.7 mg/dL (1.8-2.4)
[2018-04-11 15:38] VITALS: BP 111/63
== END 2018-04-11 18:06 | disposition home or self-care (01) | DRG 811 ==
LOC: D.ER 09:51 → D.EDHOLD 12:28 → D.M2 12:28 → D.SDCHOLD 04-09 16:06 → D.M2 04-09 16:10
PROVIDERS: Emergency Medicine; Family Medicine
DX: D50.9 Iron deficiency anemia, unspecified (principal); I50.43 Acute on chronic combined systolic (congestive) and diastolic (congestive) heart failure; N17.9 Acute kidney failure, unspecified; I42.9 Cardiomyopathy, unspecified; I11.0 Hypertensive heart disease with heart failure; E11.9 Type 2 diabetes mellitus without complications; I25.10 Atherosclerotic heart disease of native coronary artery without angina pectoris; Z95.5 Presence of coronary angioplasty implant and graft; N40.0 Benign prostatic hyperplasia without lower urinary tract symptoms; I48.0 Paroxysmal atrial fibrillation; E11.65 Type 2 diabetes mellitus with hyperglycemia; D46.9 Myelodysplastic syndrome, unspecified

== ENCOUNTER 2018-05-16 09:38 | Outpatient (CLI) | payer MEDICARE, BC ==
[~2018-05-16] VITALS: Ht 182.9 cm; Wt 90.9 kg
[2018-05-16 10:25] VITALS: BP 114/64; Ht 182.9 cm; Wt 90.9 kg
== END 2018-05-16 16:02 | disposition home or self-care (01) ==
LOC: D.OPS 09:38
DX: D46.9 Myelodysplastic syndrome, unspecified (principal); Z01.812 Encounter for preprocedural laboratory examination

== ENCOUNTER 2018-07-02 13:18 | Outpatient (CLI) | payer MEDICARE, BC ==
[~2018-07-02] VITALS: Ht 182.9 cm; Wt 90.9 kg
[2018-07-02 14:01] VITALS: BP 109/75; Ht 182.9 cm; Wt 90.9 kg
== END 2018-07-02 18:58 | disposition home or self-care (01) ==
LOC: D.OPS 13:18
DX: D64.9 Anemia, unspecified (principal)

== ENCOUNTER 2018-07-09 12:26 | Inpatient (IN) | payer MEDICARE, BC ==
[~2018-07-09] VITALS: Ht 182.9 cm; Wt 39.5 kg
--- NOTE | ~2018-07-09 | MORECARE ---
CASE MANAGEMENT DISCHARGE SUMMARY PATIENT: REBEKAH JAMIL UNIT: [id number] ADM DATE: 07/09/18 AGE: 87 : [birth year] SEX: M ROOM/BED: D.2121 AUTHOR: EUGENIA MOON PHYSICIAN: REFERRING PHYSICIAN: LIZZIE SHEARER MD DATE OF SERVICE: 07/16/18 Discharge Plan Patient Name: REBEKAH JAMIL Facility: [facility]:[place] : 1930 Planned Disposition: Home Anticipated Discharge Date: 07/15/18 Discharge Date: 07/15/2018 Expected LOS: 6 Initial Reviewer: [email or web address] Initial Review Date: 07/16/2018 Generated: 07/16/18 1:20 pm Patient Name: REBEKAH JAMIL Page [id number] at 1220 All edits/amendments must be made on the electronic document DICTATION DATE: 07/16/18 1220 SCALE ASSEMBLY SET UP WORKER: TYRONE 07/16/18 1220 RPT#: [id number] DC DATE:07/15/18 STATUS: DIS IN [facility] [address] [place] [address] END OF REPORT
--- NOTE | ~2018-07-09 | EC ---
PATIENT:REBEKAH JAMIL DATE OF SERVICE: 07/09/18 SEX: M MEDICAL RECORD: [id number] DATE OF : 32 LOCATION:D. D.212 AGE OF PATIENT: 87 ADMISSION DATE: 07/09/18 REFERRING PHYSICIAN: INTERPRETING PHYSICIAN: NIXON BRUMFIELD MD ECHOCARDIOGRAM REPORT ECHO CHARGES 4 ECHO COMPLETE Date: 07/10/18 CLINICAL DIAGNOSIS: CHF ECHOCARDIOGRAPHIC MEASUREMENTS (adult normal given) AC root (d.<3.7cm) 2.8 cm LV Septum d (<1.2 cm> 0.7 cm Valve Excursion 1.0 cm LV Septum (systole) 0.9 cm Left Atria (s.<4.0cm> 5.3 cm LVPW d(<1.2cm) 1.0 cm RV (d.<2.3cm) 4.0 cm LVPW (sytole) 1.3 cm LV diastole(<5.6CM) 7.0 cm MV E-F(>70mm/sec) cm LV systole 5.8 cm LVOT Diameter 1.7 cm MV exc.(>10mm) cm Est.ejection fraction (50-75%) % DOPPLER: LVIT cm/sec A 27 cm/sec E 117 cm/sec LA cm/sec RVSP 41.0 mmHg LVOT 117 cm/sec AOP1/2T m/s Asc. Ao 237 cm/sec RVOT 60 cm/sec RA cm/sec PA 74 cm/sec AV Gradient Peak 22.5 mmHg AV Mean 10.5 mmHg AV Area 1.2 cm MV Gradient Peak 7.2 mmHg MV Mean 2.6 mmHg MV Area cm COMMENTS: Telephone Solicitor: Sera [facility] Felt Finisher: 1 Dr. Brumfield TAPE# PACS Pericardial Effusion N DATE OF SERVICE: 07/10/2018 FINDINGS: 1. Left ventricular chamber size is dilated. Left ventricular systolic function is mildly depressed. Overall ejection fraction in the 40% to 45% range. 2. Left atrium is dilated at 5.3 cm. Right atrium and right ventricular chamber sizes are as well mildly dilated. 3. Valvular structures have normal structure and motion. 4. Doppler interrogation reveals mild mitral regurgitation, [id number] ECHOCARDIOGRAM REPORT [id number] REBEKAH JAMIL tricuspid regurgitation. No other valvular insufficiency or stenosis. Pulmonary systolic pressure is estimated 41 mmHg. 5. No evidence of pericardial effusion or left ventricular thrombus. TRANSINT:[id number] Voice Confirmation ID: [id number] DOCUMENT ID: [id number] NIXON BRUMFIELD MD at 1025 CC: [id number] DICTATION DATE: 07/10/18 1017 BULB PLANTER: 07/10/18 1146 ADM IN [facility] [address] [place] [address]
[2018-07-09 13:00] VITALS: BP 101/53
[2018-07-09 13:36] VITALS: BMI 27.4
[2018-07-09 14:34] LABS: BASOPHILS 5.3 % (0-2); EOSINOPHILS 7.5 % (0-7); HEMATOCRIT 25.8 % (42.0-54.0); IMMATURE GRANULOCYTES 0.8 % (0-5); LYMPHOCYTES 29.3 % (15-50); MCH 24.8 pg (26.0-34.0); MCHC 29.1 g/dL (31.0-37.0); MCV 85.1 fL (80.0-100.0); MEAN PLATELET VOLUME 8.8 fL (7.4-10.4); MONOCYTES 14.3 % (2-11); NEUTROPHILS 42.8 % (40-80); RBC 3.03 10x6/uL (4.20-6.10); RDW 17.1 % (11.5-14.5)
[2018-07-09 14:35] LABS: PLATELET COUNT 315 10x3/uL (130-400)
[2018-07-09 14:40] LABS: HEMOGLOBIN 7.5 g/dL (13.5-17.5); WBC 1.3 10x3/uL (4.8-10.8)
[2018-07-09 14:51] LABS: ALBUMIN 2.8 g/dL (3.4-5.0); ANION GAP 13.2 mmol/L (8-16); BILIRUBIN - TOTAL 1.37 mg/dL (0.2-1.3); CALCIUM 8.3 mg/dL (8.5-10.1); CARBON DIOXIDE 26.6 mmol/L (21.0-32.0); CREATININE - SERUM 2.1 mg/dL (0.6-1.3); POTASSIUM - SERUM 3.8 mmol/L (3.5-5.1); PROTEIN - SERUM 6.1 g/dL (6.4-8.2)
[2018-07-10] VITALS: BP 121/72
[2018-07-10 02:46] LABS: APPEARANCE CLEAR (CLEAR); BILIRUBIN NEGATIVE (NEGATIVE); COLOR YELLOW (YELLOW); GLUCOSE NEGATIVE (NEGATIVE); KETONE NEGATIVE (NEGATIVE); NITRITE NEGATIVE (NEGATIVE); PROTEIN 1+ mg/dL (NEGATIVE); SPECIFIC GRAVITY 1.015 (1.005-1.020); UROBILINOGEN NORMAL (NORMAL)
[2018-07-10 02:48] LABS: BACTERIA FEW /hpf (NONE SEEN); EPITHELIAL CELLS 0-5 /hpf (0-5); HYALINE CAST 0-5 /lpf (NONE SEEN); RED CELLS - URINE 0-5 /hpf (0-5); WHITE CELLS - URINE 0-5 /hpf (0-5); YEAST <1+ /hpf (NONE SEEN)
[2018-07-10 05:00] LABS: ALBUMIN 2.6 g/dL (3.4-5.0); BILIRUBIN - TOTAL 1.74 mg/dL (0.2-1.3); CALCIUM 8.4 mg/dL (8.5-10.1); CARBON DIOXIDE 25.6 mmol/L (21.0-32.0); CREATININE - SERUM 2.1 mg/dL (0.6-1.3); PROTEIN - SERUM 6.1 g/dL (6.4-8.2)
[2018-07-10 05:03] VITALS: BP 112/56
[2018-07-10 05:45] LABS: ANION GAP 14.8 mmol/L (8-16); POTASSIUM - SERUM 3.4 mmol/L (3.5-5.1)
[2018-07-10 07:31] LABS: BASOPHILS 2.9 % (0-2); EOSINOPHILS 2.9 % (0-7); HEMATOCRIT 28.1 % (42.0-54.0); HEMOGLOBIN 8.3 g/dL (13.5-17.5); MCH 25.4 pg (26.0-34.0); MCHC 29.5 g/dL (31.0-37.0); MCV 85.9 fL (80.0-100.0); MONOCYTES 20.3 % (2-11); NEUTROPHILS 36.9 % (40-80); PLATELET COUNT 303 10x3/uL (130-400); RBC 3.27 10x6/uL (4.20-6.10)
[2018-07-10 07:35] LABS: WBC 1.4 10x3/uL (4.8-10.8)
[2018-07-10 08:56] VITALS: BP 113/71
[2018-07-10 10:59] VITALS: Ht 182.9 cm; Wt 39.5 kg
[2018-07-10 11:36] VITALS: BP 99/56
[2018-07-10 15:46] VITALS: BP 101/62
[2018-07-10 21:10] VITALS: BP 110/63
[2018-07-11] VITALS: BP 97/71
[2018-07-11 05:38] LABS: EOSINOPHILS 8.1 % (0-7); HEMATOCRIT 29.5 % (42.0-54.0); HEMOGLOBIN 8.8 g/dL (13.5-17.5); LYMPHOCYTES 36.3 % (15-50); MCH 25.4 pg (26.0-34.0); MCHC 29.8 g/dL (31.0-37.0); MCV 85.3 fL (80.0-100.0); MEAN PLATELET VOLUME 8.7 fL (7.4-10.4); MONOCYTES 21.5 % (2-11); NEUTROPHILS 31.1 % (40-80); PLATELET COUNT 294 10x3/uL (130-400); RBC 3.46 10x6/uL (4.20-6.10); RDW 16.9 % (11.5-14.5)
[2018-07-11 05:44] VITALS: BP 116/64
[2018-07-11 05:47] LABS: WBC 1.4 10x3/uL (4.8-10.8)
[2018-07-11 06:08] LABS: ANION GAP 15.1 mmol/L (8-16); CALCIUM 8.2 mg/dL (8.5-10.1); CARBON DIOXIDE 25.5 mmol/L (21.0-32.0); CREATININE - SERUM 1.8 mg/dL (0.6-1.3); POTASSIUM - SERUM 3.6 mmol/L (3.5-5.1)
[2018-07-11 08:48] VITALS: BP 133/68
[2018-07-11 16:40] VITALS: BP 140/76
[2018-07-11 20:00] VITALS: BP 120/76
[2018-07-12] VITALS: BP 115/61
[2018-07-12 04:00] VITALS: BP 118/75
[2018-07-12 04:21] LABS: BASOPHILS 2.4 % (0-2); EOSINOPHILS 8.1 % (0-7); HEMATOCRIT 28.2 % (42.0-54.0); HEMOGLOBIN 8.4 g/dL (13.5-17.5); LYMPHOCYTES 31.5 % (15-50); MCH 25.2 pg (26.0-34.0); MCHC 29.8 g/dL (31.0-37.0); MCV 84.7 fL (80.0-100.0); MEAN PLATELET VOLUME 8.8 fL (7.4-10.4); MONOCYTES 28.2 % (2-11); NEUTROPHILS 29.8 % (40-80); PLATELET COUNT 279 10x3/uL (130-400); RBC 3.33 10x6/uL (4.20-6.10)
[2018-07-12 04:37] LABS: WBC 1.2 10x3/uL (4.8-10.8)
[2018-07-12 04:45] LABS: ANION GAP 14.5 mmol/L (8-16); CALCIUM 8.7 mg/dL (8.5-10.1); CARBON DIOXIDE 25.9 mmol/L (21.0-32.0); CREATININE - SERUM 1.7 mg/dL (0.6-1.3); POTASSIUM - SERUM 3.4 mmol/L (3.5-5.1)
[2018-07-12 08:39] VITALS: BP 118/72
[2018-07-12 19:03] VITALS: BP 122/78
[2018-07-12 20:00] VITALS: BP 107/72
[2018-07-13] VITALS (7 sets, daily range): BP systolic 98–119; BP diastolic 63–79
[2018-07-13 05:04] LABS: BASOPHILS 2.1 % (0-2); EOSINOPHILS 6.4 % (0-7); HEMATOCRIT 30.1 % (42.0-54.0); HEMOGLOBIN 8.9 g/dL (13.5-17.5); LYMPHOCYTES 23.1 % (15-50); MCH 25.1 pg (26.0-34.0); MCHC 29.6 g/dL (31.0-37.0); MEAN PLATELET VOLUME 8.8 fL (7.4-10.4); MONOCYTES 26.5 % (2-11); NEUTROPHILS 41.9 % (40-80); PLATELET COUNT 292 10x3/uL (130-400); RBC 3.54 10x6/uL (4.20-6.10); RDW 17.1 % (11.5-14.5)
[2018-07-13 05:09] LABS: WBC 2.3 10x3/uL (4.8-10.8)
[2018-07-13 05:22] LABS: ANION GAP 13.3 mmol/L (8-16); CALCIUM 8.9 mg/dL (8.5-10.1); CARBON DIOXIDE 28.3 mmol/L (21.0-32.0); CREATININE - SERUM 1.8 mg/dL (0.6-1.3); POTASSIUM - SERUM 3.6 mmol/L (3.5-5.1)
[2018-07-14 04:00] VITALS: BP 119/74
[2018-07-14 07:41] VITALS: BP 117/74
[2018-07-14 11:28] VITALS: BP 105/71
[2018-07-14 15:20] VITALS: BP 111/75
[2018-07-14 20:30] VITALS: BP 115/68
[2018-07-15 00:30] VITALS: BP 111/63
[2018-07-15 04:30] VITALS: BP 138/83
[2018-07-15 04:45] LABS: BASOPHILS 0.4 % (0-2); EOSINOPHILS 3.3 % (0-7); HEMATOCRIT 29.4 % (42.0-54.0); HEMOGLOBIN 8.8 g/dL (13.5-17.5); IMMATURE GRANULOCYTES 1.1 % (0-5); LYMPHOCYTES 14.2 % (15-50); MCH 25.1 pg (26.0-34.0); MCHC 29.9 g/dL (31.0-37.0); MCV 83.8 fL (80.0-100.0); MEAN PLATELET VOLUME 8.8 fL (7.4-10.4); MONOCYTES 15.1 % (2-11); NEUTROPHILS 65.9 % (40-80); PLATELET COUNT 254 10x3/uL (130-400); RBC 3.51 10x6/uL (4.20-6.10); RDW 17.3 % (11.5-14.5)
[2018-07-15 04:53] LABS: ANION GAP 13.5 mmol/L (8-16); CALCIUM 9.1 mg/dL (8.5-10.1); CARBON DIOXIDE 28.6 mmol/L (21.0-32.0); CREATININE - SERUM 1.8 mg/dL (0.6-1.3); POTASSIUM - SERUM 3.1 mmol/L (3.5-5.1)
[2018-07-15 05:03] LABS: WBC 5.4 10x3/uL (4.8-10.8)
[2018-07-15 08:38] VITALS: BP 105/66
== END 2018-07-15 11:43 | disposition home or self-care (01) | DRG 811 ==
LOC: D.LAB 12:26 → D.M3 12:28 → D.M2 12:28
PROVIDERS: Legal Medicine
DX: D46.9 Myelodysplastic syndrome, unspecified (principal); I50.23 Acute on chronic systolic (congestive) heart failure; I13.0 Hypertensive heart and chronic kidney disease with heart failure and stage 1 through stage 4 chronic kidney disease, or unspecified chronic kidney disease; N17.9 Acute kidney failure, unspecified; N18.3 Chronic kidney disease, stage 3 (moderate); E11.22 Type 2 diabetes mellitus with diabetic chronic kidney disease; E11.51 Type 2 diabetes mellitus with diabetic peripheral angiopathy without gangrene; I48.0 Paroxysmal atrial fibrillation; K21.9 Gastro-esophageal reflux disease without esophagitis; J43.9 Emphysema, unspecified; D70.9 Neutropenia, unspecified

== ENCOUNTER 2018-08-08 08:00 | Outpatient (CLI) | payer MEDICARE, BC ==
[~2018-08-08] VITALS: Ht 182.9 cm; Wt 88.6 kg
--- NOTE | ~2018-08-08 | HEMODYNAMI ---
PATIENT:REBEKAH JAMIL MEDICAL RECORD: [id number] : 32 LOCATION:DSAM ADMISSION DATE: 08/08/18 Generatedon:08/08/201811:19 Patient name: REBEKAH JAMIL Patient #: [id number] SSN: : 1930 Date of study: 08/08/2018 Page: Of Hemodynamic Procedure Report Patient Data Patient Demographics Procedure consent was obtained First Name: REBEKAH Gender: Male Last Name: LOULOU : 1930 Patient #: [id number] Age: 87 year(s) Race: Additional ID: [id number] Contact details Address: [address] [place] [address] State: [place] City: [place] Zip code: [address] Past Medical History History of disease Date Diagnosis Comments CAD Allergies Allergen Reaction Date Comments Reported Other allergy 06/13/2015 Oxycodone Other allergy 11/13/2016 OXYCODONE Admission Admission Data Admission Date: 08/08/2018 Admission Time: 8:00 Height (in.): 70 BSA: 2.08 (m2) Height (cm.): 177.8 BMI: 28.41 (kg/m2) Weight (lbs.): 198 Weight (kg.): 89.81 Lab Results Lab Result Date: 08/08/2018 Lab Result Time: 0:00 Biochemistry Name Units Result Min Max BUN mg/dl 39 --(----)-* 7 18 Creatinine mg/dl 1.8 --(----)-* 0.6 1.3 CBC Name Units Result Min Max Hemoglobin g/dl 8.1 *-(----)-- 13.5 17.5 Procedure Procedure Types Cath Procedure Diagnostic Procedure [facility] w/Coronaries FFR/IVUS Intra-Coronary IVUS Initial Sedation Charges Moderate Sedation up to 15 minutes PCI Procedure Coronary Stent Coronary Stent Initial Peripheral Cath Diagnostic Procedure Nutritional Chemist Peripheral Procedures Hlbki-Tdcvryx-Yli-Off Procedure Description Procedure Date Procedure Date: 08/08/2018 Procedure Start Time: 11:00 Procedure End Time: 11:18 Procedure Staff Name Function Chidi Brumfield MD Performing Physician Henny Chairez RT Monitor Maryan Baum RT Scrub Dorita Andrade RN Nurse Procedure Data Cath Procedure Fluoroscopy Diagnostic fluoroscopy Total fluoroscopy Time: 3.2 time: 3.2 min min Diagnostic fluoroscopy Total fluoroscopy dose: 639 dose: 639 mGy mGy Contrast Material Contrast Material Type Amount (ml) Isovue 300 101 Entry Location Entry Primary Successful Side Size Upsize Upsize Entry Closure Succes sful Closure Location (Fr) 1 (Fr) 2 (Fr) Remarks Device Remarks Femoral Left 6 Fr Exoseal artery Short Estimated blood loss: 10 ml Diagnostic catheters Device Type Used For End Catheter Placement MULTIPACK Pigtail 5 Fr Procedure catheter MULTIPACK JL 4.0 5Fr Procedure catheter MULTIPACK 3DRC 5Fr Procedure catheter Procedure Complications No complications Procedure Medications Medication Administration Route Dosage 0.9% NaCl I.V. ml/hr Oxygen etCO2 Nasal cannula 2 l/min Lidocaine 2% added to field 20 Heparin Flush Bag added to field 2 bags (1000units/500ml NS) Versed I.V. 2 mg Fentanyl I.V. 50 mcg Versed I.V. 1 mg Fentanyl I.V. 25 mcg Heparin Bolus I.V. 4000 units Hemodynamics Rest BSA: 2.08 (m2) HGB: 8.1 (g/dl) O2 Consumption: Estimated: 243.42 (ml/min) O2 Con sumption indexed: Estimated:117.03 (ml/min/m) Heart Rate: 80 (bpm) Snapshots Pre Cath Intra NCS Post Cath Vital Signs Time Heart Resp SPO2 etCO2 NIBP (mmHg) Rhythm Pain Sedation Rate (ipm) (%) (mmHg) Status Level (bpm) 10:37:36 65 13 100 32 123/87(105) NSR 0 (11) 10(A) , No pain 10:41:44 58 11 100 30.2 123/83(107) NSR 0 (11) 10(A) , No pain 10:45:56 65 12 99 31.7 102/72(95) NSR 0 (11) 10(A) , No pain 10:50:06 65 13 100 32.4 105/72(83) NSR 0 (11) 10(A) , No pain 10:54:12 65 18 100 33.2 106/65(88) NSR 0 (11) 10(A) , No pain 10:58:18 65 17 100 30.2 109/72(86) NSR 0 (11) 9(A) , No pain 11:02:23 65 18 100 30.9 109/72(90) NSR 0 (11) 10(A) , No pain 11:06:27 38 15 100 27.2 105/70(88) NSR 0 (11) 9(A) , No pain 11:10:33 21 16 100 31.7 97/68(87) NSR 0 (11) 9(A) , No pain 11:14:37 21 15 100 23.3 94/63(81) NSR 0 (11) 10(A) , No pain 11:18:38 26 7 100 33.9 100/67(78) NSR 0 (11) 10(A) , No pain Medications Time Medication Route Dose Verified Delivered Reason Notes Effectiveness by by 10:36:46 0.9% NaCl I.V. ml/hr Chidi Dorita used for Brissa Andrade dolly operator 10:36:53 Oxygen etCO2 2 Chidi Dorita used for Nasal l/min Brissa Andrade procedure cannula RN 10:37:01 Lidocaine 2% added 20ml Chidi Dorita for local to vial Brissa Andrade anesthetic field RN 10:37:06 Heparin Flush added 2 Chidi Dorita used for Bag to bags Brissa Andrade procedure (1000units/500ml field RN NS) 10:56:11 Versed I.V. 2 mg Chidi Dorita for sedation Brissa Andrade RN 10:56:18 Fentanyl I.V. 50 Chidi Dorita for sedation mcg Brissa Andrade RN 11:05:55 Versed I.V. 1 mg Chidi Dorita for sedation Brissa Andrade RN 11:05:59 Fentanyl I.V. 25 Chidi Dorita for sedation mcg Brissa Andrade RN 11:10:51 Heparin Bolus I.V. 4000 Chidi Dorita for verif ied units Brissa Andrade anticoagulation with Dr. FLORENTINO Brumfield Procedure Log Time Note 10:05:29 Maryan Baum RT(R) sent for patient. Start room use. 10:07:44 Signed procedure consent form obtained from patient. 10:07:46 Time tracking: Regular hours (M-F 7:00 - 5:00) 10:07:50 Plan of Care:Hemodynamics will remain stable., Cardiac rhythm will remain stable., Comfort level will be maintained., Respiratory function will remain adequate., Patient/ family verbilizes understanding of procedure., Procedure tolerated without complication., Recovers from procedure without complications.. 10:07:52 Diagnostic Cath status Elective 10:10:33 Patient Height : 70 inches 10:10:37 Patient Weight : 198 lbs 10:30:36 Patient received from Pre/Post Procedure Room to CCL 1 Alert and oriented. Tansferred to table in Supine position. 10:30:37 Warm blankets applied, and sanya hugger turned on for patient comfort. 10:30:37 Correct patient and procedure confirmed by team. 10:30:38 ECG and BP/O2 sat monitors applied to patient. 10:36:39 Vital chart was started 10:36:46 0.9% NaCl ml/hr I.V. was administered by Dorita Andrade RN; used for procedure; 10:36:53 Oxygen 2 l/min etCO2 Nasal cannula was administered by Dorita Andrade RN; used for procedure; 10:37:01 Lidocaine 2% 20ml vial added to field was administered by Dorita Andrade RN; for local anesthetic; 10:37:06 Heparin Flush Bag (1000units/500ml NS) 2 bags added to field was administered by Dorita Andrade RN; used for procedure; 10:45:44 Baseline sample Acquired. 10:47:31 Rhythm: paced 10:47:32 Full Disclosure recording started 10:47:54 H&P Date Dictated: 07/24/2018 Within 30 days and on chart., H&P Addendum completed by physician on day of procedure. (MUST COMPLETE FOR ALL OUTPATIENTS). 10:48:00 Pre-procedure instructions explained to patient. 10:48:01 Pre-op teaching completed and patient verbalized understanding. 10:48:02 Family in patients room. 10:48:04 Patient NPO since Midnight. 10:48:20 Is patient on blood thinner?Yes 10:48:25 ACC The patient was administered the following blood thiners within the last 24 hours: ACCPlavix 10:48:26 Patient diabetic? Yes. 10:48:29 If diabetic: On Metformin? No 10:48:34 Previous problem with sedation/anesthesia? No ? 10:48:36 Snore? No 10:48:37 Sleep apnea? No 10:48:38 Deviated septum? No 10:48:39 Opens mouth fully? Yes 10:48:40 Sticks out tongue? Yes 10:48:42 Airway obstruction? No ? 10:48:45 Dentures? Yes IN TIGHT 10:53:30 Pre procedure: right dorsailis pedis pulse 1+ Palpable, but thready & weak; easily obliterated 10:53:33 Pre procedure: left dorsailis pedis pulse 1+ Palpable, but thready & weak; easily obliterated 10:53:36 Patient pain scale 0/10 ?. 10:53:39 IV patent on arrival in left hand with 0.9% NaCl at O. 10:53:59 Lab Result : BUN 39 mg/dl 10:53:59 Lab Result : Creatinine 1.8 mg/dl 10:53:59 Lab Result : Hemoglobin 8.1 g/dl 10:54:01 Lab results completed and on chart. 10:54:18 DR. BRISSA LACY OF LAB 10:54:21 Bilateral groins area was prepped with chlora-prep and draped in sterile fashion 10:54:22 Alarms reviewed by R. N. 10:54:23 Sharps counted by scrub and verified by R.N. 10:54:26 Use device set Femoral Dx 10:54:27 ACIST Syringe (98422) opened to sterile field. 10:54:27 Bag Decanter (2001S) opened to sterile field. 10:54:30 ACIST Manifold (40191) opened to sterile field. 10:54:31 ACIST Hand Control (14483) opened to sterile field. 10:54:31 Tegaderm 4 x 4 (1626W) opened to sterile field. 10:54:33 Medline Cath Pack ([id number]) opened to sterile field. 10:54:34 DIAGNOSTIC WIRE .035 260cm J wire (765980) opened to sterile field. 10:54:35 DIAGNOSTIC Multipack 5Fr catheter set (QG4379) opened to sterile field. 10:55:48 --------ALL STOP TIME OUT------ 10:55:48 Final Timeout: patient, procedure, and site verified with staff and physician. All members of the team are in agreement. 10:55:49 Bilateral groins site verified by team. 10:55:52 Physical assessment completed. ASA score P 2 - A patient with mild systemic disease as per Chidi Brumfield MD. 10:55:55 Sedation plan: IV Moderate Sedation Medication:Versed, Fentanyl 10:56:11 Versed 2 mg I.V. was administered by Dorita Andrade RN; for sedation; :56:18 Fentanyl 50 mcg I.V. was administered by Dorita Andrade RN; for sedation; 11:00:36 Procedure started. 11:00:37 Zero performed for pressure channel P1 11:00:50 Local anesthetic to left femerol artery with Lidocaine 2% by Chidi Brumfield MD.INITIAL ACCESS ONLY 11:01:17 SHEATH 6FR Faber (DST923) opened to sterile field. 11:01:43 A 6 Fr Short sheath was inserted into the Left Femoral artery 11::56 A MULTIPACK Pigtail 5 Fr catheter was advanced over the wire and used for Procedure. 11:02:47 LV gram done using WHEELER 11:02:51 Injector settings: Ml/sec: 10, Volume: 20, 11:03:07 EF : 30 % 11:03:23 PIGTAIL PULLED DOWN FOR AFRO 11:03:47 Abdominal angiogram w/ runoff was performed. 11:04:02 Left leg runoff performed. 11:04:43 Right leg runoff performed. 11:04:51 Catheter removed. 11:05:06 A MULTIPACK JL 4.0 5Fr catheter was advanced over the wire and used for Procedure. 11:05:55 Versed 1 mg I.V. was administered by Dorita Andrade RN; for sedation; 11:05:59 Fentanyl 25 mcg I.V. was administered by Dorita Andrade RN; for sedation; 11:06:14 LCA angiography performed. 11:06:15 Catheter removed. 11:06:34 A MULTIPACK 3DRC 5Fr catheter was advanced over the wire and used for Procedure. 11:06:59 INFLATOR Merit BasixCompak (ZJ7445) opened to sterile field. 11:06:59 CHOICE PT Extra Support 182cm wire ([id number]) opened to sterile field. 11:07:00 [place] Eagley[place] IVUS Catheter (55415V) opened to sterile field. 11:07:19 RCA angiography performed. 11:07:21 Catheter removed. 11:07:32 GUIDE 6FR XBLAD 3.5 SH catheter ([id number]) opened to sterile field. 11:08:18 6 Fr XBLAD 3.5 SH guide catheter was inserted over the wire 11::07 CHOICE ES 182 wire advanced. 11:09:10 Wire advanced across lesion. 11:10:00 IVUS catheter advanced over wire. 11:10:01 IVUS pass to LAD lesion performed. 11:10:02 IVUS catheter removed over wire. 11:10:51 Heparin Bolus 4000 units I.V. was administered by Dorita Andrade RN; for anticoagulation; verified with Dr. Brumfield 11:11:33 Place stent Inflation Number: 1 A INTEGRITY RX 4.0 x 15 stent ([id number]) was prepped and advanced across the Prox LAD. The stent was deployed at 15 SHEILA for 0:10 (min:sec). 11:11:42 Inflation number: 2 The stent balloon was then re-inflated across the Prox LAD to 15 SHEILA for 0:10 (min:sec). 11:12:01 Stent catheter was removed intact over wire. 11:12:02 Wire removed. 11:12:03 Guide catheter removed. 11:12:13 EXOSEAL 6Fr (EX600) opened to sterile field. 11:12:32 Sheath removed intact; hemostasis achieved with Exoseal to the Left Femoral artery. 11:12:38 Procedure ended.(Physican Out) 11:14:17 Fluoroscopy time 03.20 minutes. 11:14:34 Flurop Dose total: 639 11:14:34 Fluoroscopy dose: 639 mGy 11:14:39 Contrast amount:Isovue 300 101ml. 11:14:40 Sharps counted by scrub and verified by R.N. 11:14:44 Post-op/insertion site Left Femoral artery dressed using a 4 x 4 and Tegaderm. 11:14:49 Post-procedure physical assessment completed. ASA score P 2 - A patient with mild systemic disease as per Chidi Brumfield MD. 11:14:53 Post procedure rhythm: paced 11:14:56 Estimated blood loss: 10 ml 11:14:57 Post procedure instruction explained to patient.Patient verbalizes understanding. 11:14:57 Patient needs reinforcement of post procedure teaching. 11:17:11 Procedure type changed to Cath procedure, Diagnostic procedure, LHC, LHC w/Coronaries, FFR/IVUS, Intra-Coronary IVUS Initial, Sedation Charges, Moderate Sedation up to 15 minutes, PCI procedure, Coronary Stent, Coronary Stent Initial, Peripheral Cath Diagnostic Procedure, Nutritional Chemist Peripheral Procedures, Rwvbz-Paupenh-Rup-Off 11:18:00 Procedure and supply charges have been captured, reviewed, submitted and are correct. 11:18:03 Procedure Complication : No complications 11:18:04 Vital chart was stopped 11:18:05 See physician's report for complete and final results. 11:18:06 Report given to Pre/Post Procedure Room. 11:18:09 Patient transfered to Pre/Post Procedure Room with Bed. 11:18:10 Procedure ended. 11:18:10 Full Disclosure recording stopped 11:18:13 End room use (Document Last) Intervention Summary Intervention Notes Time ActionType Lesion and Equipment Action# Pressure Duration Attributes Used 11:11:33 Place stent Prox LAD INTEGRITY RX 1 15 00:10 4.0 x 15 stent ([id number]) 11:11:42 Reinflate Prox LAD INTEGRITY RX 2 15 00:10 stent 4.0 x 15 balloon stent ([id number]) Device Usage Item Name Manufacture Quantity Catalog Number Hospital Part Current Mini mal Lot# / Charge Number Stock Stock Serial# Code ACIST Acist 1 09085 027641 902114 147426 20 Syringe Medical (46713) Systems Inc Bag Decanter Microtek 1 2001S 532268 05717 717273 5 () Medical Inc. ACIST Acist 1 89251 677831 757774 757015 5 Manifold Medical (69125) Systems Inc ACIST Hand Acist 1 05795 857807 405783 973916 5 Control Medical (83790) Systems Inc Tegaderm 4 x 3M 1 1626W 385020 704428 191845 5 4 (1626W) Medline Cath Medline 1 [id number] 146050 25896 037135 5 Pack ([id number]) DIAGNOSTIC St Pan 1 782405 870416 104178 346253 30 WIRE .035 260cm J wire (743593) DIAGNOSTIC Cardinal 1 HU9377 077328 36749 468759 30 Multipack Health 5Fr catheter set (MY9794) SHEATH 6FR Terumo 1 SBR534 000848 612755 697236 40 Faber (VAJ441) MULTIPACK Cardinal 1 703366 5 Pigtail 5 Fr Health catheter MULTIPACK JL Cardinal 1 613607 5 4.0 5Fr Health catheter MULTIPACK Cardinal 1 807820 5 3DRC 5Fr Health catheter INFLATOR Merit 1 YR7600 192195 051962 877510 15 Merit [facility] Medical BasixCompak (NX2301) CHOICE PT [place] 1 [id number] 942751 671956 838647 5 Extra Scientific Support 182cm wire ([id number]) Austin Austin 1 26160V 860199 975831 050903 8 [place] Eag[place] IVUS Catheter (24228Q) GUIDE 6FR Cardinal 1 [id number] 093894 215921 588612 3 XBLAD 3.5 SH Health catheter (49396621) INTEGRITY RX Medtronic 1 [id number] 731385 457028 171199 5 [id number] 4.0 x 15 stent ([id number]) EXOSEAL 6Fr Cardinal 1 EX600 797630 647429 663140 10 (EX600) Health Signature Audit [place] Stage Time Signature Unsigned Intra-Procedure 08/08/2018 Henny Chairez 11:19:18 AM RT(R) Signatures Monitor : Henny Chairez Signature : RT Date : Time : [facility] [address] [place] [address]
--- NOTE | ~2018-08-08 | OP ---
PATIENT NAME: REBEKAH JAMIL MEDICAL RECORD: [id number] :32 LOCATION:D.CAT ADMISSION DATE: SURGEON: NIXON MATTA MD DATE OF OPERATION: 08/08/2018 PROCEDURES: 1. PTCA and stent of LAD. 2. Intravascular ultrasound. 3. Left heart catheterization. 4. Selective coronary angiography. 5. Left ventriculogram. INDICATION: Angina and coronary artery disease. PROCEDURE IN DETAIL: After informed consent was obtained and after a detailed explanation of risks, benefits as well as alternative therapies, the patient elected to proceed with angiogram and angioplasty. The left femoral area was prepped and draped in normal sterile fashion. Left femoral artery was cannulated via modified Seldinger technique with placement of 6-Amharic sheath. All catheters exchanged through this sheath. FINDINGS: Left ventriculogram was performed in standard 30-degree WHEELER view reveals global hypokinesis throughout all segments. Overall ejection fraction 30%. SELECTIVE CORONARY ANGIOGRAPHY: 1. Left main is with no significant angiographic disease. 2. Left anterior descending had greater than 80% stenosis proximally confirmed by intravascular ultrasound. 3. Left circumflex has previously placed stents. These are widely patent with no significant restenosis. No disease elsewise at the left circumflex or its branches. 4. Right coronary has mild irregularities, but no flow-limiting stenosis. PTCA AND STENT OF THE LAD: The stent used was a 4.0 x 15-mm Integrity. Result was 0% residual stenosis. OVERALL IMPRESSION: Successful PTCA and stent of the LAD going from greater than 80% initial stenosis to 0% residual. TRANSINT:[id number] Voice Confirmation ID: [id number] DOCUMENT ID: [id number] NIXON MATTA MD CC: [id number] DICTATION DATE: 08/08/18 1120 EXCELLENCE SPECIALIST: 08/08/18 1237 [facility] [address] [place] [address]
--- NOTE | ~2018-08-08 | OP ---
PATIENT NAME: REBEKAH JAMIL MEDICAL RECORD: [id number] :32 LOCATION:D.CAT ADMISSION DATE: SURGEON: NIXON MATTA MD DATE OF OPERATION: 08/08/2018 PROCEDURES: 1. Aortofemoral runoff. 2. Abdominal aortography. INDICATION: Claudication and peripheral vascular disease. PROCEDURE IN DETAIL: After informed consent was obtained and after a detailed explanation of risks, benefits as well as alternative therapies, the patient elected to proceed with angiogram and aortofemoral runoff. The left femoral area had a preexisting sheath from coronary intervention. All catheters exchanged through this sheath. FINDINGS: Abdominal aortography was performed with catheters pulled down for aortofemoral runoff. Abdominal aortography reveals no significant abdominal aortic disease, no dissection or aneurysm formation. RIGHT LEG: A. Iliac: The common internal and external iliacs have mild irregularities, but no flow-limiting stenosis. B. Femoral system: The common and deep femoral are widely patent. Superficial femoral has moderate diffuse disease, but no discrete flow-limiting stenosis. C. Popliteal and infrapopliteal vessels are severely diffusely diseased. There is 2-vessel runoff to the foot through the peroneal and posterior tibial. LEFT LEG: A. Iliac: The common internal and external iliacs have mild irregularities, but no flow-limiting stenosis. B. Femoral system: The common and deep femoral are widely patent. Superficial femoral has moderate diffuse disease, but no discrete flow-limiting stenosis. C. Popliteal and infrapopliteal vessels are severely diffusely diseased. There is 2-vessel runoff to the foot through the peroneal and posterior tibial. OVERALL IMPRESSION: Diffuse disease of the SFAs bilaterally, but severe infrapopliteal disease. Medical management of the peripheral vascular disease and peripheral risk factors. TRANSINT:[id number] Voice Confirmation ID: [id number] DOCUMENT ID: [id number] NIXON MATTA MD CC: [id number] DICTATION DATE: 08/08/18 1120 INTERIOR DESIGN PRINCIPAL: 08/08/18 1239 [id number] [place] [address]
[2018-08-08] MEDS ORDERED: MUCINEX600 MG PO (08:31)
[2018-08-08] MEDS ORDERED: NITROSTAT0.4 MG SL (08:31)
[2018-08-08 08:42] VITALS: BP 109/67; Ht 182.9 cm; Wt 88.6 kg
[2018-08-08 08:51] LABS: HEMATOCRIT 28.2 % (42.0-54.0); HEMOGLOBIN 8.1 g/dL (13.5-17.5); MCH 25.4 pg (26.0-34.0); MCHC 28.7 g/dL (31.0-37.0); MCV 88.4 fL (80.0-100.0); RBC 3.19 10x6/uL (4.20-6.10); RDW 20.9 % (11.5-14.5)
[2018-08-08 08:55] LABS: ANION GAP 13.7 mmol/L (8-16); CALCIUM 8.8 mg/dL (8.5-10.1); CARBON DIOXIDE 25.9 mmol/L (21.0-32.0); CREATININE - SERUM 1.8 mg/dL (0.6-1.3); POTASSIUM - SERUM 3.6 mmol/L (3.5-5.1)
[2018-08-08 08:59] LABS: PLATELET COUNT 190 10x3/uL (130-400)
[2018-08-08 10:03] LABS: EOSINOPHILS 5 % (0-7); LYMPHOCYTES 16 % (15-50); MONOCYTES 6 % (2-11); NEUTROPHILS 64 % (40-80); PLATELET ESTIMATE NORMAL
[2018-08-08 10:04] LABS: ANISOCYTOSIS 1+; ELLIPTOCYTES OCC; POIKILOCYTOSIS OCC; TEAR DROP CELLS OCC
== END 2018-08-08 15:05 | disposition home or self-care (01) ==
LOC: D.CATH 08:00
PROVIDERS: Internal Medicine Interventional Cardiology
DX: I25.119 Atherosclerotic heart disease of native coronary artery with unspecified angina pectoris (principal); Z01.812 Encounter for preprocedural laboratory examination; I70.219 Atherosclerosis of native arteries of extremities with intermittent claudication, unspecified extremity
CPT/HCPCS: 93458; 92978; C9600

== ENCOUNTER 2018-08-13 10:18 | Outpatient (CLI) | payer MEDICARE, BC ==
[~2018-08-13] VITALS: Ht 182.9 cm; Wt 89.1 kg
[~2018-08-13 10:18] MED LIST changes: +NITROSTAT0.4 MG SL
[2018-08-13 10:51] VITALS: BP 101/61; Ht 182.9 cm; Wt 89.1 kg
== END 2018-08-13 16:05 | disposition home or self-care (01) ==
LOC: D.OPS 10:18
DX: D64.9 Anemia, unspecified (principal); I24.9 Acute ischemic heart disease, unspecified; R53.1 Weakness

== ENCOUNTER 2018-08-27 10:09 | Inpatient (IN) | payer MEDICARE, BC ==
[2018-08-27] VITALS (8 sets, daily range): BP systolic 96–110; BP diastolic 60–75; BMI 26.9
[~2018-08-27] VITALS: Ht 182.9 cm; Wt 89.8 kg
--- NOTE | 2018-08-27 10:53 | NUR ---
1050-DIRECT ADMIT VIA WHEELCHAIR TO ROOM WITH PATIENT TELLING ME THAT HE NEEDS A GI CONSULT AND TWO UNITS OF BLOOD. HAS HEARING AIDS IN. WILL ADMIT.
[2018-08-27] MEDS ORDERED: BYSTOLIC10 MG PO (11:21)
[2018-08-27] MEDS ORDERED: NIFEREX-150 CAP1 CA3 PO (11:22)
[2018-08-27 12:48] LABS: BASOPHILS 0.5 % (0-2); EOSINOPHILS 2.5 % (0-7); HEMATOCRIT 23.6 % (42.0-54.0); IMMATURE GRANULOCYTES 0.2 % (0-5); LYMPHOCYTES 12.3 % (15-50); MCH 25.5 pg (26.0-34.0); MCHC 28.4 g/dL (31.0-37.0); MCV 89.7 fL (80.0-100.0); MEAN PLATELET VOLUME 8.8 fL (7.4-10.4); MONOCYTES 7.6 % (2-11); NEUTROPHILS 76.9 % (40-80); PLATELET COUNT 165 10x3/uL (130-400); RBC 2.63 10x6/uL (4.20-6.10); RDW 18.8 % (11.5-14.5); WBC 6.3 10x3/uL (4.8-10.8)
[2018-08-27 13:10] LABS: ALBUMIN 2.8 g/dL (3.4-5.0); ANION GAP 16.1 mmol/L (8-16); BILIRUBIN - TOTAL 1.29 mg/dL (0.2-1.3); CALCIUM 8.3 mg/dL (8.5-10.1); CARBON DIOXIDE 23.7 mmol/L (21.0-32.0); CREATININE - SERUM 1.9 mg/dL (0.6-1.3); POTASSIUM - SERUM 3.8 mmol/L (3.5-5.1); PROTEIN - SERUM 6.3 g/dL (6.4-8.2)
[2018-08-27 13:42] LABS: HEMOGLOBIN 6.7 g/dL (13.5-17.5)
--- NOTE | 2018-08-27 14:05 | NUR ---
1355-CALLED AND BLOOD IS READY. WILL START TRANSFUSION SHORTLY.
--- NOTE | 2018-08-27 14:47 | NUR ---
WILVER WITH GI LAB TO CALL AND ASK THAT PATIENT RECEIVE PREOP MEDS FOR GI LAB. I CALLED [facility] IN THE PHARMACY FOR MEDS.
--- NOTE | 2018-08-27 14:53 | NUR ---
TO GI LAB VIA BED. PRE-OP WAS NOT GIVEN MEDS NOT HERE AND THEY ARE HERE TO GET PATIENT.
--- NOTE | 2018-08-27 15:39 | NUR ---
WILVER WITH GI TO CALL REPORT. PATIENT TO RETURN TO ROOM SOON.
--- NOTE | 2018-08-27 15:56 | NUR ---
1555-RETURNS FROM GI LAB. WILL MONITOR PATIENT AND START INFUSING BLOOD SHORTLY. FAMILY IS AT BEDSIDE.
--- NOTE | 2018-08-27 16:18 | NUR ---
1615- FIRST UNIT OF BLOOD SLOWLY TRANSFUSING TO RIGHT FA AT 125 CC/HR. WILL MONITOR.
--- NOTE | 2018-08-27 17:12 | NUR ---
TOLERATING CLEAR LIQUIDS AND BLOOD TRANSFUSION WELL AT THIS TIME.
--- NOTE | 2018-08-27 17:14 | NUR ---
PATIENT HAS A YELLOW GOWN, ARMBAND, NON SKID SOCKS, AND BED ALARM ON.
--- NOTE | 2018-08-27 19:25 | NUR ---
PT RESTING IN BED WITH EYES OPEN. ALERT AND ORIENTED X 3. DENIES ANY PAIN OR DISCOMFORT AT THIS TIME. 1ST UNIT OF BLOOD FINISHED AT THIS TIME. VSS. NO ADVERSE REACTION NOTED. PT IS SOMEWHAT PILOT POINT. IV INFUSING TO RFA WITHOUT DIFFICULTY. NO REDNESS OR EDEMA NOTED AT THE INSERTION SITE. FAMILY MEMBER IS AT THE BEDSIDE. SR'S ARE UP X 2 IN BED. CALL LIGHT AND BEDSIDE TABLE ARE WITHIN EASY REACH.
--- NOTE | 2018-08-27 19:45 | NUR ---
2ND UNIT OF BLOOD STARTED AT THIS TIME. VSS. NO ADVERSE REACTION NOTED. PT PREMEDICATED PER MAR. NO NEEDS VOICED.
--- NOTE | 2018-08-27 22:15 | NUR ---
BLOOD FINISHED WITH TRANSFUSION AT THIS TIME. VSS. PT IS ALERT AND ORIENTED X 3. VOICES NO COMPLAINTS. NO ADVERSE REACTIONS NOTED.
[2018-08-28] VITALS (8 sets, daily range): BP systolic 95–107; BP diastolic 59–68; Ht 182.9 cm; Wt 89.8 kg
--- NOTE | 2018-08-28 00:41 | NUR ---
PT RESTING IN BED WITH EYES CLOSED.
--- NOTE | 2018-08-28 02:00 | NUR ---
PATIENT RESTING IN BED WITH EYES CLOSED AND NO S/S OF DISTRESS. BED IN LOWEST POSITION AND CALL LIGHT WITHIN REACH. WILL CONTINUE TO MONITOR.
--- NOTE | 2018-08-28 03:56 | NUR ---
PT RESTING IN BED WITH EYES CLOSED. NO DISTRESS NOTED.
[2018-08-28 07:53] LABS: BASOPHILS 0.6 % (0-2); EOSINOPHILS 4.2 % (0-7); HEMATOCRIT 26.9 % (42.0-54.0); LYMPHOCYTES 11.3 % (15-50); MCH 26.7 pg (26.0-34.0); MCHC 30.1 g/dL (31.0-37.0); MCV 88.8 fL (80.0-100.0); MEAN PLATELET VOLUME 8.8 fL (7.4-10.4); MONOCYTES 10.1 % (2-11); NEUTROPHILS 73.8 % (40-80); PLATELET COUNT 152 10x3/uL (130-400); RBC 3.03 10x6/uL (4.20-6.10); RDW 18.8 % (11.5-14.5); WBC 5.2 10x3/uL (4.8-10.8)
[2018-08-28 07:56] LABS: HEMOGLOBIN 8.1 g/dL (13.5-17.5)
[2018-08-28 08:01] LABS: ANION GAP 14.4 mmol/L (8-16); CALCIUM 8.2 mg/dL (8.5-10.1); CARBON DIOXIDE 25.3 mmol/L (21.0-32.0); CREATININE - SERUM 1.7 mg/dL (0.6-1.3); POTASSIUM - SERUM 3.7 mmol/L (3.5-5.1)
--- NOTE | 2018-08-28 08:10 | NUR ---
PT AOX4 RESP EVEN AND NONLABORED PT DENIES NEEDS AT THIS TIME IV TO RIGHT HAND PATENT AND INTACT AT THIS TIME SRX2 BED AT LOWEST SETTING CALL LIGHT WITHIN REACH WILL CONTINUE TO MONITOR
--- NOTE | 2018-08-28 15:49 | MORECARE ---
CASE MANAGEMENT DISCHARGE SUMMARY PATIENT: REBEKAH JAMIL UNIT: [id number] ADM DATE: 08/27/18 AGE: 87 : 31 SEX: M ROOM/BED: D.1212 AUTHOR: EUGENIA MOON PHYSICIAN: REFERRING PHYSICIAN: LIZZIE SHEARER MD DATE OF SERVICE: 08/28/18 Discharge Plan Patient Name: REBEKAH JAMIL Facility: [facility]:[place] : 1930 Planned Disposition: Anticipated Discharge Date: Discharge Date: Expected LOS: Initial Reviewer: [email or web address] Initial Review Date: 08/28/2018 Generated: 08/28/18 4:49 pm Comments DCP- Discharge Planning Updated by [email or web address]: Julieta Larios on 08/28/18 2:[address] Patient Name: REBEKAH JAMIL Admission Status: Urgent Accout number: [id number] Admission Date: 08-27-2018 : 1930 Admission Diagnosis: Attending: LIZZIE SHEARER Current LOS: 1 Anticipated DC Date: Planned Disposition: Primary Insurance: MEDICARE A & B Discharge Planning Comments: CM MET WITH PATIENT ABOUT DC PLANNING/NEEDS. STATES PLANS TO DC HOME WITH FAMILY WHEN BETTER. DENIES ANY NEEDS. HAD DME AT HOME, STATES MOSTLY USES [facility] BUT HAS OTHER DME IF NEEDED. CM WILL FOLLOW AND ASSIST NEEDED WITH DC PLANNING/NEEDS. Shift Production Associate: Julieta Larios DCPIA - Discharge Planning Initial Assessment Updated by [email or web address]: Julieta Larios on 08/28/18 3:45 pm * Is the patient Alert and Oriented? Yes * PCP [facility] * [facility] [place] * Preadmission Environment Home with Family * ADLs Independent * Equipment Cane Walker Wheelchair * Other Equipment POWER CHAIR * List name and contact numbers for known caregivers / representatives who currently or will assist patient after discharge: JENNIFER [phone] * Community resources currently utilized None Patient Name: REBEKAH JAMIL Page [phone] at [phone] All edits/amendments must be made on the electronic document DICTATION DATE: 08/28/18 9759 SEWER CONNECTOR: TYRONE 08/28/18 1807 RPT#: [id number] DC DATE: STATUS: ADM IN [facility] [address] [place] [address] END OF REPORT
--- NOTE | 2018-08-28 19:22 | NUR ---
PATIENT IS RESTING IN HIS BED. PBRC'S ARE RUNNING WITHOUT COMPLICATION. BED IS DOWN LOW WITH SIDE RAILS UP X2. CALL LIGHT IS IN REACH.
--- NOTE | 2018-08-29 04:10 | NUR ---
PATIENT IS SLEEPING. BED IS DOWN LOW WITH SIDE RAILS UP X2. CALL LIGHT IS IN REACH.
[2018-08-29 04:30] VITALS: BP 112/68
[2018-08-29 05:58] LABS: BASOPHILS 0.4 % (0-2); EOSINOPHILS 2.8 % (0-7); HEMATOCRIT 28.6 % (42.0-54.0); HEMOGLOBIN 8.6 g/dL (13.5-17.5); IMMATURE GRANULOCYTES 0.2 % (0-5); LYMPHOCYTES 13.7 % (15-50); MCH 26.8 pg (26.0-34.0); MCHC 30.1 g/dL (31.0-37.0); MCV 89.1 fL (80.0-100.0); MEAN PLATELET VOLUME 8.9 fL (7.4-10.4); MONOCYTES 9.8 % (2-11); NEUTROPHILS 73.1 % (40-80); PLATELET COUNT 159 10x3/uL (130-400); RBC 3.21 10x6/uL (4.20-6.10); RDW 18.1 % (11.5-14.5); WBC 4.6 10x3/uL (4.8-10.8)
--- NOTE | 2018-08-29 09:00 | NUR ---
RESTING IN BED. DENIES ANY NEEDS. WILL CONTINUE POC. SR UP X 2. BED IN LOW POSITION.
[2018-08-29 09:50] VITALS: BP 110/68
--- NOTE | 2018-08-29 19:00 | NUR ---
DISCHARGED HOME WITH FAMILY. INSTRUCTIONS REVIEWED AND DISCUSSED. SIGNED AND GIVEN TO FAMILY. LEFT HOSPITAL VIA W/C WITH STAFF AND FAMILY TO PRIVATE CAR.
--- NOTE | 2018-08-30 15:26 | MORECARE ---
CASE MANAGEMENT DISCHARGE SUMMARY PATIENT: REBEKAH JAMIL UNIT: [id number] ADM DATE: 08/27/18 AGE: 87 : 31 SEX: M ROOM/BED: D.1212 AUTHOR: EUGENIA MOON PHYSICIAN: REFERRING PHYSICIAN: LIZZIE SHEARER MD DATE OF SERVICE: 08/30/18 Discharge Plan Patient Name: REBEKAH JAMIL Facility: [facility]:[place] : 1930 Planned Disposition: Anticipated Discharge Date: Discharge Date: 08/29/2018 Expected LOS: Initial Reviewer: [email or web address] Initial Review Date: 08/28/2018 Generated: 08/30/18 4:26 pm Comments DCP- Discharge Planning Updated by [email or web address]: Julieta Larios on 08/28/18 2:[address] Patient Name: REBEKAH JAMIL Admission Status: Urgent Accout number: [id number] Admission Date: 08-27-2018 : 1930 Admission Diagnosis: Attending: LIZZIE SHEARER Current LOS: 1 Anticipated DC Date: Planned Disposition: Primary Insurance: MEDICARE A & B Discharge Planning Comments: CM MET WITH PATIENT ABOUT DC PLANNING/NEEDS. STATES PLANS TO DC HOME WITH FAMILY WHEN BETTER. DENIES ANY NEEDS. HAD DME AT HOME, STATES MOSTLY USES WALKER BUT HAS OTHER DME IF NEEDED. CM WILL FOLLOW AND ASSIST NEEDED WITH DC PLANNING/NEEDS. [employer]: Julieta Larios DCPIA - Discharge Planning Initial Assessment Updated by [email or web address]: Julieta Larios on 08/28/18 3:45 pm * Is the patient Alert and Oriented? Yes * PCP VERSER * [facility] [place] * Preadmission Environment Home with Family * ADLs Independent * Equipment Cane Walker Wheelchair * Other Equipment POWER CHAIR * List name and contact numbers for known caregivers / representatives who currently or will assist patient after discharge: JENNIFER [phone] * Community resources currently utilized None Coverage Notice Reviewer: [id number] - Julieta Larios Notice Issued Date-Time: 08/29/2018 11:36 Notice Type: IM Discharge Notice Notice Delivered To: Patient Relationship to Patient: Self Vacuum Frame Operator Name: Delivery Method: HAND - Hand Delivered Saira Days: Prior Verbal Notification: Recipient Understood Notice: Yes Recipient Signature: Yes Med Rec Note Co-signed by Attending: Coverage Notice Comment: Last DP export: 08/28/18 2:49 p Patient Name: REBEKAH JAMIL Page [phone] at 1526 All edits/amendments must be made on the electronic document DICTATION DATE: 08/30/181525 FIELD ARTILLERY RADAR OPERATOR: TYRONE 08/30/181525 RPT#: [id number] DC DATE:08/29/18 STATUS: DIS IN [address] [place] [address] END OF REPORT
== END 2018-08-29 19:00 | disposition home or self-care (01) | DRG 394 ==
LOC: D.SDCHOLD 10:09 → D.M3 10:09
PROVIDERS: Internal Medicine Gastroenterology; ADMIT Legal Medicine
PROC: 0W3P8ZZ Control Bleeding in Gastrointestinal Tract, Via Natural or Artificial Opening Endoscopic (ICD-10-PCS; 2018-08-27)
PROC: 0DB68ZZ Excision of Stomach, Via Natural or Artificial Opening Endoscopic (ICD-10-PCS; principal; 2018-08-27 15:02)
DX: K31.7 Polyp of stomach and duodenum (principal); K92.1 Melena; E11.9 Type 2 diabetes mellitus without complications; I10 Essential (primary) hypertension; I25.10 Atherosclerotic heart disease of native coronary artery without angina pectoris; J43.9 Emphysema, unspecified; D46.9 Myelodysplastic syndrome, unspecified; K31.819 Angiodysplasia of stomach and duodenum without bleeding; K29.40 Chronic atrophic gastritis without bleeding

== ENCOUNTER 2018-09-10 11:03 | Outpatient (CLI) | payer MEDICARE, BC ==
[~2018-09-10] VITALS: Ht 182.9 cm; Wt 90.9 kg
[~2018-09-10 11:03] MED LIST changes: +BYSTOLIC10 MG PO
[2018-09-10 13:30] VITALS: BP 105/69; Ht 182.9 cm; Wt 90.9 kg
--- NOTE | 2018-09-10 17:22 | NUR ---
DC INSTRUCTIONS GIVEN TO PT/FAMILY. STATE UNDERSTANDING. DC'D IV CATH FULLY INTACT.
== END 2018-09-10 17:28 | disposition home or self-care (01) ==
LOC: D.OPS 11:03
DX: D64.9 Anemia, unspecified (principal); Z01.812 Encounter for preprocedural laboratory examination

== ENCOUNTER 2018-10-03 09:40 | Outpatient (CLI) | payer MEDICARE, BC ==
[~2018-10-03] VITALS: Ht 182.9 cm; Wt 90.0 kg
[2018-10-03 10:38] VITALS: BP 99/61; Ht 182.9 cm; Wt 90.0 kg
--- NOTE | 2018-10-03 13:20 | NUR ---
1235 1ST UNIT BLOOD COMPLETED, LINE BEING FLUSHED WITH NS. 1250 2ND UNIT CHECKED AT BEDSIDE BY THIS NURSE AND WILVER GARCIA RN, INITIATED AT 50/CC/HR. PT. DENIED PROBLEMS WITH 1ST UNIT. 1305 PT. DOSING, DENIES PROBLEMS, RATE INCREASED TO 200/CC/HR.
--- NOTE | 2018-10-03 14:51 | NUR ---
1445 BLOOD COMPLETED, LINE BEING FLUSHED WITH NS.
--- NOTE | 2018-10-03 15:32 | NUR ---
1515 NO PROBLEMS WITH TRANSFUSION REVIELED IV DC'D WITH CATH INTACT DC INSTS REVIEWED RELEASED IN WC WITH ESCORT.
== END 2018-10-03 15:25 | disposition home or self-care (01) ==
LOC: D.OPS 09:40
PROVIDERS: ATTEND Legal Medicine
DX: D64.9 Anemia, unspecified (principal); R53.83 Other fatigue; R53.1 Weakness; D46.9 Myelodysplastic syndrome, unspecified; I49.5 Sick sinus syndrome

== ENCOUNTER → 2018-10-12 11:05 | Outpatient (CLI) | payer MEDICARE, BC ==
[2018-10-03 10:38] VITALS: BMI 26.9
[2018-10-12 11:11] LABS: BASOPHILS 0.3 % (0-2); EOSINOPHILS 1.6 % (0-7); HEMATOCRIT 29.1 % (42.0-54.0); HEMOGLOBIN 8.6 g/dL (13.5-17.5); IMMATURE GRANULOCYTES 0.1 % (0-5); LYMPHOCYTES 11.3 % (15-50); MCH 25.6 pg (26.0-34.0); MCHC 29.6 g/dL (31.0-37.0); MCV 86.6 fL (80.0-100.0); MEAN PLATELET VOLUME 8.5 fL (7.4-10.4); MONOCYTES 7.8 % (2-11); NEUTROPHILS 78.9 % (40-80); PLATELET COUNT 172 10x3/uL (130-400); RBC 3.36 10x6/uL (4.20-6.10); RDW 16.8 % (11.5-14.5); WBC 6.8 10x3/uL (4.8-10.8)
[2018-10-12 11:15] LABS: ANION GAP 14.6 mmol/L (8-16); CALCIUM 8.5 mg/dL (8.5-10.1); CARBON DIOXIDE 28.3 mmol/L (21.0-32.0); CREATININE - SERUM 2.3 mg/dL (0.6-1.3); POTASSIUM - SERUM 3.9 mmol/L (3.5-5.1)
== END | disposition home or self-care (01) ==
LOC: D.LABREF 11:05
PROVIDERS: ATTEND Legal Medicine
DX: R60.1 Generalized edema (principal)

== ENCOUNTER 2018-10-24 10:47 | Outpatient (CLI) | payer MEDICARE, BC ==
[~2018-10-24] VITALS: Ht 182.9 cm; Wt 93.2 kg
[2018-10-24 11:45] VITALS: BP 91/53; Ht 182.9 cm; Wt 93.2 kg
--- NOTE | 2018-10-24 13:59 | NUR ---
1320 BLOOD CHECKED AT BEDSIDE BY THIS NURSE AND BERNADETTE GOOD INITIATED BY ALARIS PUMP AT 50/CC/HR 1335 DENIES PROBLEMS WITH TRANSFUSION, IV SITE PATENT RATE INCREASED TO 150/CC/HR 1345 REG DIET SERVED. 1400 URINAL PROVIDED. DENIES PROBLEMS.
--- NOTE | 2018-10-24 14:25 | NUR ---
1425 VOIDED 400CC LA URINE. ATE 50% REG DIET. DENIES PROBLEMS. BLOOD INFUSING AT 150/CC/HR
--- NOTE | 2018-10-24 15:19 | NUR ---
1520 ROOM CHECK, PT. SLEEPING, BLOOD STILL INFUSING, RATE AT 175/CC/HR.
--- NOTE | 2018-10-24 19:08 | NUR ---
1856 IV REMOVED, PRESSURE HELD DRESSING APPLIED.
== END 2018-10-24 19:00 | disposition home or self-care (01) ==
LOC: D.LAB 10:47 → D.OPS 10:47
PROVIDERS: ATTEND Legal Medicine
DX: D64.9 Anemia, unspecified (principal); R53.83 Other fatigue; R53.1 Weakness; D46.9 Myelodysplastic syndrome, unspecified; I49.5 Sick sinus syndrome

== ENCOUNTER 2018-11-08 20:30 | Inpatient (IN) | payer MEDICARE, BC ==
[~2018-11-08] VITALS: Ht 182.9 cm; Wt 113.4 kg
[2018-11-08 21:21] LABS: BASOPHILS 0.2 % (0-2); EOSINOPHILS 1.4 % (0-7); HEMATOCRIT 27.2 % (42.0-54.0); HEMOGLOBIN 8.1 g/dL (13.5-17.5); IMMATURE GRANULOCYTES 0.2 % (0-5); LYMPHOCYTES 7.4 % (15-50); MCH 24.6 pg (26.0-34.0); MCHC 29.8 g/dL (31.0-37.0); MCV 82.7 fL (80.0-100.0); MEAN PLATELET VOLUME 8.3 fL (7.4-10.4); MONOCYTES 7.1 % (2-11); NEUTROPHILS 83.7 % (40-80); PLATELET COUNT 179 10x3/uL (130-400); RBC 3.29 10x6/uL (4.20-6.10); RDW 17.2 % (11.5-14.5); WBC 5.8 10x3/uL (4.8-10.8)
[2018-11-08 21:35] LABS: ALBUMIN 2.6 g/dL (3.4-5.0); ANION GAP 10.4 mmol/L (8-16); BILIRUBIN - TOTAL 1.11 mg/dL (0.2-1.3); CALCIUM 8.3 mg/dL (8.5-10.1); CARBON DIOXIDE 30.4 mmol/L (21.0-32.0); CREATININE - SERUM 1.8 mg/dL (0.6-1.3); POTASSIUM - SERUM 3.8 mmol/L (3.5-5.1); PROTEIN - SERUM 6.9 g/dL (6.4-8.2)
--- NOTE | 2018-11-08 23:30 | NUR ---
PT ARRIVED TO FLOOR VIA STRETCHER, ALERT AND ORIENTED. NO SIGNS OF DISTRESS. BREATHING SLIGHTLY LABORED W/ AUDIBLE WHEEZING. PLACED ON 2L/NC. CALLED RESP TO FLOOR FOR BREATHING TRX. INSP. AND EXP. WHEEZES TO BILAT UPPER LOBES AND DIMINISHED LOWER LOBES TO AUSCULTATION. VSS. STATES NO NAUSEA AT THIS TIME BUT THE THOUGHT OF FOOD MAKES HIM NAUSEAS. PRODUCTIVE OCCASIONAL COUGH PER PT. GENERALIZED WEAKNESS. PLACED PT IN YELLOW GOWN, YELLOW BAND, AND ALMAZ TURNED ON. URINAL PROVIDED FOR PT AND TO COLLECT URINE SAMPLE. PROVIDED PT WITH WATER. IV LEFT FA INFUSING NS @ 100. HEARING AIDS NOTED BILAT. PROVIDED PT W/ DENTURE CUP. DENIES OTHER NEEDS AT THIS TIME. CL IN REACH, WILL CONT TO MONITOR
[2018-11-08 23:37] VITALS: BP 103/58; BMI 34.0
--- NOTE | 2018-11-08 23:40 | NUR ---
ATTEMPTED TO RECONCILE MEDS, PT UNABLE TO TELL ME HIS MEDS AT THIS TIME. WILL TRY AGAIN LATER AFTER PT HAS RESTED. WILL TRY TO GET MED REC FROM PT FAMILY IN MORNING WHEN THEY RETURN IF UNABLE.
--- NOTE | 2018-11-09 01:00 | NUR ---
PLACED TELE ON PT, RECIEVED CALL FROM GEOSCIENCES FACULTY MEMBER STATING SHE COULD NOT GET AN ACCURATE READING ON PT NOR COULD SHE SEE PACER SPIKES FROM PT PACEMAKER. THIS NURSE, RESP, AND SECOND NURSE ADJUSTED LEADS. GEOSCIENCES FACULTY MEMBER STILL STATED THE READING WAS NOT GOOD. GEOSCIENCES FACULTY MEMBER CAME TO BEDSIDE AND ADJUSTED LEADS. STILL COULD BARELY GET A READING. CALLED MACHELLE FLOW TRADER FOR ORDER FOR EKG SINCE THERE WAS NOT ONE IN ER. EKG READ FOLLOWS "SUSPECT UNSPECIFIED PACEMAKER FAILURE, AFIB WITH OCCASIONAL AV DUAL-PACED COMPLEXES, RIGHTWARD AXIS, NONSPECIFIC INTRAVENTRICULAR BLOCK, CANNOT RULE OUT INFERIOR INFARCT AGE UNDERTERMINED" CALLED GEOSCIENCES FACULTY MEMBER WITH RESULTS WHO STATED THEY WERE GETTING A HR IN 80S CONTROLLED AFIB WITH BUNDLE BRANCH, MULTI FOCAL PVCS AND NO PACER SPIKES SEEN. SPOKE WITH DEBORAH IN ER TO GIVE UPDATE. EKG PLACED IN CHART. WILL CONT TO MONITOR
--- NOTE | 2018-11-09 01:30 | NUR ---
PT ALERT AND ORIENTED BUT CONTINUES TO PULL O2 OFF. EDUCATED PT ON NEED FOR OXYGEN AND PT VERBALIZES UNDERSTANDING AND STATES HE WILL LEAVE IT ON. UPON REASSESSMENT, PT WILL HAVE PULLED IT OFF AGAIN. WILL CONT TO MONITOR AND ENCOURAGE PT TO LEAVE IT ON
[2018-11-09 04:00] VITALS: BP 139/73
[2018-11-09 05:06] LABS: APPEARANCE CLEAR (CLEAR); BILIRUBIN NEGATIVE (NEGATIVE); COLOR YELLOW (YELLOW); GLUCOSE NEGATIVE (NEGATIVE); KETONE SMALL mg/dL (NEGATIVE); NITRITE NEGATIVE (NEGATIVE); PROTEIN NEGATIVE (NEGATIVE); UROBILINOGEN NORMAL (NORMAL)
[2018-11-09 06:41] LABS: BASOPHILS 0.2 % (0-2); EOSINOPHILS 1.4 % (0-7); HEMATOCRIT 24.1 % (42.0-54.0); IMMATURE GRANULOCYTES 0.2 % (0-5); MCH 24.8 pg (26.0-34.0); MCHC 29.9 g/dL (31.0-37.0); MCV 83.1 fL (80.0-100.0); MEAN PLATELET VOLUME 8.4 fL (7.4-10.4); MONOCYTES 7.7 % (2-11); NEUTROPHILS 83.5 % (40-80); PLATELET COUNT 166 10x3/uL (130-400); RDW 17.2 % (11.5-14.5)
[2018-11-09 06:50] LABS: CALCIUM 7.7 mg/dL (8.5-10.1); CARBON DIOXIDE 30.4 mmol/L (21.0-32.0); CREATININE - SERUM 1.8 mg/dL (0.6-1.3); POTASSIUM - SERUM 3.4 mmol/L (3.5-5.1)
--- NOTE | 2018-11-09 06:50 | NUR ---
INITIAL ROUNDING ON THE PATIENT, HE IS AWAKE AND RESTING IN BED, HOB AT 45 DEGREES. PATIENT DENIES PAIN, O2 VIA NC IN PLACE, 2LPM. NO S/S OF SOB/DISTRESS
[2018-11-09 06:54] LABS: WBC 4.3 10x3/uL (4.8-10.8)
[2018-11-09 06:55] LABS: HEMOGLOBIN 7.2 g/dL (13.5-17.5)
--- NOTE | 2018-11-09 08:43 | NUR ---
CALLED AND SPOKE TO MYRON IN THE LAB TO INQUIRE ABOUT THE STAT LAB ORDERED EARLIER TO RECHECK THE CRITICAL HGB, SHE INFORMED THIS NURSE THEY WERE SHORT STAFFED AND SHE WOULD BE DOWN HERE SOON SHE COULD.
--- NOTE | 2018-11-09 08:44 | NUR ---
MYRON CALLED BACK TO INFORM THIS NURSE THAT THE BLOOD HAD BEEN COLLECTED AND WAS BEING RUN AT THIS TIME
[2018-11-09 09:10] VITALS: BP 108/68
[2018-11-09 09:32] LABS: BASOPHILS 0.2 % (0-2); EOSINOPHILS 1.2 % (0-7); HEMATOCRIT 25.5 % (42.0-54.0); HEMOGLOBIN 7.6 g/dL (13.5-17.5); IMMATURE GRANULOCYTES 0.2 % (0-5); LYMPHOCYTES 5.7 % (15-50); MCH 24.8 pg (26.0-34.0); MCHC 29.8 g/dL (31.0-37.0); MCV 83.1 fL (80.0-100.0); MEAN PLATELET VOLUME 8.4 fL (7.4-10.4); MONOCYTES 7.5 % (2-11); NEUTROPHILS 85.2 % (40-80); PLATELET COUNT 172 10x3/uL (130-400); RBC 3.07 10x6/uL (4.20-6.10); RDW 17.5 % (11.5-14.5)
--- NOTE | 2018-11-09 09:42 | NUR ---
REPORTED TO STEPHANIE CARTY FOR DR NAIR, OF THE CRITICAL HGB OF 7.6. NO NEW ORDERS GIVEN AT THIS TIME
[2018-11-09 14:08] VITALS: BP 122/74
[2018-11-09 14:11] VITALS: Ht 182.9 cm; Wt 113.4 kg
[2018-11-09 14:29] VITALS: BP 111/63
[2018-11-09] MEDS ORDERED: FLOMAX0.4 MG PO (15:20)
[2018-11-09] MEDS ORDERED: MELATONIN10 M1 PO ×2 (15:21→15:23)
[2018-11-09 16:40] VITALS: BP 124/82
--- NOTE | 2018-11-09 18:41 | NUR ---
UNCONTROLLED LOOSE STOOL, PATIENT CLEANED, AND ADULT BRIEF PUT ON, AND ASSISTED BACK TO BED.
--- NOTE | 2018-11-09 19:44 | NUR ---
PT ALERT AND ORIENTED WATCHING TV WHEN ENTERING THE ROOM. PT ORAL TEMPERATURE 99.3 AND VSS. REVIEWED WITH RN. NO DISTRESS NOTED. CALL LIGHT IN REACH.
[2018-11-09 20:36] VITALS: BP 113/69
[2018-11-10 01:08] VITALS: BP 126/82
--- NOTE | 2018-11-10 02:35 | NUR ---
I have reviewed this patient and I concur with the Shift Assessment completed by the Licensed Practical Nurse today this shift.
[2018-11-10 05:29] VITALS: BP 121/86
--- NOTE | 2018-11-10 07:00 | NUR ---
INITIAL ROUNDING, PATIENT ASLEEP WITH HOB 45 DEGREES, O2 VIA NC IN PLACE, NO S/S OF PAIN, SOB, DISTRESS
[2018-11-10 07:19] LABS: BASOPHILS 0.2 % (0-2); EOSINOPHILS 0.4 % (0-7); HEMATOCRIT 29.8 % (42.0-54.0); HEMOGLOBIN 9.1 g/dL (13.5-17.5); IMMATURE GRANULOCYTES 0.2 % (0-5); MCH 25.5 pg (26.0-34.0); MCHC 30.5 g/dL (31.0-37.0); MCV 83.5 fL (80.0-100.0); MEAN PLATELET VOLUME 8.3 fL (7.4-10.4); MONOCYTES 7.4 % (2-11); NEUTROPHILS 83.8 % (40-80); PLATELET COUNT 151 10x3/uL (130-400); RBC 3.57 10x6/uL (4.20-6.10); RDW 16.8 % (11.5-14.5); WBC 5.1 10x3/uL (4.8-10.8)
[2018-11-10 08:26] LABS: ALBUMIN 2.4 g/dL (3.4-5.0); ANION GAP 13.7 mmol/L (8-16); BILIRUBIN - TOTAL 1.41 mg/dL (0.2-1.3); CALCIUM 7.9 mg/dL (8.5-10.1); CARBON DIOXIDE 29.1 mmol/L (21.0-32.0); CREATININE - SERUM 1.7 mg/dL (0.6-1.3); POTASSIUM - SERUM 3.8 mmol/L (3.5-5.1); PROTEIN - SERUM 6.7 g/dL (6.4-8.2)
[2018-11-10 08:27] VITALS: BP 110/74
[2018-11-10 12:35] VITALS: BP 121/75
--- NOTE | 2018-11-10 16:31 | NUR ---
THE LAB CALLED AND REPORTED POSITIVE RESULT FOR FLU A. PATIENT PUT IN ISOLATION
--- NOTE | 2018-11-10 16:35 | NUR ---
PRE VOID BLADDER SCAN SHOWED 337 ML VOIDED 175 ML POST BLADDER SCAN 379 ML REYES PLACED AT THIS TIME
--- NOTE | 2018-11-10 16:48 | NUR ---
16 FR REYES CATH PLACED WITHOUT PROBLEMS FOR UR.
[2018-11-10 16:53] VITALS: BP 116/76
--- NOTE | 2018-11-10 17:42 | NUR ---
NO BOWEL MOVEMENT TODAY SO UNABLE TO COLLECT SPECIMEN.
--- NOTE | 2018-11-10 19:00 | NUR ---
PATIENT RESTING IN BED AND DENIES NEEDS AT THIS TIME. BED IN LOWEST POSITION AND CALL LIGHT WITHIN REACH. ENCOURAGED THE PATIENT TO CALL IF HE HAS NEEDS. WILL CONTINUE TO MONITOR.
[2018-11-10 20:21] VITALS: BP 117/82
--- NOTE | 2018-11-10 22:13 | NUR ---
ADDED HUMIDIFIER TO PATIENT'S O2
[2018-11-11 00:12] VITALS: BP 104/72
[2018-11-11 04:25] VITALS: BP 120/78
[2018-11-11 07:20] LABS: BASOPHILS 0 % (0-2); EOSINOPHILS 1.5 % (0-7); HEMATOCRIT 29.4 % (42.0-54.0); HEMOGLOBIN 8.8 g/dL (13.5-17.5); IMMATURE GRANULOCYTES 0.2 % (0-5); LYMPHOCYTES 8.4 % (15-50); MCHC 29.9 g/dL (31.0-37.0); MCV 83.5 fL (80.0-100.0); MEAN PLATELET VOLUME 8.7 fL (7.4-10.4); MONOCYTES 7.1 % (2-11); NEUTROPHILS 82.8 % (40-80); PLATELET COUNT 170 10x3/uL (130-400); RBC 3.52 10x6/uL (4.20-6.10); RDW 17.2 % (11.5-14.5); WBC 4.5 10x3/uL (4.8-10.8)
--- NOTE | 2018-11-11 07:35 | NUR ---
PT RESTING IN BED, EYES OPEN. NO C/O PAIN. NO S/S OF ACUTE DISTRESS NOTED. PT ALERT AND ORIENTED. UP WITH WALKER AND PHYSICAL THERAPY. PT HAS REYES. STAGE 2 TO COCCYX. PT ON DROPLET PRECAUTIONS D/T FLU A. PT MORONGO. PT HAS DENTURES. ON 2L O2, NC. IV TO LEFT FOREARM, SL. SITE PATENT WITHOUT REDNESS OR SWELLING. PT ON TELEMETRY, CONTROLLED AFIB 92. PT DENIES ANYTHING FURTHER AT THIS TIME. CALL LIGHT IN REACH. WILL CONTINUE TO MONITOR.
[2018-11-11 07:46] LABS: ALBUMIN 2.3 g/dL (3.4-5.0); ANION GAP 10.2 mmol/L (8-16); BILIRUBIN - TOTAL 1.21 mg/dL (0.2-1.3); CALCIUM 8.1 mg/dL (8.5-10.1); CARBON DIOXIDE 30.3 mmol/L (21.0-32.0); CREATININE - SERUM 1.6 mg/dL (0.6-1.3); MAGNESIUM - SERUM 1.9 mg/dL (1.8-2.4); PHOSPHOROUS 2.9 mg/dL (2.5-4.9); POTASSIUM - SERUM 3.5 mmol/L (3.5-5.1); PROTEIN - SERUM 6.5 g/dL (6.4-8.2)
[2018-11-11 08:39] VITALS: BP 108/68
--- NOTE | 2018-11-11 11:00 | NUR ---
ALERT AND ORIENTED X4. UP AMBULATING IN REED ASSISTED BY PHYSICAL THERAPY. MANSOOR LINDSAY CONTINUES PLAN OF CARE AND SAFETY PRECAUTIONS.
[2018-11-11 12:52] VITALS: BP 131/71
[2018-11-11 16:00] VITALS: BP 113/73
--- NOTE | 2018-11-11 18:36 | NUR ---
PT RESTING IN BED, EYES CLOSED. RESPIRATIONS EVEN AND UNLABORED. NO C/O PAIN. NO S/S OF ACUTE DISTRESS NOTED. CALL LIGHT IN REACH. WILL CONTINUE TO MONITOR.
--- NOTE | 2018-11-11 19:37 | NUR ---
PATIENT RESTING IN BED WITH EYES CLOSED AND NO S/S OF DISTRESS. BED IN LOWEST POSITION AND CALL LIGHT WITHIN REACH. WILL CONTINUE TO MONITOR.
[2018-11-11 20:19] VITALS: BP 133/82
[2018-11-12] VITALS (7 sets, daily range): BP systolic 102–122; BP diastolic 66–76
--- NOTE | 2018-11-12 07:20 | NUR ---
PT SITTING IN RECLINER CHAIR. ALERT AND ORIENTED. O2 AT 2L VIA NC. PT HAS NO FURTHER NEEDS AT THIS TIME. BED LOW. CL IN REACH.
[2018-11-12 07:35] LABS: BASOPHILS 0.2 % (0-2); HEMATOCRIT 32.2 % (42.0-54.0); HEMOGLOBIN 9.7 g/dL (13.5-17.5); IMMATURE GRANULOCYTES 0.2 % (0-5); LYMPHOCYTES 10.1 % (15-50); MCHC 30.1 g/dL (31.0-37.0); MEAN PLATELET VOLUME 8.4 fL (7.4-10.4); MONOCYTES 7.5 % (2-11); PLATELET COUNT 168 10x3/uL (130-400); RBC 3.88 10x6/uL (4.20-6.10); RDW 17.3 % (11.5-14.5)
[2018-11-12 07:49] LABS: ANION GAP 14.3 mmol/L (8-16); CALCIUM 8.4 mg/dL (8.5-10.1); CARBON DIOXIDE 29.4 mmol/L (21.0-32.0); CREATININE - SERUM 1.6 mg/dL (0.6-1.3); POTASSIUM - SERUM 3.7 mmol/L (3.5-5.1)
--- NOTE | 2018-11-12 09:06 | NUR ---
PT DOING BARIUM SWALLOW TEST.
--- NOTE | 2018-11-12 10:00 | NUR ---
PT UP WALKING WITH WALKER WITH PHYSICAL THERAPY.
--- NOTE | 2018-11-12 11:05 | NUR ---
PT SITTING IN RECLINER CHAIR. VISITORS AT BEDSIDE. BED LOW. CL IN REACH.
--- NOTE | 2018-11-12 14:43 | NUR ---
SPOKE WITH LEYLA FERMIN AND STATED TO HER 11/10/18 PT WAS DIAGNOSED WITH THE FLU BUT WAS NEVER STARTED ON TAMIFLU. SHE STATES SHE WILL PUT THE ORDER IN FOR TAMIFLU.
--- NOTE | 2018-11-12 14:52 | NUR ---
Nutrition follow up: Diabetic diet with 25% average po intake past 2 days Pt reports eating better today and he did at 75-85% of meals Will add Glucerna BM yesterday Pt has CHF-Will not restrict diet further until po intake improves RD following
--- NOTE | 2018-11-12 14:57 | NUR ---
PT STATES HE IS HAVING TROUBLE SWALLOWING FOOD SOMETIMES. SPEECH THERAPY CONSULT PLACED.
--- NOTE | 2018-11-12 15:09 | NUR ---
ALERT AND ORIENTED X4. SITTING UP IN CHAIR. NEFTALI POWERS CALLS LEYLA DAVILAING TAMAFLU NOT STARTED SINCE ADMISSION. LAB RESULT POSITIVE FOR FLU 11/10/18. AGREE WITH ACCOUNTS PAYABLE TECHNICIAN ASSESSMENT. CASE MANAGEMENT LOOKING FOR REHAB PLACEMENT. NEFTALI POWERS CONTINUES PLAN OF CARE AND SAFETY PRECAUTIONS.
--- NOTE | 2018-11-12 15:30 | NUR ---
PT TAKEN BY RADIOLOGY VIA BED.
--- NOTE | 2018-11-12 15:32 | NUR ---
OT NOTE: PT COMPLETED SITTING BALANCE AXS WITH SBA/CGA. PT COMPLETED BUE AROM EXS. PT COMPLETED HYGIENE TASK UPRIGHT IN CHAIR WITH SET UP. THANK YOU, NARCISO ARMENDARIZ
--- NOTE | 2018-11-12 15:44 | NUR ---
Rehab Prescreening Consult recieved and the chart has been reviewed. He is a potential ARU candidate, but still has orders pending. Rehab will follow him til his medical W/U is completed. Discussed with the ROSAMARIA Maynard. Tina Giron RN Clinical Liaison, Rehab
--- NOTE | 2018-11-12 18:30 | NUR ---
PT WANTING SOMETHING FOR COUGH. SPOKE WITH DR. DUMAS HE ORDERED ROBITUSSIN DM 5-10ML Q6HP.
--- NOTE | 2018-11-12 19:32 | MORECARE ---
CASE MANAGEMENT DISCHARGE SUMMARY PATIENT: REBEKAH JAMIL UNIT: [id number] ADM DATE: 11/08/18 AGE: 88 : 31 SEX: M ROOM/BED: D.1205 AUTHOR: EUGENIA MOON PHYSICIAN: REFERRING PHYSICIAN: VIRI NAIR MD DATE OF SERVICE: 11/12/18 Discharge Plan Patient Name: REBEKAH JAMIL Facility: [facility]:[place] : 1930 Planned Disposition: Inpatient Rehab Anticipated Discharge Date: Discharge Date: Expected LOS: Initial Reviewer: [email or web address] Initial Review Date: 11/08/2018 Generated: 11/12/18 8:31 pm Patient Name: REBEKAH JAMIL Page [id number] at 1931 All edits/amendments must be made on the electronic document DICTATION DATE: 11/12/181930 SQUARE SHEAR OPERATOR: TYRONE 11/12/181930 RPT#: [id number] DC DATE: STATUS: ADM IN [facility] [address] [place] [address] END OF REPORT
--- NOTE | 2018-11-12 19:50 | MORECARE ---
CASE MANAGEMENT DISCHARGE SUMMARY PATIENT: REBEKAH JAMIL UNIT: [id number] ADM DATE: 11/08/18 AGE: 88 : 31 SEX: M ROOM/BED: D.1205 AUTHOR: EUGENIA MOON PHYSICIAN: REFERRING PHYSICIAN: VIRI NAIR MD DATE OF SERVICE: 11/12/18 Discharge Plan Patient Name: REBEKAH JAMIL Facility: [facility]:[place] : 1930 Planned Disposition: Inpatient Rehab Anticipated Discharge Date: Discharge Date: Expected LOS: Initial Reviewer: [email or web address] Initial Review Date: 11/08/2018 Generated: 11/12/18 8:50 pm Comments DCP- Discharge Planning Updated by [email or web address]: Aleyda Thomas on 11/12/18 6:[address] [facility] RE[facility] IS FOLLOWING THIS PATIENT. HE APPEARS TO BE A GOOD CANDIDATE. DX OF FLU TYPE A TODAY FROM STUDY 11/10/18. STARTED TAMIFLU TODAY. SPEECH EVAL PENDING. BA SWALLOW STUDY DONE. CM TO FOLLOW TO ASSIST. PATIENT WENT TO RADIOLGY THIS PM. ASSESSMENT TO BE COMPLETED Last DP export: 11/12/18 6:32 pm Patient Name: REBEKAH JAMIL Page 40045 at 1950 All edits/amendments must be made on the electronic document DICTATION DATE: 11/12/181949 INTERACTIVE MEDIA DESIGNER: TYRONE 11/12/181949 RPT#: [id number] DC DATE: STATUS: ADM IN [facility] [address] [place] [address] END OF REPORT
--- NOTE | 2018-11-13 01:03 | NUR ---
REST IN BED, CALL LIGHT IN REACH.
--- NOTE | 2018-11-13 02:00 | NUR ---
PT RESTING, EYES CLOSED. RR ARE EVEN AND UNLABORED. NO S/S OF DISTRESS. BED LOW. CL IN REACH. WCTM.
--- NOTE | 2018-11-13 03:55 | NUR ---
REST IN BED, CALL LIGHT IN REACH.
[2018-11-13 04:30] VITALS: BP 117/74
[2018-11-13 06:38] LABS: BASOPHILS 0.2 % (0-2); EOSINOPHILS 1.3 % (0-7); HEMATOCRIT 31.2 % (42.0-54.0); HEMOGLOBIN 9.5 g/dL (13.5-17.5); LYMPHOCYTES 12.1 % (15-50); MCH 25.1 pg (26.0-34.0); MCHC 30.4 g/dL (31.0-37.0); MCV 82.5 fL (80.0-100.0); MEAN PLATELET VOLUME 9.1 fL (7.4-10.4); MONOCYTES 8.2 % (2-11); NEUTROPHILS 78.2 % (40-80); PLATELET COUNT 163 10x3/uL (130-400); RBC 3.78 10x6/uL (4.20-6.10); RDW 17.2 % (11.5-14.5); WBC 4.6 10x3/uL (4.8-10.8)
[2018-11-13 07:12] LABS: ANION GAP 9.6 mmol/L (8-16); CALCIUM 8.1 mg/dL (8.5-10.1); CARBON DIOXIDE 30.5 mmol/L (21.0-32.0); CREATININE - SERUM 1.7 mg/dL (0.6-1.3)
[2018-11-13 07:13] LABS: POTASSIUM - SERUM 3.1 mmol/L (3.5-5.1)
[2018-11-13 09:23] VITALS: BP 115/64
--- NOTE | 2018-11-13 11:52 | NUR ---
PT UP WALKING WITH PHYSICAL THERAPY WITH WALKER.
[2018-11-13 12:30] VITALS: BP 95/56
--- NOTE | 2018-11-13 13:44 | NUR ---
Rehab Note- Reviewed medical record, the patient is noted in uncontrolled A-Fib on telemetry with no noted Hx of A-Fib & no noted medication for A-Fib. Also the patent's CXR is still w/ noted problems. Will continue to follow at this time. Spoke with ROSAMARIA Stuart. Thank you for this referral! Kaitlyn De Santiago RN CLinical Liaison, [facility] Rehab
--- NOTE | 2018-11-13 15:32 | NUR ---
OT NOTE: PERFORMED BED MOB WITH MIN ASSIST; SITTING ON EDGE OF BED WITH SPV; MIN ASSIST WITH UE DRESSING. TRANSFERS WITH MIN ASSIST; AMB WITH USE OF RW AND MIN ASSIST..PT FATIGUED QUICKLY TODAY AND WAS UNABLE TO TOLERATE AMB GREATER THAN 40-50 FT. AGREEABLE TO SIT UP IN CHAIR. NAUSEA WITH NO VOMITTING NOTED. PROVIDED PT WITH SPRITE AND CALL LIGHT. FRANSISCO SAN, OTR/L
--- NOTE | 2018-11-13 15:58 | NUR ---
ASSISTED PT FROM THE BED TO THE CHAIR.
[2018-11-13 16:15] VITALS: BP 90/51
--- NOTE | 2018-11-13 16:45 | NUR ---
OT NOTE: PT COMPLETED BED MOB WITH MIN A. PT COMPLETED SIT TO STAND WITH MIN A/CGA. PT SOB AND REQUIRED REST BREAKS. PT COMPLETED BUE AROM AXS. PT COMPLETED DRESSING TASK WITH MIN A WITH SNAPS. THANK YOU, NARCISO ARMENDARIZ
--- NOTE | 2018-11-13 17:23 | NUR ---
ALERT AND ORIENTED X4. SITTING UP IN CHAIR EATING DINNER. FAMILY IN ROOM. NO SIGNS OF DISTRESS. AGREE WITH FRONT COUNTER CLERK ASSESSMENT. NEFTALI POWERS RESUME PLAN OF CARE AND SAFETY PRECAUTIONS.
--- NOTE | 2018-11-13 18:51 | NUR ---
PT'S DAUGHTER IN LAW CALLED AND STATES PT STATED TO HER HE HAS SORES AND IT IS MAKING IT DIFFICULT TO EAT. CALLED DR. DUMAS TO ASK FOR ONCOLOGY MOUTHWASH AND IT WENT TO HIS VOICEMAIL. LEFT A VOICEMAIL. WILL AWAIT A RETURNED CALL.
--- NOTE | 2018-11-13 19:01 | NUR ---
SPOKE WITH DR. DUMAS HE ORDERED ONCOLOGY MOUTHWASH TID.
[2018-11-13 20:00] VITALS: BP 93/61
--- NOTE | 2018-11-13 21:45 | NUR ---
PM MEDS GIVEN ORDERED. CALL LIGHT IN REACH.
[2018-11-13 23:57] VITALS: BP 108/75
[2018-11-14 04:30] VITALS: BP 93/64
--- NOTE | 2018-11-14 07:29 | NUR ---
BEDSIDE SHIFT REPORTING, INITIAL ROUNDING ON THE PATIENT. HE IS SLEEPING IN BED WITH HOB AT 40 DEGRESS. O2 VIA NC IN PLACE WITH O2 AT 2 LPM. CALL LIGHT IN REACH
[2018-11-14 07:59] LABS: BASOPHILS 0 % (0-2); EOSINOPHILS 1.5 % (0-7); IMMATURE GRANULOCYTES 0.2 % (0-5); LYMPHOCYTES 14.7 % (15-50); MCV 83.3 fL (80.0-100.0); MEAN PLATELET VOLUME 8.8 fL (7.4-10.4); MONOCYTES 7.4 % (2-11); NEUTROPHILS 76.2 % (40-80); PLATELET COUNT 153 10x3/uL (130-400); RDW 17.4 % (11.5-14.5); WBC 4.7 10x3/uL (4.8-10.8)
[2018-11-14 08:15] LABS: CALCIUM 8.3 mg/dL (8.5-10.1); CARBON DIOXIDE 28.6 mmol/L (21.0-32.0); CREATININE - SERUM 1.5 mg/dL (0.6-1.3); POTASSIUM - SERUM 3.6 mmol/L (3.5-5.1)
[2018-11-14 09:12] VITALS: BP 95/57
--- NOTE | 2018-11-14 12:32 | NUR ---
OT NOTE: PT SITTING UP IN CHAIR; AGREEABLE TO PARTICIPATE IN THERAPY. IN ROOM AMBULATION WITH USE OF WALKER, GAIT BELT, AND MIN ASSIST. PT WITH VERY UNSTEADY GAIT MANEUVERING AROUND OBJECTS IN ROOM. ABLE TO PEE GOWN AND PERFORM SIMPLE GROOMING TASKS WITH SET UP. UE AROM EXS AND CHAIR PUSH UPS TO IMPROVE UE STRENGTH. PT REPORTED NAUSEA DURING TMT, HOWEVER, AFTER MODERATE REST BREAK, PT WAS FEELING BETTER. RETURNED TO CHAIR VS BED. FRANSISCO SAN, OTR/L
[2018-11-14 12:53] VITALS: BP 96/59
[2018-11-14] MEDS ORDERED: LEVOFLOXACIN500 MG PO (13:55)
[2018-11-14] MEDS ORDERED: TAMIFLU75 MG PO (13:55)
--- NOTE | 2018-11-14 14:57 | MORECARE ---
CASE MANAGEMENT DISCHARGE SUMMARY PATIENT: REBEKAH JAMIL UNIT: [id number] ADM DATE: 11/08/18 AGE: 88 : 31 SEX: M ROOM/BED: D.1205 AUTHOR: EUGENIA MOON PHYSICIAN: REFERRING PHYSICIAN: VIRI NAIR MD DATE OF SERVICE: 11/14/18 Discharge Plan Patient Name: REBEKAH JAMIL Facility: [facility]:[place] : 1930 Planned Disposition: Inpatient Rehab Anticipated Discharge Date: Discharge Date: Expected LOS: Initial Reviewer: [email or web address] Initial Review Date: 11/08/2018 Generated: 11/14/18 3:57 pm Comments DCP- Discharge Planning Updated by [email or web address]: Cynthia Luis on 11/14/18 1:[address] Patient Name: REBEKAH JAMIL Encounter No: [id number] : 1930 Primary Insurance: MEDICARE A & B Anticipated DC Date: Planned Disposition: Inpatient Rehab External Planned Provider: : DCP follow-up note: Patient and family in agreement with discharge plan. No changes to plan. CM explained and served DC IMM. Case management will follow and assist as needed. Cynthia Luis DCP- Discharge Planning Updated by [id number]: Aleyda Thomas on 11/12/18 6:[address] [facility] IS FOLLOWING THIS PATIENT. HE APPEARS TO BE A GOOD CANDIDATE. DX OF FLU TYPE A TODAY FROM STUDY 11/10/18. STARTED TAMIFLU TODAY. SPEECH EVAL PENDING. BA SWALLOW STUDY DONE. CM TO FOLLOW TO ASSIST. PATIENT WENT TO RADIOLGY THIS PM. ASSESSMENT TO BE COMPLETED Last DP export: 11/12/18 6:50 pm Patient Name: REBEKAH JAMIL Page [id number] at 1457 All edits/amendments must be made on the electronic document DICTATION DATE: 11/14/181456 BEVERAGE DISTILLER: TYRONE 11/14/181456 RPT#: [id number] DC DATE: STATUS: ADM IN [facility] [address] [place] [address] END OF REPORT
--- NOTE | 2018-11-14 16:04 | NUR ---
OT NOTE: PT COMPLETED BED MOB WITH SPV. PT COMPLETED SIT TO STAND WITH CGA. PT COMPLETED GROOMING AND HYGIENE TASKS WITH CRUZITO Aly THANK YOU, NARCISO ARMENDARIZ
--- NOTE | 2018-11-15 15:08 | MORECARE ---
CASE MANAGEMENT DISCHARGE SUMMARY PATIENT: REBEKAH JAMIL UNIT: [id number] ADM DATE: 11/08/18 AGE: 88 : 31 SEX: M ROOM/BED: D.1205 AUTHOR: EUGENIA MOON PHYSICIAN: REFERRING PHYSICIAN: VIRI NAIR MD DATE OF SERVICE: 11/15/18 Discharge Plan Patient Name: REBEKAH JAMIL Facility: [facility]:[place] : 1930 Planned Disposition: Inpatient Rehab Anticipated Discharge Date: Discharge Date: 11/14/2018 Expected LOS: Initial Reviewer: [id number] Initial Review Date: 11/08/2018 Generated: 11/15/18 4:08 pm Comments DCP- Discharge Planning Updated by [email or web address]: Cynthia Luis on 11/14/18 1:[address] Patient Name: REBEKAH JAMIL Encounter No: [id number] : 1930 Primary Insurance: MEDICARE A & B Anticipated DC Date: Planned Disposition: Inpatient Rehab External Planned Provider: : DCP follow-up note: Patient and family in agreement with discharge plan. No changes to plan. CM explained and served DC IMM. Case management will follow and assist as needed. Cynthia Luis DCP- Discharge Planning Updated by [email or web address]: Aleyda Thomas on 11/12/18 6:[address] [facility] IS FOLLOWING THIS PATIENT. HE APPEARS TO BE A GOOD CANDIDATE. DX OF FLU TYPE A TODAY FROM STUDY 11/10/18. STARTED TAMIFLU TODAY. SPEECH EVAL PENDING. BA SWALLOW STUDY DONE. CM TO FOLLOW TO ASSIST. PATIENT WENT TO RADIOL THIS PM. ASSESSMENT TO BE COMPLETED Coverage Notice Reviewer: [id number] - Cynthia Luis Notice Issued Date-Time: 11/14/2018 14:57 Notice Type: IM Discharge Notice Notice Delivered To: Patient Relationship to Patient: Self Brown Sourer Name: Delivery Method: HAND - Hand Delivered Saira Days: Prior Verbal Notification: Recipient Understood Notice: Yes Recipient Signature: Yes Med Rec Note Co-signed by Attending: Coverage Notice Comment: Last DP export: 11/14/18 1:57 p Patient Name: REBEKAH JAMIL Page [id number] at 1508 All edits/amendments must be made on the electronic document DICTATION DATE: 11/15/18 150 PROFILER OPERATOR: TYRONE 11/15/18 1508 RPT#: [id number] DC DATE:11/14/18 STATUS: DIS IN [facility] [address] [place] [address] END OF REPORT
== END 2018-11-14 17:30 | DRG 193 ==
LOC: D.ER 20:30 → D.M3 22:04
PROVIDERS: Emergency Medicine; ADMIT Family Medicine; ATTEND Family Medicine
DX: J10.00 Influenza due to other identified influenza virus with unspecified type of pneumonia (principal); I50.23 Acute on chronic systolic (congestive) heart failure; I13.0 Hypertensive heart and chronic kidney disease with heart failure and stage 1 through stage 4 chronic kidney disease, or unspecified chronic kidney disease; I42.9 Cardiomyopathy, unspecified; N28.9 Disorder of kidney and ureter, unspecified; Y95 Nosocomial condition; N18.9 Chronic kidney disease, unspecified; E11.22 Type 2 diabetes mellitus with diabetic chronic kidney disease; I08.1 Rheumatic disorders of both mitral and tricuspid valves; I48.91 Unspecified atrial fibrillation; D50.9 Iron deficiency anemia, unspecified; E78.5 Hyperlipidemia, unspecified; I25.10 Atherosclerotic heart disease of native coronary artery without angina pectoris; K21.9 Gastro-esophageal reflux disease without esophagitis; N40.0 Benign prostatic hyperplasia without lower urinary tract symptoms; Z95.0 Presence of cardiac pacemaker

== ENCOUNTER 2018-11-14 17:41 | Inpatient (IN) | payer MEDICARE, BC ==
[~2018-11-14 17:41] MED LIST changes: +LEVOFLOXACIN500 MG PO; +MELATONIN10 M1 PO; +TAMIFLU75 MG PO
--- NOTE | 2018-11-14 18:45 | NUR ---
PT RESTING IN BED WITH EYES OPEN CALL [facility] IN REACH WILL MONITER
[2018-11-14 19:00] VITALS: BP 97/63
--- NOTE | 2018-11-14 20:00 | NUR ---
PATIENT RECEIVED SITTING UP IN BED WATCHING TV. PATIENT ASSESSMENT IN PROGRESS WITH CUSTOMER SALES SERVICE MANAGER. PATIENT ADMIT PAPERS SIGNED. VITAL SIGNS DONE. NO C/O PAIN OR DISTRESS. BED LOW. CALL LIGHT WITHIN REACH. WILL CONTINUE TO MONITOR.
--- NOTE | 2018-11-15 02:10 | NUR ---
PATIENT EYES CLOSED. RESPIRATIONS 18 & EVEN. BED LOW. CALL LIGHT WITHIN REACH. WILL CONTINUE TO MONITOR.
--- NOTE | 2018-11-15 06:40 | NUR ---
PT IN BED, LOW POSTITION, EYES CLOSED, AROUSES TO VOICE, NO NEEDS NOTED FLUIDS AND CALL LIGHT WITHIN REACH
--- NOTE | 2018-11-15 08:35 | NUR ---
PT AM MEDS ADMINISTERED. PT DENIES NEEDS. WCTM.
[2018-11-15 13:20] VITALS: Ht 182.9 cm
[2018-11-15 19:00] VITALS: BP 111/70
--- NOTE | 2018-11-15 19:25 | NUR ---
URINE SPECIMEN COLLECTED FROM REYES CATH. PATIENT DENIES ANY NEEDS. BED IS DOWN LOW WITH SIDE RAILS UP X2. CALL LIGHT IN REACH.
[2018-11-15 20:08] LABS: APPEARANCE CLOUDY (CLEAR); BILIRUBIN NEGATIVE (NEGATIVE); COLOR YELLOW (YELLOW); GLUCOSE NEGATIVE (NEGATIVE); KETONE NEGATIVE (NEGATIVE); NITRITE NEGATIVE (NEGATIVE); PROTEIN TRACE mg/dL (NEGATIVE); SPECIFIC GRAVITY 1.005 (1.005-1.020); UROBILINOGEN NORMAL (NORMAL)
[2018-11-15 20:09] LABS: BACTERIA FEW /hpf (NONE SEEN); WHITE CELLS - URINE 0-5 /hpf (0-5)
--- NOTE | 2018-11-16 00:02 | NUR ---
PATIENT IS SITTING UP ON SIDE OF BED. HE HAS A SKIN TEAR TO HIS RIGHT KNEE WITH SCANT AMOUNT OF BLOOD. KNEE CLEANED OFF AND BANDAID APPLIED.
--- NOTE | 2018-11-16 04:02 | NUR ---
PATIENT IS WATCHING TV WHILE RESTING IN HIS BED. REYES UNCLAMPED AT THIS TIME. HE DENIES ANY NEEDS. BED IS DOWN LOW WITH SIDE RAILS UP X2. CALL LIGHT IS IN REACH.
[2018-11-16 06:39] LABS: ANION GAP 11.7 mmol/L (8-16); CALCIUM 8.5 mg/dL (8.5-10.1); CARBON DIOXIDE 29.3 mmol/L (21.0-32.0); CREATININE - SERUM 1.6 mg/dL (0.6-1.3)
[2018-11-16 06:50] LABS: BASOPHILS 0.2 % (0-2); EOSINOPHILS 1.2 % (0-7); HEMATOCRIT 27.9 % (42.0-54.0); HEMOGLOBIN 8.5 g/dL (13.5-17.5); IMMATURE GRANULOCYTES 0.2 % (0-5); LYMPHOCYTES 11.1 % (15-50); MCHC 30.5 g/dL (31.0-37.0); MCV 82.1 fL (80.0-100.0); MEAN PLATELET VOLUME 9.1 fL (7.4-10.4); MONOCYTES 7.5 % (2-11); NEUTROPHILS 79.8 % (40-80); PLATELET COUNT 164 10x3/uL (130-400); RDW 17.7 % (11.5-14.5)
[2018-11-16 08:00] VITALS: BP 107/73
--- NOTE | 2018-11-16 08:04 | NUR ---
SITTING UP IN WC FOR BREAKFAST. STATES HE HAS DRY, NON PRODUCTIVE COUGH THAT STARTED RECENTLY WITH THE FLU. BLADDER TRAINING CONTINUES. CALL LIGHT IN REACH
--- NOTE | 2018-11-16 14:43 | NUR ---
RESTING QUIETLY IN BED. EYES CLOSED. NO RESP DISTRESS NOTED. CALL LIGHT ON CHEST.
--- NOTE | 2018-11-16 17:30 | NUR ---
PT HAS VOIDED AFTER REYES TAKEN OUT
--- NOTE | 2018-11-16 19:13 | NUR ---
AWAKE, RESTING IN BED. RESPIRATIONS UNLABORED ON O2/2L PER NASAL CANNULA. VOIDING IN URINAL WITHOUT DIFFICULTY. NO ACUTE DISTRESS NOTED. CALL LIGHT IN REACH.
[2018-11-16 20:00] VITALS: BP 123/63
--- NOTE | 2018-11-17 01:54 | NUR ---
RESTING IN BED WITH EYES CLOSED AND RESPIRATIONS UNLABORED. NO DISTRESS NOTED. CALL LIGHT IN REACH.
--- NOTE | 2018-11-17 07:20 | NUR ---
RESTING QUIETTLY IN BED LAYING ON BACK. OXYGEN IN PLACE. RESP EFFORT NON LABORED. AROUSES TO VERBAL STEMULI. POPE X4. AM ASSESSMENT COMPLETED.
[2018-11-17 07:29] VITALS: BP 101/65
--- NOTE | 2018-11-17 09:46 | NUR ---
LAYING IN BED WATCHING TV. CALL LIGHT IN REACH. DENIES NEEDS.
--- NOTE | 2018-11-17 11:50 | NUR ---
SITTING IN WC IN ROOM WATCHING TV. DENIES NEEDS OR C/O. CALL LIGHT IN REACH
--- NOTE | 2018-11-17 17:50 | NUR ---
SITTING ON SIDE OF BED FINISHING SUPPER. DENIES NEEDS OR C/O. CALL LIGHT IN REACH
[2018-11-17 19:04] VITALS: BP 107/74
--- NOTE | 2018-11-17 19:10 | NUR ---
AWAKE AND ALERT. RESTING IN BED. RESPIRATIONS UNLABORED WITH O2/2L ON PER NASAL CANNULA. TELEMETRY IN PLACE. NOTED PACEMAKER. NO C/O DISCOMFORTS. CALL LIGHT IN REACH.
--- NOTE | 2018-11-18 01:55 | NUR ---
RESTING IN BED WITH NO DISTRESS NOTED. CALL LIGHT IN REACH.
--- NOTE | 2018-11-18 05:27 | NUR ---
RESTING IN BED. BATH AND LINEN CHANGE DONE. INCONTINENCE CARE GIVEN. NO ACUTE DISTRESS NOTED. CALL LIGHT IN REACH.
--- NOTE | 2018-11-18 07:19 | NUR ---
SITTING UP IN BED WATCHING TV. DENIES NEEDS OR C/O. STILL WEARING OXYGEN AT 2LNC. CALL LIGHT IN REACH
[2018-11-18 08:39] VITALS: BP 110/66
--- NOTE | 2018-11-18 10:56 | NUR ---
SITS ON SIDE OF BED TO USE URINAL. URINE IS CLOUDY YELLOW. HE IS WEAK AND HAS POOR BALANCE. CONT OF B/B.
--- NOTE | 2018-11-18 14:14 | NUR ---
RESTING QUIETLY IN BED X2 SIDE RAILS UP OXYGEN IN PLACE BED IN LOWEST POSITION CALL LIGHT IN REACH
[2018-11-18 18:54] VITALS: BP 94/50
--- NOTE | 2018-11-18 19:20 | NUR ---
PT IS SITTING IN A WC AT HIS BEDSIDE WATCHING TV. ALERT AND ORIENTED X 3. DENIES ACUTE DISCOMFORT AT THIS TIME. NO NEEDS VOICED. ALERT AND ORIENTED X 3. PT IS SOMEWHAT PILOT STATION, AND HAS BILATERAL HEARING AIDES. TELEMETRY UNIT IS ON AND INTACT. O2 IS ON @ 2LPM PER NC. NO SOB NOTED. SR'S ARE UP X 2 WHILE IN BED. CALL LIGHT AND BEDSIDE TABLE ARE WITHIN EASY REACH.
--- NOTE | 2018-11-18 21:49 | NUR ---
PT IS RESTING QUIETLY IN BED WITH EYES CLOSED. RESPS ARE EVEN AND UNLABORED. NO ACUTE DISTRESS NOTED.
--- NOTE | 2018-11-19 01:29 | NUR ---
RESTING QUIETLY IN BED WITH EYES CLOSED.
--- NOTE | 2018-11-19 02:26 | NUR ---
I have reviewed this patient and I concur with the Shift Assessment completed by the Licensed Practical Nurse today this shift.
--- NOTE | 2018-11-19 06:24 | NUR ---
PT RESTING IN BED WITH EYES OPEN. USING URINAL PRN.
[2018-11-19 06:38] LABS: BASOPHILS 0.2 % (0-2); EOSINOPHILS 0.9 % (0-7); HEMOGLOBIN 7.9 g/dL (13.5-17.5); IMMATURE GRANULOCYTES 0.2 % (0-5); LYMPHOCYTES 7.5 % (15-50); MCH 25.1 pg (26.0-34.0); MCHC 30.4 g/dL (31.0-37.0); MCV 82.5 fL (80.0-100.0); MEAN PLATELET VOLUME 8.8 fL (7.4-10.4); MONOCYTES 6.1 % (2-11); NEUTROPHILS 85.1 % (40-80); PLATELET COUNT 173 10x3/uL (130-400); RBC 3.15 10x6/uL (4.20-6.10); RDW 18.3 % (11.5-14.5); WBC 6.4 10x3/uL (4.8-10.8)
[2018-11-19 06:49] LABS: ANION GAP 9.8 mmol/L (8-16); CALCIUM 8.7 mg/dL (8.5-10.1); CARBON DIOXIDE 31.1 mmol/L (21.0-32.0); CREATININE - SERUM 1.3 mg/dL (0.6-1.3); POTASSIUM - SERUM 3.9 mmol/L (3.5-5.1)
[2018-11-19 08:01] VITALS: BP 100/67
--- NOTE | 2018-11-19 10:28 | NUR ---
Nutrition Follow Up: Diabetic diet with 20% average po intake BG 116 today Weight [id number] nursing to weigh daily Nursing reports pt is swallowing well. Pt has no appetite even with family encouragment. Pt is drinking some Glucerna RD following
--- NOTE | 2018-11-19 15:25 | NUR ---
SITTING UP IN BED. HAD SOME N/V AND EXPELLED WHAT APPEARED TO BE THICK PHLEGM. DENIES NEEDING WATER OR MEDS FOR NAUSEA. CALL LIGHTIN REACH
--- NOTE | 2018-11-19 17:45 | NUR ---
N/S STOPPED AFTER ZOFRAN GIVEN. STATES HE FEELS MUCH BETTER. DECLINED SUPPER. CALL LIGHT IN REACH
[2018-11-19 19:00] VITALS: BP 91/59
--- NOTE | 2018-11-19 19:17 | NUR ---
RESTING IN BED WITH RESPIRATIONS UNLABORED. NO DISTRESS NOTED. CALL LIGHT IN REACH. O2/2L ON PER NASAL CANNULA.
--- NOTE | 2018-11-20 02:29 | NUR ---
SLEEPING WITH RESPIRATIONS UNLABORED. NO DISTRESS NOTED. CALL LIGHT IN REACH.
--- NOTE | 2018-11-20 05:15 | NUR ---
QUIET HOURS. NO CHANGES IN CONDITION THIS SHIFT. NO VOMITING THIS SHIFT. RESTING IN BED WITH NO DISTRESS NOTED.
[2018-11-20 07:34] VITALS: BP 102/59
--- NOTE | 2018-11-20 08:00 | NUR ---
SHIFT ASSMT COMPLETED.AWAKE FOR BREAKFAST.CL IN RECH.
--- NOTE | 2018-11-20 10:30 | NUR ---
KATELIN ADMITTED TO REHAB FROM ACUTE FLOOR. DR. KRISHNAMURTHY IS HIS PCP. DME AT HOME: WALKER, WHEELCHAIR AND A CANE. DISCHARGE PLANS ARE FOR HIM TO RETURN HOME. WILL CONTINUE TO FOLLOW WITH PATIENT.
--- NOTE | 2018-11-20 11:19 | NUR ---
NAUSEA NOTED.VOMITED MUCOUS APPEARANCE WITH PARTILLY DIGESTED FOOD PARTICLES.ZOFRAN ODT 4MG GIVEN.
--- NOTE | 2018-11-20 12:00 | NUR ---
RESTING IN BED ON SIDE.DENIES MEAL AT THIS TIME.STATES JUST NOT UP TO EATING.
--- NOTE | 2018-11-20 13:05 | NUR ---
NOTIFIED FOR PIN SITE ORDERS AND DRSG CARE.
--- NOTE | 2018-11-20 13:15 | NUR ---
PASSED LARGE AMT OF DARK WATERY STOOL.
--- NOTE | 2018-11-20 16:31 | NUR ---
Gluteal tear noted. Calmoseptine cream is being applied. Pt is ambulatory and is able to turn himself. Wound care will monitor.
[2018-11-20 19:00] VITALS: BP 82/54
--- NOTE | 2018-11-20 20:01 | NUR ---
RESTING IN BED WITH RESPIRATIONS UNLABORED. NO DISTRESS NOTED. CALL LIGHT IN REACH.
--- NOTE | 2018-11-21 03:29 | NUR ---
RESTING IN BED WITH RESPIRATIONS UNLABORED. NO DISTRESS NOTED. CALL LIGHT IN REACH.
--- NOTE | 2018-11-21 05:13 | NUR ---
QUIET HOURS. NO DISTRESS NOTED. NO CHANGES IN CONDITION THIS SHIFT. CALL LIGHT IN REACH.
--- NOTE | 2018-11-21 08:00 | NUR ---
SHIFT ASSMT COMPLETED.BREAKFAST GIVEN.
[2018-11-21 08:34] LABS: BASOPHILS 0.2 % (0-2); HEMATOCRIT 25.5 % (42.0-54.0); HEMOGLOBIN 7.8 g/dL (13.5-17.5); IMMATURE GRANULOCYTES 0.2 % (0-5); LYMPHOCYTES 9.6 % (15-50); MCH 25.2 pg (26.0-34.0); MCHC 30.6 g/dL (31.0-37.0); MCV 82.5 fL (80.0-100.0); MEAN PLATELET VOLUME 8.5 fL (7.4-10.4); MONOCYTES 9.2 % (2-11); NEUTROPHILS 79.8 % (40-80); PLATELET COUNT 201 10x3/uL (130-400); RBC 3.09 10x6/uL (4.20-6.10); RDW 18.5 % (11.5-14.5); WBC 5.8 10x3/uL (4.8-10.8)
[2018-11-21 08:36] VITALS: BP 100/60
[2018-11-21 08:48] LABS: ANION GAP 14.4 mmol/L (8-16); CALCIUM 8.6 mg/dL (8.5-10.1); CARBON DIOXIDE 26.6 mmol/L (21.0-32.0); CREATININE - SERUM 1.5 mg/dL (0.6-1.3)
--- NOTE | 2018-11-21 12:00 | NUR ---
SITTING UP ON SIDE OF BED.CL IN REACH.
--- NOTE | 2018-11-21 13:53 | NUR ---
CARE TEAM MEETING: PATIENT DAUGHTER ATTENDED MEETING. QUESTIONS AND CONCERNS WERE ADDRESSED. TENATIVE DISCHARGE DATE IS 11/27/18. WILL CONTINUE TO FOLLOW WITH PATIENT.
[2018-11-21 19:00] VITALS: BP 89/53
--- NOTE | 2018-11-21 19:45 | NUR ---
PT LYING IN BED EYES CLOSED. CALL LIGHT IN REACH. NO SIGNS OF DISTRESS OR PAIN. BED IN LOW. SIDE RAILS X2. BLOOD INFUSING. VITALS STABLE. NO COMPLICATIONS NOTED. LUNGS CLEAR. BOWEL ACTIVE X4. A/O X4. RESP EVEN AND UNLABORED. WCTM
--- NOTE | 2018-11-21 21:20 | NUR ---
BLOOD COMPLETED INFUSING. VITALS WNL. IV SALINE LOCKED. WCTM
--- NOTE | 2018-11-22 02:10 | NUR ---
PT RESTING QUIETLY. CALL LIGHT IN REACH. NO SIGNS OF DISTRESS OR PAIN. WCTM
--- NOTE | 2018-11-22 03:38 | NUR ---
PT IN BED LOW POSITION, EYES CLOSED,AROUSES EASILY TO VOICE, FLUIDS AND CALL LIGHT WITHIN REACH, NO NEEDS NOTED AT THIS TIME
[2018-11-22 07:32] LABS: BASOPHILS 0.2 % (0-2); EOSINOPHILS 0.9 % (0-7); HEMATOCRIT 26.6 % (42.0-54.0); HEMOGLOBIN 8.3 g/dL (13.5-17.5); IMMATURE GRANULOCYTES 0.2 % (0-5); LYMPHOCYTES 9.6 % (15-50); MCH 26.1 pg (26.0-34.0); MCHC 31.2 g/dL (31.0-37.0); MCV 83.6 fL (80.0-100.0); MEAN PLATELET VOLUME 8.2 fL (7.4-10.4); MONOCYTES 10.1 % (2-11); RBC 3.18 10x6/uL (4.20-6.10); RDW 18.5 % (11.5-14.5); WBC 5.4 10x3/uL (4.8-10.8)
[2018-11-22 07:42] LABS: PLATELET COUNT 147 10x3/uL (130-400)
[2018-11-22 07:47] LABS: ANION GAP 13.3 mmol/L (8-16); CALCIUM 7.9 mg/dL (8.5-10.1); CARBON DIOXIDE 25.7 mmol/L (21.0-32.0); CREATININE - SERUM 1.5 mg/dL (0.6-1.3)
[2018-11-22 08:00] VITALS: BP 90/57
--- NOTE | 2018-11-22 08:09 | NUR ---
SITTING UP IN BED FOR BREAKFAST. DENIES PAIN OR INCREASED SOB. IS THIN AND WEAK. CALL LIGHT IN REACH
--- NOTE | 2018-11-22 12:31 | NUR ---
SITTING UP IN BED NIBBLING AT LUNCH. HAS HAD DIARRHEA TODAY. MED GIVEN TO SLOW DIARRHEA BUT HE STATES HE DOES NOT FEEL GOOD. HAD SOME N/V EARLIER. NO EMESIS NOTED. CALL LIGHT IN REACH
--- NOTE | 2018-11-22 19:40 | NUR ---
PATIENT RECEIVED SITTING UP IN WHEEELCHAIR AT BEDSIDE. FAMILY IN ROOM. ASSESSMENT DONE. NO C/O PAIN OR DISTRESS. CALL LIGHT WITHIN REACH. WILL CONTINUE TO MONITOR.
[2018-11-22 19:48] VITALS: BP 86/56
--- NOTE | 2018-11-23 00:28 | NUR ---
I have reviewed this patient and I concur with the Shift Assessment completed by the Licensed Practical Nurse today this shift.Y
--- NOTE | 2018-11-23 01:12 | NUR ---
PATIENT EYES CLOSED. RESPIRATIONS 18 & EVEN. BED LOW. CALL LIGHT WITHIN REACH. WILL CONTINUE TOO MONITOR.
[2018-11-23 08:14] VITALS: BP 98/60
--- NOTE | 2018-11-23 18:16 | NUR ---
PT RESTING IN BED WITH EYES OPEN CALL LIGHT IN REACH NO PROBLEMS WILL MONITER
--- NOTE | 2018-11-23 19:13 | NUR ---
PATIENT IS RESTING IN HIS BED. BED IS DOWN LOW WITH SIDE RAILS UP X2. CALL LIGHT IS IN REACH.
[2018-11-23 21:00] VITALS: BP 95/43
--- NOTE | 2018-11-23 22:39 | NUR ---
PT IS RESTING QUIETLY IN BED WITH EYES CLOSED. RESPS ARE EVEN AND UNLABORED. NO ACUTE DISTRESS NOTED.
--- NOTE | 2018-11-24 01:15 | NUR ---
PT RESTING QUIETLY IN BED WITH EYES CLOSED. RESPS ARE EVEN AND UNLABORED. NO ACUTE DISTRESS NOTED.
--- NOTE | 2018-11-24 04:55 | NUR ---
RESTING IN BED WITH EYES CLOSED.
[2018-11-24 07:03] LABS: BASOPHILS 0.1 % (0-2); EOSINOPHILS 0.9 % (0-7); HEMATOCRIT 25.5 % (42.0-54.0); HEMOGLOBIN 7.9 g/dL (13.5-17.5); IMMATURE GRANULOCYTES 0.3 % (0-5); LYMPHOCYTES 6.9 % (15-50); MCH 25.8 pg (26.0-34.0); MCV 83.3 fL (80.0-100.0); MEAN PLATELET VOLUME 8.7 fL (7.4-10.4); MONOCYTES 7.6 % (2-11); NEUTROPHILS 84.2 % (40-80); RBC 3.06 10x6/uL (4.20-6.10); RDW 19.3 % (11.5-14.5)
[2018-11-24 07:10] LABS: PLATELET COUNT 181 10x3/uL (130-400); WBC 6.8 10x3/uL (4.8-10.8)
[2018-11-24 08:03] LABS: ANION GAP 14.5 mmol/L (8-16); CALCIUM 8.1 mg/dL (8.5-10.1); CARBON DIOXIDE 24.4 mmol/L (21.0-32.0); CREATININE - SERUM 1.5 mg/dL (0.6-1.3); POTASSIUM - SERUM 3.9 mmol/L (3.5-5.1)
--- NOTE | 2018-11-24 09:51 | NUR ---
PT AM MEDS ADMINISTERED. PT DENIES NEEDS. WCTM.
--- NOTE | 2018-11-24 12:30 | NUR ---
PT SITTING UP FOR LUNCH, DENIES NEEDS. WCTM.
[2018-11-24 14:56] VITALS: BP 89/54
--- NOTE | 2018-11-24 19:45 | NUR ---
PT LYING IN BED WATCHING TV. CALL LIGHT IN REACH. DENIES NEEDS OR PAIN AT THIS TIME. DOES COMPLAIN OF BURNING AND ITCHING IN PENIS. PT GIVEN NIKI TO APPLY TO AREA. NOTE LEFT FOR DOC. BED IN LOW. SIDE RAILS X2. A/O X4. TELEMETRY ON. O2 ON 2L. RESP EVEN AND UNLABORED. LUNGS CLEAR. BOWEL ACTIVE X4. WILL CONTINUE TO MONITOR. VITALS WNL.
[2018-11-24 19:52] VITALS: BP 102/65
--- NOTE | 2018-11-25 00:22 | NUR ---
AWAKE AND RESTING IN BED. SAT ON SIDE OF BED BRIEFLY THEN LAYED BACK DOWN. RESPIRATIONS UNLABORED. O2 ON PER NASAL CANNULA. TELEMETRY WITH CAF. CALL LIGHT IN REACH.
--- NOTE | 2018-11-25 03:11 | NUR ---
PT RESTING QUIETLY. CALL LIGHT IN REACH. NO SIGNS OF DISTRESS OR PAIN. TELEMETRY ON. WCTM. EYES CLOSED.
[2018-11-25 08:00] VITALS: BP 95/58
--- NOTE | 2018-11-25 08:00 | NUR ---
SHIFT ASSMT COMPLETED.
--- NOTE | 2018-11-25 12:38 | NUR ---
ALERT AND ORIENTED THIS MORNING. UP IN WHEELCHAIR FOR MOST OF THE MORNING. DAUGHTER CAME IN AND TOOK HIM OUTSIDE. NO COMPLAINTS OF PAIN OR DISCOMFORT. ATE 60% OF LUNCH. IN BED RESTING AT THIS TIME. WILL CONTINUE TO MONITOR. CALL LIGHT WITHIN REACH.
--- NOTE | 2018-11-25 19:40 | NUR ---
PT RESTING IN A WC AT HIS BEDSIDE WATCHING TV. ALERT AND ORIENTED X 3. DENIES ACUTE DISCOMFORT. PT REQUESTED AND MEDICATED WITH HIS HS MEDS EARLY, STATING HE WANTED TO GET SOME GOOD SLEEP TONIGHT. SR'S ARE UP X 2 IN BED. CALL LIGHT AND BEDSIDE TABLE ARE WITHIN EASY REACH.
[2018-11-25 20:00] VITALS: BP 99/44
--- NOTE | 2018-11-25 23:10 | NUR ---
RESTING QUIETLY IN BED WITH EYES CLOSED.
--- NOTE | 2018-11-26 02:43 | NUR ---
CONTINUES RESTING IN BED WITH NO DISTRESS NOTED. CALL LIGHT IN REACH.
[2018-11-26 07:55] VITALS: BP 94/58
--- NOTE | 2018-11-26 08:01 | NUR ---
PATIENT IS ALERT/ORIENT. SITTING UP IN WHEELCHAIR TO EAT BREAKFAST. CALL LIGHT WITHIN REACH. VOICES NO NEEDS AT THIS TIME. WILLC CONTINUE WITH PLAN OF CARE
--- NOTE | 2018-11-26 10:10 | NUR ---
PATIENT IN REHAB ROOM. WORKING WITH PHYSICAL THERAPIST. DENIES ANY PAIN/DISC AT THIS TIME.
--- NOTE | 2018-11-26 13:45 | NUR ---
Nutrition Follow Up: Pt was asleep at the time of RD visit. Interview deferred at this time. Diet: Regular PO Intake: 33% meal avg - po intake improving some BM: 11/24/18 Labs reviewed Meds noted including Megace, Lasix Rec continue current diet. RD following.
--- NOTE | 2018-11-26 14:49 | NUR ---
PATIENT RESTING IN BED AFTER THERAPY. CALL LIGHT WITHIN REACH
--- NOTE | 2018-11-26 17:47 | NUR ---
PATIENT SITTING UP IN BED TO EAT SUPPER. CALL LIGHT WITHIN REACH. VOICES NO NEEDS AT THIS TIME.
[2018-11-26 19:00] VITALS: BP 103/71
--- NOTE | 2018-11-26 19:41 | NUR ---
PT IS RESTING IN BED WITH EYES OPEN. ALERT AND ORIENTED X 3. PT STATED HE WAS HAVING A GOOD DAY, AND WAS LOOKING FORWARD TO GOING HOME [place]. TELEMETRY UNIT IS ON AND INTACT. PT DENIES ACUTE PAIN OR DISCOMFORT. NO NEEDS VOICED. SR'S ARE UP X 2 IN BED. CALL LIGHT AND BEDSIDE TABLE ARE WITHIN EASY REACH.
--- NOTE | 2018-11-26 22:17 | NUR ---
PT IS RESTING QUIETLY IN BED WITH EYES CLOSED. RESPS ARE EVEN AND UNLABORED. NO ACUTE DISTRESS NOTED.
--- NOTE | 2018-11-27 01:37 | NUR ---
RESTING IN BED WITH EYES CLOSED.
--- NOTE | 2018-11-27 04:16 | NUR ---
PT IN BED LOW POSITION, EYES CLOSED, AROUSES EASILY TO VOICE, NO NEEDS NOTED, FLUIDS AND CALL LIGHT WITHIN REACH
[2018-11-27 07:05] LABS: BASOPHILS 0.1 % (0-2); EOSINOPHILS 1.2 % (0-7); HEMATOCRIT 24.5 % (42.0-54.0); HEMOGLOBIN 7.7 g/dL (13.5-17.5); IMMATURE GRANULOCYTES 0.4 % (0-5); LYMPHOCYTES 7.9 % (15-50); MCHC 31.4 g/dL (31.0-37.0); MCV 82.8 fL (80.0-100.0); MEAN PLATELET VOLUME 8.6 fL (7.4-10.4); MONOCYTES 6.2 % (2-11); NEUTROPHILS 84.2 % (40-80); PLATELET COUNT 159 10x3/uL (130-400); RBC 2.96 10x6/uL (4.20-6.10); RDW 19.7 % (11.5-14.5); WBC 7.6 10x3/uL (4.8-10.8)
[2018-11-27 08:00] VITALS: BP 98/66
--- NOTE | 2018-11-27 08:08 | NUR ---
SITTING ON SIDE OF BED WAITING ON BREAKFAST. DENIES NEEDS, PAIN OR INCREASED SOB. USES URINAL AT BEDSIDE. CALL LIGHT IN REACH
--- NOTE | 2018-11-27 09:36 | RHP ---
PATIENT: REBEKAH JAMIL MEDICAL RECORD: [id number] ACCOUNT: [id number] LOCATION:[facility]1115 : 31 ADMISSION DATE: 11/14/18 REHABILITATION HISTORY AND PHYSICAL EXAMINATION POST ADMISSION PHYSICIAN EXAMINATION ADMITTING DIAGNOSIS: Disuse myopathy. HISTORY OF PRESENT ILLNESS: The patient was admitted to the inpatient rehab with a neurological condition of disuse myopathy. He is an 88-year-old male who presented with hypertension, hyperlipidemia, coronary artery disease, valvular heart disease, status post aortic valve replacement, pacemaker placement, diabetes, history of BPH and GI bleed that he presented to the ER on 11/08/2018 with complaint of shortness of breath and weakness. He was in the hospital from 11/03/2018 to 11/06/2018. He was treated for acute systolic congestive heart failure and pneumonia. He was admitted to the acute hospital with hospital-acquired pneumonia, tested positive for influenza A on admit. He also has a new onset AFib. It has been uncontrolled at times. He does have a right lower lobe infiltrate Also. He is currently on telemetry, supplemental O2, IV Lasix, updrafts, deconditioning, debility, proximal muscle weakness, dyspnea on exertion, high fall risk, and self-care deficits. These are all barriers to his discharge home. At this time, he lives at home with an adult friend and was moderately independent with use of rolling walker and independent with ADLs, currently set up for mod assist with his ADLs and mod assist to max assist for mobility. Plans to return home at his prior level of function or better after his inpatient stay. COMORBIDITIES: In this patient include [id number] congestive heart failure, mild mitral regurg, severe tricuspid regurg, atrial fibrillation, hypertension, hyperlipidemia, coronary artery disease, valvular heart disease, status post AVR, status post pacemaker placement, diabetes, BPH, history of gastric bleeding, hospital-acquired pneumonia, bilateral pleural effusions, myelodysplasia, neuropathy, hearing deficits, BPH, chronic kidney disease, influenza type A, microcytic anemia. PAST MEDICAL HISTORY: Significant for cataracts, dentures, hearing aids, diabetes, hypertension, CHF, stent placement, pacemaker, aortic valve replacement, pneumonia. He has had tick fever. He has had acid reflux, GI bleed, and arthritis. PAST SURGICAL HISTORY: Includes gallbladder surgery, cataract surgery. He has had cystoscopy in the past, hip replacement, stents and angioplasty, and pacemaker placement. ALLERGIES: No known drug allergies. CURRENT MEDICATIONS: Include Pravachol 80 mg daily, potassium 20 mEq daily, Levaquin 500 mg daily, furosemide 40 mg daily, folic acid 0.4 mg daily, Flonase nasal spray daily, Proscar 5 mg daily, Pepcid 40 mg daily, Plavix 75 mg daily, aspirin 81 mg daily, ascorbic acid 500 mg daily, Niferex 1 cap b.i.d., Flomax 0.4 mg b.i.d., Tamiflu 75 b.i.d., Zofran 4 mg every 8 hours p.r.n., melatonin 9 mg at bedtime, and Mucinex 600 mg b.i.d. HABITS: No alcohol or tobacco use. HISTORY AND PHYSICAL [id number] REBEKAH JAMIL FAMILY HISTORY: Noncontributory. SOCIAL HISTORY: The patient hopes to return back home and get back to his prior level of functioning. REVIEW OF SYSTEMS: GENERAL: Does complain of weakness and fatigue. HEENT: Denies cold, cough, or congestion. CARDIOVASCULAR: Denies chest pain. PHYSICAL EXAMINATION: VITAL SIGNS: Stable, afebrile. GENERAL: Elderly gentleman, in no acute distress, alert upon exam. HEENT: Normocephalic and atraumatic. Mucosa moist. NECK: Supple. No lymphadenopathy. LUNGS: Clear in upper gardner, although he does have decreased breath sounds in right base. HEART: Irregular rate and rhythm. ABDOMEN: Benign. EXTREMITIES: No clubbing, cyanosis or edema. NEUROLOGIC: Noted to have weakness. ASSESSMENT: This is an 88-year-old gentleman admitted to the rehab with a working diagnosis of disuse myopathy. The patient has potential to make improvement. We instituted the following multidisciplinary therapies include, but not limited to physical, occupational, respiratory, speech, nutritional services, prosthetics and orthotics. Given his complex medical condition and risk for more complications, rehabilitation services cannot be provided at a low level of care such a skilled nurse facility. PLAN: 1. Admit to [facility] for intensive inpatient therapy to include the following disciplines: A. Physical therapy to improve gait, all transfer skills and bed mobility to a modified independent level. B. Occupational therapy to a modified independent level. C. Case management to assist with discharge planning and placement options. D. Nutrition to assist with nutritional needs. E. Rehabilitation nursing to assist in monitoring the patient's underlying medical conditions and to assist with any type of bowel or bladder management. 2. The patient's current medication and medical care will be continued. 3. The patient will be placed on standard fall precautions. 4. The patient's estimated length of stay is approximately 7-10 days. 5. We will discuss this patient during care team staff meeting this week. TRANSINT:[id number] Voice Confirmation ID: [id number] DOCUMENT ID: [id number] CAM[place] notes whether there has been none or any medical/functional change since admission: - No change since pre-admission screen. [place] attests patient continues to be appropriate for IRF: - Continues to be appropriate. HISTORY AND PHYSICAL [id number] REBEKAH JAMIL,DEBORAH KING MD at 0936 CC: [id number] DICTATION DATE: 11/15/18 0857 ANNOUNCER: 11/15/18 0931 ADM IN [place] [id number] [place] [id number]
--- NOTE | 2018-11-27 10:02 | NUR ---
PATIENT DISCHARGING HOME TODAY WITH FAMILY. [employer] [facility] WILL PROVIDE THERAPY AT HOME. [facility] WILL PROVIDE HOME AND PORTABLE O2 TO PATIENT. DR. KRISHNAMURTHY/SALLY FERMIN 12/04/18 @ 9:30, DR. SHEARER 12/03/18 @ 10:15, DR. MATTA 01/31/19 @ 9:50. PATIENT CHOICE FORM AND IMFM FORMS SIGNED, COPY GIVEN TO PATIENT AND FILED IN CHART. DISCHARGE INSTRUCTIONS WITH [facility] DATA FAXED TO PCP, HOME HEALTH AND REVIEWED WITH PATIENT AND FAMILY
--- NOTE | 2018-11-27 12:22 | NUR ---
SITTING IN WC IN ROOM WATCHING TV. TELEMETRY IN PLACE. HE DENIES NEEDS AND CALL LIGHT IN REACH
--- NOTE | 2018-11-27 14:15 | NUR ---
DC HOME WITH ALL PERSONAL BELONGINGS. DTR IN ROOM WITH PT TO TAKE HIM HOME. PT'S OXYGEN TANK IN ROOM. SHE DENIES NEEDING ANY MEDS CALLED IN FOR PT STATING HE HAD ALL MEDS IN CORRECT DOSES AT HOME. REVIEWED MEDS, DC PLAN AND FOLLOW UP APPTS. LEFT FLOOR ON OXYGEN IN A WC.
== END 2018-11-27 14:15 | disposition home health service (06) | DRG 91 ==
LOC: D.REHAB 17:41
PROVIDERS: ADMIT Emergency Medicine; ATTEND Emergency Medicine
DX: G72.89 Other specified myopathies (principal); I50.23 Acute on chronic systolic (congestive) heart failure; J18.9 Pneumonia, unspecified organism; J09.X1 Influenza due to identified novel influenza A virus with pneumonia; I13.0 Hypertensive heart and chronic kidney disease with heart failure and stage 1 through stage 4 chronic kidney disease, or unspecified chronic kidney disease; N17.9 Acute kidney failure, unspecified; I42.9 Cardiomyopathy, unspecified; I25.10 Atherosclerotic heart disease of native coronary artery without angina pectoris; Z95.2 Presence of prosthetic heart valve; Z95.0 Presence of cardiac pacemaker; I34.0 Nonrheumatic mitral (valve) insufficiency; I07.1 Rheumatic tricuspid insufficiency; N40.0 Benign prostatic hyperplasia without lower urinary tract symptoms; Y95 Nosocomial condition; D50.9 Iron deficiency anemia, unspecified; E11.40 Type 2 diabetes mellitus with diabetic neuropathy, unspecified; E11.22 Type 2 diabetes mellitus with diabetic chronic kidney disease; N18.9 Chronic kidney disease, unspecified; D46.9 Myelodysplastic syndrome, unspecified; I48.91 Unspecified atrial fibrillation; E78.5 Hyperlipidemia, unspecified; J43.9 Emphysema, unspecified

== ENCOUNTER → 2018-11-30 14:27 | Outpatient (CLI) | payer MEDICARE, BC ==
[~2018-11-30 14:27] MED LIST changes: +RANEXA500 MG PO
[2018-11-30 16:04] LABS: BASOPHILS 0.1 % (0-2); EOSINOPHILS 1.4 % (0-7); HEMOGLOBIN 7.5 g/dL (13.5-17.5); IMMATURE GRANULOCYTES 0.3 % (0-5); LYMPHOCYTES 6.8 % (15-50); MCH 26.3 pg (26.0-34.0); MCHC 31.3 g/dL (31.0-37.0); MCV 84.2 fL (80.0-100.0); MEAN PLATELET VOLUME 9.1 fL (7.4-10.4); MONOCYTES 6.8 % (2-11); NEUTROPHILS 84.6 % (40-80); PLATELET COUNT 154 10x3/uL (130-400); RBC 2.85 10x6/uL (4.20-6.10); WBC 7.8 10x3/uL (4.8-10.8)
== END | disposition home or self-care (01) ==
LOC: D.LAB 14:27
PROVIDERS: Legal Medicine
DX: D46.9 Myelodysplastic syndrome, unspecified (principal)

== ENCOUNTER → 2018-12-04 09:05 | Outpatient (CLI) | payer MEDICARE, BC ==
[~2018-12-04 09:05] MED LIST changes: -RANEXA500 MG PO
== END | disposition home or self-care (01) ==
LOC: D.OPS 09:05
PROVIDERS: ATTEND Legal Medicine
DX: D64.9 Anemia, unspecified (principal); R60.9 Edema, unspecified; R53.83 Other fatigue; R53.1 Weakness; D46.9 Myelodysplastic syndrome, unspecified; I49.5 Sick sinus syndrome

== ENCOUNTER 2018-12-05 12:58 | Outpatient (CLI) | payer MEDICARE, BC ==
[2018-12-05 13:04] VITALS: BP 93/50; BMI 21.7
--- NOTE | 2018-12-05 17:07 | NUR ---
1610 IV REMOVED FAMILY AT BEDSIDE. POST TRANSFUSION INSTRUCTIONS GIVEN
== END 2018-12-05 16:20 | disposition home or self-care (01) ==
LOC: D.OPS 12:58
PROVIDERS: ATTEND Legal Medicine
DX: D64.9 Anemia, unspecified (principal); R60.9 Edema, unspecified; R53.83 Other fatigue; R53.1 Weakness; D46.9 Myelodysplastic syndrome, unspecified; I49.5 Sick sinus syndrome

== ENCOUNTER → 2018-12-11 14:10 | Outpatient (CLI) | payer MEDICARE, BC ==
[2018-12-05 13:04] VITALS: BMI 21.7
[2018-12-11 14:37] LABS: BASOPHILS 0.3 % (0-2); EOSINOPHILS 2.2 % (0-7); HEMATOCRIT 28.3 % (42.0-54.0); HEMOGLOBIN 8.8 g/dL (13.5-17.5); IMMATURE GRANULOCYTES 0.1 % (0-5); LYMPHOCYTES 10.7 % (15-50); MCH 27.5 pg (26.0-34.0); MCHC 31.1 g/dL (31.0-37.0); MCV 88.4 fL (80.0-100.0); MEAN PLATELET VOLUME 9.3 fL (7.4-10.4); MONOCYTES 5.8 % (2-11); NEUTROPHILS 80.9 % (40-80); PLATELET COUNT 261 10x3/uL (130-400); RDW 19.8 % (11.5-14.5); WBC 7.4 10x3/uL (4.8-10.8)
== END | disposition home or self-care (01) ==
LOC: D.LABREF 14:10
PROVIDERS: ATTEND Legal Medicine
DX: I25.10 Atherosclerotic heart disease of native coronary artery without angina pectoris (principal); I09.81 Rheumatic heart failure; N18.9 Chronic kidney disease, unspecified

== ENCOUNTER → 2018-12-18 18:31 | Outpatient (CLI) | payer MEDICARE, BC ==
[2018-12-05 13:04] VITALS: BMI 21.7
[2018-12-18 19:32] LABS: BASOPHILS 0.2 % (0-2); EOSINOPHILS 1.8 % (0-7); HEMATOCRIT 30.9 % (42.0-54.0); HEMOGLOBIN 9.6 g/dL (13.5-17.5); IMMATURE GRANULOCYTES 0.5 % (0-5); LYMPHOCYTES 10.9 % (15-50); MCH 27.4 pg (26.0-34.0); MCHC 31.1 g/dL (31.0-37.0); MCV 88.3 fL (80.0-100.0); MEAN PLATELET VOLUME 9.5 fL (7.4-10.4); MONOCYTES 7.7 % (2-11); NEUTROPHILS 78.9 % (40-80); PLATELET COUNT 278 10x3/uL (130-400); RDW 19.5 % (11.5-14.5); WBC 8.7 10x3/uL (4.8-10.8)
== END | disposition home or self-care (01) ==
LOC: D.LABREF 18:31
PROVIDERS: ATTEND Legal Medicine
DX: D46.9 Myelodysplastic syndrome, unspecified (principal)

== ENCOUNTER → 2018-12-24 18:08 | Outpatient (CLI) | payer MEDICARE, BC ==
[2018-12-05 13:04] VITALS: BMI 21.7
[2018-12-24 18:37] LABS: BASOPHILS 0.6 % (0-2); EOSINOPHILS 2.7 % (0-7); HEMATOCRIT 30.5 % (42.0-54.0); HEMOGLOBIN 9.5 g/dL (13.5-17.5); IMMATURE GRANULOCYTES 0.4 % (0-5); LYMPHOCYTES 12.1 % (15-50); MCH 27.5 pg (26.0-34.0); MCHC 31.1 g/dL (31.0-37.0); MCV 88.4 fL (80.0-100.0); MEAN PLATELET VOLUME 9.2 fL (7.4-10.4); MONOCYTES 6.2 % (2-11); PLATELET COUNT 226 10x3/uL (130-400); RBC 3.45 10x6/uL (4.20-6.10); RDW 19.6 % (11.5-14.5); WBC 8.9 10x3/uL (4.8-10.8)
== END | disposition home or self-care (01) ==
LOC: D.LABREF 18:08
PROVIDERS: ATTEND Legal Medicine
DX: I25.10 Atherosclerotic heart disease of native coronary artery without angina pectoris (principal); I13.0 Hypertensive heart and chronic kidney disease with heart failure and stage 1 through stage 4 chronic kidney disease, or unspecified chronic kidney disease; I50.23 Acute on chronic systolic (congestive) heart failure; N18.9 Chronic kidney disease, unspecified

== ENCOUNTER → 2019-01-01 14:27 | Outpatient (CLI) | payer MEDICARE, BC ==
[2018-12-05 13:04] VITALS: BMI 21.7
[2019-01-01 14:33] LABS: BASOPHILS 0.2 % (0-2); EOSINOPHILS 2.1 % (0-7); HEMATOCRIT 32.5 % (42.0-54.0); HEMOGLOBIN 10.1 g/dL (13.5-17.5); IMMATURE GRANULOCYTES 0.6 % (0-5); LYMPHOCYTES 9.5 % (15-50); MCH 27.7 pg (26.0-34.0); MCHC 31.1 g/dL (31.0-37.0); MCV 89.3 fL (80.0-100.0); MEAN PLATELET VOLUME 9.4 fL (7.4-10.4); MONOCYTES 5.9 % (2-11); NEUTROPHILS 81.7 % (40-80); PLATELET COUNT 186 10x3/uL (130-400); RBC 3.64 10x6/uL (4.20-6.10); RDW 19.4 % (11.5-14.5); WBC 9.5 10x3/uL (4.8-10.8)
== END | disposition home or self-care (01) ==
LOC: D.LABREF 14:27
PROVIDERS: ATTEND Legal Medicine
DX: I25.10 Atherosclerotic heart disease of native coronary artery without angina pectoris (principal); I13.0 Hypertensive heart and chronic kidney disease with heart failure and stage 1 through stage 4 chronic kidney disease, or unspecified chronic kidney disease; I48.91 Unspecified atrial fibrillation; I50.23 Acute on chronic systolic (congestive) heart failure

== ENCOUNTER → 2019-01-07 15:44 | Outpatient (CLI) | payer MEDICARE, BC ==
[2019-01-07 16:08] LABS: BASOPHILS 0.3 % (0-2); HEMATOCRIT 28.2 % (42.0-54.0); HEMOGLOBIN 8.8 g/dL (13.5-17.5); IMMATURE GRANULOCYTES 0.3 % (0-5); LYMPHOCYTES 9.6 % (15-50); MCH 28.1 pg (26.0-34.0); MCHC 31.2 g/dL (31.0-37.0); MCV 90.1 fL (80.0-100.0); MEAN PLATELET VOLUME 9.3 fL (7.4-10.4); NEUTROPHILS 81.8 % (40-80); PLATELET COUNT 195 10x3/uL (130-400); RBC 3.13 10x6/uL (4.20-6.10); WBC 7.6 10x3/uL (4.8-10.8)
== END | disposition home or self-care (01) ==
LOC: D.LABREF 15:44
PROVIDERS: ATTEND Legal Medicine
DX: I25.10 Atherosclerotic heart disease of native coronary artery without angina pectoris (principal); E11.22 Type 2 diabetes mellitus with diabetic chronic kidney disease; N18.9 Chronic kidney disease, unspecified; I50.23 Acute on chronic systolic (congestive) heart failure

== ENCOUNTER → 2019-01-15 16:58 | Outpatient (CLI) | payer MEDICARE, BC ==
[2019-01-15 18:07] LABS: BASOPHILS 0.2 % (0-2); EOSINOPHILS 2.2 % (0-7); HEMATOCRIT 31.6 % (42.0-54.0); HEMOGLOBIN 9.7 g/dL (13.5-17.5); IMMATURE GRANULOCYTES 0.2 % (0-5); LYMPHOCYTES 14.9 % (15-50); MCH 28.1 pg (26.0-34.0); MCHC 30.7 g/dL (31.0-37.0); MCV 91.6 fL (80.0-100.0); MEAN PLATELET VOLUME 9.6 fL (7.4-10.4); MONOCYTES 6.1 % (2-11); NEUTROPHILS 76.4 % (40-80); PLATELET COUNT 213 10x3/uL (130-400); RBC 3.45 10x6/uL (4.20-6.10); RDW 18.2 % (11.5-14.5); WBC 8.4 10x3/uL (4.8-10.8)
== END | disposition home or self-care (01) ==
LOC: D.LABREF 16:58
PROVIDERS: ATTEND Legal Medicine
DX: I25.10 Atherosclerotic heart disease of native coronary artery without angina pectoris (principal); I09.81 Rheumatic heart failure; I50.23 Acute on chronic systolic (congestive) heart failure; N18.9 Chronic kidney disease, unspecified

== ENCOUNTER → 2019-01-23 16:26 | Outpatient (CLI) | payer MEDICARE, BC ==
[2019-01-23 16:48] LABS: BASOPHILS 0.3 % (0-2); IMMATURE GRANULOCYTES 0.3 % (0-5); LYMPHOCYTES 11.7 % (15-50); MCH 27.9 pg (26.0-34.0); MCHC 30.8 g/dL (31.0-37.0); MCV 90.6 fL (80.0-100.0); MEAN PLATELET VOLUME 9.1 fL (7.4-10.4); MONOCYTES 5.6 % (2-11); NEUTROPHILS 80.1 % (40-80); PLATELET COUNT 175 10x3/uL (130-400); RBC 2.65 10x6/uL (4.20-6.10); RDW 18.3 % (11.5-14.5); WBC 7.1 10x3/uL (4.8-10.8)
[2019-01-23 16:52] LABS: HEMOGLOBIN 7.4 g/dL (13.5-17.5)
== END | disposition home or self-care (01) ==
LOC: D.LABREF 16:26
PROVIDERS: ATTEND Legal Medicine
DX: I25.10 Atherosclerotic heart disease of native coronary artery without angina pectoris (principal); I13.0 Hypertensive heart and chronic kidney disease with heart failure and stage 1 through stage 4 chronic kidney disease, or unspecified chronic kidney disease

== ENCOUNTER 2019-01-24 14:00 | Outpatient (CLI) | payer MEDICARE, BC ==
[~2019-01-24] VITALS: Ht 182.9 cm; Wt 77.7 kg
[2019-01-24 15:48] VITALS: BP 93/55; Ht 182.9 cm; Wt 77.7 kg
--- NOTE | 2019-01-24 18:13 | NUR ---
1800 ATE 100% REG DIET SERVED. 1ST UNIT BLOOD HAS COMPLETED LINE BEING FLUSHED WITH NS. 1810 2ND UNIT CHECKED AT BEDSIDE BY THIS NURSE AND JUAN MARCELO RN INITIATED AT 50/CC/HR
--- NOTE | 2019-01-24 19:41 | NUR ---
1939 BLOOD HAS COMPLETED, LINE BEING FLUSHED WITH NS. DAUGHTER AT SIDE. PT. DENIED PROBLEMS WITH TRANSFUSION. STATES FEELING BETTER.
--- NOTE | 2019-01-24 20:31 | NUR ---
2010 NO PROBLEMS WITH TRANSFUSION. IV DC'D WITH CATH INTACT DC INSTS GIVEN RELEASED WITH DAUGHTER IN WC.
== END 2019-01-24 20:15 | disposition home or self-care (01) ==
LOC: D.OPS 14:00
PROVIDERS: ATTEND Legal Medicine
DX: D64.9 Anemia, unspecified (principal); R60.9 Edema, unspecified; R53.83 Other fatigue; R53.1 Weakness; D46.9 Myelodysplastic syndrome, unspecified; I49.5 Sick sinus syndrome

== ENCOUNTER → 2019-01-28 16:20 | Outpatient (CLI) | payer MEDICARE, BC ==
[2019-01-24 15:48] VITALS: BMI 23.2
[2019-01-28 20:55] LABS: BASOPHILS 0.4 % (0-2); EOSINOPHILS 2.4 % (0-7); HEMATOCRIT 29.9 % (42.0-54.0); HEMOGLOBIN 9.2 g/dL (13.5-17.5); IMMATURE GRANULOCYTES 0.5 % (0-5); LYMPHOCYTES 13.8 % (15-50); MCH 28.9 pg (26.0-34.0); MCHC 30.8 g/dL (31.0-37.0); MEAN PLATELET VOLUME 9.1 fL (7.4-10.4); MONOCYTES 6.9 % (2-11); PLATELET COUNT 187 10x3/uL (130-400); RBC 3.18 10x6/uL (4.20-6.10); RDW 17.7 % (11.5-14.5); WBC 7.9 10x3/uL (4.8-10.8)
== END | disposition home or self-care (01) ==
LOC: D.LABREF 16:20
PROVIDERS: ATTEND Legal Medicine
DX: I50.9 Heart failure, unspecified (principal); E11.22 Type 2 diabetes mellitus with diabetic chronic kidney disease; I25.10 Atherosclerotic heart disease of native coronary artery without angina pectoris; I13.0 Hypertensive heart and chronic kidney disease with heart failure and stage 1 through stage 4 chronic kidney disease, or unspecified chronic kidney disease

== ENCOUNTER → 2019-02-11 22:08 | Outpatient (CLI) | payer MEDICARE, BC ==
[2019-01-24 15:48] VITALS: BMI 23.2
[2019-02-11 22:25] LABS: BASOPHILS 0.3 % (0-2); EOSINOPHILS 2.4 % (0-7); IMMATURE GRANULOCYTES 0.7 % (0-5); LYMPHOCYTES 15.5 % (15-50); MCH 29.5 pg (26.0-34.0); MCHC 30.6 g/dL (31.0-37.0); MCV 96.4 fL (80.0-100.0); MONOCYTES 6.6 % (2-11); NEUTROPHILS 74.5 % (40-80); PLATELET COUNT 197 10x3/uL (130-400); RDW 17.6 % (11.5-14.5); WBC 5.9 10x3/uL (4.8-10.8)
[2019-02-11 22:49] LABS: HEMATOCRIT 18.6 % (42.0-54.0); HEMOGLOBIN 5.7 g/dL (13.5-17.5); RBC 1.93 10x6/uL (4.20-6.10)
== END | disposition home or self-care (01) ==
LOC: D.LABREF 22:08
PROVIDERS: ATTEND Family Medicine
DX: I25.10 Atherosclerotic heart disease of native coronary artery without angina pectoris (principal)

== ENCOUNTER 2019-02-12 12:11 | Outpatient (CLI) | payer MEDICARE, BC ==
[~2019-02-12] VITALS: Ht 182.9 cm; Wt 79.5 kg
[2019-02-12 13:35] VITALS: BP 82/51; Ht 182.9 cm; Wt 79.5 kg
--- NOTE | 2019-02-12 18:33 | NUR ---
1500 REPORT FROM ABBIE MAYEN RN. BLOOD INFUSING AT 250/CC/HR. PT DENIES Annabella ANG. WATCHING TV. 1617 1ST UNIT BLOOD COMPLETED LINE BEING FLUSHED WITH NS. 1630 2ND UNIT BLOOD CHECKED AT BEDSIDE BY THIS NURSE AND KATHIE DANGELO RN, INITIATED AT 50/CC/HR. 1645 DENIES PROBLEMS, RATE INCREASED TO 200/CC/HR. LEMON HOH SERVED. 1715 DOSING. 1810 BLOOD COMPLETED, LINE BEING FLUSHED WITH NS. 1830 IV DC'D WITH CATH INTACT DC INSTS GIVEN RELEASED IN WC WITH FAMILY.
== END 2019-02-12 18:40 | disposition home or self-care (01) ==
LOC: D.OPS 12:11
DX: D64.9 Anemia, unspecified (principal)

== ENCOUNTER → 2019-02-18 15:38 | Outpatient (CLI) | payer MEDICARE, BC ==
[2019-02-12 13:35] VITALS: BMI 23.8
[2019-02-18 16:08] LABS: BASOPHILS 0.1 % (0-2); EOSINOPHILS 1.7 % (0-7); IMMATURE GRANULOCYTES 0.1 % (0-5); LYMPHOCYTES 8.8 % (15-50); MCH 28.6 pg (26.0-34.0); MCHC 29.6 g/dL (31.0-37.0); MCV 96.5 fL (80.0-100.0); MEAN PLATELET VOLUME 9.4 fL (7.4-10.4); MONOCYTES 4.6 % (2-11); NEUTROPHILS 84.7 % (40-80); PLATELET COUNT 186 10x3/uL (130-400); RBC 2.59 10x6/uL (4.20-6.10); RDW 17.3 % (11.5-14.5); WBC 7.5 10x3/uL (4.8-10.8)
[2019-02-18 16:19] LABS: HEMOGLOBIN 7.4 g/dL (13.5-17.5)
== END | disposition home or self-care (01) ==
LOC: D.LABREF 15:38
PROVIDERS: ATTEND Legal Medicine
DX: I25.10 Atherosclerotic heart disease of native coronary artery without angina pectoris (principal); N18.9 Chronic kidney disease, unspecified; I50.23 Acute on chronic systolic (congestive) heart failure; E11.22 Type 2 diabetes mellitus with diabetic chronic kidney disease

== ENCOUNTER 2019-02-19 09:06 | Outpatient (CLI) | payer MEDICARE, BC ==
[~2019-02-19] VITALS: Ht 182.9 cm; Wt 79.5 kg
[2019-02-19 12:32] VITALS: Ht 182.9 cm; Wt 79.5 kg
--- NOTE | 2019-02-19 14:15 | NUR ---
1415 ROOM CHECK, BLOOD INFUSING AT 250/CC/HR. PT. SLEEPING.
--- NOTE | 2019-02-19 14:27 | NUR ---
1425 ROOM CHECK, BLOOD INFUSING WITHOOUT PROBLEMS. PT. AWAKE, DENIES PROBLEMS.
--- NOTE | 2019-02-19 14:39 | NUR ---
1435 URINAL GIVEN, BLOOD NEAR COMPLETED. DENIES PROBLEMS
--- NOTE | 2019-02-19 15:17 | NUR ---
1458 1ST UNIT BLOOD HAS COMPLETED, LINE BEING FLUSHED WITH NS. 1510 2ND UNIT BLOOD CHECKED AT BEDSIDE BY THIS NURSE AND WILVER GARCIA RN, INITIATED AT 50/CC/HR. DENIES PROBLEMS. HAS FAMILY AT BEDSIDE.
--- NOTE | 2019-02-19 15:32 | NUR ---
1525 DENIES PROBLEMS WITH TRANSFUSION, RATE INCREASED TO 200/CC/HR. FAMILY AT BEDSIDE.
--- NOTE | 2019-02-19 15:48 | NUR ---
1549 ROOM CHECK, DENIES PROBLEMS RATE INCREASED TO 250/CC/HR. FAMILY AT SIDE.
--- NOTE | 2019-02-19 16:44 | NUR ---
1642 BLOOD NEAR COMPLETION.
--- NOTE | 2019-02-19 18:07 | NUR ---
1658 BLOOD HAS COMPLETED LINE BEING FLUSHED WITH NS 1745 IV DC'D WITH CATH INTACT PT VOIDS IDC INSTS GIVEN RELEASED IN WC WITH SONS.
== END 2019-02-19 18:00 | disposition home or self-care (01) ==
LOC: D.OPS 09:06
PROVIDERS: ATTEND Legal Medicine
DX: D64.9 Anemia, unspecified (principal)

== ENCOUNTER → 2019-02-25 19:24 | Outpatient (CLI) | payer MEDICARE, BC ==
[2019-02-19 12:32] VITALS: BMI 23.8
[2019-02-25 21:18] LABS: BASOPHILS 0.4 % (0-2); EOSINOPHILS 3.2 % (0-7); HEMATOCRIT 25.2 % (42.0-54.0); HEMOGLOBIN 7.8 g/dL (13.5-17.5); IMMATURE GRANULOCYTES 0.4 % (0-5); LYMPHOCYTES 12.9 % (15-50); MCH 29.3 pg (26.0-34.0); MCV 94.7 fL (80.0-100.0); MEAN PLATELET VOLUME 9.1 fL (7.4-10.4); MONOCYTES 7.3 % (2-11); NEUTROPHILS 75.8 % (40-80); PLATELET COUNT 185 10x3/uL (130-400); RBC 2.66 10x6/uL (4.20-6.10); RDW 15.8 % (11.5-14.5); WBC 7.3 10x3/uL (4.8-10.8)
== END | disposition home or self-care (01) ==
LOC: D.LABREF 19:24
PROVIDERS: ATTEND Legal Medicine
DX: I25.10 Atherosclerotic heart disease of native coronary artery without angina pectoris (principal); I13.10 Hypertensive heart and chronic kidney disease without heart failure, with stage 1 through stage 4 chronic kidney disease, or unspecified chronic kidney disease; I50.23 Acute on chronic systolic (congestive) heart failure; N18.9 Chronic kidney disease, unspecified

== ENCOUNTER 2019-02-28 11:15 | Outpatient (CLI) | payer MEDICARE, BC ==
[~2019-02-28] VITALS: Ht 182.9 cm; Wt 85.0 kg
[2019-02-28 12:14] VITALS: BP 81/56; Ht 182.9 cm; Wt 85.0 kg
--- NOTE | 2019-02-28 14:50 | NUR ---
UNIT #1 PRBC'S COMPLETED.
--- NOTE | 2019-02-28 15:00 | NUR ---
UNIT #2 PRBC'S INITIATED VIA PIV. FAMILY AT BEDSIDE.
--- NOTE | 2019-02-28 15:15 | NUR ---
VSS. RATE INCREASED TO 250CC. FAMILY AT BEDSIDE.
--- NOTE | 2019-02-28 16:05 | NUR ---
UNIT #2 PRBC'S COMPLETED.
--- NOTE | 2019-02-28 16:40 | NUR ---
IV DC'D WITH CATHETER INTACT. WRITTEN AND VERBAL DC INST. GIVEN TO PT. VERBALIZED UNDERSTANDING.
--- NOTE | 2019-02-28 16:45 | NUR ---
DC'D HOME WITH FAMILY VIA PRIVATE VEHICLE. STABLE AT TIME OF DC.
== END 2019-02-28 16:45 | disposition home or self-care (01) ==
LOC: D.OPS 11:15
DX: D64.9 Anemia, unspecified (principal)

== ENCOUNTER → 2019-03-04 18:39 | Outpatient (CLI) | payer MEDICARE, BC ==
[2019-02-28 12:14] VITALS: BMI 25.4
[2019-03-04 19:10] LABS: BASOPHILS 0.3 % (0-2); EOSINOPHILS 3.5 % (0-7); HEMATOCRIT 24.6 % (42.0-54.0); HEMOGLOBIN 7.8 g/dL (13.5-17.5); IMMATURE GRANULOCYTES 0.4 % (0-5); LYMPHOCYTES 11.8 % (15-50); MCH 29.2 pg (26.0-34.0); MCHC 31.7 g/dL (31.0-37.0); MCV 92.1 fL (80.0-100.0); MEAN PLATELET VOLUME 9.3 fL (7.4-10.4); MONOCYTES 7.6 % (2-11); NEUTROPHILS 76.4 % (40-80); PLATELET COUNT 193 10x3/uL (130-400); RBC 2.67 10x6/uL (4.20-6.10); RDW 16.2 % (11.5-14.5); WBC 7.2 10x3/uL (4.8-10.8)
== END | disposition home or self-care (01) ==
LOC: D.LABREF 18:39
PROVIDERS: ATTEND Legal Medicine
DX: I25.10 Atherosclerotic heart disease of native coronary artery without angina pectoris (principal); I13.0 Hypertensive heart and chronic kidney disease with heart failure and stage 1 through stage 4 chronic kidney disease, or unspecified chronic kidney disease; I09.81 Rheumatic heart failure; I50.23 Acute on chronic systolic (congestive) heart failure

== ENCOUNTER → 2019-03-11 16:50 | Outpatient (CLI) | payer MEDICARE, BC ==
[2019-02-28 12:14] VITALS: BMI 25.4
[2019-03-11 17:27] LABS: BASOPHILS 0.4 % (0-2); EOSINOPHILS 1.7 % (0-7); HEMATOCRIT 20.3 % (42.0-54.0); IMMATURE GRANULOCYTES 0.3 % (0-5); LYMPHOCYTES 11.3 % (15-50); MCH 28.4 pg (26.0-34.0); MCHC 30.5 g/dL (31.0-37.0); MCV 93.1 fL (80.0-100.0); MEAN PLATELET VOLUME 8.9 fL (7.4-10.4); MONOCYTES 8.8 % (2-11); NEUTROPHILS 77.5 % (40-80); PLATELET COUNT 209 10x3/uL (130-400); RBC 2.18 10x6/uL (4.20-6.10); RDW 16.3 % (11.5-14.5); WBC 7.1 10x3/uL (4.8-10.8)
[2019-03-11 17:42] LABS: HEMOGLOBIN 6.2 g/dL (13.5-17.5)
== END | disposition home or self-care (01) ==
LOC: D.LABREF 16:50
PROVIDERS: ATTEND Legal Medicine
DX: I25.10 Atherosclerotic heart disease of native coronary artery without angina pectoris (principal); I13.0 Hypertensive heart and chronic kidney disease with heart failure and stage 1 through stage 4 chronic kidney disease, or unspecified chronic kidney disease; I50.23 Acute on chronic systolic (congestive) heart failure; I09.81 Rheumatic heart failure

== ENCOUNTER 2019-03-12 09:38 | Outpatient (CLI) | payer MEDICARE, BC ==
[~2019-03-12] VITALS: Ht 182.9 cm; Wt 81.8 kg
[2019-03-12 10:43] VITALS: Ht 182.9 cm; Wt 81.8 kg
--- NOTE | 2019-03-12 11:30 | NUR ---
1120 1ST UNIT BLOOD CHECKED AT BEDSIDE BY THIS NURSE AND Lawrence ESPOSITO RN, INITIATED AT 50/CC/HR VIA ALARIS PUMP. CALL LIGHT AT BEDSIDE. REG DIET HAS BEEN ORDERED. FAMILY AT BEDSIDE.
--- NOTE | 2019-03-12 11:36 | NUR ---
1135 DENIES PROBLEMS WITH TRANSFUSION, RATE INCREASED TO 200/CC/HR 1140 REG DIET SERVED.
--- NOTE | 2019-03-12 12:53 | NUR ---
1250 BLOOD INFUSING, IV SITE PATENT. PT IS ASLEEP. PT VOIDED EARLIER, URINAL WAS EMPTIED. GRANDDAUGHTER AT SIDE.
--- NOTE | 2019-03-12 13:05 | NUR ---
1305 BLOOD NEAR COMPLETION, PT. STILL SLEEPING.
--- NOTE | 2019-03-12 13:35 | NUR ---
1318 1ST UNIT BLOOD COMPLETED LINE BEING FLUSHED WITH NS. 1330 2ND UNIT BLOOD CHECKED AT BEDSIDE BY THIS NURSE AND Lawrence ESPOSITO RN. PT. A/A. DENIED PROBLEMS WITH BLOOD. INITIATED AT 50/CC/HR VIA ALARIS PUMP. BONITA AT BEDSIDE.
--- NOTE | 2019-03-12 13:48 | NUR ---
1345 DENIED PROBLEMS WITH TRANSFUSION, RATE INCREASED TO 200/CC/HR.
--- NOTE | 2019-03-12 14:17 | NUR ---
1415 PT. SLEEPING, NO NOTIBLE PROBLEMS. BONITA AT BEDSIDE. BLOOD INFUSING AT 200/CC/HR BY ALARIS PUMP.
--- NOTE | 2019-03-12 15:14 | NUR ---
1510 BLOOD HAS COMPLETED, LINE BEING FLUSHED WITH NS. DENIES PROBLEMS WITH TRANSFUSION. PT. VOIDS, EMPTIED URINAL OF 200CC. YELLOW URINE.
--- NOTE | 2019-03-12 15:43 | NUR ---
1540 NO PROBLEMS WITH BLOOD, IV DC'D WITH CATH INTACT DC INSTS GIVEN RELEASED IN WC WITH ESCORT.
== END 2019-03-12 15:44 | disposition home or self-care (01) ==
LOC: D.OPS 09:38
PROVIDERS: ATTEND Legal Medicine
DX: D64.9 Anemia, unspecified (principal)

== ENCOUNTER 2019-03-19 08:37 | Inpatient (IN) | payer MEDICARE, BC ==
[~2019-03-19] VITALS: Ht 182.9 cm; Wt 84.1 kg
[2019-03-19] MEDS ORDERED: NIFEREX-150 CAP1 CA3 PO (08:59)
[2019-03-19 09:00] VITALS: BP 94/61
[2019-03-19 09:00] LABS: BASOPHILS 0.1 % (0-2); EOSINOPHILS 2.2 % (0-7); HEMATOCRIT 27.8 % (42.0-54.0); HEMOGLOBIN 8.4 g/dL (13.5-17.5); IMMATURE GRANULOCYTES 0.4 % (0-5); LYMPHOCYTES 9.5 % (15-50); MCH 27.2 pg (26.0-34.0); MCHC 30.2 g/dL (31.0-37.0); MEAN PLATELET VOLUME 9.5 fL (7.4-10.4); MONOCYTES 8.5 % (2-11); NEUTROPHILS 79.3 % (40-80); PLATELET COUNT 194 10x3/uL (130-400); RBC 3.09 10x6/uL (4.20-6.10); RDW 15.8 % (11.5-14.5)
[2019-03-19] MEDS ORDERED: MUCINEX600 MG PO (09:02)
[2019-03-19] MEDS ORDERED: NITROSTAT0.4 MG SL (09:03)
[2019-03-19 09:13] LABS: INR 1.36 (0.85-1.17); PROTIME 16.2 SECONDS (11.6-15.0)
[2019-03-19 09:14] LABS: APTT 35.4 SECONDS (22.8-39.4)
--- NOTE | 2019-03-19 09:28 | NUR ---
PATIENT RESTING ON STRETCHER, SIDE RAILS X 2. NO DISTRESS. STATES PAIN IS BETTER AT A "3" ON 1-10 SCALE. PAIN IS NOW INTERMITTENT.
[2019-03-19 10:09] LABS: ALBUMIN 2.8 g/dL (3.4-5.0); ALKALINE PHOSPHATASE 102 U/L (46-116); ALT (SGPT) 11 U/L (10-68); BILIRUBIN - TOTAL 0.75 mg/dL (0.2-1.3); CALC OSMOLALITY 290 mosm/kg (275-300); CALCIUM 8.6 mg/dL (8.5-10.1); CARBON DIOXIDE 25.1 mmol/L (21.0-32.0); CHLORIDE - SERUM 108 mmol/L (98-107); CREATININE - SERUM 1.7 mg/dL (0.6-1.3); GLUCOSE 111 mg/dL (74-106); POTASSIUM - SERUM 4.3 mmol/L (3.5-5.1); PROTEIN - SERUM 6.3 g/dL (6.4-8.2); SODIUM 142 mmol/L (136-145); UREA NITROGEN 31 mg/dL (7-18); eGFR NON AFRICAN AMERICAN 41 mL/min (90-120)
--- NOTE | 2019-03-19 10:14 | NUR ---
PATIENT RESTING. NO DISTRESS. VSS.
[2019-03-19 10:22] LABS: CKMB 1.6 U/L (0.0-3.6); CREATINE KINASE 34 UL (21-232); MAGNESIUM - SERUM 1.8 mg/dL (1.8-2.4); TROPONIN-I 0.049 ng/mL (0.000-0.060)
[2019-03-19 11:25] VITALS: BP 95/60
--- NOTE | 2019-03-19 11:59 | NUR ---
PT LYING IN BED WITH FAMILY AT BEDSIDE. NO DISTRESS NOTED. DENIES NEEDS AT THIS TIME. VSS.
[2019-03-19 12:25] VITALS: BP 99/75
--- NOTE | 2019-03-19 12:58 | NUR ---
ORDERED PATIENT A LUNCH TRAY. NO ROOM ASSIGNMENT YET. FAMILY AT SIDE. NO DISTRESS. DENIES PAIN.
[2019-03-19 13:34] VITALS: BP 102/64
--- NOTE | 2019-03-19 13:36 | NUR ---
PATIENT EATING PRESCRIBED DIET WITH FAMILY AT SIDE. NO DISTRESS. NO ROOM ASSIGNMENT AT PRESENT.
--- NOTE | 2019-03-19 14:30 | NUR ---
PATIENT UP TO USE COMMODE. PATIENT STATES HE HAD NORMAL BOWEL MOVEMENT, NORMAL IN COLOR AND CONSITENCY. NO CHEST PAIN. VSS. PATIENT ASSISTED TO TOILET AND BACK TO STRETCHER VIA WHEELCHAIR. FAMILY REMAINS AT SIDE.
--- NOTE | 2019-03-19 16:15 | NUR ---
RECIVED FROM ER PER WC TO ROOM 2122. FAMILY AT SIDE. ADMIT ASSESSMENT PER RN
[2019-03-19 16:52] VITALS: BP 100/63; Ht 182.9 cm; Wt 84.1 kg
--- NOTE | 2019-03-19 17:29 | NUR ---
WITHOUT CHANGES OR DISTRESS NOTED AT THIS TIME. DENIES NEEDS
--- NOTE | 2019-03-19 19:15 | NUR ---
PT LAYING IN BED WITH EYES OPEN, HEARING AIDS NOTED. PT IS HARD OF HEARING. AROUSES TO NURSE WHEN SPEAKING LOUD. PT DENIES ANY NEEDS. NO S/S OF DISTRESS. PT WILL CALL FOR ASSIST WHEN NEEDED. NAME AND DATE PLACED ON BOARD. WILL CPOC
[2019-03-19 20:00] VITALS: BP 138/62; BP 98/63
--- NOTE | 2019-03-19 21:56 | NUR ---
PT URINATED 475 OF CLEAR YELLOW URINE. PT TOOK NIGHT MEDICATIONS. VERBALIZED UNDERSTANDING OF MEDICATIONS. DENIES ANY NEEDS. NO S/S OF DISTRESS. STATES NO CHEST PAIN AT THIS TIME JUST MILD DISCOMFORT. DECLINES ANY NITRO OR MEDICATIONS. PT IS AAO. BED LOW AND CALL LIGHT IN REACH. WILL CPOC
[2019-03-20] VITALS: BP 99/64
[2019-03-20 04:00] VITALS: BP 91/61
[2019-03-20 05:37] LABS: BASOPHILS 0.2 % (0-2); EOSINOPHILS 3.9 % (0-7); HEMATOCRIT 25.1 % (42.0-54.0); HEMOGLOBIN 7.8 g/dL (13.5-17.5); IMMATURE GRANULOCYTES 0.2 % (0-5); LYMPHOCYTES 10.5 % (15-50); MCH 27.9 pg (26.0-34.0); MCHC 31.1 g/dL (31.0-37.0); MCV 89.6 fL (80.0-100.0); MONOCYTES 7.2 % (2-11); PLATELET COUNT 166 10x3/uL (130-400); RDW 15.6 % (11.5-14.5); WBC 5.4 10x3/uL (4.8-10.8)
[2019-03-20 06:18] LABS: CALC OSMOLALITY 286 mosm/kg (275-300); CALCIUM 8.4 mg/dL (8.5-10.1); CARBON DIOXIDE 22.1 mmol/L (21.0-32.0); CHLORIDE - SERUM 107 mmol/L (98-107); CKMB 1.5 U/L (0.0-3.6); CREATINE KINASE 28 UL (21-232); CREATININE - SERUM 1.5 mg/dL (0.6-1.3); GLUCOSE 85 mg/dL (74-106); MAGNESIUM - SERUM 1.7 mg/dL (1.8-2.4); PHOSPHOROUS 3.6 mg/dL (2.5-4.9); POTASSIUM - SERUM 3.7 mmol/L (3.5-5.1); SODIUM 141 mmol/L (136-145); TROPONIN-I 0.058 ng/mL (0.000-0.060); UREA NITROGEN 31 mg/dL (7-18); eGFR NON AFRICAN AMERICAN 47 mL/min (90-120)
--- NOTE | 2019-03-20 06:22 | NUR ---
FSBS IS 85 NO INSULIN NEEDED PER SLIDING SCALE.
--- NOTE | 2019-03-20 06:42 | NUR ---
MORNING MEDICATION GIVEN. PT VERBALIZED UNDERSTANDING. DENIES ANY NEEDS. NO S/S OF DISTRESS. WILL CPOC
[2019-03-20 07:58] VITALS: BP 99/61
[2019-03-20 12:45] VITALS: BP 108/56
--- NOTE | 2019-03-20 13:36 | NUR ---
ECHO COMPLETED AT BS. WILL CONT. PLAN OF CARE.
[2019-03-20 16:15] VITALS: BP 96/61
--- NOTE | 2019-03-20 19:25 | NUR ---
REPORT RECIEVED AND ROUNDING COMPLETE. PATIENT LAYING IN BED, A&O X4. PATIENTS DAUGHTER AT BEDSIDE. PATIENT STATES HE IS AWAITING HIS BLOOD TRANSFION. PATIENT HAS A RIGHT WRIST THAT IS SALIN LOCKED AT THIS TIME WITH NO S/SX OF INFILTRATION OR INFECTION. PATIENT IS HARD OF HEARING, WEAR HEARING AIDS. PATIENT IS SHOWING NO S/SX OF DISTRESS AT THIS TIME CALL LIGHT WITH IN REACH AND BED IN LOWEST LOCKED POSITION.
[2019-03-20 20:00] VITALS: BP 100/68
[2019-03-21 00:34] VITALS: BP 112/68; BP 146/73
--- NOTE | 2019-03-21 04:00 | NUR ---
I have reviewed this patient and I concur with the Shift Assessment completed by the Licensed Practical Nurse today this shift.
[2019-03-21 05:01] VITALS: BP 113/63
[2019-03-21 06:55] LABS: BASOPHILS 0.1 % (0-2); EOSINOPHILS 3.2 % (0-7); IMMATURE GRANULOCYTES 0.1 % (0-5); LYMPHOCYTES 9.5 % (15-50); MCH 27.9 pg (26.0-34.0); MEAN PLATELET VOLUME 9.2 fL (7.4-10.4); MONOCYTES 8.5 % (2-11); NEUTROPHILS 78.6 % (40-80); PLATELET COUNT 160 10x3/uL (130-400); RDW 15.6 % (11.5-14.5)
[2019-03-21 07:01] LABS: ANION GAP 13.4 mmol/L (8-16); CALCIUM 8.5 mg/dL (8.5-10.1); CARBON DIOXIDE 24.5 mmol/L (21.0-32.0); CREATININE - SERUM 1.8 mg/dL (0.6-1.3); MAGNESIUM - SERUM 1.9 mg/dL (1.8-2.4); PHOSPHOROUS 3.7 mg/dL (2.5-4.9); POTASSIUM - SERUM 3.9 mmol/L (3.5-5.1)
[2019-03-21 07:07] LABS: HEMATOCRIT 30.6 % (42.0-54.0); HEMOGLOBIN 9.8 g/dL (13.5-17.5); MCV 87.2 fL (80.0-100.0); RBC 3.51 10x6/uL (4.20-6.10); WBC 7.5 10x3/uL (4.8-10.8)
--- NOTE | 2019-03-21 07:30 | NUR ---
ASSESSMENT COMPLETED. ALERT AND ORIENTED. TELEMERTY SHOWS PACED RHYTHM. PT CAN BE UP WITH ASSIST. USES A URINAL. RIGHT WRIST SL DENIES ANY FUTHER DISCOMFORT. WILL MONITOR
[2019-03-21 08:57] VITALS: BP 114/57
[2019-03-21] MEDS ORDERED: RANEXA500 MG PO (11:52)
[2019-03-21 13:07] VITALS: BP 101/62
--- NOTE | 2019-03-21 15:34 | MORECARE ---
CASE MANAGEMENT DISCHARGE SUMMARY PATIENT: REBEKAH JAMIL UNIT: [id number] ADM DATE: 03/20/19 AGE: 88 : 31 SEX: M ROOM/BED: D.212 AUTHOR: SARAIDOC PHYSICIAN: REFERRING PHYSICIAN: JOHNNY DUMAS MD DATE OF SERVICE: 03/21/19 Discharge Plan Patient Name: REBEKAH JAMIL Facility: [facility]:[place] : 1930 Planned Disposition: Home with Home Health Anticipated Discharge Date: 03/21/19 Discharge Date: Expected LOS: 1 Initial Reviewer: [email or web address] Initial Review Date: 03/21/2019 Generated: 03/21/19 4:33 pm DCPIA - Discharge Planning Initial Assessment Updated by [email or web address]: Tomi Snow on 03/21/19 3:33 pm * Is the patient Alert and Oriented? Yes * How many steps to enter\exit or inside your home? RAMP * PCP DR. KRISHNAMURTHY * Pharmacy [facility] IN [place] * Preadmission Environment Home with Family * ADLs Partial Dependent * Partial ADLs (Assistance needed) Medication Management * Equipment Rolling Walker Shower Chair Walker * Other Equipment NO MEDICAL EQUIPMENT PROVIDER * List name and contact numbers for known caregivers / representatives who currently or will assist patient after discharge: ANAT JAMIL, DAUGHTER, OSMANI GOMES * Verbal permission to speak to the caregivers and representatives has been obtained from the patient. Yes * Community resources currently utilized Home Health * Please name any agencies selected above. [facility] * Additional services required to return to the preadmission environment? No * Can the patient safely return to the preadmission environment? Yes * Has this patient been hospitalized within the prior 30 days at any hospital? No Coverage Notice Review[facility] [email or web address] [facility] Notice Issued Date-Time: 03/20/2019 14:00 Notice Type: Medicare Outpatient Observation Notice Notice Delivered To: Family Member Relationship to Patient: Granddaughter Critical Care Cns Name: DANIELLE JAMIL Delivery Method: HAND - Hand Delivered Saira Days: Prior Verbal Notification: Recipient Understood Notice: Yes Recipient Signature: Yes Med Rec Note Co-signed by Attending: Coverage Notice Comment: ROHAN DISCUSSED WITH PATIENT AND GRAND DAUGHTER AFTER VERBAL PERMIISSION RECEIVED. Reviewer: [id number] - Tomi Snow Notice Issued Date-Time: 03/21/2019 12:55 Notice Type: IM Discharge Notice Notice Delivered To: Patient Relationship to Patient: Critical Care Cns Name: Delivery Method: HAND - Hand Delivered Saira Days: Prior Verbal Notification: Recipient Understood Notice: Yes Recipient Signature: Yes Med Rec Note Co-signed by Attending: Coverage Notice Comment: [facility] Patient Name: REBEKAH JAMIL Page [phone] at 1534 All edits/amendments must be made on the electronic document DICTATION DATE: 03/21/19 1533 ENERGY CONSERVATION DIRECTOR: TYRONE 03/21/19 1533 RPT#: [id number] DC DATE: STATUS: ADM IN [facility] [address] [place] [address] END OF REPORT
--- NOTE | 2019-03-21 15:58 | MORECARE ---
CASE MANAGEMENT DISCHARGE SUMMARY PATIENT: REBEKAH JAMIL UNIT: [id number] ADM DATE: 03/20/19 AGE: 88 : 31 SEX: M ROOM/BED: D.7957 AUTHOR: SARAI,DOC PHYSICIAN: REFERRING PHYSICIAN: JOHNNY DUMAS MD DATE OF SERVICE: 03/21/19 Discharge Plan Patient Name: REBEKAH JAMIL Facility: [facility]:[place] : 1930 Planned Disposition: Home with Home Health Anticipated Discharge Date: 03/21/19 Discharge Date: Expected LOS: 1 Initial Reviewer: [email or web address] Initial Review Date: 03/21/2019 Generated: 03/21/19 4:57 pm Comments DCP- Discharge Planning Updated by [email or web address]: Tomi Snow on 03/21/19 2:[address] Patient Name: REBEKAH JAMIL Admission Status: ER Accout number: [id number] Admission Date: 03-20-2019 : 1930 Admission Diagnosis: Attending: JOHNNY DUMAS Current LOS: 1 Anticipated DC Date: 03-21-2019 Planned Disposition: Home with Home Health Primary Insurance: MEDICARE A & B PLANNED EXTERNAL PROVIDER: [facility] Discharge Planning Comments: CM MET WITH PT IN ROOM TO DISCUSS DISCHARGE PLANNING AND NEEDS. PT REPORTS LIVING AT HOME INDEPENDENTLY WITH FAMILY, PT REPORTS HIS DAUGHTER ASSISTS WITH MEDICATION MANAGEMENT. PT HAS ROLLING WALKER AND SHOWER STOOL THAT HE DOES NOT USE; PT HAS STANDARD WALKER WITH NO MEDICAL EQUIPMENT PROVIDER PREFERENCE. PT HAS [facility] FOR NURSING ONLY AT THIS TIME THERAPY STOPPED ALREADY. PT HAS NO OTHER OUTSIDE SERVICES ASSISTING IN THE HOME. CM DISCUSSED AVAILABILITY OF HOME HEALTH, REHAB SERVICES AND MEDICAL EQUIPMENT. PT DENIES DISCHARGE NEEDS OTHER THAN HOME HEALTH RESUMPTION, REPORTS HIS GRANDDAUGHTER WILL PICK HIM UP FOR DISCHARGE HOME. CM CALLED [facility], , SPOKE TO MARLEY WHO INFORMED CM THAT THEY WILL RESUME PT'S HOME HEALTH AND WILL VISIT ON MONDAY. CM FAXED REFERRAL AND DISCHARGE INFORMATION TO [employer] AT [phone]. CSR TECHNICIAN NURSE NOTIFIED. Call Out Clerk: Tomi Snow DCPIA - Discharge Planning Initial Assessment Updated by [email or web address]: Tomi Snow on 03/21/19 3:33 pm * Is the patient Alert and Oriented? Yes * How many steps to enter\exit or inside your home? RAMP * PCP DR. KRISHNAMURTHY * Pharmacy [facility] IN [place] * Preadmission Environment Home with Family * ADLs Partial Dependent * Partial ADLs (Assistance needed) Medication Management * Equipment Rolling Walker Shower Chair Walker * Other Equipment NO MEDICAL EQUIPMENT PROVIDER * List name and contact numbers for known caregivers / representatives who currently or will assist patient after discharge: ANAT JAMIL, DAUGHTER, OSMANI GOMES * Verbal permission to speak to the caregivers and representatives has been obtained from the patient. Yes * Community resources currently utilized Home Health * Please name any agencies selected above. [facility] * Additional services required to return to the preadmission environment? No * Can the patient safely return to the preadmission environment? Yes * Has this patient been hospitalized within the prior 30 days at any hospital? No Coverage Notice Reviewer: [id number] [place] Notice Issued Date-Time: 03/20/2019 14:00 Notice Type: Medicare Outpatient Observation Notice Notice Delivered To: Family Member Relationship to Patient: Granddaughter Auto Leasing Manager Name: DANIELLE JAMIL Delivery Method: HAND - Hand Delivered Saira Days: Prior Verbal Notification: Recipient Understood Notice: Yes Recipient Signature: Yes Med Rec Note Co-signed by Attending: Coverage Notice Comment: MADRIGAL DISCUSSED WITH PATIENT AND GRAND DAUGHTER AFTER VERBAL PERMIISSION RECEIVED. Reviewer: [id number] - Tomi Snow Notice Issued Date-Time: 03/21/2019 12:55 Notice Type: IM Discharge Notice Notice Delivered To: Patient Relationship to Patient: Auto Leasing Manager Name: Delivery Method: HAND - Hand Delivered Saira Days: Prior Verbal Notification: Recipient Understood Notice: Yes Recipient Signature: Yes Med Rec Note Co-signed by Attending: Coverage Notice Comment: [facility] Last DP export: 03/21/19 2:34 p Patient Name: REBEKAH JAMIL Page [phone] at 1558 All edits/amendments must be made on the electronic document DICTATION DATE: 03/21/191556 PROJECT TECHNICIAN: TYRONE 03/21/19 1556 RPT#: [id number] DC DATE: STATUS: ADM IN [facility] [address] [place] [address] END OF REPORT
--- NOTE | 2019-03-21 16:16 | NUR ---
PT DISCHARGED. IV DCD WITH TIP INTACT. INSTRUCTIONS GIVEN TO PT, TO PRIVATE CAR PER WHEELCHAIR
--- NOTE | 2019-03-24 09:24 | EC ---
PATIENT:REBEKAH JAMIL DATE OF SERVICE: 03/20/19 SEX: M MEDICAL RECORD: [id number] DATE OF : 32 LOCATION:D.M2 D.212 AGE OF PATIENT: 88 ADMISSION DATE: 03/20/19 REFERRING PHYSICIAN: INTERPRETING PHYSICIAN: GEORGE VALENCIA MD ECHOCARDIOGRAM REPORT ECHO CHARGES 4 ECHO COMPLETE Date: 03/20/19 CLINICAL DIAGNOSIS: N-STEMI ECHOCARDIOGRAPHIC MEASUREMENTS (adult normal given) AC root (d.<3.7cm) 3.4 cm LV Septum d (<1.2 cm> 1.4 cm Valve Excursion 0.9 cm LV Septum (systole) 2.3 cm Left Atria (s.<4.0cm> 5.0 cm LVPW d(<1.2cm) 1.4 cm RV (d.<2.3cm) 3.7 cm LVPW (sytole) 1.9 cm LV diastole(<5.6CM) 6.8 cm MV E-F(>70mm/sec) cm LV systole 4.4 cm LVOT Diameter 2.1 cm MV exc.(>10mm) cm Est.ejection fraction (50-75%) % DOPPLER: LVIT cm/sec A cm/sec E 161 cm/sec LA cm/sec RVSP 54.3 mmHg LVOT 86.0 cm/sec AOP1/2T m/s Asc. Ao 262 cm/sec RVOT 56.0 cm/sec RA cm/sec PA 76.0 cm/sec AV Gradient Peak 28.0 mmHg AV Mean 13.0 mmHg AV Area 1.1 cm MV Gradient Peak 12.0 mmHg MV Mean 3.6 mmHg MV Area cm COMMENTS: Barrel Driller: 1 HUSAM MCARTHUROE Culinary Artist: 3 Dr. Roy TAPE# PACS Pericardial Effusion Y DATE OF SERVICE: Adequate 2-D echo, color-flow and spectral Doppler, and M-mode. LVH is present. LV internal dimensions are normal. 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 Aortic valve sclerosis with mild restriction of leaflet motion. Peak gradient is 28 mmHg, putting this in the probable mild range. Left atrium is mildly dilated at 5.0 cm. Mitral valve shows no prolapse. Xtlr-er-eswoopsh MR. Right-sided chambers are grossly normal. Moderate TR. ECHOCARDIOGRAM REPORT [id number] REBEKAH JAMIL TRANSINT:[id number] Voice Confirmation ID: [id number] DOCUMENT ID: [id number] GEORGE VALENCIA MD at 0924 CC: [id number] DICTATION DATE: 03/21/19 1237 TELEVISION TECHNICIAN: 03/21/19 1258 DIS IN 03/21/19 [facility] [address] [place] [id number]
--- NOTE | 2019-03-24 09:24 | CN ---
PATIENT NAME:REBEKAH JAMIL MEDICAL RECORD: [id number] : 32 LOCATION:[facility] D.2122 ADMIT DATE: 03/20/19 ACCOUNT: [id number] CONSULTING PHYSICIAN: GEORGE VALENCIA MD REFERRING PHYSICIAN: JOHNNY DUMAS MD DATE OF CONSULTATION: 03/20/2019 HISTORY OF PRESENT ILLNESS: An 88-year-old gentleman with a history of coronary artery disease, status post has chronic anemia at this point, transfusion dependent with hemoglobin as low as 5.7 on 02/11/2019, admission hemoglobin 8.4, currently 7.8, admitted with acute coronary syndrome and anemia, chest tightness, pressure certainly consistent with angina. We are asked to see him concerning his cardiovascular status. PAST MEDICAL HISTORY: Includes: 1. History of GI bleed. 2. Coronary artery disease as described above. 3. Cardiomyopathy. 4. Permanent pacemaker placement. ALLERGIES: None known. MEDICATIONS: Include Flomax 0.4 every day, Plavix 75 every day, iron supplementation, pravastatin 80 every day, potassium supplementation, Pepcid 40 every day, Zofran 4 every day, aspirin 81 every day. SOCIAL HISTORY: Nonsmoker, nondrinker. He is able to take care of his ADLs. REVIEW OF SYSTEMS: The patient reports easy bruising but reports no swollen glands. The patient reports no fever, no night sweats, no significant weight gain, no significant weight loss. No significant exercise tolerance. The patient reports no dry eyes, no irritation, no vision change. Patient reports no difficulty hearing and no ear pain. Patient reports no frequent nose bleeds or nose and sinus problems. Patient reports on arm pain on exertion. No shortness of breath while lying down. No history of heart murmur. Patient reports no cough, no wheezing or coughing up blood. Patient reports no abdominal pain, no vomiting. Normal appetite. No diarrhea and not vomiting blood. No nausea and no constipation. Patient reports no incontinence. No difficulty urinating. No hematuria. No increased frequency. Patient reports no muscle aches. No weakness, no arthralgias, no back pain. No swelling of the extremities. Patient reports no abnormal mole, no jaundice, no rashes. Reports no loss of consciousness. No weakness and no numbness. No seizures, dizziness, or headaches. The patient reports no depression, no sleep disturbance, feeling safe in a relationship and no alcohol abuse. Patient reports on fatigue. Reports no runny nose or sinus pressure. No itching, no hives, and no frequent sneezing. PHYSICAL EXAMINATION: GENERAL: Elderly gentleman in no acute distress. VITAL SIGNS: Blood pressure 99/61, pulse 76 and regular. HEENT: Normocephalic, atraumatic. NECK: No JVD or bruit. HEART: Regular, II/ systolic ejection murmur, certainly could be Still's murmur with anemia. LUNGS: Good air excursion. CONSULT REPORT [id number] REBEKAH JAMIL ABDOMEN: Soft, nontender. EXTREMITIES: Pulses 2+ with no edema. DIAGNOSTIC DATA: ECG without acute change. IMPRESSION: Acute coronary syndrome, given transfusion dependency basically at this point. Try to manage medically initially. We will start Ranexa. If blood pressure tolerates, could add long-acting nitrates, reserve intervention for intractable angina at this point. We will check an x-ray. TRANSINT:[id number] Voice Confirmation ID: [id number] DOCUMENT ID: [id number] GEORGE VALENCIA MD at 0924 CC: [id number] DICTATION DATE: 03/20/19 0855 RADIO INSTALLER AUTOMOBILE: 03/20/19 1054 DIS IN 03/21/19 [id number] [place] [address]
== END 2019-03-21 17:18 | disposition home health service (06) | DRG 292 ==
LOC: D.ER 08:37 → D.M2 15:55 → OBSVTIME 15:55 → D.M2 15:55
PROVIDERS: Family Medicine; ADMIT Internal Medicine Nephrology; ATTEND Internal Medicine Nephrology
DX: I13.0 Hypertensive heart and chronic kidney disease with heart failure and stage 1 through stage 4 chronic kidney disease, or unspecified chronic kidney disease (principal); I24.9 Acute ischemic heart disease, unspecified; I50.20 Unspecified systolic (congestive) heart failure; N17.9 Acute kidney failure, unspecified; I25.110 Atherosclerotic heart disease of native coronary artery with unstable angina pectoris; D64.9 Anemia, unspecified; E11.22 Type 2 diabetes mellitus with diabetic chronic kidney disease; N18.3 Chronic kidney disease, stage 3 (moderate); D46.9 Myelodysplastic syndrome, unspecified; E11.65 Type 2 diabetes mellitus with hyperglycemia; K21.9 Gastro-esophageal reflux disease without esophagitis; Z87.891 Personal history of nicotine dependence

== ENCOUNTER → 2019-03-25 17:10 | Outpatient (CLI) | payer MEDICARE, BC ==
[2019-03-19 16:52] VITALS: BMI 25.1
[~2019-03-25 17:10] MED LIST changes: +RANEXA500 MG PO
[2019-03-25 22:21] LABS: BASOPHILS 0.4 % (0-2); EOSINOPHILS 4.3 % (0-7); HEMATOCRIT 31.2 % (42.0-54.0); HEMOGLOBIN 9.7 g/dL (13.5-17.5); IMMATURE GRANULOCYTES 0.3 % (0-5); MCH 27.6 pg (26.0-34.0); MCHC 31.1 g/dL (31.0-37.0); MCV 88.9 fL (80.0-100.0); MEAN PLATELET VOLUME 9.3 fL (7.4-10.4); MONOCYTES 5.8 % (2-11); NEUTROPHILS 78.2 % (40-80); RBC 3.51 10x6/uL (4.20-6.10); RDW 15.6 % (11.5-14.5); WBC 7.8 10x3/uL (4.8-10.8)
[2019-03-25 22:28] LABS: PLATELET COUNT 230 10x3/uL (130-400)
== END | disposition home or self-care (01) ==
LOC: D.LABREF 17:10
PROVIDERS: ATTEND Legal Medicine
DX: I25.10 Atherosclerotic heart disease of native coronary artery without angina pectoris (principal); I50.23 Acute on chronic systolic (congestive) heart failure; I13.0 Hypertensive heart and chronic kidney disease with heart failure and stage 1 through stage 4 chronic kidney disease, or unspecified chronic kidney disease; N18.9 Chronic kidney disease, unspecified

== ENCOUNTER → 2019-04-01 17:00 | Outpatient (CLI) | payer MEDICARE, BC ==
[2019-03-19 16:52] VITALS: BMI 25.1
[2019-04-01 17:15] LABS: BASOPHILS 0.4 % (0-2); HEMATOCRIT 26.5 % (42.0-54.0); HEMOGLOBIN 8.2 g/dL (13.5-17.5); IMMATURE GRANULOCYTES 0.2 % (0-5); LYMPHOCYTES 10.8 % (15-50); MCHC 30.9 g/dL (31.0-37.0); MCV 87.2 fL (80.0-100.0); NEUTROPHILS 80.6 % (40-80); PLATELET COUNT 265 10x3/uL (130-400); RBC 3.04 10x6/uL (4.20-6.10); RDW 15.9 % (11.5-14.5); WBC 9.1 10x3/uL (4.8-10.8)
== END | disposition home or self-care (01) ==
LOC: D.LABREF 17:00
PROVIDERS: ATTEND Legal Medicine
DX: I25.10 Atherosclerotic heart disease of native coronary artery without angina pectoris (principal); I13.0 Hypertensive heart and chronic kidney disease with heart failure and stage 1 through stage 4 chronic kidney disease, or unspecified chronic kidney disease; I09.81 Rheumatic heart failure; I50.23 Acute on chronic systolic (congestive) heart failure

== ENCOUNTER → 2019-04-09 14:27 | Outpatient (CLI) | payer MEDICARE, BC ==
[2019-03-19 16:52] VITALS: BMI 25.1
[2019-04-09 14:44] LABS: BASOPHILS 0.6 % (0-2); EOSINOPHILS 3.6 % (0-7); HEMATOCRIT 26.2 % (42.0-54.0); HEMOGLOBIN 8.1 g/dL (13.5-17.5); IMMATURE GRANULOCYTES 0.1 % (0-5); MCH 27.1 pg (26.0-34.0); MCHC 30.9 g/dL (31.0-37.0); MCV 87.6 fL (80.0-100.0); MEAN PLATELET VOLUME 9.1 fL (7.4-10.4); MONOCYTES 5.9 % (2-11); NEUTROPHILS 78.8 % (40-80); PLATELET COUNT 225 10x3/uL (130-400); RBC 2.99 10x6/uL (4.20-6.10); RDW 16.1 % (11.5-14.5)
== END | disposition home or self-care (01) ==
LOC: D.LABREF 14:27
PROVIDERS: ATTEND Legal Medicine
DX: D64.9 Anemia, unspecified (principal); I25.10 Atherosclerotic heart disease of native coronary artery without angina pectoris; I09.81 Rheumatic heart failure; I13.0 Hypertensive heart and chronic kidney disease with heart failure and stage 1 through stage 4 chronic kidney disease, or unspecified chronic kidney disease

== ENCOUNTER → 2019-04-15 17:00 | Outpatient (CLI) | payer MEDICARE, BC ==
[2019-03-19 16:52] VITALS: BMI 25.1
[2019-04-15 17:25] LABS: BASOPHILS 0.3 % (0-2); EOSINOPHILS 4.9 % (0-7); IMMATURE GRANULOCYTES 0.1 % (0-5); LYMPHOCYTES 11.7 % (15-50); MCH 26.7 pg (26.0-34.0); MCHC 30.8 g/dL (31.0-37.0); MCV 86.7 fL (80.0-100.0); MEAN PLATELET VOLUME 9.4 fL (7.4-10.4); MONOCYTES 6.6 % (2-11); NEUTROPHILS 76.4 % (40-80); PLATELET COUNT 198 10x3/uL (130-400); RDW 16.6 % (11.5-14.5); WBC 7.2 10x3/uL (4.8-10.8)
== END | disposition home or self-care (01) ==
LOC: D.LABREF 17:00
PROVIDERS: ATTEND Legal Medicine
DX: D64.9 Anemia, unspecified (principal); I25.10 Atherosclerotic heart disease of native coronary artery without angina pectoris; N18.4 Chronic kidney disease, stage 4 (severe); I13.0 Hypertensive heart and chronic kidney disease with heart failure and stage 1 through stage 4 chronic kidney disease, or unspecified chronic kidney disease

== ENCOUNTER → 2019-04-22 18:54 | Outpatient (CLI) | payer MEDICARE, BC ==
[2019-03-19 16:52] VITALS: BMI 25.1
[2019-04-22 19:58] LABS: BASOPHILS 0.4 % (0-2); EOSINOPHILS 6.1 % (0-7); HEMATOCRIT 23.9 % (42.0-54.0); IMMATURE GRANULOCYTES 0.3 % (0-5); LYMPHOCYTES 12.1 % (15-50); MCH 26.3 pg (26.0-34.0); MCHC 30.5 g/dL (31.0-37.0); MONOCYTES 7.1 % (2-11); PLATELET COUNT 201 10x3/uL (130-400); RBC 2.78 10x6/uL (4.20-6.10); RDW 17.1 % (11.5-14.5); WBC 6.9 10x3/uL (4.8-10.8)
[2019-04-22 20:11] LABS: HEMOGLOBIN 7.3 g/dL (13.5-17.5)
== END | disposition home or self-care (01) ==
LOC: D.LABREF 18:54
PROVIDERS: ATTEND Family Medicine
DX: D64.9 Anemia, unspecified (principal); R60.0 Localized edema; R53.83 Other fatigue; R53.1 Weakness; D46.9 Myelodysplastic syndrome, unspecified; I49.5 Sick sinus syndrome

== ENCOUNTER 2019-04-23 10:06 | Outpatient (CLI) | payer MEDICARE, BC ==
[~2019-04-23] VITALS: Ht 182.9 cm; Wt 84.1 kg
[2019-04-23 11:11] VITALS: BP 110/67; Ht 182.9 cm; Wt 84.1 kg
--- NOTE | 2019-04-23 14:23 | NUR ---
1320 1ST UNIT BLOOD HAS COMPLETED, NO PROBLEMS NOTED, LINE BEING FLUSHED WITH NS. 1330 2ND UNIT CHECKED AT BEDSIDE BY THIS NURSE AND SUSIE SOLIS RN, INITATED AT 50/CC/HR. 1345. DENIES PROBLEMS WITH TRANSFUSION, RATE INCREASED TO 200/CC/HR. URINAL PROVIDED. MONITORING CONTINUES. CALL LIGHT AT BEDSIDE.
--- NOTE | 2019-04-23 14:39 | NUR ---
1415 URINAL EMPTIED OF 400CC YELLOW URINE. DENIES PROBLEMS. WATCHING TV. 1440 [facility] RETURNS TO ROOM. BLOOD INFUSING WELL.
--- NOTE | 2019-04-23 15:08 | NUR ---
1505 BLOOD HAS COMPLETED, DENIES PROBLEMS, LINE BEING FLUSHED WITH NS.
--- NOTE | 2019-04-23 15:52 | NUR ---
1535 DENIES PROBLEMS WITH TRANSFUSION, IV DC'D WITH CATH INTACT RELEASED IN WC WITH FAMILY.
== END 2019-04-23 15:38 | disposition home or self-care (01) ==
LOC: D.OPS 10:06
PROVIDERS: ATTEND Legal Medicine
DX: D64.9 Anemia, unspecified (principal); C94.6 Myelodysplastic disease, not elsewhere classified; R53.1 Weakness; R60.9 Edema, unspecified; I49.5 Sick sinus syndrome

== ENCOUNTER → 2019-04-29 20:31 | Outpatient (CLI) | payer MEDICARE, BC ==
[2019-04-23 11:11] VITALS: BMI 25.1
[2019-04-29 21:54] LABS: BASOPHILS 0.4 % (0-2); EOSINOPHILS 4.1 % (0-7); HEMATOCRIT 29.4 % (42.0-54.0); HEMOGLOBIN 9.1 g/dL (13.5-17.5); IMMATURE GRANULOCYTES 0.3 % (0-5); LYMPHOCYTES 13.9 % (15-50); MCH 27.2 pg (26.0-34.0); MCV 87.8 fL (80.0-100.0); MEAN PLATELET VOLUME 8.9 fL (7.4-10.4); MONOCYTES 8.3 % (2-11); PLATELET COUNT 234 10x3/uL (130-400); RBC 3.35 10x6/uL (4.20-6.10); WBC 7.6 10x3/uL (4.8-10.8)
== END | disposition home or self-care (01) ==
LOC: D.LABREF 20:31
PROVIDERS: ATTEND Legal Medicine
DX: D64.9 Anemia, unspecified (principal); I25.10 Atherosclerotic heart disease of native coronary artery without angina pectoris

== ENCOUNTER → 2019-05-06 14:07 | Outpatient (CLI) | payer MEDICARE, BC ==
[2019-04-23 11:11] VITALS: BMI 25.1
[2019-05-06 14:33] LABS: BASOPHILS 0.3 % (0-2); HEMATOCRIT 28.4 % (42.0-54.0); HEMOGLOBIN 8.5 g/dL (13.5-17.5); IMMATURE GRANULOCYTES 0.1 % (0-5); LYMPHOCYTES 14.2 % (15-50); MCH 26.7 pg (26.0-34.0); MCHC 29.9 g/dL (31.0-37.0); MCV 89.3 fL (80.0-100.0); MONOCYTES 8.8 % (2-11); NEUTROPHILS 73.6 % (40-80); PLATELET COUNT 241 10x3/uL (130-400); RBC 3.18 10x6/uL (4.20-6.10); RDW 16.7 % (11.5-14.5); WBC 7.1 10x3/uL (4.8-10.8)
== END | disposition home or self-care (01) ==
LOC: D.LABREF 14:07
PROVIDERS: ATTEND Legal Medicine
DX: D64.9 Anemia, unspecified (principal); I25.10 Atherosclerotic heart disease of native coronary artery without angina pectoris; I13.0 Hypertensive heart and chronic kidney disease with heart failure and stage 1 through stage 4 chronic kidney disease, or unspecified chronic kidney disease; I50.23 Acute on chronic systolic (congestive) heart failure

== ENCOUNTER → 2019-05-13 19:32 | Outpatient (CLI) | payer MEDICARE, BC ==
[2019-04-23 11:11] VITALS: BMI 25.1
[2019-05-13 19:42] LABS: BASOPHILS 0.2 % (0-2); EOSINOPHILS 2.2 % (0-7); HEMATOCRIT 27.1 % (42.0-54.0); HEMOGLOBIN 8.1 g/dL (13.5-17.5); IMMATURE GRANULOCYTES 0.2 % (0-5); LYMPHOCYTES 11.8 % (15-50); MCH 26.8 pg (26.0-34.0); MCHC 29.9 g/dL (31.0-37.0); MCV 89.7 fL (80.0-100.0); MEAN PLATELET VOLUME 9.5 fL (7.4-10.4); NEUTROPHILS 78.6 % (40-80); PLATELET COUNT 247 10x3/uL (130-400); RBC 3.02 10x6/uL (4.20-6.10); RDW 16.9 % (11.5-14.5); WBC 8.2 10x3/uL (4.8-10.8)
== END | disposition home or self-care (01) ==
LOC: D.LABREF 19:32
PROVIDERS: ATTEND Legal Medicine
DX: I09.81 Rheumatic heart failure (principal); I25.10 Atherosclerotic heart disease of native coronary artery without angina pectoris; I13.0 Hypertensive heart and chronic kidney disease with heart failure and stage 1 through stage 4 chronic kidney disease, or unspecified chronic kidney disease

== ENCOUNTER → 2019-05-20 19:49 | Outpatient (CLI) | payer MEDICARE, BC ==
[2019-04-23 11:11] VITALS: BMI 25.1
[2019-05-20 19:58] LABS: BASOPHILS 0.1 % (0-2); EOSINOPHILS 2.6 % (0-7); HEMATOCRIT 26.3 % (42.0-54.0); HEMOGLOBIN 7.7 g/dL (13.5-17.5); IMMATURE GRANULOCYTES 0.1 % (0-5); LYMPHOCYTES 10.7 % (15-50); MCH 26.3 pg (26.0-34.0); MCHC 29.3 g/dL (31.0-37.0); MCV 89.8 fL (80.0-100.0); MEAN PLATELET VOLUME 9.3 fL (7.4-10.4); MONOCYTES 7.7 % (2-11); NEUTROPHILS 78.8 % (40-80); PLATELET COUNT 221 10x3/uL (130-400); RBC 2.93 10x6/uL (4.20-6.10); RDW 17.3 % (11.5-14.5)
== END | disposition home or self-care (01) ==
LOC: D.LABREF 19:49
PROVIDERS: ATTEND Legal Medicine
DX: D64.9 Anemia, unspecified (principal); I13.0 Hypertensive heart and chronic kidney disease with heart failure and stage 1 through stage 4 chronic kidney disease, or unspecified chronic kidney disease; I25.10 Atherosclerotic heart disease of native coronary artery without angina pectoris; I50.23 Acute on chronic systolic (congestive) heart failure

== ENCOUNTER 2019-05-22 13:28 | Outpatient (CLI) | payer MEDICARE, BC ==
[~2019-05-22] VITALS: Ht 182.9 cm; Wt 86.4 kg
[2019-05-22 14:09] VITALS: BP 133/84; Ht 182.9 cm; Wt 86.4 kg
--- NOTE | 2019-05-22 19:06 | NUR ---
184 IV REMOVED AND PRESSURE HELD AND DRESSING APPLIED. INSTRUCTIONS GIVEN
== END 2019-05-22 18:55 | disposition home or self-care (01) ==
LOC: D.OPS 13:28
PROVIDERS: ATTEND Legal Medicine
DX: D64.9 Anemia, unspecified (principal); R60.0 Localized edema; R53.83 Other fatigue

== ENCOUNTER 2019-07-10 09:37 | Outpatient (CLI) | payer MEDICARE, BC ==
[2019-05-22 14:09] VITALS: BMI 25.8
== END 2019-07-10 14:54 | disposition home or self-care (01) ==
LOC: D.OPS 09:37
PROVIDERS: ATTEND Legal Medicine
DX: D64.9 Anemia, unspecified (principal); R60.9 Edema, unspecified; R53.83 Other fatigue; R53.1 Weakness; D46.9 Myelodysplastic syndrome, unspecified; I49.5 Sick sinus syndrome; T14.8XXA Other injury of unspecified body region, initial encounter

== ENCOUNTER 2019-08-14 10:06 | Outpatient (CLI) | payer MEDICARE, BC ==
[~2019-08-14] VITALS: Ht 182.9 cm; Wt 90.0 kg
[2019-08-14 11:46] VITALS: BP 123/54; Ht 182.9 cm; Wt 90.0 kg
--- NOTE | 2019-08-14 13:06 | NUR ---
1246 BLOOD GOING WELL, RATE INCREASED TO 200/CC/HR
--- NOTE | 2019-08-14 14:47 | NUR ---
1425 1425 1ST UNIT BLOOD HAS COMPLETED LINE BEING FLUSHED WITH NS. 1443 2ND UNIT BLOOD CHECKED AT BEDSIDE BY THIS NURSE AND SUSIE SOLIS RN INITATED AT 50/CC/HR. FAMILY AT BEDSIDE. DENIES PROBLEMS PT. HAS VOIDED IN URINAL.
--- NOTE | 2019-08-14 17:29 | NUR ---
1700 LINE CLEAR IV DC'D WITH CATH INTACT. PT. VOIDED 300CC URINE. DC INSTS GIVEN VOICED UNDERSTANDING RELEASED IN WC HAS DIRECTOR OUTPATIENT SERVICES HOME.
== END 2019-08-14 17:15 | disposition home or self-care (01) ==
LOC: D.OPS 10:06
PROVIDERS: ATTEND Legal Medicine
DX: D64.9 Anemia, unspecified (principal); T14.8XXA Other injury of unspecified body region, initial encounter; R60.0 Localized edema; R53.83 Other fatigue; R53.1 Weakness; D46.9 Myelodysplastic syndrome, unspecified; I49.5 Sick sinus syndrome

== ENCOUNTER 2019-09-25 17:58 | Inpatient (IN) | payer OTHER ==
[~2019-09-25] VITALS: Ht 182.9 cm; Wt 85.5 kg
[~2019-09-25 17:58] MED LIST changes: +ALBUTEROL2.5 MG/3 M INH; +AUGMENTIN 875-11 TAB PO; +IPRAT-ALBUT 0.5-3 ML INH; +MEGACE40 MG PO; +NITRO-DUR0.2 MG TRANSDERM; +ONCOLOGY MOUTHWASH PO; +PREDNISONE10 MG PO; +TESSALON PERLE100 MG PO
[2019-09-25 19:00] VITALS: BP 74/54
--- NOTE | 2019-09-25 19:00 | NUR ---
Report received from off going nurse. Pt is resting in bed with family at bedside at this time. Admission assessment completed at this time by dayshift RN. No s/s of distress noted. Will continue to monitor.
[2019-09-25 20:00] VITALS: BP 62/47
[2019-09-25 20:01] VITALS: BP 74/55; Ht 182.9 cm; Wt 85.5 kg
--- NOTE | 2019-09-25 20:25 | NUR ---
Morphine DISPATCHER TOW TRUCK set up at this time for patient comfort per orders.
[2019-09-25 21:00] VITALS: BP 73/62
--- NOTE | 2019-09-25 21:00 | NUR ---
Pt is resting in bed with family at bedside at this time. No s/s of distress. Will continue to monitor.
[2019-09-25 22:00] VITALS: BP 68/51
[2019-09-25 23:00] VITALS: BP 75/48
--- NOTE | 2019-09-25 23:00 | NUR ---
Reassessment completed, see flowsheet for details. Pt is laying in bed with eyes closed. Family present at bedside. No needs noted at this time. Will continue to monitor.
[2019-09-26] VITALS (9 sets, daily range): BP systolic 56–137; BP diastolic 41–88
--- NOTE | 2019-09-26 01:00 | NUR ---
Pt is laying in bed with eyes closed. NO needs noted at this time. Family is present at bedside. NO s/s of distress. Will continue to monitor.
--- NOTE | 2019-09-26 03:00 | NUR ---
Pt is laying in bed with eyes closed. NO needs noted. Family present at bedside. No s/s of distress. Will continue to monitor.
--- NOTE | 2019-09-26 05:00 | NUR ---
Pt is laying in bed with eyes closed. No s/s of distress. Will continue to monitor.
--- NOTE | 2019-09-26 09:34 | MORECARE ---
CASE MANAGEMENT DISCHARGE SUMMARY PATIENT: REBEKAH JAMIL UNIT: [id number] ADM DATE: 09/25/19 AGE: 88 : 31 SEX: M ROOM/BED: D.2316 AUTHOR: EUGENIA MOON PHYSICIAN: REFERRING PHYSICIAN: LIZZIE SHEARER MD DATE OF SERVICE: 09/26/19 Discharge Plan Patient Name: REBEKAH JAMIL Facility: [facility]:[place] : 1930 Planned Disposition: Anticipated Discharge Date: Discharge Date: Expected LOS: Initial Reviewer: [email or web address] Initial Review Date: 09/25/2019 Generated: 09/26/19 10:33 am Comments DCP- Discharge Planning Updated by [email or web address]: Heather Zuleta on 09/26/19 8:[address] [facility] GIP ADMIT DCPIA - Discharge Planning Initial Assessment Updated by [email or web address]: Heather Zuleta on 09/26/19 9:33 am * How many steps to enter\exit or inside your home? Patient Name: REBEKAH JAMIL Page [phone] at 0934 All edits/amendments must be made on the electronic document DICTATION DATE: 09/26/19932 DRAW OFF WORKER: TYRONE 09/26/19932 RPT#: [id number] DC DATE: STATUS: ADM IN [facility] [address] [place] [address] END OF REPORT
--- NOTE | 2019-09-26 11:00 | NUR ---
REGIS GREEN FROM [facility] CALLED. UPDATE GIVEN.
--- NOTE | 2019-09-26 15:00 | NUR ---
REGIS GREEN FROM [facility] IN HOSPITAL VISITING PT. [facility] CALLED FOR UPDATE ON PT. UPDATE PROVIDED. WILL CONTINUE TO MONITOR
--- NOTE | 2019-09-26 20:24 | NUR ---
PT RESTING CALMLY IN BED. FAMILY AT BEDISIDE. NO SIGNS OF DISTRESS NOTED. WILL CONTINUE TO MONITOR.
--- NOTE | 2019-09-26 20:47 | NUR ---
PT FAMILY CONCERNED WITH BREATHING. PT CLUTCHING CHEST. RR 21. BOLUS 2 MG MORPHINE FAMILY PRACTICE MEDICAL DOCTOR. WILL CONTINUE TO MONITOR.
--- NOTE | 2019-09-26 21:37 | NUR ---
PT RESTING CALMLY IN BED. FAMILY AT BEDSIDE. NO S&S OF DISTRESS NOTED. WILL CONTINUE TO MONITOR.
--- NOTE | 2019-09-26 22:50 | NUR ---
PT CLUTCHING CHEST. PT REQUEST ANOTHER BOLUS MORPHINE TYPEWRITER OPERATOR AUTOMATIC 2MG. WILL CONTINUE TO MONITOR.
--- NOTE | 2019-09-27 00:50 | NUR ---
PT RESTING CALMLY. FAMILY AT BEDSIDE. NO DISTRESS NOTED. WILL CONTINUE TO MONITOR
--- NOTE | 2019-09-27 01:02 | NUR ---
PT RESTLESS GRABBING AT LINES AND GRUNTING. ADMINISTERED 2 MG BOLUS EXPANDER MACHINE OPERATOR. WILL CONTINUE TO MONITOR.
[2019-09-27 02:54] VITALS: BP 65/43
--- NOTE | 2019-09-27 02:56 | NUR ---
PT RESTING IN BED WITH EYES CLOSED. FAMILY AT BEDSIDE. NO S&S OF DISTRESS. WILL CONTINUE TO MONITOR
[2019-09-27 07:00] VITALS: BP 57/40
[2019-09-27 07:02] VITALS: BP 65/43
--- NOTE | 2019-09-27 09:30 | NUR ---
[facility] IN ROOM VISITING WITH FAMILY AND PT.
--- NOTE | 2019-09-27 10:03 | NUR ---
PT HAD A BM. CLEANED UP AND GIVEN A CHG BATH.
--- NOTE | 2019-09-27 11:23 | NUR ---
PT WENT ASYSTOLE AND PUSELESS. NO BREATH SOUNDS ASCULTATED. FAMILY AT THE PTS BEDSIDE. [facility] NOTIFIED. THEY ARE ON THE WAY TO [place]. [facility] NOTIFIED.
--- NOTE | 2019-09-27 11:57 | NUR ---
DR INIGUEZ IN UNIT. PRONOUNCED BY DR INIGUEZ.
--- NOTE | 2019-09-27 12:52 | NUR ---
IV ACCESS PULLED. CHEST TUBE AND CATHETER BOTH HAVE BEEN REMOVED. HOSPICE NURSE AT BEDSIDE. FACE SHEET PRINTED AND A COPY OF THE RECORD OF HAS BEEN MADE.
--- NOTE | 2019-09-27 15:08 | MORECARE ---
CASE MANAGEMENT DISCHARGE SUMMARY PATIENT: REBEKAH JAMIL UNIT: [id number] ADM DATE: 09/25/19 AGE: 88 : 31 SEX: M ROOM/BED: D.2316 AUTHOR: EUGENIA MOON PHYSICIAN: REFERRING PHYSICIAN: LIZZIE SHEARER MD DATE OF SERVICE: 09/27/19 Discharge Plan Patient Name: REBEKAH JAMIL Facility: [facility]:[place] : 1930 Planned Disposition: Anticipated Discharge Date: Discharge Date: 09/27/2019 Expected LOS: Initial Reviewer: [email or web address] Initial Review Date: 09/25/2019 Generated: 09/27/19 4:07 pm Comments DCP- Discharge Planning Updated by [email or web address]: Heather Zuleta on 09/26/19 8:[address] [facility] GIP ADMIT DCPIA - Discharge Planning Initial Assessment Updated by [email or web address]: Heather Zuleta on 09/26/19 9:33 am * How many steps to enter\exit or inside your home? Last DP export: 09/26/19 8:34 a Patient Name: REBEKAH JAMIL Page [phone] at 1508 All edits/amendments must be made on the electronic document DICTATION DATE: 09/27/19 1507 TELECOMMUNICATIONS CLERK: TYRONE 09/27/19 1507 RPT#: [id number] DC DATE:09/27/19 STATUS: DIS IN [facility] [address] [place] [address] END OF REPORT
== END 2019-09-27 14:30 | DRG 951 ==
LOC: D.ICU 17:58
PROVIDERS: ADMIT Legal Medicine; ATTEND Legal Medicine
DX: Z51.5 Encounter for palliative care (principal)